=== PATIENT | male | born 1955 | race Caucasian/White ===

== ENCOUNTER 2020-07-31 06:54 | Outpatient (NON) | payer OTHER, SELFPAY ==
[2020-08-01 00:45] LABS: SARS-CoV-2 RNA PCR Negative
== END 2020-07-31 06:55 ==
LOC: ANHCOVIDDT 07:17
PROVIDERS: PCP Emergency Medicine; Visit Provider Emergency Medicine
DX: Z20.828 Contact with and (suspected) exposure to other viral communicable diseases (principal)
CPT/HCPCS: 87635; C9803; U0003

== ENCOUNTER 2021-07-26 20:15 | Observation (INO) | payer OTHER, SELFPAY ==
--- NOTE | ~2021-07-26 | XR_ITS ---
EXAMINATION: XR soft tissue neck EXAM DATE: 07/28/2021 17:33 INDICATION: neck pain, history of prostate CA. TECHNIQUE: Frontal and lateral projections of the neck soft tissue. Comparison is made to prior exam ination from 09/27/2019. FINDINGS: Some prominent opacity overlying the nasopharynx, but prevertebral shadow is identified th rough this and is normal. Could be some kind of technical artifact-I did speak with Summer Ly MD who states patient did not have any sore throat, complaints were more musculoskeletal posteriorly. The odontoid process is intact. The lateral masses of C1 line up with C2. There is mild upper thorac ic levoscoliosis. There is mild to moderate disc disease at C5-6 and 6-7. There is overall mild to mo derate cervical arthropathy. Lung apices are clear. IMPRESSION: 1. Mild to moderate cervical spondylosis. 2. Oropharyngeal soft tissue density which could be something projectional or phasic given absence of symptoms. Consider correlating with direct visualization. Reviewed, dictated and finalized at location A. Y LOOM FIXER IMPRESSION: 1. Mild to moderate cervical spondylosis. 2. Oropharyngeal soft tissue density which could be something projectional or p hasic given absence of symptoms. Consider correlating with direct visualization .
--- NOTE | ~2021-07-26 | MR_ITS ---
EXAMINATION: MR brain/brain stem wo con DATE: 07/28/2021 12:09 INDICATION: Cerebral vascular accident. Left arm numbness. TECHNIQUE: Magnetic resonance imaging (MRI) of the brain and brainstem was performed without intraven ous contrast. Sequences included sagittal and axial T1-weighted FSE, axial diffusion-weighted FS EPI, axial T2*-weighted GRE, axial T2-weighted FLAIR Propeller, and axial T2-weighted Propeller. Apparent diffusion coefficient (ADC) maps were created. COMPARISON: Head CT 07/26/2021 FINDINGS: There is an acute infarct involving the right occipital lobe. There is an acute infarct inv olving the right thalamus. There is no intracranial hemorrhage or abnormal mass lesion. There are sca ttered areas of nonspecific increased T2-weighted signal intensity in the cerebral white matter, whic h is within normal limits for the patient's age. The ventricles are normal in size. The mastoid air c ells are normal. The orbits are normal. There is mucosal thickening in the paranasal sinuses. IMPRESSION: 1. Acute infarcts in the right occipital lobe and right thalamus. Reviewed, dictated and finalized at location A. GHT CLAIM INVESTIGATOR
--- NOTE | ~2021-07-26 | US_ITS ---
EXAMINATION: US carotid duplex BI DATE: 07/28/2021 12:31 INDICATION: Acute infarcts in the right occipital lobe and right thalamus. TECHNIQUE: Grayscale, color Doppler, and pulsed Doppler images of the cervical carotid arteries were obtained. The degree of vessel stenosis is placed in one of the following categories: normal, <50%, 5 0-69%, >=70% but less than near-occlusion, near-occlusion, or total occlusion. Note that percent sten osis relative to normal distal artery lumen diameter is indirectly measured from velocity measurement s as described by John, et al. Radiology 2003; 229:340-346. COMPARISON: None. FINDINGS: RIGHT: The right common carotid artery (CCA) peak systolic velocity (PSV) is 93 cm/s. The right internal car otid artery (ICA) PSV is 110 cm/s. The right ICA end-diastolic velocity (EDV) is 32 cm/s. The right I CA/CCA PSV ratio is 1.2. Grayscale and color Doppler images yield an estimate of <50% diameter reduct ion from plaque in the ICA. There is antegrade flow in the right vertebral artery. LEFT: The left CCA PSV is 128 cm/s. The left ICA PSV is 109 cm/s. The left ICA EDV is 40 cm/s. The left ICA /CCA PSV ratio is 0.9. Grayscale and color Doppler images yield an estimate of <50% diameter reductio n from plaque in the ICA. There is antegrade flow in the left vertebral artery. IMPRESSION: 1. <50% stenosis in the right internal carotid artery. 2. <50% stenosis in the left internal carotid artery. Reviewed, dictated and finalized at location A. HER [employer]
--- NOTE | ~2021-07-26 | CT_ITS ---
EXAMINATION: CT brain wo con DATE: 07/26/2021 21:57 INDICATION: Left arm numbness for 4 days. Unstable gait. TECHNIQUE: Computed tomography (CT) of the head was performed without intravenous contrast. The mA wa s adjusted according to patient size. Iterative reconstruction technique was employed. Exam dose: 60 5.33 mGy-cm total exam DLP. COMPARISON: None FINDINGS: Bilateral carotid siphon internal carotid artery calcifications. There is nonspecific dimin ished attenuation of cerebral white matter, likely due to chronic small vessel ischemic changes. Subacute or old 9.4 x 14.3 mm infarct of the lateral aspect of the right thalamus. No intracranial mass lesion or hemorrhage or cerebrovascular accident is evident otherwise. There is no midline shift or mass effect effect. No subdural or epidural hematoma is detected. There is an old blowout fracture of the medial wall of the left orbit. There is prominent patchy opac ification of ethmoid air cells bilaterally. The mastoid air cells are normally developed and aerated. No fracture or bone destruction of the cranial vault. IMPRESSION: Cerebral atherosclerosis and chronic small vessel ischemic changes of cerebral white mat ter Subacute or old infarct of right thalamus Old blowout fracture of medial wall of left orbit Patchy opacification of bilateral ethmoid air cells Reviewed, dictated and finalized at Location A. Reviewed, dictated and finalized at location A. THETIC LAB TECHNICIAN IMPRESSION: Cerebral atherosclerosis and chronic small vessel ischemic changes of cerebral white matter Subacute or old infarct of right thalamus Old blowout fracture of medial wall of left orbit Patchy opacification of bilateral ethmoid air cells
--- NOTE | ~2021-07-26 | XR_ITS ---
EXAMINATION: XR chest 2V EXAM DATE: 07/28/2021 15:16 INDICATION: Pneumonia, stroke 4 days ago. History COPD. TECHNIQUE: Frontal and lateral projections of the chest obtained and reviewed. Comparison is made to prior examination from 11/21/2014. FINDINGS: Some linear bibasilar scarring or atelectasis. No confluent consolidation, pneumothorax or pleural effusion suspected. Cardiomediastinal silhouette is normal. There are no osseous abnormaliti es identified. IMPRESSION: No acute cardiopulmonary findings. Reviewed, dictated and finalized at location A. E CHANNELER
[2021-07-26 20:20] VITALS: BP 141/91; PULSE 93; RESP 18; TEMP 36.6; O2SAT 97
--- NOTE | 2021-07-26 21:03 | ECG_ITS ---
Measurements Intervals [place] Rate: 81 P: 71 AL: 195 QRS: 70 QRSD: 123 T: 63 QT: 364 QTc: 423 Interpretive Statements SINUS RHYTHM INCOMPLETE RIGHT BUNDLE BRANCH BLOCK BASELINE ARTIFACT- I, II, III, AVR, AVF, V2-V6 BORDERLINE ECG Electronically Signed On 07-27-2021 6:24:42 PATCH PRESS OPERATOR by Delbert Jane D.O.
--- NOTE | 2021-07-26 21:22 | ED.GENADULT ---
HPI - General Adult General Chief complaint: Neuro Symptoms/Deficit Stated complaint: Fall/Weakness Time Seen by Provider: 07/26/21 20:45 Source: patient History of Present Illness HPI narrative: Patient is a 66 y/o male complaining of left arm numbness for last 3 days. He states that he was going to [place] for bow hunting when this started. He was hospitalized there and just discharged yesterday. There is no known alleviating or exacerbating factor. He states that his legs would not work earlier today and he fell, but caught himself. Related Data Allergies Allergy/AdvReac Type Severity Reaction Status Date / Time No Known Allergies Allergy Verified 01/03/18 16:02 Review of Systems Constitutional: Constitutional: Denies chills, Denies fever(s), Denies headache(s) and Denies weakness Eyes: Eyes: Denies blurry vision ENT: Denies headache(s) and Denies neck pain Cardiovascular: Cardiovascular: Denies chest pain and Denies dyspnea Respiratory: Respiratory: Denies cough and Denies dyspnea Gastrointestinal: Gastrointestinal: Denies abdominal pain, Denies diarrhea, Denies nausea and Denies vomiting Genitourinary: Genitourinary: Denies hematuria and Denies dysuria Musculoskeletal: Musculoskeletal: Denies back pain and Denies neck pain Neurologic: Reports abnormal gait, Denies headache(s), Reports numbness, Reports tingling and Denies weakness PMFSH Past Medical History Medical History Hyperlipidemia Social History Social History Smoking status: Current every day smoker Alcohol intake: current Exam Const: General: no acute distress and well developed Orientation/consciousness: oriented to person, oriented to place, oriented to time and patient oriented x3 HENMT: Head: normocephalic Ears: external ears normal General nose exam: Normal external nose present Eyes: General: appearance normal, both eyes and all related structures Conjunctivae: conjunctivae normal Neck: Neck: normal visual inspection and full ROM Chest: Chest palpation & inspection: normal inspection of the chest and no tenderness Resp: Effort & Inspection: normal respiratory effort Auscultation: clear to auscultation bilaterally Cardio: Rate: regular rate Rhythm: regular rhythm GI: GI Palp: No abdominal tenderness and Yes Soft to palpation Skin: General skin exam: normal color and turgor normal Neuro: General: oriented to person, oriented to place, oriented to time and patient oriented x3 Cognition (Neuro): normal cognition Extrem: General: normal to inspection, full ROM and no pedal edema Psych: Appearance: grossly normal Mental Status: mental status grossly normal Affect: normal affect Course Consultations Consultation #1: Discussed with Dr. Olson, who agrees to admit and recommends neurology consult. Date: 07/26/21 Time: 23:40 Vital Signs Vital signs: Vital Signs Temperature 36.6 C 07/26/21 20:20 Pulse Rate 93 07/26/21 20:20 Respiratory Rate 18 07/26/21 20:20 Blood Pressure 141/91 H 07/26/21 20:20 Pulse Oximetry 97 07/26/21 20:20 Temperature 36.6 C 07/26/21 20:20 Pulse Rate 93 07/26/21 20:20 Respiratory Rate 18 07/26/21 20:20 Blood Pressure 141/91 H 07/26/21 20:20 Pulse Oximetry 97 07/26/21 20:20 Medical Decision Making Vital Signs Vital Signs: Vital Signs Temperature 36.6 C 07/26/21 20:20 Pulse Rate 93 07/26/21 20:20 Respiratory Rate 18 07/26/21 20:20 Blood Pressure 141/91 H 07/26/21 20:20 Pulse Oximetry 97 07/26/21 20:20 Temperature 36.6 C 07/26/21 20:20 Pulse Rate 93 07/26/21 20:20 Respiratory Rate 18 07/26/21 20:20 Blood Pressure 141/91 H 07/26/21 20:20 Pulse Oximetry 97 07/26/21 20:20 Lab Data Result diagrams: 07/26/21 21:20 07/26/21 21:20 Labs: Lab Results 07/26/21 07/26/21 07/26/21 Range/Units
[2021-07-26 21:31] LABS: Basophils Absolute Auto 0.1 K/mm3 (0.0-0.1); Basophils Percent Auto 0.8 % (0.2-1.2); Eosinophils Absolute Auto 0.1 K/mm3 (0-0.3); Eosinophils Percent Auto 1.1 % (0-4.4); Hematocrit 44.9 % (42.0-52.0); Hemoglobin 15.1 g/dL (14.0-18.0); Immature Granulocyte Absolute 0.05 K/mm3 (0.00-0.031); Immature Granulocyte Percent A 0.4 % (0-0.5); Lymphocytes Absolute Auto 3.26 K/mm3 (0.9-3.2); Lymphocytes Percent Auto 24.6 % (18.3-44.2); Mean Corpuscular HGB Conc 33.6 g/dl (32-36); Mean Corpuscular Hemoglobin 29.4 pg (26-34); Mean Corpuscular Volume 87.4 fl (80-100); Monocytes Absolute Auto 1.3 K/mm3 (0.1-0.6); Monocytes Percent Auto 9.6 % (2.6-8.5); Neutrophils Absolute Auto 8.4 K/mm3 (1.3-6.7); Neutrophils Percent Auto 63.5 % (45.5-73.1); Platelet Count Result 313 k/mm3 (150-375); Red Blood Count 5.14 M/mm3 (4.6-6.20); Red Cell Distribution Width 12.6 % (11.5-14.5); White Blood Count 13.2 K/mm3 (4.5-10.0)
[2021-07-26 21:34] LABS: Add Urine Microscopic? YES; Appearance Urine Clear (Clear); Bilirubin Urine Negative (Negative); Blood Urine Negative (Negative); Color Urine Yellow (Yellow); Glucose Urine UA Negative (Negative); Ketones Urine Negative (Negative); Leukocyte Esterase Ur Negative LEU/UL (Negative); Nitrate Urine Negative (Negative); Protein Urine 2+ mg/dL (Negative); RBC Urine 0-2 /hpf (0-2); Specific Grav Ur 1.025 (1.001-1.035); Squamous Epithelial Cell Urine Rare /hpf (Few); Urobilinogen Urine Negative mg/dL (<2.0); WBC Urine 0-3 /hpf
[2021-07-26 21:43] LABS: Alanine Aminotransferase 19 U/L (4-50); Albumin Level 4.3 g/dL (3.5-5.1); Alkaline Phosphatase 74 U/L (38-126); Anion Gap 5 mmol/L (8-16); Aspartate Amino Transferase 20 U/L (17-59); Bilirubin,Total 0.2 mg/dL (0.2-1.3); Blood Urea Nitrogen 26 mg/dL (9-20); Calcium 9.2 mg/dL (8.4-10.2); Carbon Dioxide 33 mmol/L (22-30); Chloride 102 mmol/L (98-107); Estimated CRCL calculation 71 ml/min; Estimated Glomerular Filt Rate > 60; Glucose 119 mg/dL (65-110); Potassium 4.3 mmol/L (3.4-5.0); Sodium 140 mmol/L (137-145)
[2021-07-26] MEDS: ASPIRIN 81 MG CHEWABLE TABLET 324 MG PO (23:57)
[2021-07-27] VITALS (12 sets, daily range): BP systolic 118–154; BP diastolic 52–83; PULSE 69–87; RESP 16–18; TEMP 36.3–37.3; O2SAT 95–100; BMI 39.2
--- NOTE | 2021-07-27 01:58 | PC.NURSE ---
This patient, Tc Brown, was admitted to [facility] Surg Room 304-01. Patient/family oriented to hospital policies and general routines including ID bracelet, bed and alarms, visiting hours, pain management, procedures, bathroom and other care routines, personal items, smoking policy, room service/diet, and visiting hours. Information on how to activate the Rapid Response Team has been discussed. Patient/Family are encouraged to report perceived risks to care and to ask questions if they do not understand what they are told or what they should do.
--- NOTE | 2021-07-27 06:59 | PM.IMHP ---
H&P: HPI History of Present Illness Date/Time: 07/27/21 06:59 HPI: Patient is a 66 year-old gentleman with a past medical history including but not limited to HTN, CAD, BPH, COPD, CAD, hepatitis C, pulmonary nodules, currently being evaluated for prostate surgery at [facility]. The patient was in his usual state of health until 3 days prior to presentation. He reports left arm numbness for last 3 days. The numbness if improving, now limited to the hand. He has also experienced numbness of the lips. He states that he was going to [place] for [employer] hunting when this started. He was hospitalized there and just discharged on the day prior to his admission here. There is no known alleviating or exacerbating factor. He states that his legs would not work earlier today and he fell, but caught himself. At the time of my examination, the patient denies any weakness. Chief Complaint: Left arm numbness Review of Systems Review of Systems: All systems reviewed & are unremarkable except as noted in HPI and below Constitutional: Constitutional: Reports as per HPI Eyes: Eyes: Reports as per HPI ENT: Reports as per HPI Cardiovascular: Cardiovascular: Reports as per HPI and Reports no additional cardiovascular complaints Respiratory: Respiratory: Reports as per HPI and Reports no additional respiratory complaints Gastrointestinal: Gastrointestinal: Reports as per HPI and Reports no additional gastrointestinal complaints Genitourinary: Genitourinary: Reports no additional male genitourinary complaints and Reports as per HPI Musculoskeletal: Musculoskeletal: Reports no additional musculoskeletal complaints and Reports as per HPI Integumentary/Breasts: Skin/Breast: Reports system reviewed and no additional complaints, except as docu and Reports as per HPI Neurologic: Reports system reviewed and no additional complaints, except as documented, Reports as per HPI, Denies Abnormal speech present, Denies abnormal gait, Reports confusion, Denies vertigo, Denies headache(s) and Reports numbness Psychiatric: Psychiatric: Reports as per HPI PMFSH Past Medical History Medical History CAD (coronary artery disease) COPD (chronic obstructive pulmonary disease) Hyperlipidemia Obesity Smoker Social History Social History Smoking packs per day: 1.5 Smoking cigarettes per day: 30.0 Years smoked: 30 Smoking pack-years: 45.00 Smoking status: Former smoker Tobacco type: cigarettes Smoking end date: 07/24/21 Alcohol intake: current Substance use: current Substance use type: marijuana Other substance usage details: every day marijuana use Spiritual care concerns: No Meds Home Medications and Allergies Home Medications Medication Instructions Recorded Confirmed Type amlodipine 2.5 mg PO DAILY 07/27/21 07/27/21 History diazepam 5 mg PO HS 07/27/21 07/27/21 History fluoxetine [Prozac] 20 mg PO DAILY 07/27/21 07/27/21 History hydrocodone-acetaminophen 10 - 325 tablet PO Q6-8H PRN 07/27/21 07/27/21 History tamsulosin 0.4 mg PO DAILY 07/27/21 07/27/21 History Allergies Allergy/AdvReac Type Severity Reaction Status Date / Time No Known Allergies Allergy Verified 01/03/18 16:02 Vital Signs Vital Signs - 24 hr 07/26/21 20:20 07/27/21 00:26 07/27/21 01:40 Temperature 97.9 F 97.4 F L Pulse Rate 93 78 75 Respiratory Rate 18 18 18 Blood Pressure 141/91 H 143/83 H 151/78 H Pulse Oximetry 97 100 95 07/27/21 01:41 07/27/21 06:00 Temperature 97.3 F L Pulse Rate 87 80 Respiratory Rate 16 18 Blood Pressure 118/70 Pulse Oximetry 95 Exam Const: General: comfortable and no acute distress HENMT: Mouth: Yes moist mucous membranes Eyes: General: appearance normal, both eyes and all related structures Sclera: sclerae normal Pupils: Equal, round and reactive pupils present Neck: Neck: supple and no JVD Resp: Effort & Inspection: normal respiratory effort Auscu
[2021-07-27 08:10] LABS: Basophils Absolute Auto 0.1 K/mm3 (0.0-0.1); Basophils Percent Auto 0.7 % (0.2-1.2); Eosinophils Absolute Auto 0.2 K/mm3 (0-0.3); Eosinophils Percent Auto 1.5 % (0-4.4); Hematocrit 44.8 % (42.0-52.0); Hemoglobin 15.2 g/dL (14.0-18.0); Immature Granulocyte Absolute 0.04 K/mm3 (0.00-0.031); Immature Granulocyte Percent A 0.3 % (0-0.5); Lymphocytes Absolute Auto 2.93 K/mm3 (0.9-3.2); Lymphocytes Percent Auto 24.3 % (18.3-44.2); Mean Corpuscular HGB Conc 33.9 g/dl (32-36); Mean Corpuscular Volume 85.3 fl (80-100); Mean Platelet Volume 9.4 fl (7.4-10.4); Monocytes Absolute Auto 1.1 K/mm3 (0.1-0.6); Monocytes Percent Auto 9.1 % (2.6-8.5); Neutrophils Absolute Auto 7.7 K/mm3 (1.3-6.7); Neutrophils Percent Auto 64.1 % (45.5-73.1); Platelet Count Result 344 k/mm3 (150-375); Red Blood Count 5.25 M/mm3 (4.6-6.20); Red Cell Distribution Width 12.5 % (11.5-14.5); White Blood Count 12.1 K/mm3 (4.5-10.0)
[2021-07-27 08:30] LABS: Anion Gap 5 mmol/L (8-16); Blood Urea Nitrogen 23 mg/dL (9-20); Calcium 9.2 mg/dL (8.4-10.2); Carbon Dioxide 32 mmol/L (22-30); Chloride 101 mmol/L (98-107); Cholesterol 139 mg/dL (0-200); Estimated CRCL calculation 84 ml/min; Estimated Glomerular Filt Rate > 60; Glucose 107 mg/dL (65-110); HDL Direct 25 mg/dL; Potassium 4.4 mmol/L (3.4-5.0); Sodium 138 mmol/L (137-145); Triglycerides 145 mg/dL (<150)
[2021-07-27 08:41] LABS: LDL Cholesterol Direct 83 mg/dL
[2021-07-27] MEDS: ATORVASTATIN 40 MG TABLET PO (09:10)
[2021-07-27] MEDS: ASPIRIN 81 MG ENTERIC TABLET PO (09:10)
[2021-07-27] MEDS: TAMSULOSIN HCL 0.4 MG CAPSULE PO (09:10)
[2021-07-27] MEDS: FLUoxetine HCL 20 MG CAPSULE PO (09:10)
[2021-07-27] MEDS: HYDROcodone/acetaminophen (*CRX) 10-325 MG TABLET 1 TAB PO (14:33)
--- NOTE | 2021-07-27 16:49 | WPDNEURCNPN ---
Assessment and Plan Additional Plan complaint of left-sided numbness with unstable gait and documented negative CT scan of the head, will need MRI of the brain and Doppler study of the carotid to rule out the possible subcortical stroke and also large vessel disease addition to echocardiogram Consult date: 07/27/21 HPI: Tc Brown is a 66 year old male admitted to the hospital for the complaints of numbness of the left upper extremity of 72 hours duration in addition to the history of hospitalization while he was going to [place] discharged yesterday, patient is currently everyday smoker, initial CT scan documented subacute or old infarct the right thalamus and old blowout fracture of the medial wall of left orbit, x-rays of thoracic lumbar cervical spine are compatible with spondylosis and evaluation up until now revealed him to have leukocytosis and CBC, normal electrolytes normal hepatic enzymes, and 2+ protein urea Review of Systems Review of Systems: All systems reviewed & are unremarkable except as noted in HPI and below PMFSH Past Medical History Medical History Hyperlipidemia Social History Social History Smoking packs per day: 1.5 Smoking cigarettes per day: 30.0 Years smoked: 30 Smoking pack-years: 45.00 Smoking status: Former smoker Tobacco type: cigarettes Smoking end date: 07/24/21 Alcohol intake: current Substance use: current Substance use type: marijuana Other substance usage details: every day marijuana use Spiritual care concerns: No Meds Home Medications and Allergies Home Medications Medication Instructions Recorded Confirmed Type amlodipine 2.5 mg PO DAILY 07/27/21 07/27/21 History diazepam 5 mg PO HS 07/27/21 07/27/21 History fluoxetine [Prozac] 20 mg PO DAILY 07/27/21 07/27/21 History hydrocodone-acetaminophen 10 - 325 tablet PO Q6-8H PRN 07/27/21 07/27/21 History tamsulosin 0.4 mg PO DAILY 07/27/21 07/27/21 History Allergies Allergy/AdvReac Type Severity Reaction Status Date / Time No Known Allergies Allergy Verified 01/03/18 16:02 Vital Signs Vital Signs - 24 hr 07/26/21 20:20 07/27/21 00:26 07/27/21 01:40 Temperature 36.6 C 36.3 C L Pulse Rate 93 78 75 Respiratory Rate 18 18 18 Blood Pressure 141/91 H 143/83 H 151/78 H Pulse Oximetry 97 100 95 07/27/21 01:41 07/27/21 06:00 07/27/21 08:00 Temperature 36.3 C L Pulse Rate 87 80 80 Respiratory Rate 16 18 Blood Pressure 118/70 Pulse Oximetry 95 07/27/21 12:00 07/27/21 14:00 Temperature 36.6 C Pulse Rate 80 85 Respiratory Rate 18 Blood Pressure 154/60 H Pulse Oximetry 97 Exam Narrative: examination revealed him to be awake alert cooperative in no obvious acute distress head normocephalic with no cranial bruit ear nose throat examination normal neck is supple with no cervical bruit no thyromegaly no lymphadenopathy heart regular with no murmur lungs clear to auscultation with no rhonchi or crepitations abdomen is soft with no organomegaly neurological examination revealed him to have normal mental status normal speech pupils round regular feels the vision full extraocular movement full face symmetrical tongue midline motor examination revealed him to have normal strength and tone reflexes symmetrical plantars downgoing no evidence of gross sensory or cerebellar defici Results Labs CBC & Chem 7: 07/27/21 07:17 07/27/21 07:17 Labs: Short CBC 07/26/21 07/27/21 Range/Units 21:20 07:17 WBC 13.2 H 12.1 H (4.5-10.0) K/mm3 Hgb 15.1 15.2 (14.0-18.0) g/dL Hct 44.9 44.8 (42.0-52.0) % Plt Count 313 344 (150-375) k/mm3 [facility] 07/26/21 07/27/21 21:20 07:17 Sodium 140 138 Potassium 4.3 4.4 Chloride 102 101 Carbon Dioxide 33 H 32 H BUN 26 H 23 H Creatinine 1.20 1.00 Glucose 119 H 107 Calcium 9.2 9.2 Liver Fu
[2021-07-27] MEDS: diazePAM (*CRX) 5 MG TABLET PO (20:43)
--- NOTE | 2021-07-27 22:15 | ECG_ITS ---
Measurements Intervals [place] Rate: 72 P: 71 [place]: 188 QRS: 71 QRSD: 122 T: 64 QT: 378 QTc: 416 Interpretive Statements SINUS RHYTHM RIGHT BUNDLE BRANCH BLOCK BASELINE ARTIFACT- I, II, III, AVR ABNORMAL ECG Electronically Signed On 07-28-2021 5:53:18 BUSINESS ETHICS PROFESSOR by Delbert Jane D.O.
[2021-07-27 23:00] LABS: Troponin I < 0.012 ng/mL (0.000-0.034)
[2021-07-28] VITALS (8 sets, daily range): BP systolic 123–153; BP diastolic 62–71; PULSE 70–87; RESP 18; TEMP 36.4–37.8; O2SAT 94–98
--- NOTE | 2021-07-28 01:06 | PC.NURSE ---
at 2205 on 07/27 pt used call light to let nurse he felt funny . pt was diaphoretic at this time. pt c/o chest tightness and numbness in both arms. Nurse obtained vitals and did neuro assessment. vitals and neuro assessment was WNL besides numb feeling on bilat arms. Nurse called Gladys Simon at 2214 to report pt situation. Gladys ordered STAT EKG and a STAT Troponin baseline, then timed 3 hour and 6 hour lab draw. Troponin level and EKG is WNL at this time. Pt is no longer diaphoretic. Will continue to monitor
[2021-07-28 02:39] LABS: Troponin I < 0.012 ng/mL (0.000-0.034)
[2021-07-28 05:43] LABS: Basophils Absolute Auto 0.1 K/mm3 (0.0-0.1); Basophils Percent Auto 0.7 % (0.2-1.2); Eosinophils Absolute Auto 0.2 K/mm3 (0-0.3); Eosinophils Percent Auto 1.6 % (0-4.4); Hematocrit 43.9 % (42.0-52.0); Hemoglobin 14.9 g/dL (14.0-18.0); Immature Granulocyte Absolute 0.04 K/mm3 (0.00-0.031); Immature Granulocyte Percent A 0.3 % (0-0.5); Lymphocytes Absolute Auto 2.81 K/mm3 (0.9-3.2); Lymphocytes Percent Auto 23.7 % (18.3-44.2); Mean Corpuscular HGB Conc 33.9 g/dl (32-36); Mean Corpuscular Hemoglobin 29.4 pg (26-34); Mean Corpuscular Volume 86.8 fl (80-100); Mean Platelet Volume 9.2 fl (7.4-10.4); Monocytes Absolute Auto 1.1 K/mm3 (0.1-0.6); Monocytes Percent Auto 9.1 % (2.6-8.5); Neutrophils Absolute Auto 7.7 K/mm3 (1.3-6.7); Neutrophils Percent Auto 64.6 % (45.5-73.1); Platelet Count Result 306 k/mm3 (150-375); Red Blood Count 5.06 M/mm3 (4.6-6.20); Red Cell Distribution Width 12.4 % (11.5-14.5); White Blood Count 11.9 K/mm3 (4.5-10.0)
[2021-07-28 05:58] LABS: Anion Gap 8 mmol/L (8-16); Blood Urea Nitrogen 18 mg/dL (9-20); Carbon Dioxide 30 mmol/L (22-30); Chloride 100 mmol/L (98-107); Estimated CRCL calculation 93 ml/min; Estimated Glomerular Filt Rate > 60; Glucose 109 mg/dL (65-110); Potassium 4.1 mmol/L (3.4-5.0); Sodium 138 mmol/L (137-145)
[2021-07-28 06:10] LABS: Troponin I < 0.012 ng/mL (0.000-0.034)
[2021-07-28] MEDS: FLUoxetine HCL 20 MG CAPSULE PO (08:20)
[2021-07-28] MEDS: TAMSULOSIN HCL 0.4 MG CAPSULE PO (08:20)
[2021-07-28] MEDS: ASPIRIN 81 MG ENTERIC TABLET PO (08:20)
[2021-07-28] MEDS: ATORVASTATIN 40 MG TABLET PO (08:20)
[2021-07-28] MEDS: DICLOFENAC SODIUM 1% 100 GM GEL (*BKC) 1 APPLIC TOPICAL (08:20)
--- NOTE | 2021-07-28 13:45 | PM.IMPN ---
Progress Note: A&P Assessment and Plan (1) Left sided numbness: Code(s): R20.0 - Anesthesia of skin Status: Acute Assessment and Plan: Patient is a 66 year-old gentleman with risk factors including but not limited to HTN , CAD, obesity, former smoker, prostate cancer(scheduled for radical prostatectomy at [facility], Dr Victorina Flores) who presents with rapid onset of focal neurologic deficit. His deficit is localized to a single territory strongly suggesting an acute ischemic stroke. Head CT suggests a subacute or old right thalamic infarct. BRain MRI confirms initial suspicion after revealing acute infarcts in the right occipital lobe and right thalamus. Continue antiplatelet with ASA 81 mg PO daily. Start plavix 75 mg PO daily. The patient has been appropriately treated with antiplatelet, statin, and permissive hypertension. Continue cardiac monitoring and close neurologic monitoring. Echocardiogram has been ordered and the result is pending at the time of this dictation. (2) Obesity: Code(s): E66.9 - Obesity, unspecified Status: Acute Assessment and Plan: Continue diet and exercise (3) Hypertension: Code(s): I10 - Essential (primary) hypertension Status: Acute Assessment and Plan: Hold amlodipine to preserve the penumbra. (4) BPH (benign prostatic hyperplasia): Code(s): N40.0 - Benign prostatic hyperplasia without lower urinary tract symptoms Status: Acute Assessment and Plan: currently no acute obstructive symptoms. Patient being evaluated for prostate surgery. (5) Smoker: Code(s): F17.200 - Nicotine dependence, unspecified, uncomplicated Status: Acute Assessment and Plan: Patient counselled to quit. Nicotine patch PRN. (6) Prostate cancer: Code(s): C61 - Malignant neoplasm of prostate Status: Acute Assessment and Plan: Currently scheduled for elective prostatectomy at [facility] it was occurring. Full informed surgeon from current diagnosis would just surgical schedule. (7) Fever: Code(s): R50.9 - Fever, unspecified Status: Acute Assessment and Plan: Patient spiked a mild fever. WBC stable. Vital signs are stable. There is no obvious source of infection. Will send a urinalysis and a chest x-ray. Give Tylenol 1 g stat to preserve the penumbra. Encourage incentive spirometry. Subjective Date/time seen: 07/28/21 09:45 S: Patient is examined at the bedside. The numbness of his left hand paresis. He is observed ambulating in the hallways. He denies any active complaint. Patient is scheduled to have radical prostatectomy for prostate cancer at [facility] on [address] Davion Flores. We will attempt about contacting the specialist to inform him about the the patient current diagnosis for scheduling purposes Review of Systems Review of Systems: All systems reviewed & are unremarkable except as noted in HPI and below Constitutional: Constitutional: Reports as per HPI and Reports no additional constitutional complaints Eyes: Eyes: Reports as per HPI and Reports no additional eye complaints ENT: Reports system reviewed and no additional complaints, except as documented and Reports as per HPI Cardiovascular: Cardiovascular: Reports as per HPI and Reports no additional cardiovascular complaints Respiratory: Respiratory: Reports as per HPI and Reports no additional respiratory complaints Gastrointestinal: Gastrointestinal: Reports as per HPI and Reports no additional gastrointestinal complaints Genitourinary: Genitourinary: Reports no additional male genitourinary complaints and Reports as per HPI Musculoskeletal: Musculoskeletal: Reports no additional musculoskeletal complaints and Reports as per HPI Integumentary/Breasts: Skin/Breast: Reports system reviewed and no additional complaints, except as docu Neurologic: Denies Neuro-related abnormal movements, Otilio
[2021-07-28] MEDS: ACETAMINOPHEN 500 MG TABLET 1000 MG PO (14:56)
--- NOTE | 2021-07-28 15:08 | PC.NURSE ---
to xray per wheelchair
[2021-07-28] MEDS: CLOPIDOGREL BISULFATE 75 MG TABLET PO (16:34)
[2021-07-28 17:50] LABS: Prothrombin Time 12.8 Seconds (11.1-14.7)
[2021-07-28] MEDS: diazePAM (*CRX) 5 MG TABLET PO (21:26)
[2021-07-29] VITALS: PULSE 98
[2021-07-29 04:00] VITALS: PULSE 71
[2021-07-29 06:00] VITALS: BP 134/75; PULSE 90; RESP 18; TEMP 36.4; O2SAT 95
[2021-07-29 06:58] LABS: Anion Gap 8 mmol/L (8-16); Blood Urea Nitrogen 22 mg/dL (9-20); Carbon Dioxide 29 mmol/L (22-30); Chloride 101 mmol/L (98-107); Estimated CRCL calculation 93 ml/min; Estimated Glomerular Filt Rate > 60; Glucose 101 mg/dL (65-110); Sodium 138 mmol/L (137-145)
[2021-07-29 08:00] VITALS: PULSE 100
[2021-07-29] MEDS: CLOPIDOGREL BISULFATE 75 MG TABLET PO (09:04)
[2021-07-29] MEDS: TAMSULOSIN HCL 0.4 MG CAPSULE PO (09:04)
[2021-07-29] MEDS: ASPIRIN 81 MG ENTERIC TABLET PO (09:04)
[2021-07-29] MEDS: FLUoxetine HCL 20 MG CAPSULE PO (09:04)
[2021-07-29] MEDS: ATORVASTATIN 40 MG TABLET PO (09:04)
[2021-07-29 09:45] LABS: Add Urine Microscopic? YES; Appearance Urine Clear (Clear); Bilirubin Urine Negative (Negative); Blood Urine Negative (Negative); Color Urine Yellow (Yellow); Glucose Urine UA Negative (Negative); Ketones Urine Negative (Negative); Leukocyte Esterase Ur Negative LEU/UL (NEGATIVE); Mucus Urine Rare /lpf; Nitrate Urine Negative (Negative); Protein Urine 2+ mg/dL (Negative); RBC Urine 0-2 /hpf (0-2); Specific Grav Ur 1.017 (1.001-1.035); Squamous Epithelial Cell Urine Rare /hpf (Few); Urobilinogen Urine Negative mg/dL (<2.0); WBC Urine 0-3 /hpf (0-3)
[2021-07-29 12:00] VITALS: PULSE 100
--- NOTE | 2021-07-29 12:42 | PM.DS ---
DS: Admitting Diagnosis Discharge Date 07/29/2021 Admitting Diagnosis Acute ischemic CVA DS: Discharge Diagnosis Discharge Diagnosis (1) Left sided numbness: Code(s): R20.0 - Anesthesia of skin Status: Acute Assessment and Plan: Patient is a 66 year-old gentleman with risk factors including but not limited to HTN , CAD, obesity, former smoker, prostate cancer(scheduled for radical prostatectomy at [facility], Dr Victorina Flores) who presents with rapid onset of focal neurologic deficit. His deficit is localized to a single territory strongly suggesting an acute ischemic stroke. Head CT suggests a subacute or old right thalamic infarct. [facility] MRI confirms initial suspicion after revealing acute infarcts in the right occipital lobe and right thalamus. Continue antiplatelet with ASA 81 mg PO daily. Start plavix 75 mg PO daily. The patient has been appropriately treated with antiplatelet, statin, and permissive hypertension. Continue cardiac monitoring and close neurologic monitoring. Echocardiogram has been ordered and the result is pending at the time of this dictation. (2) Obesity: Code(s): E66.9 - Obesity, unspecified Status: Acute Assessment and Plan: Continue diet and exercise (3) Hypertension: Code(s): I10 - Essential (primary) hypertension Status: Acute Assessment and Plan: After discussion with the patient, although he carries a diagnosis of chronic hypertension, he has not been on antihypertensive medication over the last 2 months. He has not been on any antihypertensive throughout this admission maintaining blood pressure below 140/90 gold. Patient was instructed to check his blood pressure daily and follow up with his primary provider Dr. Molina. (4) BPH (benign prostatic hyperplasia): Code(s): N40.0 - Benign prostatic hyperplasia without lower urinary tract symptoms Status: Acute Assessment and Plan: currently no acute obstructive symptoms. Patient being evaluated for prostate surgery. (5) Smoker: Code(s): F17.200 - Nicotine dependence, unspecified, uncomplicated Status: Acute Assessment and Plan: Patient counselled to quit. Nicotine patch PRN. (6) Prostate cancer: Code(s): C61 - Malignant neoplasm of prostate Status: Acute Assessment and Plan: Currently scheduled for elective prostatectomy at [facility] it was occurring. Full informed surgeon from current diagnosis would just surgical schedule. (7) Fever: Code(s): R50.9 - Fever, unspecified Status: Acute Assessment and Plan: Patient spiked a mild fever. WBC stable. Vital signs are stable. There is no obvious source of infection. Will send a urinalysis and a chest x-ray. Give Tylenol 1 g stat to preserve the penumbra. Encourage incentive spirometry. Chest x-ray was unrevealing. Blood culture remained negative at the time of discharge. (8) Neck pain: Code(s): M54.2 - Cervicalgia Status: Acute Assessment and Plan: Patient was treated for new onset posterior neck pain. There was no tingling of the fingers. Next x-ray shows arthritic changes. Patient was treated with a combination of oral Tylenol and topical diclofenac. DS: Summary Hospital Course Reason for hospitalization: Left hand numbness, numbness of the lips. Hospital Course: Please refer to admission H& P. Briefly, patient is a 66 year-old gentleman with a past medical history including but not limited to HTN, CAD, BPH, COPD, CAD, hepatitis C, pulmonary nodules, chronic smoker, morbid obesity, currently scheduled for radical prostatectomy for advanced stage IV prostate cancer at [place]. The patient was in his usual state of health until 3 days prior to presentation. He reports left arm numbness for last 3 days. The numbness if improving, now limited to the hand. He has also experienced numbness of the lips. He states that he was going to [place] for joana
== END 2021-07-29 13:49 | disposition home or self-care (01) ==
LOC: ANHED 23:56 → ANH3MEDSUR 07-27 16:24
PROVIDERS: Nurse Practitioner; Admitting Provider Internal Medicine; Emergency Provider Emergency Medicine; PCP Emergency Medicine; Visit Provider Internal Medicine
DX: G81.94 Hemiplegia, unspecified affecting left nondominant side (principal); I63.9 Cerebral infarction, unspecified; C61 Malignant neoplasm of prostate; I10 Essential (primary) hypertension; I25.10 Atherosclerotic heart disease of native coronary artery without angina pectoris; J44.9 Chronic obstructive pulmonary disease, unspecified; B19.20 Unspecified viral hepatitis C without hepatic coma; E66.9 Obesity, unspecified; N40.0 Benign prostatic hyperplasia without lower urinary tract symptoms; R50.9 Fever, unspecified; M54.2 Cervicalgia; Z68.39 Body mass index [BMI] 39.0-39.9, adult; Z87.891 Personal history of nicotine dependence
CPT/HCPCS: 36415; 70360; 70450; 70551; 71046; 80048; 80053; 80061; 81001; 84484; 85025; 85610; 87086; 93005; 93306; 93880; 99285; A9270; G0378; G0379

== ENCOUNTER 2021-10-12 12:47 | Outpatient (CLI) | payer OTHER, SELFPAY | END 2021-10-12 12:48 | disposition home or self-care (01) | LOC: ANHAUDIO 12:48 | PROVIDERS: PCP Emergency Medicine; Visit Provider Otolaryngology | DX: H90.3 Sensorineural hearing loss, bilateral (principal) | CPT/HCPCS: 92557; 92567 ==

== ENCOUNTER 2021-10-29 13:36 | Outpatient (CLI) | payer OTHER, SELFPAY ==
--- NOTE | ~2021-10-29 | US_ITS ---
EXAMINATION: US renal BI EXAM DATE: 10/29/2021 14:13 INDICATION: Acute pyelonephritis. TECHNIQUE: Multiple grayscale and Doppler images of the kidneys were obtained (by a technologist who performed the scan) and subsequently reviewed. Comparison is made to prior examination from 10/03/2015 . FINDINGS: Right kidney: There is normal contour and echogenicity. It measures 10.8 x 5.4 x 5.3 centimeters. T here are no focal renal lesions identified. There is no hydronephrosis. Left kidney: There is normal contour and echogenicity. It measures 13.3 x 4.8 x 6.7 centimeters. The re is a 1.7 cm cyst. There is no hydronephrosis. Bladder unremarkable. IMPRESSION: 1. Sonographically unremarkable kidneys. Reviewed, dictated and finalized at location B. CHANGER
== END 2021-10-29 13:37 | disposition home or self-care (01) ==
PROVIDERS: PCP Emergency Medicine; Visit Provider Emergency Medicine
DX: N10 Acute pyelonephritis (principal)
CPT/HCPCS: 76775

== ENCOUNTER 2021-12-21 09:13 | Outpatient (CLI) | payer OTHER, SELFPAY ==
--- NOTE | ~2021-12-21 | NM_ITS ---
EXAMINATION: NM augusta stress w perfusion DATE: 12/21/2021 12:11 INDICATION: Dyspnea on exertion. TECHNIQUE: Rest images were obtained following intravenous administration of 11.3 mCi Tc99m tetrofosm in (Myoview). The patient was infused intravenously with Lexiscan (regadenoson). Then, 35 mCi Tc99m t etrofosmin (Myoview) was administered intravenously, and supine and prone stress images were obtained . Data was reconstructed into short axis and horizontal and vertical long axis SPECT images. Gated SP ECT images were also obtained. COMPARISON: None. FINDINGS: There is a small, mild, fixed perfusion defect involving mid inferior and mid inferolateral segments of left ventricle, consistent with infarct. No reversible component to suggest ischemia. T here is no segmental wall motion abnormality. Left ventricular ejection fraction measures 68%. IMPRESSION: 1. Small area of mild infarct involving mid inferior and mid inferolateral segments of left ventricle . 2. Normal left ventricular ejection fraction measuring 68%. Reviewed, dictated and finalized at location A. IMPRESSION: 1. Small area of mild infarct involving mid inferior and mid inferolateral segm ents of left ventricle. 2. Normal left ventricular ejection fraction measuring 68%.
--- NOTE | 2021-12-21 09:34 | EST_ITS ---
Patient Info Name: Tc Brown Age: 66 years : 1955 Gender: Male Ht: 69 in Wt: 273 lbs BSA: 2.51 m2 HR: 69 bpm BP: 138 / 71 mmHg Heart Rhythm: Sinus Rhythm Exam Date: 12/21/2021 10:57 AM Exam Location: [facility] Patient Status: Outpatient Admit Date: 12/21/2021 Staff Ordering Physician: Delbert Jane DO Attending Provider: Delbert Jane DO Exercise Technologist: Augustina Mueller CT Exercise Physician: Delbert Jane DO Exam Type: CA stress augusta w NM Study Info Indications R06.02 - Shortness of breath A regadenoson stress test was performed. Summary 1. 1. Negative lexiscan stress test for ischemic ST changes by ECG criteria. 2. 2. Stable hemodynamics throughout the test. 3. 3. Nuclear scan to follow and will be reported separately. Please correlate with it. 4. 4. Patient informed of the above results. Protocol: Lexiscan Stress ECG Details Stage: REST Duration (min): 1 min : 6 sec HR (bpm): 70 SBP (mmHg): 138 DBP (mmHg): 71 Stage: REST Duration (min): 8 min : 27 sec HR (bpm): 71 SBP (mmHg): 138 DBP (mmHg): 71 Stage: STAGE 1 Duration (min): 0 min : 59 sec HR (bpm): 82 SBP (mmHg): 131 DBP (mmHg): 64 Stage: RECOVERY Duration (min): 1 min : 0 sec HR (bpm): 94 SBP (mmHg): 131 DBP (mmHg): 64 Stage: RECOVERY Duration (min): 2 min : 0 sec HR (bpm): 91 SBP (mmHg): 131 DBP (mmHg): 64 Stage: RECOVERY Duration (min): 2 min : 37 sec HR (bpm): 88 SBP (mmHg): 145 DBP (mmHg): 69 Rest HR: 71 bpm Peak HR: 95 bpm Rest Sys BP: 138 mmHg Peak Sys BP: 145 mmHg Max Pred HR: 156 bpm % Max Pred HR: 61 % Target HR: 133 bpm Max RPP: 13,775 bpm*mmHg Termination Reason: Completed protocol Cardiac Symptoms: Shortness of breath Total Time: 1 min : 0 sec Rest Islas BP: 71 mmHg Peak Islas BP: 69 mmHg Total Dose: 0.4 mg Resting ECG Sinus rhythm, IRBBB. Stress ECG No ST changes. Arrhythmias None. Report Signatures
== END 2021-12-21 09:14 | disposition home or self-care (01) ==
PROVIDERS: PCP Emergency Medicine; Visit Provider Internal Medicine Cardiovascular Disease
DX: R06.00 Dyspnea, unspecified (principal)
CPT/HCPCS: 78452; 93017; A9502; J2785

== ENCOUNTER 2022-05-29 15:05 | Emergency (ER) | payer OTHER, SELFPAY ==
--- NOTE | ~2022-05-29 | CT_ITS ---
EXAMINATION: CT brain wo con DATE: 05/29/2022 16:29 INDICATION: Dizziness . TECHNIQUE: Computed tomography (CT) of the head was performed without intravenous contrast. The mA wa s adjusted according to patient size. Iterative reconstruction technique was employed. The dose-lengt h product was 605.33 mGy-cm. COMPARISON: 07/26/2021 FINDINGS: No acute intracranial hemorrhage or extra-axial fluid collection. No hydrocephalus, mass, or herniation. No acute ischemic infarct. Unremarkable dural venous sinus attenuation. No acute osseous abnormality. Old left medial orbital wall fracture. Ethmoid air cell mucosal thickening, otherwise the remaining aerated spaces are clear. Atherosclerotic intracranial calcification. Old right thalamic infarct. IMPRESSION: No acute intracranial process. Reviewed, dictated and finalized at location K.
--- NOTE | ~2022-05-29 | XR_ITS ---
EXAMINATION: XR chest 1V portable Exam Date/Time: 05/29/2022 16:15 CDT HISTORY: dizziness x 1 day hx cad, copd, smoker, pancreatic cancer Comparison: 07/28/2021. RESULT: Lines, tubes, and devices: None. Lungs and pleura: Clear. Cardiomediastinal silhouette: Stable. Other: No acute osseous or upper abdominal finding. IMPRESSION: No acute cardiopulmonary process. Reviewed, dictated and finalized at location K.
[2022-05-29 15:35] VITALS: BP 118/66; PULSE 75
[2022-05-29 15:36] VITALS: BP 106/63; BP 120/98; PULSE 75; PULSE 81; RESP 18; TEMP 37; O2SAT 96
[2022-05-29 15:37] VITALS: BP 120/98; PULSE 90
[2022-05-29 15:43] VITALS: PULSE 78
--- NOTE | 2022-05-29 15:46 | ECG_ITS ---
Measurements Intervals Gunter Rate: 79 P: 62 MD: 201 QRS: 69 QRSD: 114 T: 60 QT: 373 QTc: 429 Interpretive Statements SINUS RHYTHM INCOMPLETE RIGHT BUNDLE BRANCH BLOCK BASELINE ARTIFACT- I, II, III, AVR, AVL, AVF, V1-V6 BORDERLINE ECG COMPARED TO ECG 07/27/2021 22:24:08 NO SIGNIFICANT CHANGES Electronically Signed On 05-29-2022 21:34:57 CDT by Delbert Jane D.O.
[2022-05-29 15:58] LABS: Basophils Percent Auto 0.5 % (0.2-1.2); Eosinophils Absolute Auto 0.3 K/mm3 (0-0.3); Eosinophils Percent Auto 4.4 % (0-4.4); Hematocrit 37.1 % (42.0-52.0); Hemoglobin 12.8 g/dL (14.0-18.0); Immature Granulocyte Absolute 0.02 K/mm3 (0.00-0.031); Immature Granulocyte Percent A 0.4 % (0-0.5); Lymphocytes Absolute Auto 0.68 K/mm3 (0.9-3.2); Mean Corpuscular HGB Conc 34.5 g/dl (32-36); Mean Corpuscular Hemoglobin 29.4 pg (26-34); Mean Corpuscular Volume 85.3 fl (80-100); Mean Platelet Volume 8.6 fl (7.4-10.4); Monocytes Absolute Auto 0.7 K/mm3 (0.1-0.6); Monocytes Percent Auto 11.6 % (2.6-8.5); Neutrophils Absolute Auto 4.1 K/mm3 (1.3-6.7); Neutrophils Percent Auto 71.1 % (45.5-73.1); Platelet Count Result 282 k/mm3 (150-375); Red Blood Count 4.35 M/mm3 (4.6-6.20); Red Cell Distribution Width 13.2 % (11.5-14.5); White Blood Count 5.7 K/mm3 (4.5-10.0)
--- NOTE | 2022-05-29 16:11 | ED.DIZZY ---
HPI - Dizziness General Chief Complaint: Dizziness Stated Complaint: lightheadness Time Seen by Provider: 05/29/22 15:32 Source: patient Mode of arrival: ambulatory Limitations: no limitations History of Present Illness HPI Narrative: Patient is 67 years old white male drove himself to the hospital complaining of intermittent lightheadedness/dizziness since yesterday 11 AM. Patient was bending over to manage his lawn more and then got up suddenly and felt oozing and lightheadedness which lasted for few minutes and then resolved. Patient got up from bed this morning with the same symptoms, resolved sitting still or laying down still. Currently patient have no symptoms, laying down in bed, complaining of left sciatica discomfort which is chronic. He denies any fever, chills, nausea, vomiting, chest pain, shortness of breath, headache, focal neurodeficit. History of CVA July 2021, with some weakness, cold feeling of the left hand and numbness of the whole mouth. Patient is telling me that he is scheduled on June 10 at [facility] to do some imaging of the back of his brain and neck. History of prostatic cancer, last radiation therapy was last month. Related Data Home Medications Medication Instructions Recorded Confirmed diazepam 5 mg tablet 5 mg PO HS 07/27/21 03/18/22 fluoxetine 20 mg capsule (Prozac) 20 mg PO DAILY 07/27/21 03/18/22 hydrocodone 10 mg-acetaminophen 10 - 325 tablet PO Q6-8H PRN Pain 07/27/21 03/18/22 325 mg tablet tamsulosin 0.4 mg capsule 0.4 mg PO DAILY 07/27/21 03/18/22 umeclidinium 62.5 mcg/actuation 1 inh inhalation DIRECTED 07/28/21 03/18/22 blister powder for inhalation (Incruse Ellipta) finasteride 5 mg tablet 5 mg PO DAILY 03/18/22 03/18/22 Allergies Allergy/AdvReac Type Severity Reaction Status Date / Time No Known Allergies Allergy Verified 03/18/22 10:01 Review of Systems Review of Systems: All systems reviewed & are unremarkable except as noted in HPI and below PMFSH Past Medical History Medical History CAD (coronary artery disease) COPD (chronic obstructive pulmonary disease) Hyperlipidemia Obesity Smoker Social History Social History Smoking packs per day: 1.5 Smoking cigarettes per day: 30.0 Years smoked: 30 Smoking pack-years: 45.00 Smoking status: Never smoker Tobacco type: cigarettes Smoking end date: 07/24/21 Alcohol intake: current Substance use: current Substance use type: marijuana Other substance usage details: every day marijuana use Spiritual care concerns: No Exam Narrative: General appearance: Well-developed, well-nourished Skin: Normal color Head: Normocephalic, nontraumatic Eyes: Clear conjunctiva ENT: Oropharynx normal, ears normal, nose normal Neck: Supple, nontender Chest and respiratory: Airway patent, no respiratory distress, no accessory muscle use Heart: Regular rate/rhythm Abdomen: Soft, nontender, no organomegaly, quiet bowel sounds Vascular: Normal peripheral pulses, normal capillary refill. 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 Currently is asymptomatic. Patient is already on aspirin and Plavix. Work-up today showed no significant finding to explain patient condition, he is not orthostatic, CAT scan did not show any significant abnormalities. No s
[2022-05-29 16:13] LABS: Alanine Aminotransferase 22 U/L (6-50); Albumin Level 3.8 g/dL (3.5-5.1); Alkaline Phosphatase 90 U/L (38-126); Anion Gap 8 mmol/L (8-16); Anion Gap 9 mmol/L (8-16); Aspartate Amino Transferase 22 U/L (17-59); Bilirubin,Total 0.3 mg/dL (0.2-1.3); Blood Urea Nitrogen 18 mg/dL (9-20); Blood Urea Nitrogen 19 mg/dL (9-20); Calcium 8.8 mg/dL (8.4-10.2); Calcium 8.9 mg/dL (8.4-10.2); Carbon Dioxide 28 mmol/L (22-30); Chloride 100 mmol/L (98-107); Chloride 101 mmol/L (98-107); Estimated CRCL calculation 77 ml/min; Estimated Glomerular Filt Rate > 60; Glucose 114 mg/dL (65-110); Potassium 4.3 mmol/L (3.4-5.0); Sodium 137 mmol/L (137-145)
[2022-05-29 16:22] LABS: Troponin I < 0.012 ng/mL (0.000-0.034)
[2022-05-29 16:32] LABS: INR 1.1; Prothrombin Time 13.5 Seconds (11.1-14.7)
[2022-05-29 16:33] LABS: Partial Thromboplastin Time 28.9 SECONDS (22.3-36.8)
[2022-05-29 16:50] LABS: Appearance Urine Clear (Clear); Bilirubin Urine Negative (Negative); Blood Urine Negative (Negative); Color Urine Yellow (Yellow); Glucose Urine UA Negative (Negative); Ketones Urine Negative (Negative); Leukocyte Esterase Ur Negative LEU/UL (Negative); Nitrate Urine Negative (Negative); Protein Urine 1+ mg/dL (Negative); Specific Grav Ur 1.025 (1.001-1.035); Urobilinogen Urine 0.2 mg/dL (<2.0); pH Urine 5.5 (5.0-9.0)
[2022-05-29 16:53] LABS: RBC Urine 0-2 /hpf (0-2); WBC Urine 0-3 /hpf
[2022-05-29 16:55] LABS: Add Urine Microscopic? YES
[2022-05-29 17:44] VITALS: BP 120/76; PULSE 75; RESP 20; O2SAT 97
== END 2022-05-29 17:47 | disposition home or self-care (01) ==
PROVIDERS: Emergency Provider Emergency Medicine; PCP Emergency Medicine
DX: R42 Dizziness and giddiness (principal); C61 Malignant neoplasm of prostate; I25.10 Atherosclerotic heart disease of native coronary artery without angina pectoris; J44.9 Chronic obstructive pulmonary disease, unspecified; E78.5 Hyperlipidemia, unspecified; E66.9 Obesity, unspecified; Z68.33 Body mass index [BMI] 33.0-33.9, adult; Z87.891 Personal history of nicotine dependence; F12.90 Cannabis use, unspecified, uncomplicated; Z79.82 Long term (current) use of aspirin; Z79.02 Long term (current) use of antithrombotics/antiplatelets; R29.700 NIHSS score 0; Z86.73 Personal history of transient ischemic attack (TIA), and cerebral infarction without residual deficits; Z79.51 Long term (current) use of inhaled steroids
CPT/HCPCS: 36415; 70450; 71045; 80048; 80053; 81001; 84484; 85025; 85610; 85730; 93005; 99284

== ENCOUNTER 2022-11-15 10:27 | Emergency (ER) | payer OTHER, SELFPAY ==
--- NOTE | ~2022-11-15 | CT_ITS ---
EXAMINATION: CT brain wo con DATE: 11/15/2022 12:27 INDICATION: Vertigo. TECHNIQUE: Computed tomography (CT) of the head was performed without intravenous contrast. The mA wa s adjusted according to patient size. Iterative reconstruction technique was employed. The dose-lengt h product was 529.67 mGy-cm. COMPARISON: Head CT 05/29/2022 FINDINGS: There is an old infarct in the right thalamus. There is no intracranial hemorrhage, acute i nfarction, or abnormal intracranial mass lesion. The ventricles are normal in size. There is an old b lowout fracture medial wall left orbit. There is mucosal thickening in the paranasal sinuses. The mas toid air cells are normal. IMPRESSION: 1. Old infarct in the right thalamus. Reviewed, dictated and finalized at location A. [employer]
[2022-11-15 10:44] VITALS: BP 154/77; PULSE 81; RESP 16; TEMP 36.4; O2SAT 97
--- NOTE | 2022-11-15 12:17 | ECG_ITS ---
Measurements Intervals Gervais Rate: 70 P: 70 MN: 210 QRS: 69 QRSD: 114 T: 59 QT: 377 QTc: 407 Interpretive Statements SINUS RHYTHM WITH FIRST DEGREE AV BLOCK BASELINE ARTIFACT INCOMPLETE RIGHT BUNDLE BRANCH BLOCK BORDERLINE ECG COMPARED TO ECG 05/29/2022 15:31:50 FIRST DEGREE AV BLOCK NOW PRESENT Electronically Signed On 11-15-2022 14:40:41 TOOL ROOM SUPERVISOR by Luke Gottlieb M.D.
--- NOTE | 2022-11-15 12:18 | ED.DIZZY ---
HPI - Dizziness General Chief Complaint: Dizziness Stated Complaint: dizzy Time Seen by Provider: 11/15/22 12:07 History of Present Illness HPI Narrative: Patient is a 67-year-old male with a history of hypertension, hyperlipidemia, prostate cancer, prior stroke presenting with several days of intermittent dizziness. Patient states that he has been experiencing room spinning sensations off and on for the last several days. States it is worsened with changes in position. He denies current vertigo. States that he feels a little bit lightheaded and has a mild headache. States he has chronic numbness on the left side of his mouth and left hand from prior stroke. Denies new numbness or weakness. He denies vision changes, speech changes, chest pain, shortness of breath, abdominal pain, nausea or vomiting, diarrhea, leg swelling. Reports chronic constipation. Related Data Home Medications Medication Instructions Recorded Confirmed diazepam 5 mg tablet 5 mg PO HS 07/27/21 09/08/22 fluoxetine 20 mg capsule (Prozac) 20 mg PO DAILY 07/27/21 09/08/22 hydrocodone 10 mg-acetaminophen 10 - 325 tablet PO Q6-8H PRN Pain 07/27/21 09/08/22 325 mg tablet tamsulosin 0.4 mg capsule 0.4 mg PO DAILY 07/27/21 09/08/22 umeclidinium 62.5 mcg/actuation 1 inh inhalation DIRECTED 07/28/21 09/08/22 blister powder for inhalation (Incruse Ellipta) finasteride 5 mg tablet 5 mg PO DAILY 03/18/22 09/08/22 Allergies Allergy/AdvReac Type Severity Reaction Status Date / Time No Known Allergies Allergy Verified 11/15/22 12:49 Review of Systems Review of Systems: All systems reviewed & are unremarkable except as noted in HPI and below PMFSH Past Medical History Medical History CAD (coronary artery disease) COPD (chronic obstructive pulmonary disease) Hyperlipidemia Obesity Smoker Social History Social History Smoking packs per day: 1.5 Smoking cigarettes per day: 30.0 Years smoked: 30 Smoking pack-years: 45.00 Smoking status: Never smoker Tobacco type: cigarettes Smoking end date: 07/24/21 Alcohol intake: current Substance use: current Substance use type: marijuana Other substance usage details: every day marijuana use Spiritual care concerns: No Exam Narrative: GENERAL: Well-appearing, well-nourished, and in no acute distress. HEAD: Normocephalic, atraumatic. EYES: PERRLA and EOMI. ENT: Nares clear, no rhinorrhea or epistaxis. Mucous membranes moist. NECK: Supple. CHEST: Scattered wheezing, no crackles HEART: Regular rate and rhythm. No murmur heard. Normal peripheral pulses. ABDOMEN: Soft, nontender, nondistended, normal active bowel sounds. EXTREMITIES: Normal range of motion. No edema. SKIN: Warm, dry, no rash. NEURO: No focal deficits. Alert and oriented x3. No pronator drift, coordination intact PSYCH: Normal mood and affect. Course Vital Signs Vital signs: Vital Signs Temperature 97.6 F 11/15/22 10:44 Pulse Rate 81 11/15/22 10:44 Respiratory Rate 16 11/15/22 10:44 Blood Pressure 154/77 H 11/15/22 10:44 Pulse Oximetry 97 11/15/22 10:44 Oxygen Delivery Room Air 11/15/22 10:44 Temperature 98 F 11/15/22 14:30 Pulse Rate 74 11/15/22 14:30 Respiratory Rate 16 11/15/22 14:30 Blood Pressure 150/81 H 11/15/22 14:30 Pulse Oximetry 98 11/15/22 14:30 Oxygen Delivery Room Air 11/15/22 10:44 MDM - Dizziness MDM Narrative Medical decision making narrative: Patient is a 67-year-old male presenting with several days of intermittent vertigo and lightheadedness. Vitals are within normal limits. Patient is well-appearing and in no acute distress. Exam is remarkable for the above. No neurologic deficits. Plan for EKG, labs, CT head. Will give fluids and Tylenol. EKG per my interpretation shows normal sinus rhythm with first-degree AV block, incomplete right bundle, no ST elevations or depression
[2022-11-15 12:46] VITALS: BP 128/76; PULSE 76; PULSE 77; RESP 17; O2SAT 97
[2022-11-15] MEDS: SODIUM CHLORIDE 0.9% IV 1,000 ML 999 ML IV CONT (12:52)
[2022-11-15 12:58] LABS: Basophils Absolute Auto 0.1 K/mm3 (0.0-0.1); Basophils Percent Auto 0.6 % (0.2-1.2); Eosinophils Absolute Auto 0.2 K/mm3 (0-0.3); Eosinophils Percent Auto 1.8 % (0-4.4); Hemoglobin 12.6 g/dL (14.0-18.0); Immature Granulocyte Absolute 0.04 K/mm3 (0.00-0.031); Immature Granulocyte Percent A 0.5 % (0-0.5); Lymphocytes Absolute Auto 0.91 K/mm3 (0.9-3.2); Lymphocytes Percent Auto 10.9 % (18.3-44.2); Mean Corpuscular HGB Conc 33.2 g/dl (32-36); Mean Corpuscular Hemoglobin 28.8 pg (26-34); Mean Corpuscular Volume 86.8 fl (80-100); Mean Platelet Volume 8.9 fl (7.4-10.4); Monocytes Absolute Auto 0.7 K/mm3 (0.1-0.6); Monocytes Percent Auto 8.6 % (2.6-8.5); Neutrophils Absolute Auto 6.5 K/mm3 (1.3-6.7); Neutrophils Percent Auto 77.6 % (45.5-73.1); Platelet Count Result 307 k/mm3 (150-375); Red Blood Count 4.38 M/mm3 (4.6-6.20); Red Cell Distribution Width 12.8 % (11.5-14.5); White Blood Count 8.4 K/mm3 (4.5-10.0)
[2022-11-15 13:11] LABS: Alanine Aminotransferase 20 U/L (6-50); Albumin Level 4.2 g/dL (3.5-5.1); Alkaline Phosphatase 85 U/L (38-126); Anion Gap 4 mmol/L (8-16); Aspartate Amino Transferase 28 U/L (17-59); Bilirubin,Total 0.5 mg/dL (0.2-1.3); Blood Urea Nitrogen 17 mg/dL (9-20); Carbon Dioxide 31 mmol/L (22-30); Chloride 98 mmol/L (98-107); Estimated CRCL calculation 117 ml/min; Estimated Glomerular Filt Rate > 60; Glucose 102 mg/dL (65-110); Potassium 4.4 mmol/L (3.4-5.0); Sodium 133 mmol/L (137-145)
[2022-11-15 13:22] LABS: Troponin I < 0.012 ng/mL (0.000-0.034)
[2022-11-15 14:30] VITALS: BP 150/81; PULSE 74; RESP 16; TEMP 36.6; O2SAT 98
== END 2022-11-15 14:30 | disposition home or self-care (01) ==
PROVIDERS: Emergency Provider Emergency Medicine; PCP Emergency Medicine
DX: R42 Dizziness and giddiness (principal); Z87.891 Personal history of nicotine dependence; I25.10 Atherosclerotic heart disease of native coronary artery without angina pectoris; J44.9 Chronic obstructive pulmonary disease, unspecified; E78.5 Hyperlipidemia, unspecified
CPT/HCPCS: 36415; 70450; 80053; 84484; 85025; 93005; 96361; 96374; 99284; J0131; J7030

== ENCOUNTER 2022-12-20 06:43 | Emergency (ER) | payer OTHER, SELFPAY ==
--- NOTE | ~2022-12-20 | XR_ITS ---
EXAMINATION: XR hip RT 2V w AP pelvis INDICATION: Right hip pain TECHNIQUE: AP view of the pelvis and two views of the right hip are obtained. COMPARISON: None available FINDINGS: Bone alignment is normal. There is no fracture. Phleboliths are noted in the pelvis. IMPRESSION: 1. No acute osseous abnormality. Reviewed, dictated and finalized at location B.
--- NOTE | ~2022-12-20 | XR_ITS ---
EXAMINATION: XR knee RT min 4V DATE: 12/20/2022 08:45 INDICATION: Right knee pain TECHNIQUE: Four views of the right knee were obtained. COMPARISON: None. FINDINGS: Alignment is normal. No fracture or osteochondral lesion. There is mild tricompartmental os teoarthritis characterized by tiny marginal osteophytes. There is a small to medium-sized joint effus ion. A round metallic radiopaque foreign body projects medial to the proximal tibia. IMPRESSION: 1. No acute osseous abnormality. Metallic foreign body. Reviewed, dictated and finalized at location B.
--- NOTE | ~2022-12-20 | XR_ITS ---
EXAMINATION: XR chest 1V INDICATION: Chest pain after fall TECHNIQUE: AP view of the chest is obtained on two radiographs. COMPARISON: 05/29/2022 FINDINGS: There is mild chronic atelectasis at the left costophrenic angle. The lungs are free of acu te opacities. No pleural effusion or pneumothorax. The cardiomediastinal silhouette is normal. IMPRESSION: 1. No acute cardiopulmonary abnormality. Reviewed, dictated and finalized at location B.
--- NOTE | ~2022-12-20 | XR_ITS ---
EXAMINATION: XR knee LT min 4V DATE: 12/20/2022 08:45 INDICATION: Left knee pain TECHNIQUE: Four views of the left knee were obtained. COMPARISON: None. FINDINGS: Alignment is normal. No fracture or osteochondral lesion. There is mild tricompartmental os teoarthritis characterized by tiny marginal osteophytes. No joint effusion/synovitis. Three tiny rou nd metallic foreign bodies are noted projecting near the distal femur, posteriorly in the upper calf and lateral to the proximal tibia. IMPRESSION: 1. No acute osseous abnormality. 2. Metallic foreign bodies. Reviewed, dictated and finalized at location B.
--- NOTE | ~2022-12-20 | XR_ITS ---
EXAMINATION: XR toe 1st LT min 2V DATE: 12/20/2022 08:45 INDICATION: Left great toe pain. TECHNIQUE: 4 views of left great toe were obtained. COMPARISON: None. FINDINGS: Bone alignment is normal. No fracture. There is mild osteoarthritis of first metatarsophala ngeal joint and first interphalangeal joint. There is a 5 mm radiopaque foreign body plantar to the s econd metatarsal. IMPRESSION: 1. Mild polyarticular osteoarthritis. 2. 5 mm radiopaque foreign body plantar to the second metatarsal. Reviewed, dictated and finalized at location D.
[2022-12-20 06:43] VITALS: BP 155/79; PULSE 93; RESP 18; TEMP 37; O2SAT 94
--- NOTE | 2022-12-20 06:57 | PC.NURSE ---
Patient presents with right swollen knee. Patient unable to rotate right leg, bend knee, or bend hip due to pain.
[2022-12-20 07:13] VITALS: BP 154/76; PULSE 87; RESP 18; O2SAT 95
[2022-12-20] MEDS: HYDROmorphone HCL INJ (*CRX) 1 MG/ML SYR IV PUSH (07:32)
[2022-12-20] MEDS: ONDANSETRON INJ 4 MG/2 ML VIAL IV PUSH (07:32)
[2022-12-20 07:45] VITALS: PULSE 78; RESP 18
[2022-12-20] MEDS: ALBUTEROL SULFATE (*SP) AEROSOL 1 PUFF 2 PUFF INHALATION (07:45)
--- NOTE | 2022-12-20 08:43 | ED.FALL ---
HPI - Fall General Chief Complaint: Fall Stated Complaint: fall, hip pain Time Seen by Provider: 12/20/22 06:57 Source: patient, EMS and RN notes reviewed Mode of arrival: EMS Limitations: no limitations History of Present Illness HPI Narrative: This is a 67 year old male who presents for evaluation of bilateral knee pain. he states yesterday he accidentally tripped and fell. He fell onto both knees and hands. He denies hitting his head or LOC. He was able to get himself up and walk around. He states this morning his pain is worse in right knee and he was not able to walk. He takes [place] chronically but he has not taken today. Related Data Home Medications Medication Instructions Recorded Confirmed diazepam 5 mg tablet 5 mg PO HS 07/27/21 09/08/22 fluoxetine 20 mg capsule (Prozac) 20 mg PO DAILY 07/27/21 09/08/22 hydrocodone 10 mg-acetaminophen 10 - 325 tablet PO Q6-8H PRN Pain 07/27/21 09/08/22 325 mg tablet tamsulosin 0.4 mg capsule 0.4 mg PO DAILY 07/27/21 09/08/22 umeclidinium 62.5 mcg/actuation 1 inh inhalation DIRECTED 07/28/21 09/08/22 blister powder for inhalation (Incruse Ellipta) finasteride 5 mg tablet 5 mg PO DAILY 03/18/22 09/08/22 Allergies Allergy/AdvReac Type Severity Reaction Status Date / Time No Known Allergies Allergy Verified 12/20/22 07:13 Review of Systems Review of Systems: All systems reviewed & are unremarkable except as noted in HPI and below PMFSH Past Medical History Medical History CAD (coronary artery disease) COPD (chronic obstructive pulmonary disease) Hyperlipidemia Left sided numbness Obesity Prostate cancer Smoker Social History Social History Smoking packs per day: 1.5 Smoking cigarettes per day: 30.0 Years smoked: 30 Smoking pack-years: 45.00 Smoking status: Never smoker Tobacco type: cigarettes Smoking end date: 07/24/21 Alcohol intake: current Substance use: current Substance use type: marijuana Other substance usage details: every day marijuana use Spiritual care concerns: No Exam Const: General: healthy appearing, no acute distress and alert Nutritional Appearance: well nourished Orientation/consciousness: patient oriented x3 HENMT: Head: normal to inspection, no contusions and no hematomas Face and sinus: normal facial exam Eyes: Pupils: Equal, round and reactive pupils present EOM: EOMs intact bilaterally Neck: Neck: normal visual inspection Chest: Chest palpation & inspection: normal inspection of the chest Resp: Effort & Inspection: normal respiratory effort Cardio: Rate: regular rate Rhythm: regular rhythm Heart sounds: no murmurs GI: GI Palp: Yes Soft to palpation, No Tenderness to palpation present (GI), No Guarding due to palpation present (GI), No Rigid due to palpation and No Hernia present Auscultation: normal bowel sounds Skin: General skin exam: normal color Rashes: no rashes Neuro: General: patient oriented x3, moves all extremities and CN's II-XI intact bilaterally Cranial nerves: Yes Nystagmus not present Speech: normal speech Gait exam (Neuro): Normal gait present Extrem: Other: mild right knee swelling, no bruising, no crepitus; minimal pain at right hip with range, there is small bruise to left knee Psych: Mental Status: mental status grossly normal Affect: normal affect Attitude: cooperative Course Reevaluation(s) Reevaluation #1: Patient was able to walk with walker and knee immobilizer. I discussed no fracture on xray but he does have knee effusion. He has follow up with appointment with PCP tomorrow and pain medication at home. Date: 12/20/22 Time: 10:11 Vital Signs Vital signs: Vital Signs Temperature 98.6 F 12/20/22 06:43 Pulse Rate 93 12/20/22 06:43 Respiratory Rate 18 12/20/22 06:43 Blood Pressure 155/79 H 12/20/22 06:43 Pulse Oximetry 94 12/20/22 06:43 Oxygen Delivery Room Air
[2022-12-20 08:55] VITALS: BP 144/76; PULSE 86; RESP 20; O2SAT 99
[2022-12-20 10:27] VITALS: BP 131/88; PULSE 92; RESP 18; O2SAT 96
== END 2022-12-20 10:29 | disposition home or self-care (01) ==
PROVIDERS: Emergency Provider General Practice; PCP Emergency Medicine
DX: S90.112A Contusion of left great toe without damage to nail, initial encounter (principal); S80.02XA Contusion of left knee, initial encounter; S80.01XA Contusion of right knee, initial encounter; I25.10 Atherosclerotic heart disease of native coronary artery without angina pectoris; J44.9 Chronic obstructive pulmonary disease, unspecified; E78.5 Hyperlipidemia, unspecified; E66.9 Obesity, unspecified; Z68.39 Body mass index [BMI] 39.0-39.9, adult; Z85.46 Personal history of malignant neoplasm of prostate; Z87.891 Personal history of nicotine dependence; M19.072 Primary osteoarthritis, left ankle and foot; Z79.82 Long term (current) use of aspirin; W01.0XXA Fall on same level from slipping, tripping and stumbling without subsequent striking against object, initial encounter
CPT/HCPCS: 71045; 73502; 73564; 73660; 94640; 94664; 96374; 96375; 99284; A9270; J1170; J2405

== ENCOUNTER 2023-07-28 14:16 | Emergency (ER) | payer OTHER, SELFPAY ==
[2023-07-28 14:26] VITALS: BP 122/70; PULSE 89; RESP 16; TEMP 36.8; O2SAT 96
--- NOTE | 2023-07-28 14:27 | ED.URI ---
HPI - URI/Sore Throat General Chief Complaint: Upper Respiratory Infection Stated Complaint: sinus issue Time Seen by Provider: 07/28/23 14:27 Source: patient, RN notes reviewed and old records reviewed Mode of arrival: ambulatory Limitations: no limitations History of Present Illness HPI Narrative: 68-year-old male presents to the [facility] with sinus congestion for 2 days Patient states that he took Mucinex yesterday Called his primary today, was told to come to the urgent care to get tested for flu and COVID. Has been in the [place] Denies any other symptoms other than sinus congestion for 2 days Related Data Home Medications Medication Instructions Recorded Confirmed diazepam 5 mg tablet 5 mg PO HS 07/27/21 07/28/23 fluoxetine 20 mg capsule (Prozac) 20 mg PO DAILY 07/27/21 07/28/23 hydrocodone 10 mg-acetaminophen 10 - 325 tablet PO Q6-8H PRN Pain 07/27/21 07/28/23 325 mg tablet tamsulosin 0.4 mg capsule 0.4 mg PO DAILY 07/27/21 07/28/23 umeclidinium 62.5 mcg/actuation 1 inh inhalation DIRECTED 07/28/21 07/28/23 blister powder for inhalation (Incruse Ellipta) finasteride 5 mg tablet 5 mg PO DAILY 03/18/22 07/28/23 dulaglutide 0.75 mg/0.5 mL 0.75 mg subcut WEEKLY 03/09/23 07/28/23 subcutaneous pen injector (Trulicity) fluticasone 500 mcg-salmeterol 50 1 inh inhalation DIRECTED 07/28/23 07/28/23 mcg/dose blistr powdr for inhalation (Advair Diskus) Allergies Allergy/AdvReac Type Severity Reaction Status Date / Time No Known Allergies Allergy Verified 03/09/23 09:30 Review of Systems Review of Systems: All systems reviewed & are unremarkable except as noted in HPI and below Constitutional: Constitutional: Reports no additional constitutional complaints Eyes: Eyes: Reports no additional eye complaints ENT: Reports as per HPI and Reports nasal congestion Cardiovascular: Cardiovascular: Reports no additional cardiovascular complaints, Denies chest pain and Denies dyspnea Respiratory: Respiratory: Reports no additional respiratory complaints, Denies chest congestion, Denies cough and Denies dyspnea Gastrointestinal: Gastrointestinal: Reports no additional gastrointestinal complaints, Denies abdominal pain, Denies nausea and Denies vomiting Musculoskeletal: Musculoskeletal: Reports no additional musculoskeletal complaints Integumentary/Breasts: Skin/Breast: Reports system reviewed and no additional complaints, except as docu Neurologic: Reports system reviewed and no additional complaints, except as documented Psychiatric: Psychiatric: Reports no additional psychiatric complaints Allergic/Immunologic: Allergic/Immunologic: Reports no additional allergic/immunologic complaints PMFSH Past Medical History Medical History CAD (coronary artery disease) COPD (chronic obstructive pulmonary disease) Hyperlipidemia Left sided numbness Obesity Prostate cancer Smoker Social History Social History Smoking packs per day: 1.5 Smoking cigarettes per day: 30.0 Years smoked: 30 Smoking pack-years: 45.00 Smoking status: Current every day smoker Tobacco type: cigarettes Smoking end date: 07/24/21 Alcohol intake: current Substance use: current Substance use type: marijuana Other substance usage details: every day marijuana use Spiritual care concerns: No Comments At the time of my signature, I reviewed and agree with the nursing past medical, surgical, social, and family history. There is no relevant family history pertinent to the patient complaint. Exam Const: General: cooperative, healthy appearing, comfortable, no acute distress, well developed, alert and well nourished Nutritional Appearance: well nourished and obese Orientation/consciousness: patient oriented x3 Limitations: no limitations HENMT: Head: normal to inspection Ears: hearing grossly normal bilaterally and external ears normal
[2023-07-28 14:29] VITALS: BP 122/70; PULSE 89; RESP 16; TEMP 36.8; O2SAT 96
== END 2023-07-28 14:55 | disposition home or self-care (01) ==
PROVIDERS: Emergency Provider Nurse Practitioner; PCP Emergency Medicine
DX: R09.81 Nasal congestion (principal); I25.10 Atherosclerotic heart disease of native coronary artery without angina pectoris; J44.9 Chronic obstructive pulmonary disease, unspecified; E78.5 Hyperlipidemia, unspecified; F17.210 Nicotine dependence, cigarettes, uncomplicated; Z79.899 Other long term (current) drug therapy; Z79.891 Long term (current) use of opiate analgesic; Z85.46 Personal history of malignant neoplasm of prostate; Z20.822 Contact with and (suspected) exposure to COVID-19
CPT/HCPCS: 87426; 87804; 99213; C9803; G0463

== ENCOUNTER 2024-04-09 10:23 | Emergency (ER) | payer OTHER, SELFPAY ==
--- NOTE | ~2024-04-09 | XR_ITS ---
XR chest 2V Ordering provider: Jennifer Davis MD History: 69 years Male with . weakness, COUGH . Comparison: December 20, 2022 FINDINGS: MEDIASTINUM: The cardiac silhouette is not enlarged. LUNGS: No infiltrates, effusions or pneumothorax. Nodule in the right upper lobe measuring 1.3 cm. Prominent markings in the left lung base. OTHER: No free air under the diaphragm. IMPRESSION: No acute cardiopulmonary pathology. Nodule in the right upper lobe unchanged from previous examination. Reviewed, dictated and finalized at location A.
[2024-04-09 10:47] VITALS: BP 119/74; PULSE 82; RESP 20; TEMP 36.4; O2SAT 97
--- NOTE | 2024-04-09 12:59 | ECG_ITS ---
Test Date: 2024-04-09 13:07:22 Measurements Intervals [place] Rate: 70 P: 95 TX: 222 QRS: 66 QRSD: 167 T: 29 QT: 426 QTc: 462 Interpretive Statements SINUS RHYTHM WITH FIRST DEGREE AV BLOCK RIGHT BUNDLE BRANCH BLOCK BASELINE ARTIFACT- I, II, III, AVR, AVL, AVF, V1-V6 ABNORMAL ECG No previous ECG available for comparison Electronically Signed On 04-09-2024 13:17:01 CDT by Delbert Jane D.O.
[2024-04-09 13:01] VITALS: BP 120/72; PULSE 67; RESP 20; O2SAT 97
[2024-04-09 13:06] LABS: Basophils Absolute Auto 0.1 K/mm3 (0.0-0.1); Basophils Percent Auto 0.9 % (0.2-1.2); Eosinophils Absolute Auto 0.1 K/mm3 (0-0.3); Eosinophils Percent Auto 1.6 % (0-4.4); Hemoglobin 13.3 g/dL (14.0-18.0); Immature Granulocyte Absolute 0.03 K/mm3 (0.00-0.031); Immature Granulocyte Percent A 0.4 % (0-0.5); Lymphocytes Absolute Auto 1.21 K/mm3 (0.9-3.2); Lymphocytes Percent Auto 14.9 % (18.3-44.2); Mean Corpuscular HGB Conc 32.4 g/dl (32-36); Mean Corpuscular Hemoglobin 28.5 pg (26-34); Monocytes Absolute Auto 0.7 K/mm3 (0.1-0.6); Monocytes Percent Auto 8.4 % (2.6-8.5); Neutrophils Percent Auto 73.8 % (45.5-73.1); Platelet Count Result 313 k/mm3 (150-375); Red Blood Count 4.66 M/mm3 (4.6-6.20); Red Cell Distribution Width 12.9 % (11.5-14.5); White Blood Count 8.1 K/mm3 (4.5-10.0)
--- NOTE | 2024-04-09 13:11 | ED.CHESTPAIN ---
HPI - Chest Pain General Chief Complaint: Dizziness Stated Complaint: dizziness, cough Time Seen by Provider: 04/09/24 12:42 History of Present Illness HPI narrative: 69-year-old male with history of COPD, hypertension, hyperlipidemia, CVA presenting with cough and chest pain. Patient states that for the last several days he has had a worsening cough that causes pain from his chest to his abdomen. States he has been coughing up more phlegm and has been feeling more short of breath especially with yd work despite using his inhaler twice a day. Complains of some lightheadedness and generalized weakness. Denies any chest pain outside of coughing. No leg swelling. No palpitations. No nausea or vomiting, diarrhea, fevers. Related Data Home Medications Medication Instructions Recorded Confirmed diazepam 5 mg tablet 5 mg PO HS 07/27/21 03/06/24 fluoxetine 20 mg capsule (Prozac) 20 mg PO DAILY 07/27/21 03/06/24 hydrocodone 10 mg-acetaminophen 10 - 325 tablet PO Q6-8H PRN Pain 07/27/21 03/06/24 325 mg tablet tamsulosin 0.4 mg capsule 0.4 mg PO DAILY 07/27/21 03/06/24 umeclidinium 62.5 mcg/actuation 1 inh inhalation DIRECTED 07/28/21 03/06/24 blister powder for inhalation (Incruse Ellipta) finasteride 5 mg tablet 5 mg PO DAILY 03/18/22 03/06/24 fluticasone 500 mcg-salmeterol 50 1 inh inhalation DIRECTED 07/28/23 03/06/24 mcg/dose blistr powdr for inhalation (Advair Diskus) Allergies Allergy/AdvReac Type Severity Reaction Status Date / Time No Known Allergies Allergy Verified 04/09/24 12:56 Review of Systems Review of Systems: All systems reviewed & are unremarkable except as noted in HPI and below PMFSH Past Medical History Medical History CAD (coronary artery disease) COPD (chronic obstructive pulmonary disease) Hyperlipidemia Left sided numbness Obesity Prostate cancer Smoker Social History Social History Smoking packs per day: 1.5 Smoking cigarettes per day: 30.0 Years smoked: 30 Smoking pack-years: 45.00 Smoking status: Current every day smoker Tobacco type: cigarettes Smoking end date: 07/24/21 Alcohol intake: current Substance use: current Substance use type: marijuana Other substance usage details: every day marijuana use Spiritual care concerns: No Exam Narrative: GENERAL: Nontoxic, in no acute distress, pleasant and cooperative HEAD: Normocephalic, atraumatic. EYES: PERRLA and EOMI. ENT: Mucous membranes moist. NECK: Supple. CHEST: Coarse breath sounds bilaterally with expiratory wheezing. No respiratory distress. HEART: Regular rate and rhythm. ABDOMEN: Soft, nontender, nondistended EXTREMITIES: Normal range of motion SKIN: Warm, dry, no rash. NEURO: No focal deficits. Alert and oriented x3. PSYCH: Normal mood and affect. Course Vital Signs Vital signs: Vital Signs Temperature 97.6 F 04/09/24 10:47 Pulse Rate 82 04/09/24 10:47 Respiratory Rate 20 04/09/24 10:47 Blood Pressure 119/74 04/09/24 10:47 Pulse Oximetry 97 04/09/24 10:47 Oxygen Delivery Room Air 04/09/24 10:47 Temperature 97.6 F 04/09/24 10:47 Pulse Rate 81 04/09/24 15:01 Respiratory Rate 17 04/09/24 15:01 Blood Pressure 133/67 04/09/24 15:01 Pulse Oximetry 97 04/09/24 15:01 Oxygen Delivery Room Air 04/09/24 15:01 MDM - Chest Pain MDM Narrative Medical decision making narrative: 69-year-old male presenting with cough, chest pain, generalized weakness. Vitals are within normal limits. Exam remarkable for the above. Concern for COPD exacerbation. Breathing treatment, fluids, steroids have been ordered. EKG per my interpretation shows normal sinus rhythm with first-degree AV block, no ST elevations or depressions Blood work without acute abnormalities. Negative for COVID and influenza. Chest x-ray without acute abnormalities. Stable pulmonary nodules noted. Hoa
[2024-04-09] MEDS: SODIUM CHLORIDE 0.9% IV 1,000 ML 999 ML IV CONT (13:20)
[2024-04-09 13:22] LABS: Alanine Aminotransferase 14 U/L (6-50); Albumin Level 4.3 g/dL (3.5-5.1); Alkaline Phosphatase 105 U/L (38-126); Anion Gap 7 mmol/L (4-12); Aspartate Amino Transferase 21 U/L (17-59); Bilirubin,Total 0.5 mg/dL (0.2-1.3); Blood Urea Nitrogen 16 mg/dL (9-20); Calcium 8.9 mg/dL (8.4-10.2); Carbon Dioxide 31 mmol/L (22-30); Chloride 99 mmol/L (98-107); Estimated CRCL calculation 81 ml/min; Estimated Glomerular Filt Rate > 60; Glucose 102 mg/dL (65-110); Potassium 4.7 mmol/L (3.4-5.0); Sodium 137 mmol/L (137-145)
[2024-04-09 13:30] LABS: Lipase 51 U/L (23-300)
[2024-04-09] MEDS: ALBUTEROL SULFATE NEB 2.5 MG/3 ML INH 10 MG INHALATION (13:35)
[2024-04-09] MEDS: IPRATROPIUM BR 0.02% INH SOLN 0.5 MG/2.5 ML VIAL INHALATION (13:35)
[2024-04-09 13:37] VITALS: PULSE 65; RESP 16
[2024-04-09 13:38] LABS: INR 1.1
[2024-04-09 13:39] LABS: Partial Thromboplastin Time 28.8 Seconds (22.3-36.8)
[2024-04-09 13:43] LABS: Troponin I < 0.012 ng/mL (0.000-0.034)
[2024-04-09 14:10] LABS: Influenza A QL RT-PCR Negative (Negative); Influenza B QL RT-PCR Negative (Negative); RSV RNA, RT-PCR Negative (Negative); SARS-CoV-2 RNA PCR Negative (Negative)
[2024-04-09 14:15] VITALS: BP 132/65; PULSE 72; RESP 13; O2SAT 100
[2024-04-09 15:01] VITALS: BP 133/67; PULSE 81; RESP 17; O2SAT 97; O2SAT 98
[2024-04-09 15:09] LABS: Appearance Urine Clear (Clear); Bacteria Urine None Seen /hpf; Bilirubin Urine Negative (Negative); Blood Urine Negative (Negative); Color Urine Yellow (Yellow); Glucose Urine UA Negative (Negative); Ketones Urine Negative (Negative); Leukocyte Esterase Ur Negative LEU/UL (Negative); Nitrate Urine Negative (Negative); Non Pathogenic Casts 0-2; Protein Urine Trace mg/dL (Negative); RBC Urine 0-2 /hpf (0-2); Specific Grav Ur 1.015 (1.001-1.035); Squamous Epithelial Cell Urine None Seen /hpf (Few); Urobilinogen Urine 0.2 mg/dL (<2.0); WBC Urine 0-5 /hpf (0-3); pH Urine 5.5 (5.0-9.0)
[2024-04-09 15:10] LABS: Add Urine Microscopic? YES
--- NOTE | 2024-04-09 15:55 | ECG_ITS ---
Test Date: 2024-04-09 16:01:52 Measurements Intervals [place] Rate: 75 P: 71 MT: 220 QRS: 60 QRSD: 172 T: 30 QT: 423 QTc: 473 Interpretive Statements SINUS RHYTHM WITH FIRST DEGREE AV BLOCK RIGHT BUNDLE BRANCH BLOCK BASELINE ARTIFACT- I, II, III, AVR, AVL, AVF, V1-V6 ABNORMAL ECG Compared to ECG 04/09/2024 13:07:22 No significant changes Electronically Signed On 04-10-2024 14:41:41 CDT by Delbert Jane D.O.
[2024-04-09] MEDS: methylPREDNISolone SOD SUCC 125 MG VIAL IV PUSH (16:40)
[2024-04-09 16:42] LABS: Troponin I < 0.012 ng/mL (0.000-0.034)
== END 2024-04-09 17:21 | disposition home or self-care (01) ==
PROVIDERS: Emergency Provider Emergency Medicine; PCP Emergency Medicine
DX: J44.1 Chronic obstructive pulmonary disease with (acute) exacerbation (principal); Z20.822 Contact with and (suspected) exposure to COVID-19; I25.10 Atherosclerotic heart disease of native coronary artery without angina pectoris; E78.5 Hyperlipidemia, unspecified; E66.9 Obesity, unspecified; Z68.39 Body mass index [BMI] 39.0-39.9, adult; Z85.46 Personal history of malignant neoplasm of prostate; Z87.891 Personal history of nicotine dependence; Z79.82 Long term (current) use of aspirin; Z79.899 Other long term (current) drug therapy; I44.0 Atrioventricular block, first degree; I45.10 Unspecified right bundle-branch block
CPT/HCPCS: 36415; 71046; 80053; 81001; 83690; 84484; 85025; 85610; 85730; 87637; 93005; 94640; 96361; 96374; 99284; J2919; J7030

== ENCOUNTER 2025-01-09 08:16 | Emergency (ER) | payer OTHER, SELFPAY ==
[2025-01-09] VITALS (13 sets, daily range): BP systolic 105–142; BP diastolic 67–94; PULSE 75–100; RESP 14–22; TEMP 36.4; O2SAT 95–98
--- NOTE | ~2025-01-09 | CT_ITS ---
EXAMINATION: CT abdomen pelvis w con DATE: 01/09/2025 10:14 INDICATION: Abdominal pain TECHNIQUE: Computed tomography (CT) of the abdomen and pelvis was performed with 100 mL Omnipaque-350 intravenous contrast. Automated exposure control and iterative reconstruction technique were employe d. The dose-length product was 1496.38 mGy-cm. COMPARISON: None FINDINGS: Mild bibasilar atelectasis. Heart size is normal. Atherosclerotic coronary artery calcific lesion. No pericardial or pleural effusion. Cholecystectomy clips at the gallbladder fossa. Liver, spleen, bila teral adrenal glands and right kidney are normal. There are 3 small left renal cysts the largest juanpablo uring 1.5 cm. There is a 4.3 x 2.7 x 2.2 cm cystic lesion with single 2-3 mm internal septation at th e uncinate process of the pancreas. Bowels including the appendix are normal. Mild diffuse wall thick ening of the bladder 2 increase in part due to partially decompressed state. No free intraperitoneal gas or fluid. No pathologically enlarged abdominal or pelvic lymphadenopathy. Severe lumbar spondylos is. IMPRESSION: 1. 4.3 x 2.7 x 2.2 cm complex cystic lesion at the uncinate process of the pancreas. The differential diagnosis includes pseudocyst, side branch intraductal papillary mucinous neoplasm (IPMN) versus les s likely mucinous cystic neoplasm (MCN), serous cystadenoma, both significantly less likely in a male and neuroendocrine tumor. Correlate for history of pancreatitis and would consider further evaluatio n with either pre and postcontrast MRI/MRCP or endoscopic ultrasound which could include biopsy. 2. Diffuse mild bladder wall thickening due to at least in part to incomplete distention although dif ferential would include cystitis either acute or chronic. Reviewed, dictated and finalized at location A. IMPRESSION: 1. 4.3 x 2.7 x 2.2 cm complex cystic lesion at the uncinate process of the panc reas. The differential diagnosis includes pseudocyst, side branch intraductal p apillary mucinous neoplasm (IPMN) versus less likely mucinous cystic neoplasm ( MCN), serous cystadenoma, both significantly less likely in a male and neuroend ocrine tumor. Correlate for history of pancreatitis and would consider further evaluation with either pre and postcontrast MRI/MRCP or endoscopic ultrasound w hich could include biopsy. 2. Diffuse mild bladder wall thickening due to at least in part to incomplete d istention although differential would include cystitis either acute or chronic.
--- OUTSIDE RECORDS SUMMARY | 2025-01-09 08:35 | XMS_ITS | Clinical Summary ---
Author Organization [facility] Address [address] [place] [address] Care Team Providers Care Trim Setter Name Role Phone Addy Molina MD Primary Care Provider [phone] Source Comments [facility],non-owned Affiliates and Associated Physician Practices is amultiple site organization consisting of ambulatory clinics and hospital sitesin [place], [place], [place] and [place]. This disclosure is being madepursuant to the Care Everywhere program and may not contain all information available regarding this patient. Last updated 18.[facility] Allergies Active Allergy Reactions Criticality Noted Date Comments Oxybutynin Dizziness 01/06/2023 Dizzy and dry mouth Medications * Be aware that medications may not be up to date on this document. Alwaysverify current medications with the patient. fluticasone-antonette meterol hfa (ADVAIR HFA) 230-21 MCG/ACT Inhale 2 (two) puffs by mouth 2 times daily Active umeclidinium (INCRUSE ELLIPTA) 62.5 MCG/INH inhaler Inhale 1 (one) puff by mouth once daily Active HYDROcodone-sandy taminophen (NORCO) 10-325 MG tablet Take 1 (one) tablet by mouth every 8 hours as needed Active VENTOLIN HFA 108 (90 Base) MCG/ACT inhaler Inhale 2 (two) puffs by mouth every 4 hours as needed 1 Active EQ ASPIRIN ADULT LOW DOSE 81 MG tablet 1 Active NARCAN 4 MG/0.1ML nasal spray as needed 1 Active FLUoxetine (PROZAC) 20 MG capsule Take 1 (one) capsule by mouth every 24 hours 2 Active irbesartan (AVAPRO) 75 MG tablet Take 4 (four) tablets by mouth once daily Active amLODIPine (Norvasc) 5 MG tablet Take 1 (one) tablet by mouth once daily Active sildenafil (Viagra) 100 MG tablet Take 1 (one) tablet by mouth as needed Active Polyethylene Glycol 3350 MIX AND DRINK ONE CAPFUL (17G) DAILY WITH 8 OZ OF WATER JUICE SODA COFFEE OR TEA NEEDED FOR CONSTIPATION Active fluticasone propionate (Flonase) 50 MCG/ACT nasal spray USE 1 SPRAY(S) IN EACH NOSTRIL ONCE DAILY DIRECTED 3 Active diazePAM (Valium) 10 MG tablet TAKE 1 TABLET BY MOUTH EVERY DAY AT BEDTIME NEEDED FOR INSOMNIA AND ANXIETY AVOID DRIVING OR OPERATING MACHINES 3 Active clopidogrel (plaVIX) 75 MG tablet Take 1 (one) tablet by mouth every morning Active atorvastatin (Lipitor) 40 MG tablet Take 1 (one) tablet by mouth once daily Active polyethylene glycol (Nulytely with Flavor Packs) 420 g solution Take 4,000 mL by mouth as directed 4000 mL 3 Active Additional Information Patient not taking.Reported on 03/09/2024 tamsulosin (Flomax) 0.4 MG capsule Take 1 (one) capsule by mouth once daily At the same time every day after a meal. 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 06/16/2022 Dysphagia 10/09/2021 Pancreatic cyst 11/23/2019 Encounters Date Type Department Care Team Description 10/14/2024 Orders Only [facility] - Urology [address] [place] [address] [address] [place] [id number] Blake Flores MD Prostate cancer 10/12/2024 8:45 AM DRILL FOREMAN Clinical Support [facility] - Urology [address] [place] [address] [address] [place] [id number] Blake Flores MD Prostate cancer 10/12/2024 Travel from Last 3 Months Immunizations Immunization Administration Dates Next Due FLU VACCINE TRI IIV3 SPLIT PF IM (FLUVIRIN) 09/21,07/21/2012,08/02/2011 HEP B VACCINE, ADULT 3 DOSE 09/27/2019, 9,04/10/2019 INFLUENZA VACCINE 08/04/2020 PNEUMOCOCCAL PPSV23 10/18/2013 iNFLUENZA VACCINE, RECOM-HAJI, QUADR. (FLUBLOCK QUADRIVALENT; 18Y+) (RIV4) 05/22/2019 Family History Medical History Relation Name Comments Asthma Father Arthritis - Rheumatoid Mother Relation Name Status Comments Father Mother Social History Tobacco Use Types Packs/Day Years Used Date Smoking Tobacco: Some Days Cigarettes 1.5 20 Smokeless Tobacco: Never Tobacco Cessation:Ready to Q uit: Not Asked; Counseling Given: Not Answered Comments:Have quit mutliple times as long as 2-3 years but start back up; no reason why Alcohol Use Standard Drinks/Week Comments Yes 18 (1 standard drink = 0.6 oz pu re alcohol) PHQ-2 Answer Date Recorded PHQ2 TOTAL SCORE 0 04/26/2022 Sex and Gender Information Value Date Recorded Sex Assigned at Not on file Legal Sex Male 9:07 AM CDT Gender Identity Not on file Sexual Orientation Not on file Last Filed Vital Signs Vital Sign Reading Time Taken Comments Blood Pressure 149/80 10/12/2024 8:52 AM DRILL FOREMAN Pulse 86 10/12/2024 8:52 AM DRILL FOREMAN Temperature 36.6 C (97.8 F) 10/12/2024 8:52 AM DRILL FOREMAN Respiratory Rate 20 10/12/2024 8:52 AM DRILL FOREMAN Oxygen Saturation 98% 10/12/2024 8:52 AM DRILL FOREMAN Inhaled Oxygen Concentration - - Weight 119.5 kg (263 lb 6.4 oz) 10/12/2024 8:52 AM DRILL FOREMAN Height 162.6 cm (5' 4 ) 10/12/2024 8:52 AM DRILL FOREMAN Body Mass Index 45.21 10/12/2024 8:52 AM DRILL FOREMAN Plan of Treatment Upcoming Encounters Date Type Department Care Team (Late st Contact Info) Description 04/11/2025 9:00 AM CDT Appointment [facility] [address] [place] [address] Mercedes Finnegan MD [address] [place] [address] 04/12/2025 8:15 AM CDT Clinical Support [facility] - Urology [address] [place] [address] Blake Flores MD [address] [place] [phone] Health Maintenance Due Date Last Done Comments COLOGUARD (AGES 45-75) - COLON CA SCREENING 1955 CT COLONOGRAPHY - COLON CA SCREENING 1955 FIT - COLON CA SCREENING 1955 FLEX SIG - COLON CA SCREENING 1955 DTAP/TDAP/TD VACCINES (1 - Tdap) 01/28/1976 LUNG CANCER SCREENING 2007 ZOSTER VACCINE (1 of 2) 2007 PNEUMOCOCCAL VACCINE 50+ (2 of 2 - PCV) 10/18/2014 10/18/2013 Respiratory Syncytial Virus (RSV) Vaccine Pt: or over 60 yrs (1 - Risk 60-74 years 1-dose series) 2017 AAA SCREENING 2022 SCREENING FOR DIABETES 09/25/2022 09/25/2019 COVID-19 VACCINE ( - season) 2024 DEPRESSION SCREENING 09/19/2024 04/26/2022 INFLUENZA VACCINE (Season Ended) 2025 08/04/2020, 05/22/2019, 10/18/2013, Additional history exists COLONOSCOPY - COLON CA SCREENING 05/20/2028 05/20/2023, 05/20/2023, 04/28/2020, Additional history exists Colorectal Cancer Screening 05/20/2028 COLON MONITORING 05/20/2033 05/20/2023, 09/2022, 04/28/2020, Additional history exists HEPATITIS C SCREENING Completed 09/25/2019 , 09/20/2019, 06/27/2019, Additional history exists HEPATITIS B VACCINE Completed 09/27/2019, 05/22/2019, 04/10/2019 HIB VACCINE Aged Out No longer eligi ble based on patient's age to complete this topic HPV VACCINE Aged Out No longer eligi ble based on patient's age to complete this topic MENINGOCOCCAL (Group B) VACCINE SHARED DECISION-MAKING Aged Out No longer eligible based on patient's age to complete this topic MENINGOCOCCAL GROUPS A/C/Y/W VACCINE Aged Out No longer eligible based on patient's age to complete this topic Procedures Procedure Name Priority Date/Time Associated Diagnosis Comments ENDOSCOPY, COLON, SCREENING Routine 05/20/2023 9:08 AM CDT Screening for colon cancer COMPREHENSIVE METABOLIC PANEL Routine 09/25/2019 9:43 AM DRILL FOREMAN Chronic hepatitis C without hepatic coma HEPATITIS C RNA QUANTITATIVE Routine 09/25/2019 9:43 AM DRILL FOREMAN Chronic hepatitis C without hepatic coma from Last 3 Months or Most Recently Relevant to Health Maintenance Results * ENDOSCOPY, COLON, SCREENING (05/20/2023 9:08 AM CDT) Report Endoscopy POC _ Patient Name: Tiki Brown Procedure Date: 05/20/2023 9:08 AM Date of : 1955 Admit Type: Outpatient Age: 68 Gender: Male Attending MD: Otto Colon MD, [id number] _ Procedure: Colonoscopy Indications: High risk colon cancer surveillance: Personal history of colonic polyps, Last colonoscopy: 2019 Providers: Otto Colon MD (Doctor) Referring MD: Addy Molina MD (Referring MD) Medicines: Monitored Anesthesia Care Complications: No immediate complications. _ Estimated Blood Loss: Estimated blood loss: none. Procedure: Pre-Anesthesia Assessment: - Prior to the procedure, a History and Physical was performed, and patient medications and allergies were reviewed. The patient is competent. The risks and benefits of the procedure and the sedation options and risks were discussed with the patient. All questions were answered and informed consent was obtained. Patient identification and proposed procedure were verified by the physician, the nurse and the fibre cement moulder in the procedure room. Mental Status Examination: alert and oriented. Airway Examination: normal oropharyngeal airway and neck mobility. Respiratory Examination: clear to auscultation. CV Examination: normal. Prophylactic Antibiotics: The patient does not require prophylactic antibiotics. Prior Anticoagulants: The patient has taken Plavix (clopidogrel), last dose was 5 days prior to procedure. ASA Grade Assessment: III - A patient with severe systemic disease. After reviewing the risks and benefits, the patient was deemed in satisfactory condition to undergo the procedure. The anesthesia plan was to use monitored anesthesia care (MAC). Immediately prior to administration of medications, the patient was re-assessed for adequacy to receive sedatives. The heart rate, respiratory rate, oxygen saturations, blood pressure, adequacy of pulmonary ventilation, and response to care were monitored throughout the procedure. The physical status of the patient was re-assessed after the procedure. After I obtained informed consent, the scope was passed under direct vision. Throughout the procedure, the patient's blood pressure, pulse, and oxygen saturations were monitored continuously. The Colonoscope was introduced through the anus and advanced to the cecum, identified by appendiceal orifice and ileocecal valve. The colonoscopy was performed without difficulty. The patient tolerated the procedure well. The quality of the bowel preparation was good. The ileocecal valve, appendiceal orifice, and rectum were photographed. Findings: The digital rectal exam was normal. Pertinent negatives include no palpable rectal lesions. Three sessile polyps were found in the sigmoid colon and ascending colon. The polyps were 5 to 7 mm in size. These polyps were removed with a hot snare. Resection and retrieval were complete. Two sessile polyps were found in the descending colon and transverse colon. The polyps were 2 to 3 mm in size. These polyps were removed with a cold biopsy forceps. Resection and retrieval were complete. The rectum, transverse colon, cecum, appendiceal orifice and ileocecal valve appeared normal. _ Impression: - Three 5 to 7 mm polyps in the sigmoid colon and in the ascending colon, removed with a hot snare. Resected and retrieved. - Two 2 to 3 mm polyps in the descending colon and in the transverse colon, removed with a cold biopsy forceps. Resected and retrieved. - The rectum, transverse colon, cecum, ileocecal valve and appendiceal orifice are normal. Recommendation: - Await pathology results. - Repeat colonoscopy in 5 years for surveillance. - Return to primary care physician as previously scheduled. - Resume previous diet. - Resume Plavix (clopidogrel) at prior dose in 5 days. - Resume aspirin at prior dose in 5 days. - Patient has a contact number available for emergencies. The signs and symptoms of potential delayed complications were discussed with the patient. Return to normal activities tomorrow. Written discharge instructions were provided to the patient. Procedure Code(s): --- Professional --- 61301, Colonoscopy, flexible; with removal of tumor(s), polyp(s), or other lesion(s) by snare technique 62901, 59, Colonoscopy, flexible; with biopsy, single or multiple --- Technical --- 55931, Colonoscopy, flexible; with removal of tumor(s), polyp(s), or other lesion(s) by snare technique 32484, 59, Colonoscopy, flexible; with biopsy, single or multiple Diagnosis Code(s): --- Professional --- Z86.010, Personal history of colonic polyps D12.5, Benign neoplasm of sigmoid colon D12.2, Benign neoplasm of ascending colon D12.4, Benign neoplasm of descending colon D12.3, Benign neoplasm of transverse colon (hepatic flexure or splenic flexure) --- Technical --- Z86.010, Personal history of colonic polyps D12.5, Benign neoplasm of sigmoid colon D12.2, Benign neoplasm of ascending colon D12.4, Benign neoplasm of descending colon D12.3, Benign neoplasm of transverse colon (hepatic flexure or splenic flexure) CPT copyright 2020 [employer]. All rights reserved. The codes documented in this report are preliminary and upon professional fee coder review may be revised to meet current compliance requirements. Dr. Otto Colon MD Otto Colon MD 05/20/2023 10:22:12 AM This report has been signed electronically. Number of Addenda: 0 Note Initiated On: 05/20/2023 9:08 AM [facility] ENDOSCOPY 05/20/2023 9:08 AM CDT Otto Colon MD GI PROCEDURE ORDERABLES Germán ronald Result - Final [facility] [place] [address] * HEPATITIS C RNA QUANTITATIVE (09/25/2019 9:43 AM DRILL FOREMAN) Hepatitis C Virus Quantitation HCV Not Detected IU/mL [facility] INSURANCE BILL Hepatitis C Virus Log 10 NOT NEEDED [facility] INSURANCE BILL Comment:Ancillary determined the test is not needed. Test Information [facility] INSURANCE BILL Comment:The quantitative ran ge of this assay is 15 IU/mL to 100 million IU/mL. Blood BLOOD SPECIMEN / Unknown 09/25/2019 9:43 AM DRILL FOREMAN 09/25/2019 Narrative Resulting Agency Comment Lab Testing performed at: [address] [id number] Otto Colon MD LAB - CHEMISTRY ORDERABLES Final Result Performing Organization Address City/[facility]/ZIP Co de Phone Number [facility] INSURANCE BILL [address] [place] [address] * (ABNORMAL) COMPREHENSIVE METABOLIC PANEL (09/25/2019 9:43 AM DRILL FOREMAN) Glucose NOT NEEDED mg/dL [facility] INSURANCE BILL Comment: Test not performed. Specimen received uncentrifuged or improperly centrifuged. Ancillary determined the test is not needed. BUN 12 8 - 27 mg/dL [facility] INSURANCE BILL Creatinine 1.03 0.76 - 1.27 mg/dL [facility] INSURANCE BILL eGFR by MDRD 77 >59 mL/min/1. 73 [facility] INSURANCE BILL eGFR by MDRD 90 >59 mL/min/1. 73 [facility] INSURANCE BILL BUN/Creatinine Ratio 12 10 - 24 [facility] INSURANCE BILL Sodium 139 134 - 144 mmol/L [facility] INSURANCE BILL Potassium NOT NEEDED mmol/L [facility] INSURANCE BILL Comment: Test not performed. Specimen received uncentrifuged or improperly centrifuged. Ancillary determined the test is not needed. Chloride 98 96 - 106 mmol/L [facility] INSURANCE BILL CO2 17(L) 20 - 29 mmol/L [facility] INSURANCE BILL Calcium 9.5 8.6 - 10.2 mg/dL [facility] INSURANCE BILL Protein Total 7.6 6.0 - 8.5 g/dL [facility] INSURANCE BILL Albumin 4.5 3.6 - 4.8 g/dL [facility] INSURANCE BILL Comment: Effective October 08, 2019 Albumin reference interval will be changing to: Age Male Female 0 - 7 days 3.6 - 4.9 3.6 - 4.9 8 - 30 days 3.4 - 4.7 3.4 - 4.7 1 - 6 month 3.7 - 4.8 3.7 - 4.8 7 months - 2 years 3.9 - 5.0 3.9 - 5.0 3 - 5 years 4.0 - 5.0 4.0 - 5.0 6 - 12 years 4.1 - 5.0 4.0 - 5.0 13 - 30 years 4.1 - 5.2 3.9 - 5.0 31 - 50 years 4.0 - 5.0 3.8 - 4.8 51 - 60 years 3.8 - 4.9 3.8 - 4.9 61 - 70 years 3.8 - 4.8 3.8 - 4.8 71 - 80 years 3.7 - 4.7 3.7 - 4.7 81 - 89 years 3.6 - 4.6 3.6 - 4.6 >89 years 3.5 - 4.6 3.5 - 4.6 Globulin Total 3.1 1.5 - 4.5 g/dL [facility] INSURANCE BILL Albumin/Globulin Ratio 1.5 1.2 - 2.2 [facility] INSURANCE BILL Bilirubin Total 0.3 0.0 - 1.2 mg/dL [facility] INSURANCE BILL Alkaline Phosphatase 86 39 - 117 IU/L [facility] INSURANCE BILL AST 21 0 - 40 IU/L [facility] INSURANCE BILL ALT 13 0 - 44 IU/L [facility] INSURANCE BILL Blood BLOOD SPECIMEN / Unknown 09/25/2019 9:43 AM DRILL FOREMAN 09/25/2019 Narrative Resulting Agency Comment [facility]: [facility] [address] [facility] [phone] us Otto Colon MD LAB - CHEMISTRY ORDERABLES Final Result [facility] INSURANCE BILL [address] [place] [address] from Last 3 Months or Most Recently Relevant to Health Maintenance Insurance [facility] Advance Directives Documents on File Type Date Recorded Patient Data Communications Engineer Expl anation Adv Directive/Living Will/POA 07/01/2021 3:19 PM Care Teams Trim Setter Relationship Specialty Start Date End Date Addy Molina MD [address] [facility] [address] [facility] [address] [place] [address] PCP - General 01/03/18
--- OUTSIDE RECORDS SUMMARY | 2025-01-09 08:35 | XMS_ITS | Referral Summary ---
Author Organization [facility] Address [address] [place] [phone] Care Team Providers Care Marketing Assistant Name Role Phone Addy Molina MD Primary Care Provider [phone] Encounters Date Type Department Care Team Description 01/07/2025 Telephone [facility] Pulmonary at [address] [place] [phone] Dayan Liang LPN Rf Advair 11/26/2024 Orders Only [facility] Pulmonary at [address] [place] [phone] Vashti Brantley LPN from Last 3 Months Allergies No known active allergies Medications HYDROcodone-ac etaminophen (NORCO) 10-325 mg per tablet take 1 tablet by oral route every 4 - 6 hours as needed for pain 0 0 6 Active ipratropium (ATROVENT HFA) 17 mcg/actuation inhaler inhale 2 puff by inhalation route 4 times every day 0 Inhaler 0 6 Active finasteride (PROSCAR) 5 mg tablet daily. 8 Active FLUoxetine (PROzac) 20 mg capsule daily 8 Active multivitamin tabletIndicati ons:Vitamin Deficiency Prevention Take 1 tablet by mouth daily Active tamsulosin (FLOMAX) 0.4 mg extended release capsule daily. 8 Active dicyclomine (BENTYL) 10 mg capsule Take 1 capsule (10 mg total) by mouth 4 (four) times a day before meals and nightly Active cholecalcifero l (VITAMIN D3) 1,000 unit capsule Take 1 capsule (1,000 Units total) by mouth daily Active albuterol (PROVENTIL,MARIA ELENA TOLIN) 2.5 mg /3 mL (0.083 %) nebulizer solution Take 3 mL (2.5 mg total) by nebulization every 6 (six) hours as needed for wheezing Active naproxen sodium 220 mg capsule Take by mouth daily Active atorvastatin (LIPITOR) 40 mg tablet Take 1 tablet (40 mg total) by mouth daily Active clopidogreL (PLAVIX) 75 mg tablet Take 1 tablet (75 mg total) by mouth daily Active diazePAM (Valium) 5 mg tablet Take 1 tablet (5 mg total) by mouth every 6 (six) hours as needed Active aspirin 81 mg enteric coated tablet 1 tablet (81 mg total) daily Active naloxone (Narcan) 4 mg/actuation spray,non-aero juan jose Administer 1 spray into affected nostril(s) as needed 1 Active irbesartan (AVAPRO) 300 mg tablet Take 1 tablet (300 mg total) by mouth daily 4 Active amLODIPine (NORVASC) 5 mg tablet Take 1 tablet (5 mg total) by mouth daily Active albuterol 2.5 mg /3 mL (0.083 %) nebulizer solution Take 3 mL (2.5 mg total) by nebulization every 6 (six) hours as needed for wheezing or shortness of breath 360 mL 3 4 Active Incruse Ellipta 62.5 mcg/actuation blister with device Inhale 1 puff (62.5 mcg total) daily 30 each 11 4 Active albuterol HFA (Ventolin HFA) 90 mcg/actuation inhaler Inhale 1 puff every 4 (four) hours as needed for wheezing 18 g 11 5 Active fluticasone propion-salmet Nora (ADVAIR DISKUS) 250-50 mcg/dose diskus inhalerIndicat ions:Asthma-[place] PD overlap syndrome (HCC) Inhale 1 puff 2 (two) times a day Rinse mouth with water after use. Do not swallow. 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): - Smoking cessation counseling and techniques reviewed at length - Avoid triggers and use distraction techniques - Participate in support groups - He is aware of the [place] Tobacco Quit line: 6-231-SDXE-YES for free services - 5 minutes spent discussing cessation Assessment & Plan (04/04/2024 2:21 PM CDT): - Smoking cessation counseling and techniques reviewed at length - Avoid triggers and use distraction techniques - Participate in support groups - Information given regarding [place] Tobacco Quit line: 7-302-NWQC-YES for free services - 4 minutes spent discussing cessation 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 Overview (12/23/2016): COPD Assessment & Plan (07/25/2024 1:35 PM AIR EXPORT OPERATIONS AGENT): Continue Advair 250/50 twice daily Continue Spiriva once daily These are affordable through insurance He does not have frequent exacerbations Continue albuterol as needed only, he is aware of indications for use I have ordered a nebulizer for him today to use at home as needed with albuterol We discussed vaccinations We discussed signs and symptoms that would require earlier evaluation or change to his plan of care Assessment & Plan (04/04/2024 2:19 PM CDT): Continue Advair 250/50 twice daily Continue Spiriva once daily These are affordable through insurance and seemed to be working well for him He does not have frequent exacerbations Continue albuterol as needed only, discussed indications for use Chronic hepatitis C virus infection 03/23/2013 Disorder of lung 07/19/2012 Pancreatic neoplasm 02/11/2012 Blood in urine 08/28/2010 Resolved Problems Problem Noted Date Diagnosed Date Resolved Date Current smoker 04/22/2011 04/04/2024 Overview (12/29/2017): Description: 04/22/11 Immunizations Immunization Administration Dates Next Due Influenza, Trivalent, Preser vative Free, Intramuscular 10/18/2013,07/21/2012,08/02/2011 Pneumococcal Polysaccharide PPV23 10/18/2013 Social History Tobacco Use Types Packs/Day Years Used Date Smoking Tobacco: Every Day Cigarettes 0.5 23.3 Started: 2001 Tobacco Cessation:Ready to Q uit: Not Asked; Counseling Given: Not Answered Comments:01/03/24 Smokes 1ppd x 50 years Sex and Gender Information Value Date Recorded Sex Assigned at Not on file Legal Sex Male 8:57 AM AIR EXPORT OPERATIONS AGENT Gender Identity Not on file Sexual Orientation Not on file Last Filed Vital Signs Vital Sign Reading Time Taken Comments Blood Pressure 142/76 07/25/2024 10:55 AM AIR EXPORT OPERATIONS AGENT Pulse 86 07/25/2024 10:55 AM AIR EXPORT OPERATIONS AGENT Temperature 36.5 C (97.7 F) 07/25/2024 10:55 AM AIR EXPORT OPERATIONS AGENT Respiratory Rate 18 01/03/2024 9:40 AM CDT Oxygen Saturation 95% 07/25/2024 10: 55 AM AIR EXPORT OPERATIONS AGENT Inhaled Oxygen Concentration - - Weight 122.6 kg (270 lb 3.2 oz) 024 10:55 AM AIR EXPORT OPERATIONS AGENT Height 175.3 cm (5' 9 ) 07/25/2024 10:5 5 AM AIR EXPORT OPERATIONS AGENT Body Mass Index 39.9 07/25/2024 10:55 AM AIR EXPORT OPERATIONS AGENT Plan of Treatment Not on file Procedures Procedure Name Priority Date/Time Associated Diagnosis Comments CT ABDOMEN PELVIS W CONTRAST Routine 07/23/2016 12:00 AM CDT from Last 3 Months or Most Recently Relevant to Health Maintenance Results * CT Abdomen Pelvis W Contrast (07/23/2016 12:00 AM CDT) Anatomical Region Laterality Modality Body N/A Computed Tomogra phy 07/23/2016 Impressions 07/23/2016 1:[address] PM [address] No CT correlate for the patient's left lower quadrant abdominal pain. 2. Pneumonia in the right middle lobe and right lower lobe as evidenced by focal consolidation with adjacent ground-glass opacity. Recommend follow-up chest CT in 6 - 8 weeks to ensure resolution of this process. 3. 2.6 cm cystic structure just posterior to the head of the pancreas. Given the patient's history of chronic pancreatitis, this may represent a pancreatic pseudocyst. However, recommend pancreatic protocol MRI for further evaluation is a cystic pancreatic lesion could have this appearance. There is no pancreatic ductal dilatation or distal pancreatic atrophy. Above findings discussed with Emily, nurse practitioner for Dr. Pretty, by Dr. Higgins at 1:25 p.m. on 07/23/2016. Automated exposure control was used as a dose optimization technique for this examination. THIS IS AN ELECTRONICALLY VERIFIED REPORT 07/23/2016 1:22 PM: Kin Higgins M.D. Kin Higgins M.D. CN:akua 01:22 PM 01:22 PM [facility] [EOD] Narrative 07/23/2016 1:26 PM CDT EXAMINATION: CT abdomen/pelvis with intravenous contrast HISTORY: Chronic pancreatitis, now presenting with left lower quadrant abdominal pain and diarrhea, onset months ago COMPARISON: None available TECHNIQUE: Computed tomographic images of the abdomen and pelvis were obtained after the administration of 100 mL of Omnipaque 350 intravenous contrast via right antecubital fossa IV. 1200 mL of dilute Gastroview oral contrast was also administered prior to the examination. FINDINGS: Limited images of the lung bases demonstrate pneumonia in the right middle lobe and right lower lobe as evidenced by focal consolidation with adjacent ground-glass opacity. The gallbladder is surgically absent. There is 2.6 cm cystic structure just posterior to the head of the pancreas. There is no pancreatic ductal dilatation or distal pancreatic atrophy. The liver, spleen, kidneys, and adrenal glands are normal. The bladder is normal. The prostate is normal in size. The stomach, small bowel, and large bowel normal in caliber with no evidence of obstruction or inflammation. The appendix is visualized and is normal (axial images 99 through 115). There is no abdominal or pelvic lymphadenopathy or free fluid. There is no free intraperitoneal air. The abdominal aorta is normal in caliber with minimal atherosclerotic calcification Bone windows do not demonstrate any abnormal osseous lytic or blastic lesions. There is mild multilevel degenerative disease from L1-L2 and through L3-L4. Procedure Note Provider, MD Jimena - 02/03/2021 EXAMINATION: CT abdomen/pelvis with intravenous contrast HISTORY: Chronic pancreatitis, now presenting with left lower quadrant abdominal pain and diarrhea, onset months ago COMPARISON: None available TECHNIQUE: Computed tomographic images of the abdomen and pelvis wereobtained after the administration of 100 mL of Omnipaque 350 intravenous contrastvia right antecubital fossa IV. 1200 mL of dilute Gastroview oral contrastwas also administered prior to the examination. FINDINGS: Limited images of the lung bases demonstrate pneumonia in the right middle lobe and right lower lobe as evidenced by focal consolidation withadjacent ground-glass opacity. The gallbladder is surgically absent. There is 2.6 cm cystic structurejust posterior to the head of the pancreas. There is no pancreatic ductal dilatation or distal pancreatic atrophy. The liver, spleen, kidneys, and adrenal glands are normal. The bladder is normal. The prostate is normalin size. The stomach, small bowel, and large bowel normal in caliber with noevidence of obstruction or inflammation. The appendix is visualized and is normal (axial images 99 through 115). There is no abdominal or pelvic lymphadenopathy or free fluid. There is no free intraperitoneal air. The abdominal aorta is normal in caliber with minimal atheroscleroticcalcification Bone windows do not demonstrate any abnormal osseous lytic or blasticlesions. There is mild multilevel degenerative disease from L1-L2 and throughL3-L4. IMPRESSION: 1. No CT correlate for the patient's left lower quadrant abdominalpain. 2. Pneumonia in the right middle lobe and right lower lobe as evidencedby focal consolidation with adjacent ground-glass opacity. Recommendfollow-up chest CT in 6 - 8 weeks to ensure resolution of this process. 3. 2.6 cm cystic structure just posterior to the head of the pancreas.Given the patient's history of chronic pancreatitis, this may represent apancreatic pseudocyst. However, recommend pancreatic protocol MRI for furtherevaluation is a cystic pancreatic lesion could have this appearance. There is no pancreatic ductal dilatation or distal pancreatic atrophy. Above findings discussed with Emily, nurse practitioner for Dr. Pretty,by Dr. Higgins at 1:25 p.m. on 07/23/2016. Automated exposure control was used as a dose optimization technique forthis examination. THIS IS AN ELECTRONICALLY VERIFIED REPORT 07/23/2016 1:22 PM: Kin Higgins M.D. Kin Higgins M.D. CN:akua 01:22 PM 01:22 PM [facility] [EOD] Aquilino Pertty MD IMG CT PROCEDURES Final Result from Last 3 Months or Most Recently Relevant to Health Maintenance Insurance [facility] Care Teams Marketing Assistant Relationship Specialty Start Date End Date Addy Molina MD PCP - General 10/02/15
--- OUTSIDE RECORDS SUMMARY | 2025-01-09 08:35 | XMS_ITS | Clinical Summary ---
Author Organization [facility] Address [address] [place] [phone] Care Team Providers Care Anesthesiology Crna Name Role Phone Addy Molina MD Primary Care Provider [phone] Allergies No known active allergies Medications HYDROcodone-ac [...] puffs by mouth twice daily 12 g 5 025 Discontin ued(Alter kelly therapy) Active Problems [...] 04/04/2024 Assessment & Plan (07/25/2024 1:35 PM MIXER OPERATOR): - Smoking cessation counseling and techniques reviewed at length - Avoid triggers and use distraction techniques - Participate in support groups - He is aware of the [place] Tobacco Quit line: 8-157-HERN-YES for free services - 5 minutes spent discussing cessation Assessment & Plan (04/04/2024 2:21 PM CDT): - Smoking cessation counseling and techniques reviewed at length - Avoid triggers and use distraction techniques - Participate in support groups - Information given regarding [place] Tobacco Quit line: 3-492-YFEP-YES for free services - 4 minutes spent discussing cessation 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 Overview (12/23/2016): COPD Assessment & Plan (07/25/2024 1:35 PM MIXER OPERATOR): Continue Advair 250/50 twice daily Continue Spiriva [...] smoker 04/22/2011 04/04/2024 Overview (12/29/2017): Description: 04/22/11 Encounters Date Type Department Care Team Description 01/07/2025 Telephone [facility] Pulmonary at [address] [place] [address] Dayan Liang LPN Rf Advair 11/26/2024 Orders Only [facility] Pulmonary at [address] [place] [phone] Vashti Brantley LPN from Last 3 Months Immunizations Immunization Administration Dates Next Due Influenza, Trivalent, Preser vative Free, Intramuscular 10/18/2013,07/21/2012,08/02/2011 Pneumococcal Polysaccharide PPV23 10/18/2013 Medical History Medical History Date Comments Hx Other Medical hep C; Comments : MJB 10/02/2015 - Hx Other Medical hemorrhoid surg azra; Comments: B 10/02/2015 - Hypertension Hypertension Asthma Asthma Chronic obstructive pulmonar y disease (HCC) COPD Pulmonary nodule 04/04/2024 Nicotine dependence, cigaret esmer, uncomplicated 04/04/2024 Family History Medical History Relation Name Comments No Known Problems Brother No Known Problems Father No Known Problems Mother No Known Problems Sister Relation Name Status Comments Brother Father Mother Sister Social History Tobacco Use Types Packs/Day Years Used Date Smoking Tobacco: Every Day Cigarettes 0.5 23.3 Started: 2001 Tobacco Cessation:Ready to Q uit: Not Asked; Counseling Given: Not Answered Comments:01/03/24 Smokes 1ppd x 50 years Sex and Gender Information Value Date Recorded Sex Assigned at Not on file Legal Sex Male 8:57 AM MIXER OPERATOR Gender Identity Not on file Sexual Orientation Not on file Obstetrics History Last Filed Vital Signs Vital Sign Reading Time Taken Comments Blood Pressure 142/76 07/25/2024 10:55 AM MIXER OPERATOR Pulse 86 07/25/2024 10:55 AM MIXER OPERATOR Temperature 36.5 C (97.7 F) 07/25/2024 10:55 AM MIXER OPERATOR Respiratory Rate 18 01/03/2024 9:40 AM CDT Oxygen Saturation 95% 07/25/2024 10: 55 AM MIXER OPERATOR Inhaled Oxygen Concentration - - Weight 122.6 kg (270 lb 3.2 oz) 024 10:55 AM MIXER OPERATOR Height 175.3 cm (5' 9 ) 07/25/2024 10:5 5 AM MIXER OPERATOR Body Mass Index 39.9 07/25/2024 10:55 AM MIXER OPERATOR Plan of Treatment Health Maintenance Due Date Last Done Comments Colon Cancer Screening-Colonoscopy 1955 Depression Screening 1957 Fall Risk Assessment 1955 Prostate Cancer Screening-PSA 1955 Abdominal Aortic Aneurysm (A AA) Screen 2022 05/27/2021, 11/30/2019, 07/23/2016, Additional history exists Well Visit 65+ 2022 Zoster Vaccine (2 of 2) 07/20/2022 05/25/2022 Covid-19 Vaccine (3 - 2023-2 5 season) 2024 06/11/2021, 05/14/2021 Influenza Vaccine (Season Ended) 2025 05/21/2023, 05/25/2022, 07/13/2021, Additional history exists DTaP/Tdap/Td Vaccine (2 - Td or Tdap) 05/25/2032 05/25/2022 Hepatitis C Screening Completed 01/13/2017 , 10/07/2016, 07/15/2016, Additional history exists Pneumococcal vaccine 65+ Completed 022, 02/19/2016, 10/18/2013 Procedures Procedure Name Priority Date/Time Associated Diagnosis [...] Higgins M.D. [email or web address] 01:22 PM 01:22 PM [facility] [EOD] Narrative 07/23/2016 1:26 PM CDT EXAMINATION: [...] Higgins M.D. [email or web address] 01:22 PM 01:22 PM [facility] [EOD] Aquilino Pretty MD IMG CT PROCEDURES Final Result from Last 3 Months or Most Recently Relevant to Health Maintenance Insurance [facility] Member Subscriber Plan / Payer ( fective 2018-Present) Name:Tc Brown Relation to Subscriber:Self Name:Tc Brown Payer ID:[id number] (NAIC) Group ID:Not on file Type:MEDICAID RISK OTHER Address: [place] [id number] Care Teams Anesthesiology Crna Relationship Specialty Start Date End Date Addy Molina MD PCP - General 10/02/15
--- OUTSIDE RECORDS SUMMARY | 2025-01-09 08:35 | XMS_ITS | CONTINUITY OF CARE DOCUMENT ---
Author Name ynes quick Address Unknown Organization [facility] Address [address] [place] [address] [address] [place] [address] Phone [phone] Care Team Providers Care Hand Violin Maker Name Role Phone Fritz Mcdonald MD Unavailable [phone]
--- OUTSIDE RECORDS SUMMARY | 2025-01-09 08:35 | XMS_ITS | Continuity of Care Document ---
Author Organization [facility] Address [address] [place] [phone] Phone Care Team Providers Care Brick Layer Name Role Phone Didier Novak MD Unavailable Unavailable Procedures Procedure Date OFFICE/OUTPATIENT VISIT, EST HT MUSCLE IMAGE SPECT MULT Advance Directives Directive Yes / No Effective Date File Name No Information Encounters Encounter Description Practice Location Reason(s) For Visit Diagnoses Date Provider Providers Copied on Encounter [facility], [address] [place] [address], [id number], tel:[phone] [facility] No Information 4 Kishore Velásquez. [address] [place] [address], [id number] , . [phone] OFFICE/OUTPAT IENT VISIT, EST [facility], [address] [place] [address], [id number], tel:[phone] [facility] No Information 2 Kishore Velásquez. [address] [place] [address], [id number] , . tel:[phone] Referring Provider: Didier Novak, [address] [place] [address], [phone] . tel:[phone] Family History Family Member Type Diagnosis Age [...]
--- OUTSIDE RECORDS SUMMARY | 2025-01-09 08:35 | XMS_ITS | Encounter Summary ---
Author Organization [facility] Care Team Providers Care J2Ee Engineer Name Role Phone Addy Molina MD Primary Care Provider [phone] Encounter Details Date Type Department Care Team (Latest Contact Info) Description 03/26/2016 Orders Only [facility]INCON[facility] ProviderJimena MD [address] [place] [phone] Social History Tobacco Use Types Packs/Day Years Used Date Smoking Tobacco: Never Assessed Sex and Gender Information Value Date Recorded Sex Assigned at Not on file Legal Sex Male 8:57 AM BREAD JOCKEY Gender Identity Not on file Sexual Orientation Not on file documented as of this encounter Plan of Treatment Not on file documented as of this encounter Procedures Procedure Name Priority Date/Time Associated Diagnosis Comments SCAN - LABS 07/16/2016 12:00 AM CDT documented in this encounter Results * SCAN - LABS (07/16/2016 12:00 AM CDT) Narrative 07/16/2016 12:00 AM CDT Ordered by an unspecified provider. Historical Provider Final Res ult documented in this encounter Visit Diagnoses Not on filedocumented in this encounter Care Teams J2Ee Engineer Relationship Specialty Start Date End Date Addy Molina MD PCP - General 10/02/15 documented as of this encounter
--- OUTSIDE RECORDS SUMMARY | 2025-01-09 08:35 | XMS_ITS | Continuity of Care Document ---
Author Organization [facility] Address [address] [place] [address] Phone Care Team Providers Care Lining Cutter Name Role Phone Addy Molina MD Unavailable Unavailable Allergies, Adverse Reactions, Alerts Substance Reaction Status Criticality No Known Allergies Active No Inform ation Medications Medication Instructions Dosage Effective Dates (start - stop) Status Comments Adderall 20 mg tablet take 1 tablet by oral route every day before breakfast 20 MG - Active hydrocodone 10 mg-acetaminophen 325 mg tablet take 1 by Oral route 2 times every day as needed 1 - Active PRN for pain, avoid driving or operate machines Valium 10 mg tablet take 1 tablet by oral route every bedtime as needed 10 MG - Active PRN for insomnia, anxiety, avoid driving or operate machine Prozac 20 mg capsule take 1 Capsule by oral route every day in the morning 20 MG - Active Norvasc 5 mg tablet take 1 tablet by oral route every day 5 MG - Active Linzess 145 mcg capsule take 1 capsule by oral route every day on an empty stomach at least 30 minutes before 1st meal of the day 145 MCG - Active sildenafil 50 mg tablet take 1 tablet by oral route every day as directe as needed 50 MG - Active take one orally about one hour before activity, max 1/24 hours Advair Diskus 500 mcg-50 mcg/dose powder for inhalation inhale 1 puff by inhalation route 2 times every day in the morning and evening approximately 12 hours apart 1.00 puff - Active Flomax 0.4 mg capsule take 1 capsule by oral route every day 1/2 hour following the same meal each day 0.4 MG - Active Proscar 5 mg tablet take 1 tablet by oral route every day 5 MG - Active irbesartan 300 mg tablet take 1 tablet by oral route every day 300 MG - Active naloxone 0.4 mg/mL injection syringe inject 1 milliliter by IM route over once, may repeat at 2 to 3 minute intervals as needed - Active PRN for OD Lipitor 40 mg tablet take 1 tablet by oral route every day 40 MG - Active Incruse Ellipta 62.5 mcg/actuation powder for inhalation inhale 1 puff by inhalation route every day at the same time each day 62.5 MCG - Active Ventolin HFA 90 mcg/actuation aerosol inhaler inhale 2 puff by inhalation route every 4 - 6 hours as needed - Active Procedures Procedure Date OFFICE/OUTPATIENT VISIT, EST OFFICE/OUTPATIENT VISIT, EST OFFICE/OUTPATIENT VISIT, EST OFFICE/OUTPATIENT VISIT, EST OFFICE/OUTPATIENT VISIT, EST OFFICE/OUTPATIENT VISIT, EST OFFICE/OUTPATIENT VISIT, EST OFFICE/OUTPATIENT VISIT, EST OFFICE/OUTPATIENT VISIT, EST OFFICE/OUTPATIENT VISIT, EST OFFICE/OUTPATIENT VISIT, EST OFFICE/OUTPATIENT VISIT, EST OFFICE/OUTPATIENT VISIT, EST OFFICE/OUTPATIENT VISIT, EST OFFICE/OUTPATIENT VISIT, EST OFFICE/OUTPATIENT VISIT, EST OFFICE/OUTPATIENT VISIT, EST OFFICE/OUTPATIENT VISIT, EST OFFICE/OUTPATIENT VISIT, EST OFFICE/OUTPATIENT VISIT, EST PREV VISIT, EST, 65 & OVER OFFICE/OUTPATIENT VISIT, EST OFFICE/OUTPATIENT VISIT, EST OFFICE/OUTPATIENT VISIT, EST OFFICE/OUTPATIENT VISIT, EST OFFICE/OUTPATIENT VISIT, EST OFFICE/OUTPATIENT VISIT, EST OFFICE/OUTPATIENT VISIT, EST OFFICE/OUTPATIENT VISIT, EST OFFICE/OUTPATIENT VISIT, EST OFFICE/OUTPATIENT VISIT, EST OFFICE/OUTPATIENT VISIT, EST OFFICE/OUTPATIENT VISIT, EST OFFICE/OUTPATIENT VISIT, EST OFFICE/OUTPATIENT VISIT, EST PREV VISIT, EST, 65 & OVER OFFICE/OUTPATIENT VISIT, EST OFFICE/OUTPATIENT VISIT, EST OFFICE/OUTPATIENT VISIT, EST OFFICE/OUTPATIENT VISIT, EST OFFICE/OUTPATIENT VISIT, EST OFFICE/OUTPATIENT VISIT, EST OFFICE/OUTPATIENT VISIT, EST OFFICE/OUTPATIENT VISIT, EST OFFICE/OUTPATIENT VISIT, EST OFFICE/OUTPATIENT VISIT, EST OFFICE/OUTPATIENT VISIT, EST OFFICE/OUTPATIENT VISIT, EST OFFICE/OUTPATIENT VISIT, EST OFFICE/OUTPATIENT VISIT, EST OFFICE/OUTPATIENT VISIT, EST OFFICE/OUTPATIENT VISIT, EST OFFICE/OUTPATIENT VISIT, EST OFFICE/OUTPATIENT VISIT, EST OFFICE/OUTPATIENT VISIT, EST OFFICE/OUTPATIENT VISIT, EST OFFICE/OUTPATIENT VISIT, EST OFFICE/OUTPATIENT VISIT, EST OFFICE/OUTPATIENT VISIT, EST OFFICE/OUTPATIENT VISIT, EST OFFICE/OUTPATIENT VISIT, EST OFFICE/OUTPATIENT VISIT, EST -2019 OFFICE/OUTPATIENT VISIT, EST OFFICE/OUTPATIENT VISIT, EST OFFICE/OUTPATIENT VISIT, EST OFFICE/OUTPATIENT VISIT, EST OFFICE/OUTPATIENT VISIT, EST OFFICE/OUTPATIENT VISIT, EST OFFICE/OUTPATIENT VISIT, EST OFFICE/OUTPATIENT VISIT, EST PREV VISIT, EST, AGE 40-64 OFFICE/OUTPATIENT VISIT, EST OFFICE/OUTPATIENT VISIT, EST OFFICE/OUTPATIENT VISIT, EST OFFICE/OUTPATIENT VISIT, EST OFFICE/OUTPATIENT VISIT, EST OFFICE/OUTPATIENT VISIT, EST OFFICE/OUTPATIENT VISIT, EST OFFICE/OUTPATIENT VISIT, EST OFFICE/OUTPATIENT VISIT, EST OFFICE/OUTPATIENT VISIT, EST OFFICE/OUTPATIENT VISIT, EST OFFICE/OUTPATIENT VISIT, EST OFFICE/OUTPATIENT VISIT, EST OFFICE/OUTPATIENT VISIT, EST PREV VISIT, EST, AGE 40-64 OFFICE/OUTPATIENT VISIT, EST OFFICE/OUTPATIENT VISIT, EST OFFICE/OUTPATIENT VISIT, EST OFFICE/OUTPATIENT VISIT, EST OFFICE/OUTPATIENT VISIT, EST OFFICE/OUTPATIENT VISIT, EST OFFICE/OUTPATIENT VISIT, EST OFFICE/OUTPATIENT VISIT, EST OFFICE/OUTPATIENT VISIT, EST OFFICE/OUTPATIENT VISIT, EST OFFICE/OUTPATIENT VISIT, EST OFFICE/OUTPATIENT VISIT, EST OFFICE/OUTPATIENT VISIT, EST PREV VISIT, EST, AGE 40-64 OFFICE/OUTPATIENT VISIT, EST OFFICE/OUTPATIENT VISIT, EST OFFICE/OUTPATIENT VISIT, EST OFFICE/OUTPATIENT VISIT, EST OFFICE/OUTPATIENT VISIT, EST OFFICE/OUTPATIENT VISIT, EST OFFICE/OUTPATIENT VISIT, EST OFFICE/OUTPATIENT VISIT, EST OFFICE/OUTPATIENT VISIT, EST OFFICE/OUTPATIENT VISIT, EST OFFICE/OUTPATIENT VISIT, EST OFFICE/OUTPATIENT VISIT, EST OFFICE/OUTPATIENT VISIT, EST PREV VISIT, EST, AGE 40-64 OFFICE/OUTPATIENT VISIT, EST OFFICE/OUTPATIENT VISIT, EST OFFICE/OUTPATIENT VISIT, EST OFFICE/OUTPATIENT VISIT, EST OFFICE/OUTPATIENT VISIT, EST OFFICE/OUTPATIENT VISIT, EST OFFICE/OUTPATIENT VISIT, EST OFFICE/OUTPATIENT VISIT, EST OFFICE/OUTPATIENT VISIT, EST OFFICE/OUTPATIENT VISIT, EST OFFICE/OUTPATIENT VISIT, EST OFFICE/OUTPATIENT VISIT, EST PREV VISIT, EST, AGE 40-64 OFFICE/OUTPATIENT VISIT, EST OFFICE/OUTPATIENT VISIT, EST OFFICE/OUTPATIENT VISIT, EST OFFICE/OUTPATIENT VISIT, EST OFFICE/OUTPATIENT VISIT, EST OFFICE/OUTPATIENT VISIT, EST OFFICE/OUTPATIENT VISIT, EST OFFICE/OUTPATIENT VISIT, EST OFFICE/OUTPATIENT VISIT, EST OFFICE/OUTPATIENT VISIT, EST OFFICE/OUTPATIENT VISIT, EST OFFICE/OUTPATIENT VISIT, EST -2014 PREV VISIT, NEW, AGE 40-64 Advance Directives Directive Yes / No Effective Date File Name No Information Encounters Encounter Description Practice Location Reason(s) For Visit Diagnoses Date Provider Providers Copied on Encounter OFFICE/OUTPA TIENT VISIT, EST [facility], [address], [address], [place] tel:[phone] [facility] anxiety1 (chief complaint)pa in (chief complaint)fa tigue1 (chief complaint)ab d pain1 (chief complaint) Upper abdominal painChronic pain syndromeFatigueGe neralized Anxiety Disorder Dec- 0-202 5 Jesse Daly. [address] [place], [place], [address] , [place]. tel:[phone] [facility], [address] [place], [address], [place] tel:[phone] [facility] No Information Jesse Addy. [address], [place], [place], [address] , [place]. tel:[phone] OFFICE/OUTPA TIENT VISIT, [facility], [address] [place], [address], [place] tel:[phone] [facility] anxiety1 (chief complaint)pa in (chief complaint)AD D (chief complaint)HT N (chief complaint) FatigueChronic pain syndromeGeneraliz ed Anxiety DisorderEssential (primary) hypertension Jesse Daly. [address], [place], [place], [address] , [place]. tel:[phone] OFFICE/OUTPA TIENT VISIT, [facility], [address] [place], [address], [place] tel:[phone] [facility] anxiety1 (chief complaint)pa in (chief complaint)AD D (chief complaint) Chronic pain syndromeFatigueGe neralized Anxiety Disorder Jesse Addy. [address] [address] , [place]. tel:[phone] OFFICE/OUTPA TIENT VISIT, [facility], [address] [place], [address], [place] tel:[phone] [facility] anxiety1 (chief complaint)pa in (chief complaint)fa tigue1 (chief complaint)co ilia polyp1 (chief complaint) Chronic pain syndromeFatigueGe neralized Anxiety DisorderPolyp of colonAbnormal weight loss Jesse Daly. [address], [place], [place], [address] , [place]. tel:[phone] OFFICE/OUTPA TIENT VISIT, [facility], [address], [place], [place], [address], [place] tel:[phone] [facility] anxiety1 (chief complaint)pa in (chief complaint)fa tigue1 (chief complaint)Pr ostate CA1 (chief complaint) Generalized Anxiety DisorderChronic pain syndromeFatigueMa lignant neoplasm of prostate 4 Jesse Daly. [address], [place], [place], [address] , [place]. tel:[phone] OFFICE/OUTPA TIENT VISIT, [facility], [address], [place], [place], [address], [place] tel:[phone] [facility] anxiety1 (chief complaint)pa in (chief complaint)fa tigue1 (chief complaint)no dule1 (chief complaint) Chronic pain syndromeFatigueGe neralized Anxiety DisorderSolitary lung nodule 4 Jesse Daly. [address], [place], [place], [address] , [place]. tel:[phone] OFFICE/OUTPA TIENT VISIT, [facility], [address], [place], [place], [address], [place] tel:[phone] [facility] anxiety1 (chief complaint)pa in (chief complaint)fa tigue1 (chief complaint) Chronic pain syndromeGeneraliz ed Anxiety DisorderFatigue 4 Jesse Daly. [address], [place], [place], [address] , [place]. tel:[phone] OFFICE/OUTPA TIENT VISIT, [facility], [address], [place], [place], [address], [place] tel:[phone] [facility] anxiety1 (chief complaint)pa in (chief complaint)fa tigue1 (chief complaint) FatigueGeneralize d Anxiety DisorderChronic pain syndromeObstructi ve sleep apnea hypopnea 4 Jesse Daly. [address], [place], [place], [address] , [place]. tel:[phone] OFFICE/OUTPA TIENT VISIT, [facility], [address], [place], [place], [address], [place] tel:[phone] [facility] anxiety1 (chief complaint)pa in (chief complaint) Generalized Anxiety DisorderChronic pain syndrome 4 Jesse Daly. [address], [place], [place], [address] , [place]. tel:[phone] OFFICE/OUTPA TIENT VISIT, [facility], [address], [place], [place], [address], [place] tel:[phone] [facility] COPD1 (chief complaint) COPD w/ acute exacerbationSolit elyssa lung nodule 4 Jesse Daly. [address], [place], [place], [address] , [place]. [phone] OFFICE/OUTPA TIENT VISIT, [facility], [address], [place], [place], [address], [place] tel:[phone] [facility] anxiety1 (chief complaint)pa in (chief complaint)co nstipation1 (chief complaint)HT N (chief complaint) Chronic pain syndromeGeneraliz ed Anxiety DisorderEssential (primary) hypertensionIrrit able bowel syndrome with constipationCereb ral infarction 4 Jesse Daly. [address], [place], [place], [address] , [place]. tel:[phone] OFFICE/OUTPA TIENT VISIT, [facility], [address], [place], [place], [address], [place] tel:[phone] [facility] anxiety1 (chief complaint)pa in (chief complaint)CA D (chief complaint) Generalized Anxiety DisorderChronic pain syndromeIrritant contact dermatitis due to plants, except foodCoronary artery disease of pechanga coronary artery without angina pectorisStroke 4 Jesse Daly. [address], [place], [place], [address] , [place]. tel:[phone] OFFICE/OUTPA TIENT VISIT, [facility], [address], [place], [place], [address], [place] tel:[phone] [facility] rash1 (chief complaint)an xiety1 (chief complaint) Generalized Anxiety DisorderIrritant contact dermatitis due to plants, except food Yan- 4 Jesse Daly. [address], [place], [place], [address] , [place]. tel:[phone] OFFICE/OUTPA TIENT VISIT, [facility], [address], [place], [place], [address], [place] tel:[phone] [facility] pain (chief complaint)an xiety1 (chief complaint)pr ostate CA (chief complaint)co nstipation1 (chief complaint)an emia1 (chief complaint)ti ck bite1 (chief complaint) Chronic pain syndromeGeneraliz ed Anxiety DisorderIrritable bowel syndrome with constipationMalig nant neoplasm of prostateAnemiaLym e disease 4 Jesse Daly. [address], [place], [place], [address] , [place]. tel:[phone] OFFICE/OUTPA TIENT VISIT, [facility], [address], [place], [place], [address], [place] tel:[phone] [facility] pain (chief complaint)an xiety1 (chief complaint)co nstipation1 (chief complaint)zainab ng (chief complaint) Chronic pain syndromeGeneraliz ed Anxiety DisorderCentrilob ular emphysemaIrritabl e bowel syndrome with constipation Dec- 4 Jesse Daly. [address], [place], [place], [address] , [place]. tel:[phone] OFFICE/OUTPA TIENT VISIT, EST [facility], [address], [place], [place], [address], [place] tel:[phone] [facility] pain (chief complaint)an xiety1 (chief complaint) Chronic pain syndromeGeneraliz ed Anxiety Disorder Nov- 4 Jesse Daly. [address], [place], [place], [address] , [place]. tel:[phone] OFFICE/OUTPA TIENT VISIT, [facility], [address], [place], [place], [address], [place] tel:[phone] [facility] pain (chief complaint)an xiety1 (chief complaint)ED (chief complaint) Chronic pain syndromeGeneraliz ed Anxiety DisorderMale erectile dysfunction, unspecified 4 Jesse Daly. [address], [place], [place], [address] , [place]. tel:[phone] OFFICE/OUTPA TIENT VISIT, [facility], [address], [place], [place], [address], [place] tel:[phone] [facility] COPD1 (chief complaint) Centrilobular emphysema 4 Jesse Daly. [address], [place], [place], [address] , [place]. tel:[phone] OFFICE/OUTPA TIENT VISIT, [facility], [address], [place], [place], [address], [place] tel:[phone] [facility] pain (chief complaint)an xiety1 (chief complaint)HT N (chief complaint)CO PD1 (chief complaint) Chronic pain syndromeGeneraliz ed Anxiety DisorderEssential (primary) hypertensionCentr ilobular emphysema 4 Jesse Daly. [address], [place], [place], [address] , [place]. tel:[phone] OFFICE/OUTPA TIENT VISIT, [facility], [address], [place], [place], [address], [place] tel:[phone] [facility] pain (chief complaint)an xiety1 (chief complaint)CO PD1 (chief complaint)si ck (chief complaint) Generalized Anxiety DisorderChronic pain syndromeAcute bronchitisCoronar y artery disease of pechanga coronary artery without angina pectorisMalignant neoplasm of prostate 3 Jesse Daly. [address], [place], [place], [address] , [place]. tel:[phone] PREV VISIT, EST, 65 & OVER [facility], [address], [place], [place], [address], [place] tel:[phone] [facility] physical (chief complaint) Encounter for general adult medical examination without abnormal findings 3 Jesse Daly. [address], [place], [place], [address] , [place]. tel:[phone] OFFICE/OUTPA TIENT VISIT, [facility], [address], [place], [place], [address], [place] tel:[phone] [facility] sick (chief complaint) Viral infection 3 Jesse Daly. [address], [place], [place], [address] , [place]. tel:[phone] OFFICE/OUTPA TIENT VISIT, [facility], [address], [place], [place], [address], [place] tel:[phone] [facility] anxiety1 (chief complaint)pa in (chief complaint) Chronic pain syndromeGeneraliz ed Anxiety Disorder 3 Jesse Daly. [address], [place], [place], [address] , [place]. tel:[phone] OFFICE/OUTPA TIENT VISIT, [facility], [address], [place], [place], [address], [place] tel:[phone] [facility] anxiety1 (chief complaint)HT N (chief complaint)pa in (chief complaint)we ight1 (chief complaint) Chronic pain syndromeEssential (primary) hypertensionGener alized Anxiety DisorderPolyp of colonAbnormal weight loss 3 Jesse Hale [address], [place], [place], [address] , [place]. tel:[phone] OFFICE/OUTPA TIENT VISIT, [facility], [address], [place], [place], [address], [place] tel:[phone] [facility] anxiety1 (chief complaint)pa in (chief complaint)HT N (chief complaint)co ilia polylp1 (chief complaint) Chronic pain syndromeGeneraliz ed Anxiety DisorderPolyp of colonEssential (primary) hypertensionTobac co use 3 Jesse Daly. [address], [place], [place], [address] , [place]. tel:[phone] OFFICE/OUTPA TIENT VISIT, [facility], [address], [place], [place], [address], [place] tel:[phone] [facility] anxiety1 (chief complaint)pa in (chief complaint)BP H1 (chief complaint)we ight loss1 (chief complaint) Generalized Anxiety DisorderChronic pain syndromeOveractiv e bladderAbnormal weight loss 3 Jesse Daly. [address], [place], [place], [address] , [place]. tel:[phone] OFFICE/OUTPA TIENT VISIT, [facility], [address], [place], [place], [address], [place] tel:[phone] [facility] anxiety1 (chief complaint)pa in (chief complaint)we ight1 (chief complaint)pr oteinuria1 (chief complaint) Chronic pain syndromeGeneraliz ed Anxiety DisorderProteinur iaAbnormal weight gainHyperglycemia 3 Jesse Daly. [address], [place], [place], [address] , [place]. tel:[phone] OFFICE/OUTPA TIENT VISIT, [facility], [address], [place], [place], [address], [place] tel:[phone] [facility] anxiety1 (chief complaint)pa in (chief complaint)gl ucose1 (chief complaint)we ight1 (chief complaint) Chronic pain syndromeGeneraliz ed Anxiety DisorderHyperglyc emiaAbnormal weight gain 3 Jesse Daly. [address], [place], [place], [address] , [place]. tel:[phone] OFFICE/OUTPA TIENT VISIT, [facility], [address], [place], [place], [address], [place] tel:[phone] [facility] anxiety (chief complaint)pa in (chief complaint)co ilia polyp1 (chief complaint)gl ucose1 (chief complaint) Generalized Anxiety DisorderChronic pain syndromePolyp of colonHyperglycemi a 3 Jesse Daly. [address], [place], [place], [address] , [place]. tel:[phone] OFFICE/OUTPA TIENT VISIT, [facility], [address], [place], [place], [address], [place] tel:[phone] [facility] anxiety1 (chief complaint)pa in (chief complaint)kn ee pain1 (chief complaint)CV A (chief complaint) Chronic pain syndromeGeneraliz ed Anxiety DisorderStrokePai n in left knee 3 Jesse Daly. [address], [place], [place], [address] , [place]. tel:[phone] OFFICE/OUTPA TIENT VISIT, [facility], [address], [place], [place], [address], [place] tel:[phone] [facility] anxiety1 (chief complaint)pa in (chief complaint)ve rtigo1 (chief complaint)co ilia polyp1 (chief complaint)OA B (chief complaint) Chronic pain syndromeGeneraliz ed Anxiety DisorderOveractiv e bladderPolyp of colonBenign paroxysmal vertigo, bilateralAnemia 3 Jesse Daly. [address], [place], [place], [address] , [place]. tel:[phone] OFFICE/OUTPA TIENT VISIT, [facility], [address], [place], [place], [address], [place] tel:[phone] [facility] anxiety1 (chief complaint)pa in (chief complaint) Chronic pain syndromeGeneraliz ed Anxiety Disorder Fe 3 Jesse Daly. [address], [place], [place], [address] , [place]. tel:[phone] OFFICE/OUTPA TIENT VISIT, [facility], [address], [place], [place], [address], [place] tel:[phone] [facility] anxiety1 (chief complaint)pa in (chief complaint)HT N (chief complaint)co nstipation1 (chief complaint) Chronic pain syndromeGeneraliz ed Anxiety DisorderConstipat ionEssential (primary) hypertension 3 Jesse Daly. [address], [place], [place], [address] , [place]. tel:[phone] OFFICE/OUTPA TIENT VISIT, [facility], [address] [place], [address], [place] tel:[phone] [facility] pain (chief complaint) Chronic pain syndrome 2 Jesse Hale [address], [place], [place], [address] , [place]. tel:[phone] OFFICE/OUTPA TIENT VISIT, [facility], [address] [place], [address], [place] tel:[phone] [facility] anxiety1 (chief complaint)pa in (chief complaint)pr oteinuria1 (chief complaint)gl ucose1 (chief complaint)HT N (chief complaint) Chronic pain syndromeEssential (primary) hypertensionHyper glycemiaProteinur iaGeneralized Anxiety DisorderTobacco use 2 Jesse Hale [address], [place], [place], [address] , [place]. tel:[phone] PREV VISIT, EST, 65 & OVER [facility], [address], [place], [place], [address], [place] tel:[phone] [facility] physical (chief complaint) Encounter for general adult medical examination without abnormal findings 2 Jesse Hale [address], [place], [place], [address] , [place]. tel:[phone] OFFICE/OUTPA TIENT VISIT, [facility], [address], [place], [place], [address], tel:[phone] [facility] anxiety1 (chief complaint)pa in (chief complaint)CV A1 (chief complaint)pr ostate CA (chief complaint) Chronic pain syndromeGeneraliz ed Anxiety DisorderMalignant neoplasm of prostateCerebral infarction 2 Jesse Hale [address], [place], [place], [address] , [place]. tel:[phone] OFFICE/OUTPA TIENT VISIT, [facility], [address], [place], [place], [address], [place] tel:[phone] [facility] anxiety1 (chief complaint)pa in (chief complaint)HT N (chief complaint) Chronic pain syndromeGeneraliz ed Anxiety DisorderEssential (primary) hypertension 2 Jesse Hale [address], [place], [place], [address] , [place]. tel:[phone] OFFICE/OUTPA TIENT VISIT, [facility], [address] [place], [address], [place] tel:[phone] [facility] anxiety1 (chief complaint)pa in (chief complaint)HT N (chief complaint)pr ostate (chief complaint) Chronic pain syndromeGeneraliz ed Anxiety DisorderMalignant neoplasm of prostateEssential (primary) hypertensionCereb ral infarction 2 Jesse Hale [address], [place], [place], [address] , [place]. tel:[phone] OFFICE/OUTPA TIENT VISIT, [facility], [address] [place], [address], [place] tel:[phone] [facility] anxiety1 (chief complaint)ba ck pain1 (chief complaint)HT N (chief complaint)pr ostate CA (chief complaint) Generalized Anxiety DisorderMalignant neoplasm of prostateChronic pain syndromeEssential (primary) hypertension 2 Jesse Hale [address], [place], [place], [address] , [place]. tel:[phone] OFFICE/OUTPA TIENT VISIT, [facility], [address], [place], [place], [address], [place] tel:[phone] [facility] anxiety1 (chief complaint)pa in (chief complaint) Chronic pain syndromeGeneraliz ed Anxiety Disorder 2 Jesse Daly. [address], [place], [place], [address] , [place]. tel:[phone] OFFICE/OUTPA TIENT VISIT, [facility], [address], [place], [place], [address], [place] tel:[phone] [facility] emphysema1 (chief complaint)ch ronic pani1 (chief complaint) EmphysemaChronic pain syndrome 2 Jesse Daly. [address], [place], [place], [address] , [place]. tel:[phone] OFFICE/OUTPA TIENT VISIT, [facility], [address], [place], [place], [address], [place] tel:[phone] [facility] anxiety1 (chief complaint)pa in (chief complaint)CV A (chief complaint)CV A1 (chief complaint)pr ostate CA (chief complaint)CA D (chief complaint) Generalized Anxiety DisorderCerebral infarctionMaligna nt neoplasm of prostateCoronary artery disease of pechanga coronary artery without angina pectorisChronic pain syndrome 2 Jesse Daly. [address], [place], [place], [address] , [place]. tel:[phone] OFFICE/OUTPA TIENT VISIT, [facility], [address], [place], [place], [address], [place] tel:[phone] [facility] anxiety1 (chief complaint)pa in (chief complaint)CA D (chief complaint)Pr ostate CA (chief complaint)CV A (chief complaint) Cerebral infarctionChronic pain syndromeGeneraliz ed Anxiety DisorderMalignant neoplasm of prostateCAD of pechanga coronary artery without angina pectoris 2 Molina Addy. [address], [place], [place], [address] , [place]. tel:[phone] OFFICE/OUTPA TIENT VISIT, [facility], [address], [place], [place], [address], [place] tel:[phone] [facility] anxiety1 (chief complaint)pa in (chief complaint)fl ank pain1 (chief complaint)st roke1 (chief complaint) HematuriaChronic pain syndromeCerebral infarctionGeneral ized Anxiety Disorder 2 Molina Addy. [address], [place], [place], [address] , [place]. tel:[phone] OFFICE/OUTPA TIENT VISIT, [facility], [address], [place], [place], [address], [place] tel:[phone] [facility] flank pain1 (chief complaint)fl ank pain1 (chief complaint) HematuriaAcute pyelonephritis 2 Molina Addy. [address], [place], [place], [address] , [place]. tel:[phone] OFFICE/OUTPA TIENT VISIT, [facility], [address], [place], [place], [address], [place] tel:[phone] [facility] HTN1 (chief complaint)an xiety1 (chief complaint)an xiety1 (chief complaint)pr ostate CA1 (chief complaint)pa in (chief complaint) Cerebral infarctionGeneral ized Anxiety DisorderEssential (primary) hypertensionMalig nant neoplasm of prostateChronic pain syndromeDysphagia , oropharyngeal phase 2 Molina Addy. [address], [place], [place], [address] , [place]. tel:[phone] OFFICE/OUTPA TIENT VISIT, [facility], [address], [place], [place], [address], [place] tel:[phone] [facility] pain (chief complaint)an xiety1 (chief complaint)CV A (chief complaint)CV A1 (chief complaint)th roat1 (chief complaint) Essential (primary) hypertensionCereb ral infarctionMaligna nt neoplasm of prostateChronic pain syndromeGeneraliz ed Anxiety Disorder 1 Jesse Hale [address], [place], [place], [address] , [place]. tel:[phone] OFFICE/OUTPA TIENT VISIT, [facility], [address], [place], [place], [address], [place] tel:[phone] [facility] HTN (chief complaint)CV A1 (chief complaint)pa in (chief complaint)an xiety1 (chief complaint) Cerebral infarctionMaligna nt neoplasm of prostateEssential (primary) hypertensionChron ic pain syndromeGeneraliz ed Anxiety Disorder 1 Jesse Hale [address], [place], [place], [address] , [place]. tel:[phone] OFFICE/OUTPA TIENT VISIT, [facility], [address], [place], [place], [address], [place] tel:[phone] [facility] CVA1 (chief complaint)HT N (chief complaint)pr ostate CA (chief complaint)ne ck1 (chief complaint) Cerebral infarctionMaligna nt neoplasm of prostateEssential (primary) hypertensionDysph agia, oropharyngeal phase 1 Jesse Hale [address], [place], [place], [address] , [place]. tel:[phone] OFFICE/OUTPA TIENT VISIT, [facility], [address], [place], [place], [address], [place] tel:[phone] [facility] anxiety1 (chief complaint)pa in (chief complaint)pr ostate CA (chief complaint) Chronic pain syndromeGeneraliz ed Anxiety DisorderMalignant neoplasm of prostate 1 Jesse Daly. [address], [place], [place], [address] , [place]. tel:[phone] OFFICE/OUTPA TIENT VISIT, [facility], [address], [place], [place], [address], [place] tel:[phone] [facility] anxiety1 (chief complaint)pa in (chief complaint)pr ostate [place] (chief complaint)to bacco1 (chief complaint) Chronic pain syndromeGeneraliz ed Anxiety DisorderTobacco useMalignant neoplasm of prostate 1 Jesse Hale [address], [place], [place], [address] , [place]. tel:[phone] OFFICE/OUTPA TIENT VISIT, [facility], [address], [place], [place], [address], [place] tel:[phone] [facility] Medicine anxiety1 (chief complaint)pa in (chief complaint)pr ostate1 (chief complaint)to bacco1 (chief complaint) Chronic pain syndromeGeneraliz ed Anxiety DisorderBPH w/ lower urinary tract symptomTobacco use 1 Jesse Hale [address], [place], [place], [address] , [place]. tel:[phone] OFFICE/OUTPA TIENT VISIT, [facility], [address], [place], [place], [address], [place] tel:[phone] [facility] Medicine anxiety1 (chief complaint)pa in (chief complaint)fa tigue1 (chief complaint)we igh gain1 (chief complaint) Chronic pain syndromeGeneraliz ed Anxiety DisorderAbnormal weight gainEssential (primary) hypertensionFatig ue 1 Jesse Hale [address], [place], [place], [address] , [place]. tel:[phone] OFFICE/OUTPA TIENT VISIT, [facility], [address], [place], [place], [address], [place] tel:[phone] [facility] Medicine anxiety1 (chief complaint)pa in (chief complaint) ConstipationChron ic pain syndromeGeneraliz ed Anxiety Disorder 1 Jesse Hale [address], [place], [place], [address] , [place]. tel:[phone] OFFICE/OUTPA TIENT VISIT, [facility], [address], [place], [place], [address], [place] tel:[phone] [facility] Medicine anxiety1 (chief complaint)pa in (chief complaint) Chronic pain syndromeGeneraliz ed Anxiety Disorder 1 Jesse Hale [address], [place], [place], [address] , [place]. [phone] OFFICE/OUTPA TIENT VISIT, [facility], [address], [place], [place], [address], [place] tel:[phone] [facility] Medicine anxiety1 (chief complaint)pa in (chief complaint)co nstipation1 (chief complaint) Chronic pain syndromeGeneraliz ed Anxiety DisorderAbdominal painConstipation Dec- 1 Jesse Hale [address], [place], [place], [address] , [place]. [phone] OFFICE/OUTPA TIENT VISIT, [facility], [address], [place], [place], [address], [place] tel:[phone] [facility] Medicine anxiety1 (chief complaint)pa in (chief complaint) Chronic pain syndromeGeneraliz ed Anxiety Disorder 1 Jesse Hale [address], [place], [place], [address] , [place]. tel:[phone] OFFICE/OUTPA TIENT VISIT, [facility], [address], [place], [place], [address], [place] tel:[phone] [facility] anxiety1 (chief complaint)pa in (chief complaint)ab d pain1 (chief complaint) Abdominal painProteinuriaGe neralized Anxiety DisorderChronic pain syndrome 1 Jesse Hale [address], [place], [place], [address] , [place]. tel:[phone] OFFICE/OUTPA TIENT VISIT, [facility], [address], [place], [place], [address], [place] tel:[phone] [facility] flank pain1 (chief complaint)ur ine1 (chief complaint)pr oteinuria1 (chief complaint) Overactive bladderConstipati onAbdominal painProteinuria Fe-0 1 Jesse Hale [address], [place], [place], [address] , [place]. [phone] OFFICE/OUTPA TIENT VISIT, [facility], [address], [place], [place], [address], [place] [phone] [facility] anxiety1 (chief complaint)pa in1 (chief complaint)UT I1 (chief complaint) Urinary tract infectionChronic pain syndromeGeneraliz ed Anxiety Disorder 1 Jesse Daly. [address], [place], [place], [address] , [place]. [phone] OFFICE/OUTPA TIENT VISIT, [facility], [address], [place], [place], [address], [place] tel:[phone] [facility] anxiety1 (chief complaint)pa in (chief complaint) Chronic pain syndromeGeneraliz ed Anxiety Disorder 0 Jesse Daly. [address], [place], [place], [address] , [place]. tel: [phone] Referring Provider: Addy Molina [address], [place], [place], [address]. tel:[phone] OFFICE/OUTPA TIENT VISIT, [facility], [address], [place], [place], [address], [place] tel:[phone] [facility] anxiety1 (chief complaint)pa in (chief complaint) Chronic pain syndromeGeneraliz ed Anxiety Disorder 0 Jesse Daly. [address], [place], [place], [address] , [place]. [phone] Referring Provider: Shelton [address], [place], [place], [address]. tel:[phone] OFFICE/OUTPA TIENT VISIT, [facility], [address], [place], [place], [address], [place] tel:[phone] [facility] sick (chief complaint)vi ral infection (chief complaint) Viral infectionEmphysem a 0- 0 Jesse Daly. [address], [place], [place], [address] , [place]. tel:[phone] Referring Provider: Addy Molina, [address], [place], [place], [address]. tel:[phone] OFFICE/OUTPA TIENT VISIT, [facility], [address], [place], [place], [address], [place] tel:[phone] [facility] anxiety1 (chief complaint)pa in (chief complaint) Chronic pain syndromeGeneraliz ed Anxiety Disorder Jun- 0 Jesse Daly. [address], [place], [place], [address] , [place]. tel:[phone] Referring Provider: Shelton [address], [place], [place], [address]. tel:[phone] OFFICE/OUTPA TIENT VISIT, [facility], [address], [place], [place], [address], [place] tel:[phone] [facility] Medicine anxiety1 (chief complaint)pa in (chief complaint) Chronic pain syndromeGeneraliz ed Anxiety Disorder Jun-0 0 Jesse Daly. [address], [place], [place], [address] , [place]. tel:[phone] Referring Provider: Shelton [address], [place], [place], [address]. tel:[phone] OFFICE/OUTPA TIENT VISIT, [facility], [address], [place], [place], [address], [place] tel:[phone] [facility] Medicine anxiety1 (chief complaint)pa in (chief complaint) Chronic pain syndromeGeneraliz ed Anxiety Disorder Sep-0 3-202 0 Jesse Daly. [address], [place], [place], [address] , [place]. tel:[phone] Referring Provider: Shelton [address], [place], [place], [address]. tel:[phone] OFFICE/OUTPA TIENT VISIT, [facility], [address], [place], [place], [address], [place] tel:[phone] [facility] anxiety1 (chief complaint)pa in1 (chief complaint) Generalized Anxiety DisorderChronic pain syndrome Apr-0 0 Jesse Daly. [address], [place], [place], [address] , [place]. tel:[phone] Referring Provider: Shelton [address], [place], [place], [address]. tel:[phone] OFFICE/OUTPA TIENT VISIT, [facility], [address], [place], [place], [address], [place] tel:[phone] [facility] anxiety1 (chief complaint)pa in1 (chief complaint) Chronic pain syndromeGeneraliz ed Anxiety Disorder Mar-0 0 Jesse Hale [address], [place], [place], [address] , [place]. tel:[phone] Referring Provider: Shelton [address], [place], [place], [address]. tel:[phone] OFFICE/OUTPA TIENT VISIT, [facility], [address], [place], [place], [address], [place] tel:[phone] [facility] pain (chief complaint)an xiety1 (chief complaint)CA D (chief complaint)to bacco1 (chief complaint) Chronic pain syndromeGeneraliz ed Anxiety DisorderCoronary artery disease of pechanga coronary artery without angina pectorisEmphysema Yan-0 0 Jesse Hale [address], [place], [place], [address] , [place]. tel:[phone] Referring Provider: Shelton [address], [place], [place], [address]. tel:[phone] PREV VISIT, EST, AGE 40-64 [facility], [address], [place], [place], [address], [place] [phone] [facility] Physical (chief complaint) Encntr for general adult medical exam w/o abnormal findings May-0 0 Jesse Daly. [address], [place], [place], [address] , [place]. tel:[phone] Referring Provider: Shelton [address], [place], [address]. tel:[phone] OFFICE/OUTPA TIENT VISIT, [facility], [address], [place], [place], [address], [place] [phone] [facility] BPH (chief complaint)BP H1 (chief complaint)co nstipation (chief complaint) ConstipationEnlar ged prostate w/ LUTSGeneralized Anxiety DisorderChronic pain syndrome Apr-0 0 Jesse Daly. [address], [place], [place], [address] , [place]. tel:[phone] Referring Provider: Shelton [address], [place], [place], [address]. tel:[phone] OFFICE/OUTPA TIENT VISIT, EST [facility], [address], [place], [place], [address], [place] tel:[phone] [facility] BPH (chief complaint)an xiety1 (chief complaint)pa in (chief complaint)en uresis1 (chief complaint)co nstipation1 (chief complaint) EnuresisEnlarged prostate w/ LUTSConstipationG eneralized Anxiety DisorderChronic pain syndrome Mar-0 0 Jesse Hale [address], [place], [place], [address] , [place]. tel:[phone] Referring Provider: Shelton [address], [place], [place], [address]. tel:[phone] OFFICE/OUTPA TIENT VISIT, [facility], [address], [place], [address], [place] [phone] [facility] pain1 (chief complaint)an xiety1 (chief complaint)co nstipation1 (chief complaint)ur ine (chief complaint) EnuresisChronic pain syndromeGeneraliz ed Anxiety DisorderConstipat ionBPH w/ lower urinary tract symptom 0 Jesse Daly. [address], [place], [place], [address] , [place]. [phone] Referring Provider: Shelton [address], [place], [place], [address]. tel:[phone] OFFICE/OUTPA TIENT VISIT, [facility], [address], [place], [place], [address], [place] [phone] [facility] abd pain1 (chief complaint)ba ck pain1 (chief complaint)an xiety1 (chief complaint)sl eep apnea1 (chief complaint) Chronic pain syndromeGeneraliz ed Anxiety DisorderAbdominal painSleep apnea 0 Jesse Daly. [address], [place], [place], [address] , [place]. tel:[phone] Referring Provider: Shelton [address], [place], [place], [address]. tel:[phone] OFFICE/OUTPA TIENT VISIT, [facility], [address], [place], [place], [address], [place] [phone] [facility] pain (chief complaint)an xiety1 (chief complaint)BP H (chief complaint) Enlarged prostate w/ LUTSChronic pain syndromeGeneraliz ed Anxiety Disorder 201 9 Jesse Hale [address], [place], [place], [address] , [place]. tel:[phone] Referring Provider: Shelton [address], [place], [place], [address]. tel:[phone] OFFICE/OUTPA TIENT VISIT, [facility], [address], [place], [place], [address], [place] tel:[phone] [facility] tinnitus1 (chief complaint)ch ronic pain (chief complaint)an xiety1 (chief complaint)to bacco1 (chief complaint) Tinnitus, right earChronic pain syndromeGeneraliz ed Anxiety DisorderTobacco use 9 Jesse Daly. [address], [place], [place], [address] , [place]. [phone] Referring Provider: Shelton Ja[address], [place], [place], [address]. tel:[phone] OFFICE/OUTPA TIENT VISIT, [facility], [address], [place], [place], [address], [place] tel:[phone] [facility] chronic pain1 (chief complaint)an xiety1 (chief complaint)HT N (chief complaint)sl eep apnea1 (chief complaint) Generalized Anxiety DisorderChronic pain syndromeSleep apneaEssential (primary) hypertensionHepat itis C 9 Jesse Daly. [address], [place], [place], [address] , [place]. tel:[phone] Referring Provider: Shelton Ja[address], [place], [place], [address]. tel:[phone] OFFICE/OUTPA TIENT VISIT, [facility], [address], [place], [place], [address], [place] [phone] [facility] chronic pain (chief complaint)an xiety1 (chief complaint)he p c (chief complaint) Chronic pain syndromeGeneraliz ed Anxiety DisorderHepatitis C 9 Jesse Daly. [address], [place], [place], [address] , [place]. [phone] Referring Provider: Shelton Ja[address], [place], [place], [address]. tel:[phone] OFFICE/OUTPA TIENT VISIT, [facility], [address], [place], [place], [address], tel:[phone] [facility] chronic pain1 (chief complaint)an xiety1 (chief complaint) Generalized Anxiety DisorderChronic pain syndrome 9 Jesse Daly. [address], [place], [place], [address] , [place]. tel:[phone] Referring Provider: Shelton Ja[address], [place], [place], [address]. tel:[phone] OFFICE/OUTPA TIENT VISIT, [facility], [address], [place], [place], [address], [place] tel:[phone] [facility] COPD1 (chief complaint)an xiety1 (chief complaint)ba ck pain1 (chief complaint)he p C (chief complaint) Generalized Anxiety DisorderChronic pain syndromeHepatitis CEmphysema 9 Jesse Daly. [address], [place], [place], [address] , [place]. tel:[phone] Referring Provider: Shelton [address], [place], [place], [address]. tel:[phone] OFFICE/OUTPA TIENT VISIT, [facility], [address], [place], [place], [address], [place] tel:[phone] [facility] glucose1 (chief complaint)he p C (chief complaint)CO PD1 (chief complaint)ch ronic pain (chief complaint)an xity1 (chief complaint)CA D (chief complaint) Hepatitis CEmphysemaHypergl ycemiaChronic pain syndromeGeneraliz ed Anxiety DisorderCoronary artery disease of pechanga coronary artery without angina pectoris 9 Jesse Daly. [address], [place], [address] , [place]. tel:[phone] Referring Provider: Shelton Ja[address], [place], [place], [address]. tel:[phone] OFFICE/OUTPA TIENT VISIT, [facility], [address], [place], [place], [address], [place] tel:[phone] [facility] COPD1 (chief complaint)an xiety1 (chief complaint)ba ck pain1 (chief complaint) EmphysemaChronic pain syndromeGeneraliz ed Anxiety DisorderTobacco useCoronary artery disease of pechanga coronary artery without angina pectoris 9 Jesse Daly. [address], [place], [place], [address] , [place]. tel:[phone] Referring Provider: [address], [place], [place], [address]. tel:[phone] OFFICE/OUTPA TIENT VISIT, [facility], [address], [place], [place], [address], [place] tel:[phone] [facility] COPD1 (chief complaint)an xiety1 (chief complaint)ba ck pain1 (chief complaint) EmphysemaGenerali zed Anxiety DisorderChronic pain syndromeHepatitis C 9 Jesse Daly. [address], [place], [place], [address] , [place]. tel:[phone] Referring Provider: [address], [place], [place], [address]. tel:[phone] OFFICE/OUTPA TIENT VISIT, [facility], [address], [place], [place], [address], [place] tel:[phone] [facility] COPD1 (chief complaint)an xiety1 (chief complaint)ba ck pain1 (chief complaint) EmphysemaGenerali zed Anxiety DisorderChronic pain syndromeTobacco use 9 Jesse Daly. [address], [place], [place], [address] , [place]. tel:[phone] Referring Provider: [address]ton [address], [place], [place], [address]. tel:[phone] PREV VISIT, EST, AGE 40-64 [facility], [address], [place], [place], [address], [place] tel:[phone] [facility] Physical (chief complaint) Encounter for general adult medical exam w abnormal findingsEmphysema Enlarged prostate w/ LUTSGynecomastiaC hronic pain syndromeGeneraliz ed Anxiety DisorderCoronary artery disease of pechanga coronary artery without angina pectorisHepatitis CSleep apneaFatty liverEssential (primary) hypertension 9 Jesse Daly. [address], [place], [place], [address] , [place]. tel:[phone] Referring Provider: [address]ton [address], [place], [place], [address]. tel:[phone] OFFICE/OUTPA TIENT VISIT, [facility], [address], [place], [place], [address], [place] tel:[phone] [facility] COPD1 (chief complaint)pa ncreatic cyst (chief complaint)pa in1 (chief complaint)an xiety1 (chief complaint)si ck1 (chief complaint) EmphysemaGenerali zed Anxiety DisorderChronic pain syndromeDisorder of pancreatic internal secretion, unspecifiedAcute bronchitis 9 Jesse Daly. [address], [place], [place], [address] , [place]. tel:[phone] Referring Provider: Shelton Ja[address], [place], [place], [address]. tel:[phone] OFFICE/OUTPA TIENT VISIT, EST [facility], [address], [place], [place], [address], [place] tel:[phone] [facility] chronic pain1 (chief complaint)an xiety1 (chief complaint)pa ncreatic1 (chief complaint)gy necomastia1 (chief complaint) EmphysemaChronic pain syndromeDisorder of pancreatic internal secretion, unspecifiedGenera lized Anxiety DisorderGynecomas tia 9 Jesse Daly. [address], [place], [place], [address] , [place]. tel:[phone] Referring Provider: Shelton Jaeger [facility] [address], [place], [place], [address]. tel:[phone] OFFICE/OUTPA TIENT VISIT, [facility], [address], [address], [place] tel:[phone] [facility] anxiety1 (chief complaint)ba ck pain1 (chief complaint)pa ncreatic cyst1 (chief complaint) GynecomastiaChron ic pain syndromeGeneraliz ed Anxiety DisorderDisorder of pancreatic internal secretion, unspecified 8 Jesse Daly. [address] [facility] [address], [place], [place], [address] , [place]. tel:[phone] Referring Provider: Shelton Jaeger [facility] [address], [place], [place], [address]. tel:[phone] OFFICE/OUTPA TIENT VISIT, [facility], [address], [place], [address], [place] tel:[phone] [id number] [facility] pancreatic cyst1 (chief complaint)gy necomastia1 (chief complaint)ch ronic pain1 (chief complaint)an xiety1 (chief complaint) Disorder of pancreatic internal secretion, unspecifiedGenera lized Anxiety DisorderChronic pain syndromeGynecomas tia 8 Jesse Daly. [address] [facility] [address], [place], [place], [address] , [place]. tel:[phone] Referring Provider: Shelton Jaeger [facility] A, [place], [place], [address]. tel:[phone] OFFICE/OUTPA TIENT VISIT, [facility], [address] [place], [address], [place] tel:[phone] [facility] pain1 (chief complaint)an xiety1 (chief complaint)pa ncreatic cyst1 (chief complaint)CO PD1 (chief complaint)br east pain1 (chief complaint) Chronic pain syndromeEmphysema Generalized Anxiety DisorderMastodyni aDisorder of pancreatic internal secretion, unspecified 8 Jesse Daly. [address], [place], [place], [address] , [place]. tel:[phone] Referring Provider: Shelton Jaeger [address], [place], [place], [address]. tel:[phone] OFFICE/OUTPA TIENT VISIT, [facility], [address], [place], [place], [address], [place] tel:[phone] [facility] COPD1 (chief complaint)ba ck pain1 (chief complaint)an xeity1 (chief complaint)ab d pain1 (chief complaint) EmphysemaChronic pain syndromeGeneraliz ed Anxiety DisorderAbdominal pain 8 Jesse Daly. [address], [place], [place], [address] , [place]. tel:[phone] Referring Provider: Shelton Jaeger [address], [place], [place], [address]. tel:[phone] OFFICE/OUTPA TIENT VISIT, [facility], [address], [place], [place], [address], [place] tel:[phone] [facility] BPH1 (chief complaint)LB P1 (chief complaint)an xiety1 (chief complaint)sl eep apnea1 (chief complaint) Sleep apneaBPH w/ lower urinary tract symptomCoronary artery disease of pechanga coronary artery without angina pectorisChronic pain syndromeGeneraliz ed Anxiety Disorder 8 Jesse Daly. [address], [place], [place], [address] , [place]. tel:[phone] Referring Provider: Shelton Jaeger [address], [place], [place], [address]. tel:[phone] OFFICE/OUTPA TIENT VISIT, [facility], [address], [place], [place], [address], [place] tel:[phone] [facility] chronic pain1 (chief complaint)an xiety1 (chief complaint) Chronic pain syndromeGeneraliz ed Anxiety Disorder Joey-1 9-201 8 Jesse Daly. [address], [place], [place], [address] , [place]. tel:[phone] Referring Provider: Shelton Jaeger [address], [place], [place], [address]. 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 [address], [place], [place], [address] , [place]. tel:[phone] Referring Provider: Shelton Jaeger [address], [place], [place], [address]. tel:[phone] OFFICE/OUTPA TIENT VISIT, [facility], [address], [place], [place], [address], [place] tel:[phone] [facility] hep c (chief complaint)an xiety1 (chief complaint)ba ck pain1 (chief complaint) Body mass index (BMI) 39.0-39.9, adultHepatitis CAlcohol dependence, uncomplicatedLumb ago with sciatica, left sideGeneralized Anxiety Disorder 8 Jesse Daly. [address], [place], [place], [address] , [place]. tel:[phone] Referring Provider: Shelton Jaeger [address], [place], [place], [address]. tel:[phone] OFFICE/OUTPA TIENT VISIT, [facility], [address], [place], [place], [address], [place] tel:[phone] [facility] hep C (chief complaint)ch ronic pain1 (chief complaint)an xiety1 (chief complaint) Body mass index (BMI) 39.0-39.9, adultGeneralized Anxiety DisorderChronic pain syndromeHepatitis CFatty liver Dec-2 0 8 Jesse Daly. [address], [place], [place], [address] , [place]. tel:[phone] Referring Provider: Addy Molina, [address], [place], [place], [address]. tel:[phone] OFFICE/OUTPA TIENT VISIT, EST [facility], [address], [place], [place], [address], [place] tel:[phone] [facility] back pain1 (chief complaint)an xiety1 (chief complaint)ca rpal tunnel1 (chief complaint)sl eep apnea1 (chief complaint) Sleep apneaChronic pain syndromeGeneraliz ed Anxiety DisorderCarpal tunnel syndrome, bilateral upper limbs Nov- 8 Jesse Hale [address], [place], [place], [address] , [place]. tel:[phone] Referring Provider: Shelton Jaeger [address], [place], [place], [address]. tel:[phone] PREV VISIT, EST, AGE 40-64 [facility], [address], [place], [place], [address], [place] tel:[phone] [facility] Physical (chief complaint) Encounter for general adult medical exam w abnormal findingsEmphysema Sleep apneaEssential (primary) hypertension 8 Jesse Daly. [address], [place], [place], [address] , [place]. tel:[phone] Referring Provider: Shelton Jaeger [address], [place], [place], [address]. tel:[phone] OFFICE/OUTPA TIENT VISIT, EST [facility], [address], [place], [place], [address], [place] tel:[phone] [facility] back pain1 (chief complaint)an xiety1 (chief complaint)CO PD1 (chief complaint) EmphysemaChronic pain syndromeGeneraliz ed Anxiety DisorderTobacco use 8 Jesse Daly. [address], [place], [place], [address] , [place]. tel:[phone] Referring Provider: Shelton Jaeger [address], [place], [place], [address]. tel:[phone] OFFICE/OUTPA TIENT VISIT, [facility], [address] [place], [address], [place] tel:[phone] [facility] anxieyt1 (chief complaint)ba ck pain1 (chief complaint)HT N (chief complaint)he p c (chief complaint)sl eep apnea1 (chief complaint) Sleep apneaEssential (primary) hypertensionChron ic pain syndromeGeneraliz ed Anxiety Disorder Jesse Daly. [address], [place], [place], [address] , [place]. tel:[phone] Referring Provider: Shelton Jaeger [address] [place], [address]. tel:[phone] OFFICE/OUTPA TIENT VISIT, [facility], [address] [place], [address], [place] tel:[phone] [facility] chronic pain1 (chief complaint)an xiety1 (chief complaint) Chronic pain syndromeGeneraliz ed Anxiety Disorder Jesse Daly. [address] [place], [address] , [place]. tel:[phone] Referring Provider: Shelton Jaeger [address] [place], [address]. tel:[phone] OFFICE/OUTPA TIENT VISIT, [facility], [address] [place], [address], [place] tel:[phone] [facility] back pain1 (chief complaint)an xiety1 (chief complaint)sl eep apnea (chief complaint)ob esity1 (chief complaint) Sleep apneaGeneralized Anxiety DisorderChronic pain syndromeBody mass index (BMI) 37.0-37.9, adult Jun- Jesse Daly. [address], [place], [place], [address] , [place]. tel:[phone] Referring Provider: Shelton Jaeger [address], [place], [place], [address]. tel:[phone] OFFICE/OUTPA TIENT VISIT, [facility], [address], [place], [place], [address], [place] tel:[phone] [facility] sleep apnea1 (chief complaint)an xiety1 (chief complaint)ba ck pain1 (chief complaint)HT N (chief complaint) Chronic pain syndromeSleep apneaGeneralized Anxiety DisorderEssential (primary) hypertension Jesse Hale [address], [place], [place], [address] , [place]. tel:[phone] Referring Provider: Shelton Jaeger [address], [place], [place], [address]. tel:[phone] OFFICE/OUTPA TIENT VISIT, [facility], [address], [place], [place], [address], [place] tel:[phone] [facility] LUTS (chief complaint)ch ronic pain1 (chief complaint)an xiety1 (chief complaint)sl eep apnea1 (chief complaint) Sleep apneaChronic pain syndromeGeneraliz ed Anxiety DisorderEnlarged prostate w/ LUTS Jesse Hale [address], [place], [place], [address] , [place]. tel:[phone] Referring Provider: Shelton Jaeger [address], [place], [place], [address]. tel:[phone] OFFICE/OUTPA TIENT VISIT, [facility], [address], [place], [place], [address], [place] tel:[phone] [facility] back apin1 (chief complaint)an xiety1 (chief complaint)sl eep apnea (chief complaint)ob eisty1 (chief complaint) Chronic pain syndromeGeneraliz ed Anxiety DisorderSleep apneaBody mass index (BMI) 40.0-44.9, adult 3 7 Jesse Daly. [address], [place], [place], [address] , [place]. tel:[phone] Referring Provider: Shelton Jaeger [address], [place], [place], [address]. tel:[phone] OFFICE/OUTPA TIENT VISIT, [facility], [address], [place], [place], [address], [place] tel:[phone] [facility] anxiety1 (chief complaint)ba ck pain1 (chief complaint)sl eep apnea1 (chief complaint)HT N (chief complaint) Sleep apneaChronic pain syndromeGeneraliz ed Anxiety DisorderEssential (primary) hypertension 7 Jesse Hale [address], [place], [place], [address] , [place]. tel:[phone] Referring Provider: Shelton Jaeger [address], [place], [place], [address]. tel:[phone] OFFICE/OUTPA TIENT VISIT, [facility], [address], [place], [place], [address], [place] tel:[phone] [facility] back pain1 (chief complaint)an xiety1 (chief complaint)sl eep apnea1 (chief complaint) Sleep apneaChronic pain syndromeGeneraliz ed Anxiety Disorder 7 Jesse Hale [address], [place], [place], [address] , [place]. tel:[phone] Referring Provider: Shelton Jaeger [address], [place], [place], [address]. tel:[phone] OFFICE/OUTPA TIENT VISIT, [facility], [address], [place], [place], [address], [place] tel:[phone] [facility] back pain (chief complaint)an xiety1 (chief complaint)sl eep apnea1 (chief complaint)ED 1 (chief complaint) Chronic pain syndromeSleep apneaGeneralized Anxiety DisorderMale erectile dysfunction, unspecified 7 Jesse Daly. [address], [place], [place], [address] , [place]. [phone] Referring Provider: Shelton Jaeger [facility] A, [place], [place], [address]. tel:[phone] OFFICE/OUTPA TIENT VISIT, [facility], [address], [place], [place], [address], [place] [phone] [facility] back pain1 (chief complaint)an xiety1 (chief complaint)BP H1 (chief complaint)sl eep apnea1 (chief complaint) Chronic pain syndromeGeneraliz ed Anxiety DisorderProteinur iaEnlarged prostate 7 Jesse Hale [address], [place], [place], [address] , [place]. [phone] Referring Provider: Shelton Jaeger [address], [place], [place], [address]. tel:[phone] OFFICE/OUTPA TIENT VISIT, [facility], [address] [place], [address], [place] tel:[phone] [facility] HTN (chief complaint)BP H (chief complaint)BP H1 (chief complaint)ba ck pain1 (chief complaint)pr oteinuria1 (chief complaint) ProteinuriaGenera lized Anxiety DisorderChronic pain syndromeEssential (primary) hypertension 7 Jesse Peoples [address], [place], [place], [address] , [place]. [phone] Referring Provider: Shelton Jaeger [facility] [address], [place], [place], [address]. tel:[phone] PREV VISIT, EST, AGE 40-64 [facility], [address], [place], [place], [address], [place] tel:[phone] [facility] Medicine PHysical (chief complaint) Encounter for general adult medical exam w abnormal findingsPulmonary infiltrateChronic pain syndromeGeneraliz ed Anxiety Disorder 0 7 Jesse Daly. [address], [place], [place], [address] , [place]. tel:[phone] Referring Provider: Shelton Jaeger [address], [place], [place], [address]. tel:[phone] OFFICE/OUTPA TIENT VISIT, [facility], [address], [place], [place], [address], [place] tel:[phone] [facility] anxiety1 (chief complaint)ba ck pain1 (chief complaint) Chronic pain syndromeGeneraliz ed Anxiety Disorder 7 Jesse Daly. [address], [place], [place], [address] , [place]. [phone] Referring Provider: Shelton Jaeger [facility] [address], [place], [place], [address]. tel:[phone] OFFICE/OUTPA TIENT VISIT, [facility], [address], [place], [place], [address], [place] tel:[phone] [facility] back pain1 (chief complaint)an xiety1 (chief complaint)HT N (chief complaint)pn eumonia1 (chief complaint) PneumoniaChronic pain syndromeGeneraliz ed Anxiety DisorderEssential (primary) hypertension 6 Jesse Hale [address] [place], [address] , [place]. [phone] Referring Provider: Shelton Jaeger [address], [place], [place], [address]. tel:[phone] OFFICE/OUTPA TIENT VISIT, [facility], [address] [place], [address], [place] tel:[phone] [facility] BACK PAIN (chief complaint)an xiety1 (chief complaint)pn eumonia1 (chief complaint)Pa ncreatic cyst (chief complaint) PneumoniaCongenit al pancreatic cystGeneralized Anxiety DisorderChronic pain syndrome 6 Jesse Hale [address], [place], [place], [address] , [place]. tel:[phone] Referring Provider: Shelton Jaeger [address], [place], [place], [address]. tel:[phone] OFFICE/OUTPA TIENT VISIT, [facility], [address], [place], [place], [address], [place] tel:[phone] [facility] back pain1 (chief complaint)an xiety1 (chief complaint)ED (chief complaint) Chronic pain syndromeGeneraliz ed Anxiety DisorderOther male erectile dysfunction 6 Jesse Hale [address], [place], [place], [address] , [place]. [phone] Referring Provider: Shelton Jaeger [facility] [address], [place], [place], [address]. tel:[phone] OFFICE/OUTPA TIENT VISIT, [facility], [address], [place], [place], [address], [place] tel:[phone] [facility] BACK PAIN (chief complaint)an xiety1 (chief complaint)ED 1 (chief complaint)he p C (chief complaint) Chronic pain syndromeGeneraliz ed Anxiety DisorderMale erectile dysfunction, unspecifiedChroni c viral hepatitis C 6 Jesse Hale [address], [place], [place], [address] , [place]. tel:[phone] Referring Provider: Shelton Jaeger [address], [place], [place], [address]. tel:[phone] OFFICE/OUTPA TIENT VISIT, [facility], [address] [place], [address], [place] tel:[phone] [facility] back apin (chief complaint)an xiety1 (chief complaint)HT N (chief complaint)re nal cyst1 (chief complaint) Essential (primary) hypertensionChron ic pain syndromeGeneraliz ed Anxiety DisorderCongenita l renal cyst 6 Molina Addy. [address], [place], [place], [address] , [place]. tel:[phone] Referring Provider: Shelton Jaeger [address], [place], [place], [address]. tel:[phone] OFFICE/OUTPA TIENT VISIT, [facility], [address], [place], [place], [address], [place] tel:[phone] [facility] COPD1 (chief complaint)an xiety1 (chief complaint)ba ck pain1 (chief complaint)GE RD1 (chief complaint) COPDHelicobacter pylori [H. pylori] as the cause of diseases classified elsewhereChronic pain syndromeGeneraliz ed Anxiety Disorder 6 Jesse Daly. [address], [place], [place], [address] , [place]. [phone] Referring Provider: Shelton Jaeger [facility] [address], [place], [place], [address]. tel:[phone] OFFICE/OUTPA TIENT VISIT, [facility], [address], [place], [place], [address], [place] tel:[phone] [facility] COPD (chief complaint)HT N (chief complaint)ba ck pain1 (chief complaint)an xiety1 (chief complaint)ED (chief complaint) Chronic obstructive pulmonary disease, unspecifiedEssent ial (primary) hypertensionChron ic pain syndromeGeneraliz ed Anxiety Disorder 6 Jesse Daly. [address], [place], [place], [address] , [place]. [phone] Referring Provider: Shelton Jaeger [address], [place], [place], [address]. tel:[phone] OFFICE/OUTPA TIENT VISIT, [facility], [address], [place], [place], [address], [place] tel:[phone] [facility] COPD (chief complaint)HT N (chief complaint)An xiety1 (chief complaint)he p C (chief complaint) Chronic obstructive pulmonary disease, unspecifiedChroni c pain syndromeGeneraliz ed Anxiety DisorderChronic viral hepatitis C 6 Jesse Daly. [address], [place], [place], [address] , [place]. [phone] Referring Provider: Shelton Jaeger [address], [place], [place], [address]. tel:[phone] OFFICE/OUTPA TIENT VISIT, EST [facility], [address], [place], [place], [address], [place] [phone] [facility] COPD1 (chief complaint)An xiety1 (chief complaint)ba ck pain1 (chief complaint) COPDGeneralized Anxiety DisorderChronic pain syndrome 6 Jesse Daly. [address], [place], [place], [address] , [place]. [phone] Referring Provider: Shelton Jaeger [address], [place], [place], [address]. tel:[phone] OFFICE/OUTPA TIENT VISIT, EST [facility], [address], [place], [place], [address], [place] tel:[phone] [facility] back pain1 (chief complaint)an xiety1 (chief complaint)HT N (chief complaint)lo w D (chief complaint) Chronic pain syndromeGeneraliz ed Anxiety DisorderVitamin D deficiency, unspecifiedEssent ial (primary) hypertension 6 Jesse Daly. [address], [place], [place], [address] , [place]. [phone] Referring Provider: Shelton Jaeger [address], [place], [place], [address]. tel:[phone] PREV VISIT, EST, AGE 40-64 [facility], [address], [place], [place], [address], [place] tel:[phone] [facility] PHysical (chief complaint) Encntr for general adult medical exam w/o abnormal findings 6 Jesse Daly. [address], [place], [place], [address] , . tel:[phone] Referring Provider: Shelton Jaeger [place], [address]. tel:[phone] OFFICE/OUTPA TIENT VISIT, [facility], [address] [place], [address], tel:[phone] [facility] chronic pain1 (chief complaint)an nxiety1 (chief complaint)He p C1 (chief complaint)CO PD1 (chief complaint) Chronic pain syndromeGeneraliz ed Anxiety DisorderOther emphysema 6 Jesse Hale [address] [facility] [place], [address] , [place]. tel:[phone] Referring Provider: Shelton Jaeger [place], [address]. tel:[phone] OFFICE/OUTPA TIENT VISIT, [facility], [address] [place], [address], [place] tel:[phone] [facility] HTN1 (chief complaint)ba ck pain1 (chief complaint)an xity1 (chief complaint)he p C1 (chief complaint) Chronic pain syndromeGeneraliz ed Anxiety DisorderEssential (primary) hypertensionChron ic viral hepatitis C 5 Jesse Hale [address] [facility] [place], [address] , [place]. tel:[phone] Referring Provider: Shelton Jaeger [facility] [address], [place], [place], [address]. tel:[phone] OFFICE/OUTPA TIENT VISIT, [facility], [address] [place], [address], [place] tel:[phone] [facility] COPD1 (chief complaint)An xiety1 (chief complaint)ba ck pain1 (chief complaint)he p C (chief complaint) Other emphysemaGenerali zed anxiety disorderOther spondylosis, lumbar regionChronic viral hepatitis C 5 Molina Addy. [address], [place], [place], [address] , [place]. tel:[phone] Referring Provider: Shelton Jaeger [address], [place], [place], [address]. tel:[phone] OFFICE/OUTPA TIENT VISIT, [facility], [address], [place], [place], [address], [place] tel:[phone] [facility] lumbago1 (chief complaint)An xiety1 (chief complaint) Dietary surveillance and counselingOther spondylosis, lumbar regionGeneralized Anxiety Disorder 5 Jesse Daly. [address], [place], [place], [address] , [place]. tel:[phone] Referring Provider: Shelton Jaeger [address], [place], [place], [address]. tel:[phone] OFFICE/OUTPA TIENT VISIT, [facility], [address], [place], [place], [address], [place] tel:[phone] [facility] back pain (chief complaint)an xiety (chief complaint)CO PD (chief complaint)HT N (chief complaint) LumbagoInsomnia, unspecifiedUnspec ified essential hypertensionCOPDD ietary surveillance and counseling 5 Jesse Daly. [address], [place], [place], [address] , [place]. [phone] Referring Provider: Shelton Jaeger [address], [place], [place], [address]. tel:[phone] OFFICE/OUTPA TIENT VISIT, [facility], [address], [place], [place], [address], [place] tel:[phone] [facility] back pain (chief complaint)an xiety (chief complaint)CO PD (chief complaint) COPDLumbagoUnspec ified viral hepatitis without mention of hepatic comaInsomnia, unspecifiedDietar y surveillance and counseling 5 Jesse Daly. [address], [place], [place], [address] , [place]. tel:[phone] Referring Provider: Addy Molina, [address], [place], [place], [address]. tel:[phone] OFFICE/OUTPA TIENT VISIT, [facility], [address], [place], [place], [address], [place] tel:[phone] [facility] back pain (chief complaint)an xiety (chief complaint)CO PD (chief complaint) LumbagoInsomniaCO PDDietary surveillance and counselingBlood pressure elevated 5 Jesse Daly. [address], [place], [place], [address] , [place]. tel:[phone] Referring Provider: Shelton Jaeger [address], [place], [place], [address]. tel:[phone] OFFICE/OUTPA TIENT VISIT, [facility], [address], [place], [place], [address], [place] tel:[phone] [facility] back pain (chief complaint)an xiety (chief complaint)butt nd pain (chief complaint) Insomnia, unspecifiedLumbag oUnspecified viral hepatitis without mention of hepatic comaCarpal tunnel 5 Jesse Daly. [address], [place], [place], [address] , [place]. tel:[phone] Referring Provider: Shelton Jaeger [address], [place], [place], [address]. tel:[phone] OFFICE/OUTPA TIENT VISIT, [facility], [address], [place], [place], [address], [place] tel:[phone] [facility] COPD (chief complaint)ba ck pain (chief complaint)in somnia (chief complaint) Dietary surveillance and counselingCOPDIns omnia, unspecifiedLumbag o 5 Jesse Daly. [address], [place], [place], [address] , [place]. tel:[phone] Referring Provider: Addy Molina [address], [place], [place], [address]. tel:[phone] OFFICE/OUTPA TIENT VISIT, [facility] [facility], [address], [place], [place], [id number], [place] tel:[phone] [facility] back pain (chief complaint)He p C (chief complaint)in somnia (chief complaint) Dietary surveillance and counselingLumbago Other specified viral hepatitis without mention of hepatic comaInsomnia, OtherOpioid type dependence, unspecified use Dec- 5 Jesse Daly. [address], [place], [place], [address] , [place]. tel:[phone] Referring Provider: Shelton Jaeger [address], [place], [place], [address]. tel:[phone] OFFICE/OUTPA TIENT VISIT, [facility], [address], [place], [place], [address], [place] tel:[phone] [facility] back pain (chief complaint)ab dominal pain (chief complaint)[place] (chief complaint)Pr ostate enlargement (chief complaint) Dietary surveillance and counselingLumbago Other specified viral hepatitis without mention of hepatic comaCOPDCyst and pseudocyst of pancreas 5 Jesse Daly. [address], [place], [place], [address] , [place]. tel:[phone] Referring Provider: Shelton Jaeger [address], [place], [place], [id number]. tel:[phone] OFFICE/OUTPA TIENT VISIT, [facility], [address], [place], [place], [address], [place] tel:[phone] [facility] back pain (chief complaint)He p C (chief complaint)ga llstone (chief complaint)[place] (chief complaint) Dietary surveillance and counselingOther specified viral hepatitis without mention of hepatic comaLumbagoCOPDBP H Fe 5 Jesse Daly. [address], [place], [place], [address] , [place]. tel:[phone] Referring Provider: Addy Molina [address], [place], [place], [address]. tel:[phone] PREV VISIT, NEW, AGE 40-64 [facility], [address], [place], [place], [address], tel:[phone] [facility] Medicine Physicaxl (chief complaint) Routine Medical ExamDietary surveillance and counselingRoutine Medical Exam 5 Jesse Daly. [address], [place], [place], [address] , [place]. tel:[phone] Family History Family Member Type Diagnosis Age At Onset Mother Problem (finding) of old age Father Problem (finding) of accident Sister Problem (finding) Alive and well Payers Payer name Insurance type Covered libertarian ID Abimbola edouard(s) [facility] [id number] Social History Type Description Quantity Date Captured Comments Alcohol Use Details Caffeine Use Details Unknown Tobacco Use Status Ex-cigarette smoker 025 Smoking Status Former smoker Sex Male Vital Signs Date / Time: Height Weight BMI Pulse Rate Blood Pressure Temperature Respiratory Rate Body Surface Area Head Circumference BMI percentile Pulse Ox Inhaled Ox 10:05 AM 69.00 in 266.00 lbs 39.2 8 kg/m eter (2) 89 /min 110/60 mm[Hg] 98.1 F 16 /min Chief Complaint And Reason For Visit From encounter dated 12/27/2024 09:31'. anxiety1 (chief complaint). Description: Pt has chronic anxiety and depression Pt takes prozac and valium and doing ok pt denies any suicidal or homicidal thought. Pt denies any crying spells pain (chief complaint). Description: Pt has chronic low back pain. Pt has mild sciatica Pt denies any loss of bladder control. Pt failed NSAD and ultram. Pt takes norco PRn for pain and doing ok. Pt has mild numbness but not bad. Pt denies any saddle area paresthesia fatigue1 (chief complaint). Description: Pt has chronic hypersomnia and fatigue Pt doing ok with adderall. abd pain1 (chief complaint). Description: Pt c/o intermittent left upper quadrant pain for several years pt has chronic pancreatic cyst. Pt was seeing GI but he has not seen GI for a while Pt noticesslightly worsening pain lately Plan Of Treatment Date Type Action Status Goal Tobacco cessation counseling completed Goal Tobacco cessation counseling completed Goal Tobacco cessation counseling completed Goal Tobacco cessation counseling completed Goal Tobacco cessation counseling completed Goal Special diet education compl eted Goal Tobacco cessation counseling completed Goal Special diet education compl eted Goal Tobacco cessation counseling completed Goal Tobacco cessation counseling completed Goal Special diet education compl eted Goal Special diet education compl eted Goal Special diet education compl eted Goal Tobacco cessation counseling completed Goal Tobacco cessation counseling completed Goal Special diet education compl eted Goal Special diet education compl eted Goal Tobacco cessation counseling completed Goal Special diet education compl eted Goal Tobacco cessation counseling completed Goal Special diet education compl eted Goal Tobacco cessation counseling completed Goal Tobacco cessation counseling completed Goal Special diet education compl eted Goal Special diet education compl eted Goal Tobacco cessation counseling completed Goal Tobacco cessation counseling completed Goal Special diet education compl eted Goal Special diet education compl eted Goal Special diet education compl eted Goal Special diet education compl eted Goal Special diet education compl eted Goal Prescribed dietary intake co mpleted Goal Special diet education compl eted Goal Special diet education compl eted Goal Prescribed diet education co mpleted Goal Special diet education compl eted Goal Special diet education compl eted Referral Ordered: CT ABDOMEN&PELVIS W/CONTRAST ordered Referral Ordered: Pulmonology (related to Centrilobular emphysema) ordered Referral Ordered: [place] KIDNEY ordered Referral Referred To: Delbert Renee [address] [place], [id number] Ordered: Referrals: Delbert Renee. Evaluate and treat ordered Referral Ordered: Neurology (related to Cerebral infarction) ordered Referral Ordered: Otolaryngology (related to Dysphagia, oropharyngeal phase) ordered Referral Ordered: Referrals: Neurology. Evaluate and treat ordered Referral Ordered: Referrals: Otolaryngology. Evaluate and treat ordered Referral Ordered: LUMBAR XRAY AP AND LAT ONLY ordered Referral Ordered: HEARING TEST, PURE TONE, AIR ordered Referral Ordered: Pulmonology (related to Emphysema) ordered Referral Referred To: Nicole Perez DO [address] [facility]
[address] [place], [place], [address] Ordered: Referrals: Nicole Perez DO. 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 [place], [place] [id number] Ordered: Referrals: Allopathic & Osteopathic Physicians : Internal Medicine : Cardiovascular Disease. Rafe. Buck Evaluate and treat ordered Referral Ordered: SLEEP STUDY, ATTENDED ordered Referral Ordered: ERIN QUEZADA (related to Proteinuria) ordered Referral Referred To: ERIN QUEZADA [id number] [facility]
[address], [id number] Ordered: Referrals: ERIN QUEZADA. Evaluate and treat ordered Referral Ordered: Urology (related to Encounter for general adult medical exam w abnormal findings) ordered Referral Ordered: Referrals: Urology. Evaluate and treat ordered Referral Ordered: CT THORAX W/O DYE ordered Referral Ordered: Pulmonology (related to COPD) ordered Referral Ordered: Pulmonology (related to COPD) ordered Referral Ordered: Referrals: Pulmonology. Evaluate and treat ordered Referral Ordered: Plastic Surgery (related to Carpal tunnel) ordered Referral Ordered: Referrals: Plastic Surgery. Evaluate and treat ordered Referral Referred To: Physical Therapy Ordered: Referral: Physical Therapy. ordered Referral Ordered: Referral: Neurosurgery. ordered Referral Ordered: Urology (related to BPH) ordered Referral Ordered: MRI LUMBAR SPINE W/O DYE ordered Referral Ordered: Referral: Urology. Evaluate and treat. ordered Referral Ordered: [facility]astroentergy ordered Referral Ordered: CHEST X-RAY PA/LAT TWO-VIEWS ordered Referral Ordered: Referral: [facility]astro[facility]. ordered Appointment [facility] BOOKED History Of Present Illness Encounter Date Complaint History Of Prese nt Illness abd pain1 Pt c/o intermitt ent left upper quadrant pain for several years pt has chronic pancreatic cyst. Pt was seeing GI but he has not seen GI for a while Pt notices slightly worsening pain lately fatigue1 Pt has chronic h ypersomnia and fatigue Pt doing ok with adderall. pain Pt has chronic l ow back pain. Pt has mild sciatica Pt denies any loss of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 has COPD Pt s ees pulmonary Pt uses incruse and airduo and albuterol PRN Pt feels sob frequently chronic pani1 Pt has chronic b ack pain. Pt takes norco PRN for pain. Pt need disability paper completed pain Pt has chronic l ow back pain. Pt has mild sciatica Pt denies any loss of bladder control. Pt failed NSAD and ultram. Pt takes norco PRn for pain and doing ok. Pt has mild numbness but not bad. Pt denies any saddle area paresthesia anxiety1 Pt has chronic a nxiety and depression Pt takes prozac and valium and doing ok Pt denies any suicidal or homicidal thought. Pt denies any crying spells CVA CVA1 Pt has right CVA and he saw neurology recently and he will do cTA of head and neck but insurance denied it. He also is seeing cardiology he had holter monitor done and was told ok. Pt is on plavix and ASA. He has facial numbness prostate CA Pt has prostate CA Pt denies any urinary symptoms Pt saw urologist and will start radiation soon CAD Pt called his ca rdiologist back regarding the infarct and was told it is an old infarct. Pt wilian any chest pain anxiety1 Pt has chronic a nxiety and depression Pt takes prozac and valium and doing ok Pt denies any suicidal or homicidal thought. Pt denies any crying spells pain Pt has chronic l ow back pain. Pt has mild sciatica Pt denies any loss of bladder control. Pt failed NSAD and ultram. Pt takes norco PRn for pain and doing ok. Pt has mild numbness but not bad. Pt denies any saddle area paresthesia CAD Pt had cardiac s tress done by cardiology which showed small infarct. Pt is not aware of it. Pt told me cardiology told him stress test ok? He denies any chest pain Prostate CA Pt sees urology and radiation oncology and he will start radiation therapy soon CVA The risk factors include age > 50. Additional information: Pt is s/p right thalamic infarct Pt is seeing neurology and he supposes to CTA of head and neck soon, He is on asa and plavix, Pt has mild left arm numbness but stable, Pt denies any speech issue or headache. anxiety1 Pt has chronic a nxiety and depression Pt takes prozac and valium and doing ok Pt denies any suicidal or homicidal thought. Pt denies any crying spells pain Pt has chronic l ow back pain. Pt has mild sciatica Pt denies any loss of bladder control. Pt failed NSAD and ultram. Pt takes norco PRn for pain and doing ok. Pt has mild numbness but not bad. Pt denies any saddle area paresthesia flank pain1 Pt states that f lank pain and blood in urine resolved .UA ok. Pt did not do ultrasound stroke1 Pt has right CVA and he saw neurology two weeks ago and he will do cTA of head and neck today but insurance denied it. He also is seeing cardiology he had holter monitor done and was told ok. Pt is on plavix and ASA flank pain1 Pt c/o bilateral flank pain and some blood in urine for 4-5 days Pt denies any fever, chill, nausea, vomiting, Pt denies any blood in stool. Pt does have prostate CA and he is waiting for prostate radiation therapy Pt denies any urinary frequency, urgency, etc Pt denies any dysuria. Pt denies any paolo hematuria .pt notices some bright red blood on his underwear in the morning flank pain1 anxiety1 Pt has riya with neurology next week. Pt states that his left side paresthesia is improving Pt denies any motor weakness Pt denies any speech issue or mental status change prostate CA1 Pt will under pr ostate radiation instead of proctectomy HTN1 Pt has HTN Pt ta kes irbesartan and norvasc and his bp is around 140/80. Pt denies any chest pain or headache or sob or edema anxiety1 Pt has chronic a nxiety and depression Pt takes prozac and valium and doing ok Pt denies any suicidal or homicidal thought. Pt denies any crying spells pain Pt has chronic l ow back pain. Pt has mild sciatica Pt denies any loss of bladder control. Pt failed NSAD and ultram. Pt takes norco PRn for pain and doing ok. Pt has mild numbness but not bad. Pt denies any saddle area paresthesia CVA1 Pt had acute isc hemic CVA 6 weeks ago. Pt denies any weakness Pt denies any speech problem or any vision issue or headache Pt went to Er and was found to have acute right thalamic infarct. he is on ASA, plavix daily now. He was started on lipitor. Pt supposes to take pravastatin by cardiology but he for some reason, has not been on it for a while. He c/o mild but improving left arm and leg numbness and tingling without weakness, mild lip tingling. He denies any headache, motor weakness, vision change, headache or speech difficulty or gait abnormality. He denies any headache. He has riya with [facility] in two weeks. Pt saw Dr. renee and he is wearing event monitor now. pain Pt has chronic l ow back pain. Pt has mild sciatica Pt denies any loss of bladder control. Pt failed NSAD and ultram. Pt takes norco PRn for pain and doing ok. Pt has mild numbness but not bad. Pt denies any saddle area paresthesia anxiety1 Pt has chronic a nxiety and depression Pt takes prozac and valium and doing ok Pt denies any suicidal or homicidal thought. Pt denies any crying spells CVA The risk factors include age > 50. Additional information: Pt has HTN Pt takes irbesartan 150 mg and his bp is still borderline high P denies any chest pain or headache or sob or edema. throat1 pt had laryngeal scope done by ENT and was cleared Pt denies any dysphagia anxiety1 Pt has chronic a nxiety and depression Pt takes prozac and valium and doing ok Pt denies any suicidal or homicidal thought. Pt denies any crying spells pain Pt has chronic l ow back pain. Pt has mild sciatica Pt denies any loss of bladder control. Pt failed NSAD and ultram. Pt takes norco PRn for pain and doing ok. Pt has mild numbness but not bad. Pt denies any saddle area paresthesia HTN Pt has HTN. Pt t akes irbesartan 75 mg but bp still high Pt denies any chest pain or headache CVA1 Pt c/o acute ons et of lip and tongue tingling and left arm and leg numbness since one week ago. Pt denies any weakness Pt denies any speech problem or any vision issue or headache Pt went to Er and was found to have acute right thalamic infarct. he is on ASA, plavix daily now. He was started on lipitor. Pt supposes to take pravastatin by cardiology but he for some reason, has not been on it for a while. He c/o mild but improving left arm and leg numbness and tingling without weakness, mild lip tingling. He denies any headache, motor weakness, vision change, headache or speech difficulty or gait abnormality. He denies any headache. HTN His bp has been elevated since recent event. Pt denies any chest pain or headache prostate CA Pt has prostate CA He denies any urinary symptoms. His radical prostatectomy is on hold due to above event neck1 Pt had abnormal soft tissue of neck x ray which showed tissue density around oropharyngeal soft tissue Pt denies any sore throat, drooling,, dysphagia, etc CVA1 Pt c/o acute ons et of lip and tongue tingling and left arm and leg numbness since one week ago. Pt denies any weakness Pt denies any speech problem or any vision issue or headache Pt went to Er and was found to have acute right thalamic infarct. he is on ASA, plavix daily now. He was started on lipitor. Pt supposes to take pravastatin by cardiology but he for some reason, has not been on it for a while. He c/o mild but improving left arm and leg numbness and tingling without weakness, mild lip tingling. He denies any headache, motor weakness, vision change, headache or speech difficulty or gait abnormality anxiety1 Pt has chronic a nxiety and depression Pt takes prozac and valium and doing ok Pt denies any suicidal or homicidal thought. Pt denies any crying spells pain Pt has chronic l ow back pain. Pt has mild sciatica Pt denies any loss of bladder control. Pt failed NSAD and ultram. Pt takes norco PRn for pain and doing ok. Pt has mild numbness but not worse. pt failed neurontin prostate CA Pt will undergo radial proctectomy soon pain Pt has chronic l ow back pain. Pt has mild sciatica Pt denies any loss of bladder control. Pt failed NSAD and ultram. Pt takes norco PRn for pain and doing ok. Pt has mild numbness but not worse. pt failed neurontin prostate CA Pt was recently diagnosed with prostate cancer. Pt is seeing urology at [facility]. Pt denies any urinary symptoms. Pt is contemplating radioactive seeds vs prostatectomy anxiety Pt has chronic a nxiety and depression Pt takes prozac and valium and doing ok Pt denies any suicidal or homicidal thought. Pt denies any crying spells tobacco pt saw pulmonary and he will do chest CT soon. Pt denies any hemoptysis, worsening sob or cough anxiety1 Pt has anxiety a nd depression Pt takes prozac and valium and doing ok Pt denies any suicidal or homicidal thought. Pt denies any crying spells pain Pt has chronic l ow back pain. Pt has mild sciatica Pt denies any loss of bladder control. Pt failed NSAD and ultram. Pt takes norco PRn for pain and doing ok. Pt has mild numbness but not bad tobacco1 Pt needs LDCT Pt had normal study last year .Pt no longer smoking Pt denies any hemoptysis, sob or cough. pt is on inhalers for COPD prostate1 Pt told me he butt d some kind of scope from rear end last month and he is not sure what he had it done except that they took bunch of biopsy possible prostate .he has mild difficulty with urination recently .He is otherwise very confused and does not know too much what is going on. fatigue1 Pt c/o fatigue r ecently .Pt has been using cpap nightly. pt still feels tired in the morning and rest of the day. Pt states that his cpap is being recalled and he will go to pulmonary today. he states that his cpap setting is ok per pulmonary weigh gain1 Pt has been gain ing weight. Pt is sedentary. Pt also has mild HTn today Pt denies any chest pain or headache anxiety1 Pt has anxiety a nd depression Pt takes prozac and valium and doing ok Pt denies any suicidal or homicidal thought. Pt denies any crying spells pain Pt has chronic l ow back pain. Pt has mild sciatica Pt denies any loss of bladder control. Pt failed NSAD and ultram. Pt takes norco PRn for pain and doing ok. Pt has mild numbness but not bad anxiety1 Pt has anxiety a nd depression Pt takes prozac and valium and doing ok Pt denies any suicidal or homicidal thought. Pt denies any crying spells pain Pt has chronic l ow back pain. Pt has mild sciatica Pt denies any loss of bladder control. Pt failed NSAD and ultram. Pt takes norco PRn for pain and doing ok. Pt has mild numbness but not bad pain Pt has chronic l ow back pain. Pt has mild sciatica Pt denies any loss of bladder control. Pt failed NSAD and ultram. Pt takes norco PRn for pain and doing ok. Pt has mild numbness but not bad anxiety1 Pt has anxiety a nd depression Pt takes prozac and valium and doing ok Pt denies any suicidal or homicidal thought. Pt denies any crying spells pain Pt has chronic l ow back pain. Pt has mild sciatica Pt denies any loss of bladder control. Pt failed NSAD and ultram. Pt takes norco PRn for pain. Pt also c/o left flank pain for two weeks. Pt saw his G doctor who ordered an MRI of abdomen and pelvis. Pt also had ? bladder ultrasound done. He is very poor historian and he can not even spell the name of the doctor and he is not sure what kind of specialist he saw recently. He c/o sciatica down to both legs Pt has some chronic neuropathy both legs but not worse Pt denies any cold extremity or toe discoloration. he is not sure if he has low back or kidney or what type of pain. Pt states that MRI is not approved and he is working with the doctor to get it approved.. Pt denies any urinary symptoms constipation Pt has chronic c onstipation Pt states that he can not have BM without miralax. Pt has colonoscopy done last year which showed some polyps but he is not sure what type of polyps. He was told to repeat colonoscopy in 3 years from last colonoscopy anxiety1 Pt has anxiety a nd depression Pt takes prozac and valium and doing ok Pt denies any suicidal or homicidal thought. Pt denies any crying spells pain Pt has chronic l ow back pain. Pt has mild sciatica Pt denies any loss of bladder control. Pt failed NSAD and ultram. Pt takes norco PRn for pain and doing ok. Pt has mild numbness but not bad anxiety1 Pt has anxiety a nd depression Pt takes prozac and valium and doing ok Pt denies any suicidal or homicidal thought. Pt denies any crying spells anxiety1 Pt has anxiety a nd depression Pt takes prozac and valium and doing ok Pt denies any suicidal or homicidal thought. Pt denies any crying spells pain Pt has chronic l ow back pain. Pt has mild sciatica Pt denies any loss of bladder control. Pt failed NSAD and ultram. Pt takes norco PRn for pain and doing ok abd pain1 Pt states that a bdominal pain completely resoled with miralax pt has been having daily regular BM and he feels great .Pt just finished miralax. Pt wants to get refill. proteinuria1 Pt has mild prot einuria . urine1 Pt states that lalit [place] feels like urinating when he hears water running and he can not wait to get to the bathroom before leaking out for several weeks also. he denies any dysuria. Pt finished abx but did not help much Pt denies any hesitancy or dribbling flank pain1 Pt c/o bilateral flank pain for one month, worse on left side Pt denies any fever, chill. Pt denies any nausea, vomiting. Pt states that he has been constipated for 2-3 weeks. Pt had BM last Tuesday but small amount of stool. Pt denies any abdominal pain. anxiety1 Pt has anxiety a nd depression Pt takes prozac and valium and doing ok Pt denies any suicidal or homicidal thought. Pt denies any crying spells pain1 Pt has chronic l ow back pain. Pt has mild sciatica Pt denies any loss of bladder control. Pt failed NSAD and ultram. Pt takes norco PRn for pain and doing ok UTI1 Pt c/o dysuria, urgency and frequency for two weeks and some flank pain Pt denies any penile discharge Pt denies any fever or chill. anxiety1 Pt has anxiety a nd depression Pt takes prozac and valium and doing ok Pt denies any suicidal or homicidal thought. Pt denies any crying spells pain Pt has chronic l ow back pain. Pt has mild sciatica Pt denies any loss of bladder control. Pt failed NSAD and ultram. Pt takes norco PRn for pain and doing ok anxiety1 Pt has anxiety a nd depression Pt takes prozac and valium and doing ok Pt denies any suicidal or homicidal thought. Pt denies any crying spells pain Pt has chronic l ow back pain. Pt has mild sciatica Pt denies any loss of bladder control. Pt failed NSAD and ultram. Pt takes norco PRn for pain and doing ok viral infection sick Pt states that h is neighbor's has positive COVID-19 and he has been hanging out closely with his neighbor recently. Pt denies any fever, chill, sore throat, sinus congestion, coughing, sob or any positive symptoms. Pt denies any loss of taste and smell. Pt does have COPD. Pt wants to be tested. anxiety1 Pt has anxiety a nd depression Pt takes prozac and valium and doing ok Pt denies any suicidal or homicidal thought. Pt denies any crying spells pain Pt has chronic l ow back pain. Pt has mild sciatica Pt denies any loss of bladder control. Pt failed NSAD and ultram. Pt takes norco PRn for pain and doing ok anxiety1 Pt has anxiety a nd depression Pt takes prozac and valium and doing ok Pt denies any suicidal or homicidal thought. Pt denies any crying spells pain Pt has chronic l ow back pain. Pt has mild sciatica Pt denies any loss of bladder control. Pt failed NSAD and ultram. Pt takes norco PRn for pain and doing ok anxiety1 Pt has anxiety a nd depression Pt takes prozac and valium and doing ok Pt denies any suicidal or homicidal thought. Pt denies any crying spells pain Pt has chronic l ow back pain. Pt has mild sciatica Pt denies any loss of bladder control. Pt failed NSAD and ultram. Pt takes norco PRn for pain and doing ok anxiety1 Pt has anxiety a nd depression Pt takes prozac and valium and doing ok Pt denies any suicidal or homicidal thought. Pt denies any crying spells pain1 Pt has chronic l ow back pain. Pt has mild sciatica Pt denies any loss of bladder control. Pt failed NSAD and ultram. Pt takes norco PRn for pain and doing ok anxiety1 Pt has anxiety a nd depression Pt takes prozac and valium and doing ok Pt denies any suicidal or homicidal thought. Pt denies any crying spells pain1 Pt has chronic l ow back pain ,pt has mild sciatica Pt denies any loss of bladder control. pt failed NSAD and ultram ,Pt takes norco PRn for pain and doing ok anxiety1 Pt has anxiety a nd depression Pt takes prozac and valium and doing ok Pt denies any suicidal or homicidal thought. Pt denies any crying spells pain Pt has chronic l ow back pain ,pt has mild sciatica Pt denies any loss of bladder control. pt failed NSAD and ultram ,Pt takes norco PRn for pain and doing ok CAD Pt has mild CAD pt denies any chest pain Pt is on ASA and pravastatin pt denies any myalgia pt sees cardiology tobacco1 Pt has COPD Pt t akes incruse and airduo ,Pt uses ventolin 1-2 per week pt denies any hemoptysis, worsening sob or cough pt see pulmonary Physical Pt needs annual physical Pt has chronic anxiety and depression Pt takes prozac and valium and doing ok Pt denies any suicidal or homicidal thought. Pt has chronic low back pain. Pt denies any worsening pain Pt denies any loss of bladder control. Pt takes. Pt has COPD ,Pt uses incruse, airduo and ventolin PRN Pt uses on average 2-3 ventolin puff per week Pt sees pulmonary. Pt denies any acute sob. Pt just saw urologist at [facility] and he does not have prostate CA He is off proscar now. he denies any urinary symptoms. Pt also was evaluated by GI at [facility] and he does not have pancreatitic CA. He denies any other complaints BPH Additional infor mation: Pt has chronic back pain and he has chronic anxiety and depression Pt denies any suicidal or homicidal thought Pt denies any crying spells Pt needs refills. BPH1 Pt recently saw urology (unknown name} at [facility] and he had benign prostate exam and he was told that his prostate is ok, he was told to continue proscar Pt was told that he does not have BPH. Pt is very confused . constipation Additional infor mation: Pt no loner has constipation Pt saw GI at [facility](unknown name) and he had some scans and he supposes to get EGD and colonoscopy done next month and he was told pancreas cyst ok. BPH Additional infor mation: Pt has BPH. Pt feels urgency but he has slow stream and dribbling Pt is on flomax and proscar Pt told me he had PSA and free PSA done and he was referred to Dr. Flores for ? prostate CA.. anxiety1 Pt has anxiety a nd depression Pt takes prozac and valium and doing ok Pt denies any suicidal or homicidal thought. pain Pt has chronic b ack and neck and mid back pain ,pt has mild sciatica Pt denies any loss of bladder control. pt failed NSAD and ultram ,Pt takes norco PRn for pain and doing ok enuresis1 Pt has enuresis. UA ok. Pt is seeing urology but he was referred to different urologist constipation1 Pt feels constip ated Pt states that he has been dirking metamucil but is not helping so much He has chronic pancreatic cyst and he has riya with GI tomorrow at [facility] constipation1 Pt has intermitt ent constipation Pt denies any blood in stool Pt denies any abd pain urine Additional infor mation: Pt notices that he has enuresis for several weeks. Pt denies any burning, frequency or urgency Pt denies any flank pain. pt has BPH and Pt is on ? flomax and also proscar Pt is not sure. Pt denies any. anxiety1 Pt has anxiety a nd depression Pt takes prozac and valium and doing ok Pt denies any suicidal or homicidal thought. pain1 Pt has chronic b ack and neck and mid back pain ,pt has mild sciatica Pt denies any loss of bladder control abd pain1 Pt has chronic l eft upper abd pain Pt has chronic pancreatic mass. Pt is seeing dr harley. Pt wants to see his new GI at [facility] who just treated for his hep C recently. Pt ws told that he has benign pancreatic cyst. 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 anxiety1 Pt has anxiety a nd depression. Pt takes prozac and valium and doing ok Pt denies any suicidal or homicidal thought, Pt denies any crying spells back pain1 Pt has chronic l ow back pain. Pt denies any sciatica pt has some neck and also T spine pain Pt denies any radiculopathy or any injury ,Pt failed NSAID and ultram. pt takes norco PRN for pain an doing ok. 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 Patient complained of mild sciatica and leg numbness and tingling. Patient denies any loss of bowel bladder control. Patient failed NSAID and tramadol. Patient has 6 out of 10 pain daily. Patient complained of sharp pain. Patient denies any worsening pain. anxiety1 Pt has anxiety a nd depression pt takes prozac and valium and doing ok, pt denies any suicidal or homicidal thought, Pt denies any crying spells. BPH Additional infor avni: Pt has BPH. Pt takes proscar?? Pt not sure Pt thinks that he is on proscar Pt denies any urinary symptoms Pt has no idea when his last urology riya. tinnitus1 Pt has right tin nitus for several months Pt denies any pain Pt had many years of noise exposure. 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 Patient complained of mild sciatica right leg numbness and tingling. Patient denies any loss of bowel bladder control. Patient failed NSAID and tramadol. Patient has 6 out of 10 pain daily. Patient complained of sharp pain. Patient denies any worsening pain. tobacco1 Pt smokes about 1 PPD Pt denies any hemoptysis, cough Pt has chronic sob but not worse anxiety1 Pt has anxiety a nd depression pt takes prozac and valium and doing ok, pt denies any suicidal or homicidal thought, Pt denies any crying spells. 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 Patient complained of mild sciatica right leg numbness and tingling. Patient denies any loss of bowel bladder control. Patient failed NSAID and tramadol. Patient has 6 out of 10 pain daily. Patient complained of sharp pain. Patient denies any worsening pain. anxiety1 Pt has anxiety a nd depression pt takes prozac and valium and doing ok, pt denies any suicidal or homicidal thought, Pt denies any crying spells. 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 Patient complained of mild sciatica right leg numbness and tingling. Patient denies any loss of bowel bladder control. Patient failed NSAID and tramadol. Patient has 6 out of 10 pain daily. Patient complained of sharp pain. Patient denies any worsening pain. anxiety1 Pt has chronic a nxiety and depression, pt takes prozac and valium and doing ok Pt denies any suicidal or homicidal thought hep c Pt has hep C pt is currently being treated at [facility]. Pt is taking oral pills but he does not know the name of it. 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 Patient complained of mild sciatica right leg numbness and tingling. Patient denies any loss of bowel bladder control. Patient failed NSAID and tramadol. Patient has 6 out of 10 pain daily. Patient complained of sharp pain. Patient denies any worsening pain. 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 Patient denies any suicidal homicidal thoughts. Patient denies any crying spells. Patient takes prozac and valium and doing okay. Patient noticed more motivation. Patient denies any hopelessness. hep C Pt just seen GI doctor at [facility] and he is waiting for hep C meds. back pain1 Pt has chronic l ow back pain pt denies any worsening pain Pt denies any loss of bladder control. Pt has mild sciatica and leg numbness. anxiety1 Pt has chronic a nxiety and depression. Pt takes prozac and valium. Pt denies any suicidal or homicidal thought, Pt denies any crying spells. COPD1 Pt is on airduo and also incruse and he feels that his breathing is improving Pt has not needed to use albuterol since last month Pt did 6 mins walking test and he does not need oxygen Pt also had the chest CT done. Pt denies any hemoptysis, worsening sob or cough hep C Pt will go see [facility] liver specialist for hep C treatment. He has been seeing Dr. Rendon but he was told that his hepatitis C is not bad enough for treatment yet. . He denies any abd pain or jaundice. chronic pain Pt has chronic l ow back pain ,Pt denies any worsening pain ,Pt denies any loss of bladder control. Pt has DDD Pt failed NSAID and ultram. anxity1 Pt has chronic a nxiety and depression. Pt takes prozac and valium and doing ok. Pt denies any suicidal or homicidal thought. Pt denies any crying spells. CAD Pt has signs of CAD on chest CT. Pt denies any chest pain. Pt is seeing cardiology. He is on pravastatin. Pt denies any myalgia. glucose1 Pt has mild high glucose Pt denies any polyuria, polydipsia. Rest of lab is ok COPD1 Pt just seen brandee zarco and he will have PFt and 6 mins walking test and he is started on airduo in addition to incruse. He has noticed much improvement of his breathing yet. Pt on average uses ventolin about once per day. He just had LDCT done. He denies any hemoptysis, worsening sob or cough. COPD1 pt has COPD. Pt takes incruse. Pt is very noncompliant. he told me pulmonary never called him. He also states that he went to do the CT scan but [facility] told him insurance denied the CT scan. Pt denies any hemoptysis sob or cough anxiety1 Pt has chronic a nxiety and depression pt takes prozac and valium and doing ok pt denies any suicidal or homicidal thought back pain1 Pt has chronic l ow back pain Pt denies any worsening pain ,pt denies any loss of bladder control COPD1 Pt has COPD Pt i s taking incruse and he uses albuterol PRN. Pt uses albuterol 1-2 per week. pt just got his LDCT approved. Pt has not heard from [facility] Pt denies any acute sob pt denies any hemoptysis, coughing or acute sob anxiety1 Pt has chronic a nxiety and depression Pt takes prozac and valium. Pt denies any suicidal or homicidal thought. Pt denies any crying spells back pain1 Pt has chronic l ow back pain. Pt denies any suicidal or homicidal thought. Pt denies any crying spells. COPD1 Pt has COPD Pt i s seeing pulmonary but he states that pulmonary still working on lung Ct and inhalers? pt has COPD Pt uses albuterol only now. Pt states that his pulmonary is not doing anything. Pt only using albuterol inhaler now anxiety1 Pt has chronic a nxiety and depression Pt takes prozac and valium and doing ok, Pt denies any suicidal or homicidal thought back pain1 Pt has chronic l ow back pain pt denies any worsening pain Pt denies any loss of bladder control. Pt takes norco PRN for pain Physical Pt has chronic a nxiety and depression. Pt takes prozac and valium and doing ok Pt has chronic low back pain Pt failed NSAID. Pt takes norco PRN and doing ok Pt denies any loss of bladder control. Pt has COPD Pt sees pulmonary .Pt is on Airduo now and he uses ventolin 1-2 per week Pt denies any acute sob, hemoptysis or any cough. Pt has not done LDCT yet. Pt is off norvasc and his BP is stable now. Pt denies any other complaints COPD1 Pt has COPD. Pt uses ventolin 1-2 per day now. Pt supposes to do chest CT but he is very confused. he keeps calling his pulmonary MD office to try to schedule and he was told somebody will call him back but nobody ever does. anxiety1 pt has anxiety a nd depression. Patient takes Prozac and Valium and doing okay. Patient denies any suicidal homicidal thoughts. Patient denies any crying spells. sick1 Patient complain t of productive coughing with green phlegm no shortness of breath, sore throat, sinus problem with purulent drainage for one week. Pt denies any fever or sick contact. 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 Patient complained of mild sciatica with leg numbness and tingling. Patient denies any loss of bowel bladder control. Patient failed NSAID and tramadol. Patient has 6 out of 10 pain daily. Patient complained of sharp pain. Patient denies any worsening pain. pancreatic cyst he seen Dr irish damon and was told nothing to do for now since his pancreatic cyst is the same size without any growth. pancreatic1 Pt has chronic l eft upper quadrant abdominal pain. Pt had abdominal CT which showed pancreatic cystic lesion. GI sent him to radiation oncology Monica Mack who told him to see Dr. Shelton. Pt has been trying to call him without any success. Pt is concerned . chronic pain1 Pt has chronic l ow back pain Pt denies any worsening pain. Pt denies any loss of bladder control. Pt has 6/10 pain. Patient failed tramadol and NSAID gynecomastia1 Patient has left gynecomastia with breast pain. Patient just seen breast specialist. Patient was told to follow-up in 6 months. Patient was recommended to stop Valium and amlodipine due to possibility of causing gynecomastia. anxiety1 Pt has chronic a nxiety and depression pt takes prozac and valium and doing ok. Pt denies any suicidal or homicidal thought anxiety1 Pt has chronic a nxiety and depression. Pt takes prozac and valium and doing ok. Pt denies any suicidal or homicidal thought. Pt denies any crying spells back pain1 Pt has chronic l ow back pain. pt denies any worsening pain. pt denies any loss of bladder control. 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 Pt recently had another abdominal Ct by GI and was told that he has a new pancreatic lesion and he went to see oncology and then referred him to Dr Anderson. Pt told me [facility] told him that he does not have any record and told him to return to see Dr. harley. pt is very frustrated. he has chronic left upper quadrant pain. pt denies any worsening pain pancreatic cyst1 Pt has painful pancreatic head cyst. Pt is seeing Dr. Brown (radiation oncology) and he will see Dr. Anderson soon. Pt was supposes to do radiation therapy to remove it gynecomastia1 pt has bilateral gynecomastia, left greater than right with left breast pain. Pt denies any nipple discharge. chronic pain1 Pt has chronic l ow back pain. Pt denies any worsening pain Pt denies any loss of bladder control anxiety1 pt has chronic a nxiety and depression Pt takes prozac and valium and doing ok Pt denies any suicidal or homicidal thought Pt denies any crying spells pain1 Pt has chronic l ow back pain Pt denies any worsening pain or any loss of bladder control. Pt failed NSAID and ultram anxiety1 Pt has chronic a nxiety and depression Pt takes prozac and valium and doing ok. Pt denies any crying spells COPD1 Pt has COPD Pt i s on breo pt has appointment with pulmonary soon Pt denies any acute sob breast pain1 Pt c/o left barber st pain for 2 months Pt denies any nipple discharge. Pt denies any nodule. pt denies any breast discoloration pancreatic cyst1 Pt has pancreat ic cyst and he had ct done at Dr Rendon office and he was told that he has something else growing in addition to cyst and he was told to do another imaging study at [facility]. Pt was told to call [facility] to schedule but pt has been calling but [facility] has not be able to schedule for unknown reason. Pt denies left upper quadrant pain back pain1 Pt has chronic l ow back pain pt denies any worsening pain Pt denies any loss of bladder control pt failed NSAID and ultram anxeity1 Pt has anxiety a nd depression Pt takes prozac and valium. pt denies any suicidal or homicidal thought abd pain1 Pt c/o left uppe r quadrant pain for several weeks. Pt has history of pancreatic cyst pt just seen GI and he supposes to do Ct scan in one week. Pt states that the pain is dull and is present for several weeks. Pt denies any nausea, vomiting. Pt has normal BM. Pt states that his pain is not well controlled. Pt states that the pain is worse at night COPD1 Pt is out of shane o and ventolin. pt just seen pulmonary and he will do 6 mins walking test Pt denies any acute sob BPH1 Pt has BPH with LUTS. pt has urinary frequency and urgency Pt denies any difficulty with urination. Pt just seen urology and he is on flomax and proscar and his PSA is ok recently Pt states that his urinary symptoms are better with meds LBP1 Pt has chronic l ow back pain Pt denies any worsening pain Pt denies any loss of bladder control. 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 Pt does NOT use CPAP machine He is very noncompliant. Pt states that he is uncomfortable with CPAP He also has signs of CAD on chest ct Pt denies any chest pain chronic pain1 Pt has chronic l ow back pain. Pt denies any worsening pain pt denies any loss of bladder control anxiety1 pt has chronic a nxiety and depression Pt takes prozac and valium and doing ok. Pt denies any suicidal or homicidal thought. Pt denies any crying spells CAD Pt has mild asmita nary calcification. pt denies any chest pain Pt does not have any family history of heart disease emphysema1 Pt has mild copd . Pt no longer smoking. Pt could not see pulmonary until april Pt needs breo and ventolin refilled. pt does not use oxygen anxiety1 Pt has chronic a nxiety and depression pt takes prozac and valium and doing ok. pt denies any suicidal or homicidal thought back pain1 Pt has chronic l ow back pain .pt denies any worsening pain. Pt denies any loss of bladder control. Pt failed ultram and NSAID hep c Pt has hep C. Pt drinks alcohol about once per week. Pt states that she drinks 18 beers at one time and he only drinks one time per week. Pt denies abdominal pain. anxiety1 Pt has chronic a nxiety and depression Pt takes prozac anc valium and doing ok. pt denies any suicidal or homicidal thought. Pt denies any crying spells back pain1 Pt has chronic l ow back pain. Pt notices left sciatica and left upper leg numbness recently. Pt denies any injury. Pt states that he started to have above problem for several months. Pt denies any loss of bladder control. Pt denies any recent travel or bedrest. chronic pain1 Pt has chronic l ow back pain. Pt denies any worsening pain. Pt denies any loss of bladder control. Pt takes norco PRN for pain. anxiety1 Pt has chronic a nxiety and depression. Pt takes prozac and valium and doing ok. Pt denies any suicidal or homicidal thought. Pt denies any crying spells hep C Pt has hep C. Pt just had liver biopsy. Pt is seeing GI for hep C treatment. Pt has not heard from GI yet. Pt does have fatty liver back pain1 Pt has chronic l ow back pain. Pt denies any worsening pain. pt denies any loss of bladder control. Pt takes norco PRN for pain anxiety1 Pt has chronic a nxiety and depression. Pt denies any suicidal thought. Pt denies any crying sells. Pt takes prozac and valium and doing ok carpal tunnel1 Pt has bilateral carpal tunnel and also left ulnar neuropathy. Pt is seeing pablo Mack now. Pt has bilateral hand numbness and tingling, worse on left side. 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 Pt states that he does not feels comfortable with the mask. Pt als does not notice any difference with the CPAP Physical Pt needs annual physical. Pt has chronic low back pain due to DDD. Pt has chornic anxeity and depression ,Pit takes prozac and valium Pt denies any suicidal, or homicijdal thought. Pt has HTN. .Pt takes norvsc and his BP is stable. Pt also has sleep apnea. Pt is noncompliant with CPAP. Pt states that he continues to have issue with the mask. Pt also feels that he does not feel any difference in terms of energy level with the CPAP. Pt has COPD Pt takes breo now and he is doing ok. Pt uses venotlin 1-2 per week. Pt sees pulmonary. Pt also is seeing GI for hep C treatment soon. Pt has BPH. Pt denies any urinary symptoms. back pain1 Pt has chronic b ack pain. Pt denies any worsening pian Pt denies any loss of lbadder control. Pt has 7/10 pain anxiety1 Pt has chronic a nxiety and depression. Pt takes prozac and valium and doing ok. Pt denies any suicidal or homicidal thought. Pt denies any cyring spells COPD1 Pt has COPD. Pt quit smoking 5 years ago. Pt had 35 pack year tobacco. Pt states that symbicort is not covered. Pt denies any acute sob anxieyt1 Pt has chronic a nxiety and depression Pt takes prozac and valium and doing ok. pt denie any suicidal or homicdial thought back pain1 Pt has chronic l ow back pain pt deneis any worsening pain Pt denies any loss of bladder control HTN Pt has HTn. Pt t clark rebollarvasgarcia and his BP is stable hep c Pt has hep C. Pt still not getting treated Pt was told his hep C is not at the stage to be treated yet. 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 Pt uses cpap nightly and toleratng it ok. Pt no longer has facial rash. pt feels more energy chronic pain1 Pt has chronic b ack pain Pt denie any worsening pain Pt denies any loss of bladder control. Pt has mild sciatica and leg numbness. anxiety1 Pt has chronic a nxiety and depression. Pt takes prozac and valium and doing ok,. Pt denies any suicidal or homicidal thought back pain1 Pt has chronic l ow back pain pt deneis any loss of bladder control. Pt denie sany wrosening pain. anxiety1 Pt has chronic a nxiety and depression. Pt takes prozac and valium and doing ok. Pt denies any suicidal or homicidal thought Pt denies any cyring spells sleep apnea Relevant history : a BMI of 37.57. Additional information: Pt has sleep apnea Pt is only using CPAP 4-5 hours per night due to facial irrtitation Pt has been using vasaline and his skin is doing better Pt has not notices much improvement in energy level with cpap. obesity1 Pt is obese Pt h as been diet and exericing and trying to lose weight. 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 Pt has been using CPAP face mask but it leaks and causes rash around the facial area. Pt is working with CPAP company to resolve the issue anxiety1 Pt has chronic a nxiety and depression. Pt takes prozac and valium . Pt deneis any suicidal or homicidal thought. Pt denies any cyring spells back pain1 Pt has chronic l ow back pain. Pt denies any loss of bowel or bladder control. Pt denies any worsening pain. HTN Pt has HTn. Pt d enies any chest pain or headache His BP is stable LUTS Pt has LUTS with BPH. Pt is seeing urology Pt has difficulty initiating urine with dribbling. Pt is on proscar and also flomax. Pt states that he still has diffiicutly with urination. Pt wilian any dysuria chronic pain1 Pt has chronic l ow back pain. Pt deneis any worsening pain. PT denies any loss of bladder control. anxiety1 Pt has chronic a nxiety and depression. Pt takes prozac and valium and doing ok. Pt denies any suicidal or homicidal thought. 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 Pt just started CPAP last week. Pt notices a irritating facial rash around the facial mask Pt denies any burning or bleeding. Pt has been using the CPAP nightly for at least 4 hours since last tuesday Pt feels more energy and less snoring at night back apin1 Pt has chronic l ow back pain. Pt denies any loss or bowel or bladder control. Pt has 7/10 pain anxiety1 Pt has chronic a nxiety and depression. Pt takes prozac and valuim and doing ok Pt denies any suicidal or homicidal thought sleep apnea Relevant history : a BMI of 39.07. Additional information: Pt still hsa not heard from CPAP. Pt also is not very eager to make it happen. Pt did not call regarding the cpap. obeisty1 His BMI is almos t 40. Pt does not exercise or diet Pt is rather passive about his own health sleep apnea1 Pt has sleep pick pulling machine tender ea. Pt needs CPAP. Pt snores and he feels fatigue all the time HTN Pt has HTN. Pt t afrzad zhou and his BP is ok today. PT denies any chest pain or headache anxiety1 Pt has chronic a nxiety and depression. Pt takes prozac and valium and doing ok Pt denies any suicidal or homicdial thought. Pt denies any crying spells back pain1 Pt has chronic l ow back pain. Pt denies any worsenign pain. Pt denies any loss of bladder control back pain1 Pt has chronic l ow back pain. pt denies any worsening pain. Pt denies any loss of bladder control. Pt has 7/10 pain. Pt is not surgical candidate anxiety1 Pt has chronic a nxiety and depression. Pt takes prozac and valium and doing ok. Pt denies any suicidal or homicdial thought. Pt denies any crying spells sleep apnea1 Pt does have sle ep apnea on recent CPAP. Pt has heavy snoring and morning fatigue back pain Additional infor mation: Pt has chronic low back pain. pt denies any worsening pain Pt has 7/10 pain. Pt is not surgical candidate. Pt denies any loss of bladder control. anxiety1 Pt has chronic a nxiety and depression. Pt takes prozac and valium. Pt denies any suicidal or homicidal thought. Pt denies any crying spells sleep apnea1 Pt does snore an d he feels fatigue in AM Pt told me he has not heard from [facility] about the sleep study. ED1 Pt has ED Pt is seeing urology for BPH. Pt denies any testicular pain or noudle back pain1 Pt has chronic l ow bcak pain. Pt deneisany loss of bowel or bladder control. Pt deneis any worsening pain. PT has mild sciatica anxiety1 Pt has chronic a nxiety and depression. Pt takes prozac and valium and doing ok Pt denies any suicidal or homicidal thought BPH1 Pt has BPH. Pt h as some difficulty with urination. Pt seen urology and he was started on flomax and also finasteride. Pt states that he is urinating ok now. sleep apnea1 Pt states that h e snores and he feels tired in the morning and the next day. Pt is overweight HTN Pt has HTN. Pt t [employer] norvasc and his BP is stable. Pt does not have any water retention BPH BPH1 Pt may have BPH. Pt has difficulty with urination and some slow stream and he has frequency and some dribbling. Pt just seen urology. He had a prostate exam and was given medication but he does not know the name of med. He told me it does not work back pain1 Pt has chronic l ow back pain and anxiety and depression Pt takes prozac, valium and norco PRN for pain. Pt denies any worsening symptoms proteinuria1 Pt has mild prot einuria. Pt denies any UTI symptoms PHysical Pt needs annual physical. Pt has chronic low back pain due to DDD. Pt denies any worsening pain Pt denies any loss of bladder control. Pt has HTN and he takes norvasc. Pt also has anxiety and depression. Pt takes prozac and valium and doing ok. Pt has COPD. Pt sees lung physician. Pt takes symbicort and albuterol machine PRN. Pt states that venotlin around twice per day. Pt denies any coughing. SOB, chest pain. Pt denies any urinary symptmos anxiety1 Pt has chronic a nxiety and depression. Pt takes prozac and valium and doing ok. pt denies any suicidal or homicdial thought. Pt denies ay crying spells. back pain1 Pt has chornic L BP. Pt denies any loss of bowel or bladder control. Pt denies any worsening pain back pain1 Pt has chronic l ow back pain. Pt denies any worsening pain. Pt denies any loss of bowel or bladder control. Pt takes norco PRN and doing ok. Pt denies any worsening pain anxiety1 Pt has chronic a nxiety and depression. PIt takes prozac and valium and doing ok. Pt idenies any suicidal or homicidal thought. Pt denies any cyring spells HTN Pt takes norvasc and his BP is borderline high today. Pt denies any chest pain or headacche pneumonia1 Pt was treated w ith pneumonia and symptmos resolved. Pt denies any chest pain or acute SOB BACK PAIN Additional infor mation: Pt has chronic low back pain. Pt denies any loss of bowel or bladder control. Pt denies any worsening pain. Pt denies any sciatica. Pancreatic cyst Pt has a pancrea tic cyst recently while at ER Pt is seeing Dr. Rendon and he has a chronic cyst around pancreatic head and is being monitored by dr. rendon anxiety1 Pt has chronic a nxiety and depression Pttakes prozac and valium. Pt doing ok Pt denies any sucidal or homicidal thought pneumonia1 Pt recently was treated for pneumonia with aumgentin. Pt states taht he feels better. Pt denies any coughing, SOB or fever back pain1 Pt has chronic l ow back pain. Pt denies any worsening pain. Pt is not surgical candidate. Pt denies any loss of bowel or bladder control.Pt has 6/10 pain anxiety1 Pt has chronic a nxiety and depression. Pt takes prozac and valium and doing ok. Pt denies any suicidal or homicdial thought ED Pt has ED. Pt st aets that cialis 5 mg daily worked great. Pt denies any chest pain or erection lasting more than 4 hours. Pt has good libido and performance. BACK PAIN Additional infor mation: Pt has chronic low back pain Pt denies any loss of bowel or bladder control. Pt denies any worsenign pain. anxiety1 Pt has chronic p rozac and valium. Pt denies any depression or any suicidasl thought. Pt denies any cyring spells ED1 Pt has ED. Pt de nies any testicular pain or nodule. Pt took viagra in the past which helped. Pt denies any chest pain with sex. hep C Pt has active he p c. Pt is being followed by GI. Pt unable to get med approved due to lack of cirrhosis Pt no longer use marijauna HTN Pt has HTn. Pt t farzad zhou and his BP is sstable renal cyst1 Pt has left karlie l cyst. Pt wants it removed. back apin Pt has chronic l wo back pain with left sciatica Pt denies any worsening pain Pt had back injection and nerve ablation by pain management recently Pt still has baseline pain anxiety1 Pt has chornic a nxiety and depression Pt takes prozac and valium and doing ok Pt denies any suicidal or homcidiatl hoguht COPD1 Pt has COPD. Pt is on advaiar now and atrovent and albuterol. Pt will have sleep study soon. PT doing ok. Pt denies any acute SOB anxiety1 Pt has chronic a nxiety and depression. Pt denies any sucidal or homicidal thought. Pt denies any crying spells. back pain1 Pt has chronic l ow back pain Pt denies nay loss of ginyn or bladder control. Pt denies any worsenign pain GERD1 Pt had MRCP done and also EGD but he has no idea about results. Pt told me he was given acid pills. Pt also had MRCP done due to abd pain. Pt denies any acute abd pain COPD P thas COPD. Pt takes qvar and atrovent and albuterol. Pt is seeing pulmonary. pt was told to stop qvar and continue atrovent and albuterol?? Pt is not sure. Pt denies any SOB. Pt also started symbicort again per pulmonary. HTN Pt takes norvasc 10 mg and his BP is better today. Pt denies any chest pain or headache back pain1 Pt has chornic l ow back apin. Pt denies any loss of bowel or bladder control. Pt denies any worsening pain anxiety1 Pt has chronic a nxiety and depression. Pt takes prozac adn valium and doing ok. Pt denies any suicidal or homicdialt hought. Pt denies any crying spells ED Pt has ED. Pt de nies any testicular pain or nodule. Pt has good libido. Pt has been using OTC supplement but has not worked yet HTN Pt takes norvasc 5 mg daily. His BP is slightly high. Pt denies any chest pain or headache. Anxiety1 Pt has chronic a nxiety and depression. Pt tkaes prozac and valium. Pt denies any suicidal or homicidal thought. Pt denies any cyring spells hep C Pt has hep C. Pt was told by GI that they will not treat him until he has liver cirrhosis??? COPD Pt has COPD. Pt takes atrovent, albuterol and symbicort but he has not noticed any difference with symbicort. Pt uses albuterol 2-3 per day still. Pt has appointment with pulmonary in 4 weeks. Pt denies any acute SOB. Pt no longer smokes COPD1 Pt has stage 3 C OPD. Pt uses qvar and atrovent and albuterol. Pt uses albuterol mulitple puff daily. Pt does not smoke anymore. His pulmonary retired NO acute SOB Anxiety1 Pt has chronic a nxiety and dperession. pt takes prozac and valium and doing ok. Pt denies any suicidal or homicidal thought. Pt denies any crying spells back pain1 Pt has chronic l ow back pain. pt deneis any loss of bowel or bladder control. Pt denies any wrosening pain Pt is not surigical candidate. . Pt underwent lumbar nerve ablation and shot recently and helped slightly HTN Pt has HTN. Pt t akes norvasc. Pt denies any chest pain or headache. his BP is stable low D Pt has low vitam i nD on lab. Pt denies any history of fx back pain1 PT has chronic l ow back pain. pt just had some back nerve burned by pain managment. pt denies any wrosening pain. Pt denies any loss of bowel or bladder control anxiety1 Pt has chornic a nxiety and depression Pt takes prozac and valium. Pt denies any suicidal or homicidal thought. Pt doing ok PHysical Pt needs annual physical. Pt has chronic low back pain. Pt is getting back injection now and is helping per patient. pt has COPD and he is seeing pulmonary. Pt taeks ventolin, qvar and atrovent Pt does not smoke anymore. Pt also has HTn and he taks norvasc. Pt denies any other complaints COPD1 Pt has COPD. Pt just seen pulmoanry and had some xrays. Pt takes atrovent, qar andd albuterol. Pt uses albutero twice per day.; No change in medicine per patient and he was told to get some xrays and follow up in 3 months chronic pain1 Pt has chronic l ow back pain. Pt denies any loss of bowel or bladder control. Pt c/o sciatica and leg numnbess. Pt seen neurosrugery and was told to do PT and TENS unit Pt is not surgical candidate annxiety1 Pt has chronic a nxiety and depression. Pt denies any suicidal or homicidal thought. Pt takes prozac and valium. Pt doing ok. Pt denies any crying spells Hep C1 Pt has hep C. Pt is being seen by GI. Pt is getting medication approved by GI physician HTN1 Pt has HTN. Pt t farzad norvasc for the past 30 days. Pt denies any leg swelling or any water retention. His BP is better today. Pt denies any chest bethea or headache back pain1 Pt has chornic l ow back pain with sciatica. Pt failed NSAID. Pt denies any loss of bowel or bladder control. Pt denies any numnbess ,Pt has appointment with neurosurosurgery soon anxity1 Pt has chronic a nxiety and depression. Pt denies any suicidal or homicdal thought. Pt denies any feeling of hopelessness Pt denies any crying spells. Pt has been tking prozac and valium which working ok. hep C1 Pt has chronic h ep C and ? pancreatic cystic lesion. Pt denies any abd pain. Pt has appointment with GI soon to discuss treatment. Pt denies any jaundice hep C Pt has hep C. Pt is very confused. Pt supposes to get a letter from GI but he never did and he did not call to make follow up appointment back pain1 Pt has chronic l ow back pain. Pt denies any loss o bowel ro bladder control Pt denies any worsening pain. Pt c/o bilateral sciatica. Pt denies any numnbess Anxiety1 Pt has chronic a nxiety and depression. Pt takes valium and prozac Pt doing ok. Pt denies any suicidal or homcidial thought. Pt denies any cryingspells COPD1 Pt has COPD Pt t farzad atrovent, qvar and albuterol. Pt uses albuterol daily. Pt today has no idea he has appointmetn with pulmonary? Pt denies any acute SOB lumbago1 Pt has chronic L BP Pt denies any loss of bowel or bladder control. Pt has appointment with neurosrugery soon. Pt denies any wrosenign pain Anxiety1 P thas chronci a nxiety and depression. P tatkes prozac and valium and doing ok. Pt denies any suicidal thought. Pt denies any crying spells or feeling of hopelessness back pain Additional infor mation: Pt has chornic LBP. Pt denies any loss of bowerl or bladder control. Pt has 6/10 pain daily. Pt has some sciatica and leg numbness. Pt denies any worsening pain. anxiety Additional infor mation: Pt has chronic anxiety and depression and insomnia. Pt takes prozac and valium. Pt denies any suicidal thought Pt states that his mood is stable. Pt denies any crying spells. COPD Pt has COPD. Pt is back on qvar atrovent and ventolin PRN now. Pt uses albuteorl 2-3 per day. Pt denies any wrosening SOB HTN BP slightly high today. Pt denies any chest pain or headache back pain Additional infor mation: Pt has chrnic LBP. pt denies any loss of bowel or bladder control. Pt has appointment with neurosurgery soon. Pt denies any worsening pain. anxiety The patient pres ents with anxious/fearful thoughts but denies fatigue. The patient denies any urinary frequency, vomiting and weight gain. Additional information: Pt has anxiety and insomnia. Pt takes valium at night. Pt feels depressed sometimes. Pt denies any suicidal or homicdial thought. Pt is only on valium. COPD Pt still use alb uterol daily. Pt not notice any improvement with symbicort. Pt uses albuterol and atrovent. Pt denies any acute SOB back pain Additional infor mation: Pt has chronic LBP pt takes pain meds. Pt denie any wrosening pain. anxiety The patient pres ents with anxious/fearful thoughts but denies fatigue. The patient denies any vomiting. Additional information: Pt has insomnia and anxiety. Pt takes valium and doing ok. COPD Pt has COPD> Pt had a bedside spirometry testing recently. Pt takes qvar, atrovent and venotlin. Pt still feels SOB and uses ventolin every 4 hours. No acute SOB anxiety Additional infor mation: Pt has anxiety and insomnia. Pt takes valium,. pt denies any depression or any suicdialt hought. hand pain Location: hand. Additional information: Pt c/o bilateral hand and finger numbness and pain and sometimes locks up. Pt notices hand weakness and shooting pain from both elbow. No injury. back pain Additional infor mation: Pt has chronic LBP. Pt denies any loss of bowel or bladder control. back pain Additional infor mation: Pt has chronic LBP. Pt has appointment with neurosurgey in Sep 02. Pt denies any loss of bowel or bladder cotnrol. Pt is doing PT now. insomnia The patient pres ents for insomnia. Relevant history: a BMI of 35.15. The patient has the following risk factors for insomnia: use of alcohol. Additional information: Doing ok with valium. COPD Pt has COPD. Pt not smoking. Pt only uses qvar. Pt is noncompliant. Pt feels SOB frequently. Pt is not using atrovent and ventilin. Pt denies any acute SOB Instructions Date Instruction Additional Infor mation Special diet education Related t o Body mass index (BMI) 37.0-37.9, adult Increase physical activity Relat ed to Generalized Anxiety Disorder Weight management Related to Gen eralized Anxiety Disorder Special diet education Related t o Body mass index (BMI) 37.0-37.9, adult Increase physical activity Relat ed to Chronic pain syndrome Weight management Related to Chr onic pain syndrome Special diet education Related t o Body mass index (BMI) 37.0-37.9, adult Increase physical activity Relat ed to Generalized Anxiety Disorder Weight management Related to Gen eralized Anxiety Disorder Special diet education Related t o Body mass index (BMI) 37.0-37.9, adult Special diet education Related t o Body mass index (BMI) 37.0-37.9, adult Increase physical activity Relat ed to Hepatitis C Weight management Related to Hep atitis C Special diet education Related t o Body mass index (BMI) 37.0-37.9, adult Increase physical activity Relat ed to Emphysema Weight management Related to Emp hysema Special diet education Related t o Body mass index (BMI) 38.0-38.9, adult Increase physical activity Relat ed to Emphysema Quit smoking Related to Emphy sema Weight management Related to Emp hysema Special diet education Related t o Body mass index (BMI) 37.0-37.9, adult Increase physical activity Relat ed to Emphysema Weight management Related to Emp hysema Special diet education Related t o Body mass index (BMI) 37.0-37.9, adult Increase physical activity Relat ed to Encounter for general adult medical exam w abnormal findings Weight management Related to Enc ounter for general adult medical exam w abnormal findings Weight management Related to Emp hysema Special diet education Related t o Body mass index (BMI) 37.0-37.9, adult Increase physical activity Relat ed to Emphysema Increase physical activity Relat ed to Emphysema Weight management Related to Emp hysema Special diet education Related t o Body mass index (BMI) 37.0-37.9, adult Special diet education Related t o Body mass index (BMI) 37.0-37.9, adult Special diet education Related t o Body mass index (BMI) 38.0-38.9, adult Increase physical activity 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, unspecified Weight management Related to Dis order of pancreatic internal secretion, unspecified Special diet education Related t o Body mass index (BMI) 38.0-38.9, adult Increase physical activity Relat ed to Chronic pain syndrome Weight management Related to Chr onic pain syndrome Special diet education Related t o Body mass index (BMI) 38.0-38.9, adult Increase physical activity Relat ed to Emphysema Weight management Related to Emp hysema Special diet education Related t o Body mass index (BMI) 39.0-39.9, adult Weight management Related to Sle ep apnea Prescribed dietary intake Relate d to Body mass index (BMI) 38.0-38.9, adult Increase physical activity Relat ed to Chronic pain syndrome Weight management Related to Chr onic pain syndrome Weight management Related to Hep atitis C Special diet education Related t o Body mass index (BMI) 38.0-38.9, adult Increase physical activity Relat ed to Hepatitis C Increase physical activity Relat ed to Hepatitis C Weight management Related to Hep atitis C Special diet education Related t o Body mass index (BMI) 39.0-39.9, adult Prescribed diet education Relate d to Body mass index (BMI) 39.0-39.9, adult Weight management Related to Gen eralized Anxiety Disorder Special diet education Related t o Body mass index (BMI) 38.0-38.9, adult Increase physical activity Relat ed to Sleep apnea Weight management Related to Sle ep apnea Prescribed Activity and Exercise Education Related to Dietary Surveillance and Counseling Prescribed Diet Educ ation/Lifestyle Education Regarding Diet Related to Dietary Surveillance and Counseling Increase physical activity Relat ed to Encounter for general adult medical exam w abnormal findings Weight management Related to Enc ounter for general adult medical exam w abnormal findings Prescribed Activity and Exercise Education Related to Dietary Surveillance and Counseling Prescribed Diet Educ ation/Lifestyle Education Regarding Diet Related to Dietary Surveillance and Counseling Increase physical activity Relat ed to Emphysema Weight management Related to Emp hysema Prescribed Activity and Exercise Education Related to Dietary Surveillance and Counseling Prescribed Diet Educ ation/Lifestyle Education Regarding Diet Related to Dietary Surveillance and Counseling Increase physical activity Relat ed to Sleep apnea Weight management Related to Sle ep apnea Increase physical activity Relat ed to Chronic pain syndrome Weight management Related to Chr onic pain syndrome Prescribed Activity and Exercise Education Related to Dietary Surveillance and Counseling Prescribed Diet Educ ation/Lifestyle Education Regarding Diet Related to Dietary Surveillance and Counseling Prescribed Activity and Exercise Education Related to Dietary Surveillance and Counseling Prescribed Diet Educ ation/Lifestyle Education Regarding Diet Related to Dietary Surveillance and Counseling Increase physical activity Relat ed to Sleep apnea Weight management Related to Sle ep apnea Prescribed Activity and Exercise Education Related to Dietary Surveillance and Counseling Prescribed Diet Educ ation/Lifestyle Education Regarding Diet Related to Dietary Surveillance and Counseling Increase physical activity Relat ed to Chronic pain syndrome Quit smoking Related to Chron ic pain syndrome Weight management Related to Chr onic pain syndrome Increase physical activity Relat ed to Sleep apnea Weight management Related to Sle ep apnea Prescribed Diet Educ ation/Lifestyle Education Regarding Diet Related to Dietary Surveillance and Counseling Prescribed Activity and Exercise Education Related to Dietary Surveillance and Counseling Weight management Related to Chr onic pain syndrome Increase physical activity Relat ed to Chronic pain syndrome Prescribed Diet Educ ation/Lifestyle Education Regarding Diet Related to Dietary Surveillance and Counseling Prescribed Activity and Exercise Education Related to Dietary Surveillance and Counseling Prescribed Diet Educ ation/Lifestyle Education Regarding Diet Related to Dietary Surveillance and Counseling Prescribed Activity and Exercise Education Related to Dietary Surveillance and Counseling Prescribed Diet Educ ation/Lifestyle Education Regarding Diet Related to Dietary Surveillance and Counseling Prescribed Activity and Exercise Education Related to Dietary Surveillance and Counseling Prescribed Activity and Exercise Education Related to Dietary Surveillance and Counseling Prescribed Diet Educ ation/Lifestyle Education Regarding Diet Related to Dietary Surveillance and Counseling Prescribed Diet Educ ation/Lifestyle Education Regarding Diet Related to Dietary Surveillance and Counseling Prescribed Activity and Exercise Education Related to Dietary Surveillance and Counseling Prescribed Activity and Exercise Education Related to Dietary Surveillance and Counseling Prescribed Diet Educ ation/Lifestyle Education Regarding Diet Related to Dietary Surveillance and Counseling Prescribed Activity and Exercise Education Related to Dietary Surveillance and Counseling Prescribed Diet Educ ation/Lifestyle Education Regarding Diet Related to Dietary Surveillance and Counseling Prescribed Activity and Exercise Education Related to Dietary Surveillance and Counseling Prescribed Diet Educ ation/Lifestyle Education Regarding Diet Related to Dietary Surveillance and Counseling Prescribed Activity and Exercise Education Related to Dietary Surveillance and Counseling Prescribed Diet Educ ation/Lifestyle Education Regarding Diet Related to Dietary Surveillance and Counseling Prescribed Activity and Exercise Education Related to Dietary Surveillance and Counseling Prescribed Diet Educ ation/Lifestyle Education Regarding Diet Related to Dietary Surveillance and Counseling Prescribed Activity and Exercise Education Related to Dietary Surveillance and Counseling Prescribed Diet Educ ation/Lifestyle Education Regarding Diet Related to Dietary Surveillance and Counseling Prescribed Activity and Exercise Education Related to Dietary Surveillance and Counseling Prescribed Diet Educ ation/Lifestyle Education Regarding Diet Related to Dietary Surveillance and Counseling Prescribed Activity and Exercise Education Related to Dietary Surveillance and Counseling Prescribed Diet Educ ation/Lifestyle Education Regarding Diet Related to Dietary Surveillance and Counseling Prescribed Activity and Exercise Education Related to Dietary Surveillance and Counseling Prescribed Diet Educ ation/Lifestyle Education Regarding Diet Related to Dietary Surveillance and Counseling Prescribed Activity and Exercise Education Related to Dietary Surveillance and Counseling Prescribed Diet Educ ation/Lifestyle Education Regarding Diet Related to Dietary Surveillance and Counseling Prescribed Activity and Exercise Education Related to Dietary Surveillance and Counseling Prescribed Diet Educ ation/Lifestyle Education Regarding Diet Related to Dietary Surveillance and Counseling Prescribed Diet Educ ation/Lifestyle Education Regarding Diet Related to Dietary Surveillance and Counseling Prescribed Activity and Exercise Education Related to Dietary Surveillance and Counseling Prescribed Activity and Exercise Education Related to Dietary Surveillance and Counseling Prescribed Diet Educ ation/Lifestyle Education Regarding Diet Related to Dietary Surveillance and Counseling Prescribed Activity and Exercise Education Related to Dietary Surveillance and Counseling Prescribed Diet Educ ation/Lifestyle Education Regarding Diet Related to Dietary Surveillance and Counseling Prescribed Activity and Exercise Education Related to Dietary Surveillance and Counseling Prescribed Diet Educ ation/Lifestyle Education Regarding Diet Related to Dietary Surveillance and Counseling Prescribed Activity and Exercise Education Related to Dietary Surveillance and Counseling Prescribed Diet Educ ation/Lifestyle Education Regarding Diet Related to Dietary Surveillance and Counseling Prescribed Diet Educ ation/Lifestyle Education Regarding Diet Related to Dietary Surveillance and Counseling Prescribed Activity and Exercise Education Related to Dietary Surveillance and Counseling Special diet education Related t o Dietary surveillance and counseling Prescribed activity/ exercise education Related to Dietary surveillance and counseling Physical activity counseling Rel ated to Dietary surveillance counseling Decrease caloric intake Related to Dietary surveillance counseling Physical activity counseling Rel ated to Dietary surveillance counseling Decrease caloric intake Related to Dietary surveillance counseling Physical activity counseling Rel ated to Dietary surveillance counseling Decrease caloric intake Related to Dietary surveillance counseling Physical activity counseling Rel ated to Dietary surveillance counseling Decrease caloric intake Related to Dietary surveillance counseling Assessments Type Assessment Date assessment Upper abdominal pain assessment Chronic pain syndrome assessment Fatigue assessment Generalized Anxiety Disorder Dec Mental Status Date Cognitive Assessment Orientation - Hamilton ed to time, place, person, situation.
--- OUTSIDE RECORDS SUMMARY | 2025-01-09 08:35 | XMS_ITS | Data Portability ---
Author Organization [place] [facility], Main Office Address [address] [place] [address] Assessment No assessment recorded. Plan of Treatment Reminders Order Date Submit Date Provider Last Modified By Organization Details Last Modified Time Details Appointments None recorded. Lab ige, total, serum 2022 023 [email or web address] Not available 3 09:50:14 alpha-1-ant itrypsin (aat) phenotype, serum 2022 023 [email or web address] Not available 3 09:50:14 igg subclasses 1+2+3+4, serum 2022 023 [email or web address] 25 Not available 3 09:50:14 tb (M tuberculosi s), ifn-gamma meagan, blood 2022 023 [email or web address] 25 Not available 3 09:50:15 alpha-1-ant itrypsin (aat), QN, serum 2022 023 [email or web address] 25 Not available 3 09:50:15 rast class, qualitative , serum 2022 023 [email or web address] 25 Not available 3 09:50:15 eosinophils , auto, blood (OBS) 2022 023 [email or web address] 25 Not available 3 09:50:15 BNP (B-type natriuretic peptide), serum or plasma 2022 023 [email or web address] 25 Not available 09:50:15 Referral None recorded. Procedures None recorded. Surgeries None recorded. Imaging LDCT, chest, for lung cancer screening - DUE 08/20/232022 023 [email or web address] [facility] (Radiology), [address] [place], [address], 3 09:50:07 Medication Orders Ventolin HFA 90 mcg/actuati on aerosol inhaler 2022 023 [facility] [facility], [place], [address], 3 10:42:27 Patient TargetsNo targets recorded. Patient InstructionsNo instructions recorded. Reason for Referral None Reported. Results Created Date Observation Date Name Description Value Unit Range Abnormal Flag Note LastModifiedBy Organization Detail LastModifiedTime 08/04/20 21 08/04/2021 LDCT, chest , for lung cance r scree antonio No observ ation record ed. [id number] [facility] [address] [place], [address], 11/17/2022 02:46:58 08/21/20 22 08/20/2022 LDCT, chest , for lung cance r scree antonio No observ ation record ed. [id number] [facility] On [facility] Orders [address] [place], [address], 11/17/2022 02:46:58 Result Notes None recorded. Problems Name Problem SNOMED Code Status Onset Date Resolution Date Notes Provider Name and Address Organization Details Recorded Time Chronic obstructiv e pulmonary disease 71010391 Active 2018 Not Available [facility] 3 02:39:25 Acute sinusitis 62196067 Active 2021 Not Available [facility] 3 02:39:25 Asthma 092142910 Active 2018 Not Available [facility] 3 02:39:25 Cerebrovas cular accident 434809390 Active 2021 Not Available [facility] 3 02:39:25 Benign prostatic hyperplasi a without outflow obstructio n 712897779 Active Not Available [facility] 3 02:39:25 Viral hepatitis 0362817 Active Not Available [facility] 3 02:39:25 Malignant tumor of prostate 521182854 Active 2021 Not Available [facility] 3 02:39:25 Nicotine dependence 81266514 Active 2021 Not Available [facility] 3 02:39:25 Nasal congestion 11115687 Active 2021 Not Available [facility] 3 02:39:25 Obstructiv e sleep apnea syndrome 97302799 Active 2021 Not Available [facility] 3 02:39:25 Asthma-chr onic obstructiv e pulmonary disease overlap syndrome 6602222470093 9107 Active 2022 [facility] [address], [address] , [employer] [facility] [employer] [facility] 3 10:39:11 Dyspnea on exertion 74858131 Active 2022 CARYN [facility] [address] [facility], [address], [address] , [employer] [facility] 3 10:40:10 Problem Notes None recorded. Procedures Surgical History None recorded. Imaging Results Imaging Date Name Status LastModified by Organiz ation Details LastModified Time 08/04/2021 LDCT, chest, for lung cancer screening completed [id number] [facility] [address] [place], [address], 11/17/2022 02:46:58 08/20/2022 LDCT, chest, for lung cancer screening completed [id number] [facility] Add On Lab Orders [address] [place], [address], 11/17/2022 02:46:58 Procedure Notes None recorded. Medical Equipment None Reported. Allergies No known drug allergies Medications Name Sig Start Date Stop Date Status Note LastModified by Organization Details LastModified Time Prescript ion - Renewal active Provider no longer with this practice Not Available Not Available Not Available amoxicill in 500 mg capsule 11/02 completed Not Available Not Available Not Available atorvasta tin 40 mg tablet TAKE 1 TABLET BY MOUTH ONCE DAILY active Not Available Not Available No t Available Qvar 80 mcg/actua tion Metered Aerosol oral inhaler 08/10 completed Not Available Not Available Not Available prednison e 10 mg tablet active Not Available Not Available Not Available oxybutyni n chloride ER 15 mg tablet,ex tended release 24 hr TAKE 1 TABLET BY MOUTH ONCE DAILY 02/25 completed Not Available Not Available Not Available nicotine 14 mg/24 hr daily transderm al patch Apply 1 patch every day by transder mal route as directed for 30 days. 04/02 completed Not Available Not Available Not Available albuterol sulfate 2.5 mg/3 mL (0.083 %) solution for nebulizat ion USE 1 VIAL IN NEBULIZE R THREE TIMES DAILY active Not Available Not Available No t Available oxybutyni n chloride ER 10 mg tablet,ex tended release 24 hr TAKE 1 TABLET BY MOUTH ONCE DAILY 02/25 completed Not Available Not Available Not Available azithromy mariah 250 mg tablet 02/23 completed Not Available Not Available Not Available hydrocodo ne 5 mg-acetam inophen 325 mg tablet TAKE 1 TABLET BY MOUTH EVERY 6 HOURS NEEDED FOR PAIN 10/17 completed Not Available Not Available Not Available sucralfat e 1 gram tablet 02/23 completed Not Available Not Available Not Available promethaz ine 12.5 mg tablet 08/10 completed Not Available Not Available Not Available prednison e 20 mg tablet 02/23 completed Not Available Not Available Not Available metronida zole 500 mg tablet 02/17 completed Not Available Not Available Not Available clopidogr el 75 mg tablet TAKE 1 TABLET BY MOUTH ONCE DAILY IN THE MORNING active Not Available Not Available No t Available amlodipin e 5 mg tablet TAKE 1 TABLET BY MOUTH ONCE DAILY active Not Available Not Available No t Available ciproflox acin 500 mg tablet TAKE 1 TABLET BY MOUTH TWICE DAILY FOR 14 DAYS 12/19 completed Not Available Not Available Not Available hydrocodo ne 10 mg-acetam inophen 325 mg tablet TAKE 1 TABLET BY MOUTH TWICE A DAY NEEDED active Not Available Not Available No t Available peg-elect rolyte solution 420 gram oral solution TAKE 4,000 ML BY MOUTH DIRECTED active Not Available Not Available No t Available aspirin 81 mg tablet,de layed release active Not Available Not Available Not Available sildenafi l 100 mg tablet TAKE 1 TABLET BY MOUTH NEEDED active Not Available Not Available No t Available alprazola m 0.5 mg tablet active Not Available Not Available Not Available pravastat in 10 mg tablet 02/17 completed Not Available Not Available Not Available tamsulosi n 0.4 mg capsule TAKE 2 CAPSULES BY MOUTH ONCE DAILY AT THE SAME TIME EACH DAY AFTER A MEAL active Not Available Not Available No t Available amlodipin e 10 mg tablet 08/31 completed Not Available Not Available Not Available Qvar 40 mcg/actua tion Metered Aerosol oral inhaler 02/17 completed Not Available Not Available Not Available nicotine 21 mg/24 hr daily transderm al patch APPLY 1 PATCH TOPICALL Y ONCE DAILY DIRECTED 04/02 completed Not Available Not Available Not Available Advair Diskus 500 mcg-50 mcg/dose powder for inhalatio n active Not Available Not Available Not Available omeprazol e 20 mg capsule,d elayed release 02/17 completed Not Available Not Available Not Available irbesarta n 75 mg tablet active Not Available Not Available Not Available monteluka st 10 mg tablet TAKE 1 TABLET BY MOUTH ONCE DAILY DIRECTED FOR 30 DAYS active Not Available Not Available No t Available irbesarta n 150 mg tablet TAKE 1 TABLET BY MOUTH ONCE DAILY 02/25 completed Not Available Not Available Not Available diazepam 10 mg tablet TAKE 1 TABLET BY MOUTH EVERY DAY AT BEDTIME NEEDED FOR INSOMNIA AND ANXIETY AVOID DRIVING OR OPERATIN G MACHINES active Not Available Not Available No t Available polyethyl rosa glycol 3350 17 gram/dose oral powder MIX AND DRINK ONE CAPFUL (17G) DAILY WITH 8 OZ OF WATER JUICE SODA COFFEE OR TEA NEEDED FOR CONSTIPA TION active Not Available Not Available No t Available levofloxa mariah 500 mg tablet TAKE 1 TABLET BY MOUTH EVERY 24 HOURS 02/25 completed Not Available Not Available Not Available albuterol sulfate HFA 90 mcg/actua tion aerosol inhaler INHALE 2 PUFFS BY MOUTH EVERY 4 HOURS active Not Available Not Available No t Available fluoxetin e 20 mg capsule TAKE 1 CAPSULE BY MOUTH ONCE DAILY IN THE MORNING active Not Available Not Available No t Available fluticaso ne propionat e 50 mcg/actua tion nasal spray,alexandra pension USE 1 SPRAY(S) IN EACH NOSTRIL ONCE DAILY DIRECTED active Not Available Not Available No t Available dicyclomi ne 10 mg capsule 02/17 completed Not Available Not Available Not Available finasteri de 5 mg tablet TAKE 1 TABLET BY MOUTH ONCE DAILY active Not Available Not Available No t Available irbesarta n 300 mg tablet TAKE 1 TABLET BY MOUTH ONCE DAILY active Not Available Not Available No t Available ipratropi um bromide 0.02 % solution for inhalatio n 04/02 completed Not Available Not Available Not Available diazepam 5 mg tablet TAKE 1 TABLET BY MOUTH ONCE DAILY AT BEDTIME NEEDED FOR INSOMNIA AVOID DRIVING OR Wheely MACHINES active Not Available Not Available No t Available amoxicill in 875 mg-potass ium clavulana te 125 mg tablet Take 1 tablet twice a day by oral route as directed for 7 days. 02/25 completed Not Available Not Available Not Available nitrofura ntoin monohydra te/macroc rystals 100 mg capsule active Not Available Not Available Not Available Atrovent HFA 17 mcg/actua tion aerosol inhaler 02/17 completed Not Available Not Available Not Available Engerix-B (PF) 20 mcg/mL intramusc ular syringe 02/17 completed Not Available Not Available Not Available Symbicort 160 mcg-4.5 mcg/actua tion HFA aerosol inhaler Inhale 2 puffs twice a day by inhalati on route. 02/23 completed Not Available Not Available Not Available Dulera 200 mcg-5 mcg/actua tion HFA aerosol inhaler Inhale 2 puffs twice a day by inhalati on route as directed for 30 days. 08/31 completed Not Available Not Available Not Available Breo Ellipta 100 mcg-25 mcg/dose powder for inhalatio n 02/26 completed Not Available Not Available Not Available Trulicity 0.75 mg/0.5 mL subcutane ous pen injector active Not Available Not Available Not Available Incruse Ellipta 62.5 mcg/actua tion powder for inhalatio n INHALE 1 PUFF BY MOUTH ONCE DAILY 2022 active Not Available Not Available Not Avai lable Narcan 4 mg/actuat ion nasal spray CALL 911. ADMINIST ER A SINGLE SPRAY INTRANAS ALLY INTO ONE NOSTRIL UPON SIGNS OF OPIOID OVERDOSE . MAY REPEAT AFTER 3 MINUTES IF NO RESPONSE . active Not Available Not Available No t Available fluticaso ne 232 mcg-salme terol 14 mcg/actua tion breath activated powdr INHALE 1 PUFF TWICE DAILY DIRECTED active Not Available Not Available No t Available Mavyret 100 mg-40 mg tablet 08/31 completed Not Available Not Available Not Available Fluzone Quad (P F) 60 mcg(15 mcgx4)/0. 5 mL intramusc ular syringe 08/31 completed Not Available Not Available Not Available Flublok Quad (PF) 180 mcg (45 mcg x 4)/0.5 mL IM syringe PHARMACI ST ADMINIST ERED IMMUNIZA TION ADMINIST ERED AT TIME OF DISPENSI NG active Not Available Not Available No t Available Fluzone Quad (PF) 60 mcg (15 mcg x 4)/0.5 mL IM syringe active Not Available Not Available Not Available Vitals Date Recorded Body mass index (BMI) Body height Oxygen saturation Oxygen saturation in Arterial blood by Pulse oximetry Heart rate Body temperature Body weight Systolic blood pressure Diastolic blood pressure Provider Name and Address Organization Details Last Updated DateTime 1 39.3 kg/m2 175.26 cm 94 % 94 % 85 /min 97.7 [degF] 001880. 57 g 142 mm[Hg] 86 mm[Hg] Not Available [facility] 3 02:36:12 Date Recorded Body mass index (BMI) Body height Oxygen saturation Oxygen saturation in Arterial blood by Pulse oximetry Heart rate Body temperature Body weight Systolic blood pressure Diastolic blood pressure Provider Name and Address Organization Details Last Updated DateTime 2 40.8 kg/m2 175.26 cm 95 % 95 % 90 /min 98.2 [degF] 427562. 49 g 138 mm[Hg] 68 mm[Hg] Not Available [facility] 3 02:36:12 Date Recorded Body mass index (BMI) Body height Oxygen saturation Oxygen saturation in Arterial blood by Pulse oximetry Heart rate Body temperature Body weight Systolic blood pressure Diastolic blood pressure Provider Name and Address Organization Details Last Updated DateTime 2 40.8 kg/m2 175.26 cm 96 % 96 % 81 /min 97.9 [degF] 071841. 49 g 128 mm[Hg] 58 mm[Hg] Not Available [facility] 3 02:36:12 Date Recorded Body mass index (BMI) Body height Oxygen saturation Oxygen saturation in Arterial blood by Pulse oximetry Heart rate Body temperature Body weight Systolic blood pressure Diastolic blood pressure Provider Name and Address Organization Details Last Updated DateTime 2 39 kg/m2 175.26 cm 97 % 97 % 84 /min 96.6 [degF] 067146. 39 g 136 mm[Hg] 74 mm[Hg] Not Available [facility] 3 02:36:12 Date Recorded Body height Body mass index (BMI) Body weight Body temperature Heart rate Oxygen saturation Oxygen saturation in Arterial blood by Pulse oximetry Systolic blood pressure Diastolic blood pressure Provider Name and Address Organization Details Last Updated DateTime 3 175.26 cm 38.4 kg/m2 221684. 02 g 97.2 [degF] 85 /min 95 % 95 % 108 mm[Hg] 62 mm[Hg] Elizabeth Gross MA [place] [facility] 3 10:16:16 Social History Question Answer Notes LastModified by Organizat ion Details LastModified Time Tobacco Smoking Status Current Every Day Smoker Not Available [facility] 11/17/2022 02:28:05 What Is Your Level Of Alcohol Consumption? Occasional [id number] Information not available 11/17/2022 How Much Tobacco Do You Chew? None [id number] Information not available 11/17/2022 In The 14 Days Before Symptom Onset, Have You Had Close Contact With A Laboratory-confir med COVID-19 While That Case Was Ill? No [id number] Information not available 11/17/2022 In The 14 Days Before Symptom Onset, Have You Had Close Contact With A Person Who Is Under Investigation For COVID-19 While That Person Was Ill? No [id number] Information not available 11/17/2022 Which Illicit Or Recreational Drugs Have You Used? Marijuana [id number] Information not available 11/17/2022 Do You Or Have You Ever Used E-cigarettes Or Vape? Never Used Electronic Cigarettes [id number] Information not available 11/17/2022 What Was The Date Of Your Most Recent Tobacco Screening? 02/25/2023 [email or web address] Information not available 02/25/2023 At What Age Did You Start Smoking Tobacco? 18 [id number] Information not available 11/17/2022 Are You Passively Exposed To Smoke? Yes [id number] Information not available 11/17/2022 Do You Or Have You Ever Used Smokeless Tobacco? Never Used Smokeless Tobacco [id number] Information not available 11/17/2022 How Many Years Have You Smoked Tobacco? 40 [id number] Information not available 11/17/2022 Have You Recently Traveled Abroad? No [id number] Information not available 11/17/2022 Sex: Unknown Functional Status Question Answer Note LastModified by Organizat ion Details LastModified Time What is your exercise level? Moderate [id number] Information not available 11/17/2022 Mental Status None recorded. Family History Nothing Reported Notes:mother and father dece ased Medical History Condition Response STROKE/TIA Y Immunizations Vaccine Type Date Status Note Provider Nam e and Address Organization Details Recorded Time Influenza, split virus, quadrivalent, preservative 9 completed Not Available [facility] 11/17/2022 02:46:17 Past Encounters Encounter ID Performer Location Encounter Start Date Encounter Closed Date Diagnosis/Indication Diagnosis SNOMED-CT Code Diagnosis ICD10 Code Diagnosis Note [id number] [facility] [address] [address] 12/19/2020 00:00:00 12/19/2020 17:01:30 [id number] [facility] [place] [address] [place] [address] 02/17/2021 00:00:00 02/17/2021 16:35:22 [id number] [facility] [place] [address] [place] [address] 04/02/2021 00:00:00 04/02/2021 23:12:34 [id number] [facility] [place] [address] [place] [address] 07/21/2021 00:00:00 07/22/2021 09:27:32 [id number] [facility] [place] [address] [place] [address] 11/17/2021 00:00:00 11/17/2021 16:17:07 [id number] [facility] [place] [address] [place] [address] 02/17/2022 00:00:00 02/17/2022 15:11:08 [id number] [facility] [place] [address] [place] [address] 08/27/2022 00:00:00 08/27/2022 12:21:49 [id number] Rita Sanchez, FINANCIAL SYSTEMS MANAGER- [facility] [place] [address] [place] [address] 02/25/2023 09:59:52 02/25/2023 10:48:55 Nicotine dependence 28405143 Z87.891 Smoking cessation counseling and techniques reviewed at length. Literature reviewed.A void triggers, support groups.Dis traction techniques Greater than 3 but less than 10 minutes spent discussing cessation. Declines NRT.Discus sed Rx options if needed in the future.LDC T 08/2022 with no nodule or massRepeat due 08/2023, ordered today Asthma-chr onic obstructive pulmonary disease overlap syndrome 5576041980 9860615 J44.9 CAT 22ACT 22Continue Advair Diskus and Incruse Ellipta per insurance coverageTh pablo are affordable and provide good clinical benefitAlb uterol PRN - discussed indication s for useInstruc ronald on technique for all todayRX for albuterolP FT completed 04/03/21 with moderate obstructio n, hyperinfla tion and air trappingSi x minute walk completed, WNLPlan to repeat every 2 years and with changes in condition, due this fallDiscus sed reportable signs and symptomsRT C in 6 months, PRN for concerns. Obstructiv e sleep apnea syndrome 49208810 G47.33 In lab study 10/2020 with AHI 5.3PLMs 0 per hourHe is not using his machine, discussed the risks of uncorrecte d LINDA including CVA, [place], Nasal congestion 8405640 0 R09.81 Saline nasal rinsesCont inue FLonase Malignant tumor of prostate 258267664 C61 Continue to follow with oncologyCo ntributor to nocturia Dyspnea on exertion 6084 5006 R06.09 Multifacto ralCheck labsSmokin g cessation Health Concerns Section Related Observation LastModified by Organization Detai ls LastModified Time None Recorded Concern Status LastModified by Organization Details LastModified Time None Recorded Advance Directives Directive None Recorded Payers Encounter Date Sequence Insurance Name Policy Number Policy Herrera Covered Member ID Herrera Member ID Guarantor Name 02/25/2023 1 [facility] (MEDICAID HMO) [id number] Tc Brown [id number] Tc Brown Notes Date Note Type Note Provider Name and Address Organization Details Recorded Time 02/25/2023 text/html Addy presents tod ay to follow up on LINDA, dyspnea, cough, COPD.Reports that he has not had an exacerbation since last OVHas not had any more difficulty with the change in weatherFatigue is not significantly increased from baselineDenies hemoptysis.Continues compliance with Advair and Incruse dailyRescue MDI use is rare, intermittentHis activity tolerance is fair, he does have to stop at times when he is working outsideCough is intermittent, not limiting.He is not wearing his CPAP and does not want to.Sleep is restless now R/T nocturia - has been on medication but does not have significant clinical benefitHe has completed treatments for prostate cancer and tells me he is in remission - next follow up in August.He is smoking about one pack every 2-3 days.Denies enlarged lymph nodes, chest pain, wheezing.He can dress and bathe without shortness of breath Rita Sanchez, FINANCIAL SYSTEMS MANAGER-BC [address] [facility], [facility] [address], [place], [address], [place] [facility] 02/25/2023 12:33:41
--- OUTSIDE RECORDS SUMMARY | 2025-01-09 08:35 | XMS_ITS | Clinical Summary ---
Author Organization [facility] Address [address] [place] [address] Phone Care Team Providers Care Sprayer Machine Name Role Phone Addy Molina MD Primary Care Provider [phone] Allergies No known active allergies Medications amLODIPine (NORVASC) 10 mg tablet 08/03/2018 Active finasteride (PROSCAR) 5 mg tablet 08/11/2018 Active FLUoxetine (PROzac) 20 mg capsule 07/10/2018 Active BREO ELLIPTA 100-25 mcg/dose Disk with Device 07/27/2018 Ac tive diazePAM (VALIUM) 5 mg tablet 07/28/2018 Active tamsulosin (FLOMAX) 0.4 mg capsule 08/11/2018 Active VENTOLIN HFA 90 mcg/actuation inhaler 08/03/2018 Active FLUZONE QUAD [id number], PF, 60 mcg (15 mcg x 4)/0.5 mL Syringe syringe 07/14/2018 Act diandra HYDROcodone-acet aminophen (NORCO) 5-325 mg tablet 08/25/2018 Active aspirin (ECOTRIN EC) 81 mg Tablet, Delayed Release (E.C.) Take 81 mg by mouth daily. Active multivitamin (DAILY-CELIO) tablet Take 1 Tablet by mouth daily. 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 Gender Identity Not on file Sexual Orientation Not on file Last Filed Vital Signs Vital Sign Reading Time Taken Comments Blood Pressure 108/67 08/31/2018 11:09 AM 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 INSTRUCTOR Pulse 78 08/31/2018 11:09 AM VOCATIONAL 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 INSTRUCTOR Temperature 36.7 C (98 F) 08/31/2018 11:09 AM VOCATIONAL 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 INSTRUCTOR Respiratory Rate - - Oxygen Saturation 94% 08/31/2018 11: 09 AM VOCATIONAL 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 INSTRUCTOR Inhaled Oxygen Concentration - - Weight 115.5 kg (254 lb 9.6 oz) 018 11:09 AM VOCATIONAL 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 INSTRUCTOR Height 175.3 cm (5' 9 ) 08/31/2018 11:0 9 AM VOCATIONAL 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 INSTRUCTOR Body Mass Index 37.6 08/31/2018 11:09 AM VOCATIONAL 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 INSTRUCTOR Plan of Treatment Health Maintenance Due Date Last Done Comments DTAP/TDAP/TD VACCINES (1 - Tdap) 01/28/1976 COLORECTAL SCREENING 2002 Colorectal Cancer Screening 2002 FIT-DNA Q 3 years 2002 FIT/FOBT Q 1 year 2002 Flex Sig/CT Colonography Q 5 years 2002 ZOSTER VACCINE (1 of 2) 2007 PNEUMOCOCCAL VACCINE 50+ YEA RS (2 of 2 - PCV) 10/18/2014 10/18/2013 RSV VACCINE (60+ or ) (1 - Risk 60-74 years 1-dose series) 2017 INFLUENZA VACCINE (#1) 2024 4, 07/21/2012, 08/02/2011 Insurance [employer] [place] Care Teams Sprayer Machine Relationship Specialty Start Date End Date Addy Molina MD [address] [place] [phone] PCP - General Family Practice 08/31/18
[2025-01-09 09:30] LABS: Add Urine Microscopic? YES; Appearance Urine Clear (Clear); Bacteria Urine None Seen /hpf; Bilirubin Urine Negative (Negative); Blood Urine Negative (Negative); Color Urine Yellow (Yellow); Glucose Urine UA Negative (Negative); Ketones Urine Trace mg/dL (Negative); Leukocyte Esterase Ur Negative LEU/UL (Negative); Nitrate Urine Negative (Negative); Protein Urine 2+ mg/dL (Negative); RBC Urine 0-2 /hpf (0-2); Specific Grav Ur 1.022 (1.001-1.035); Squamous Epithelial Cell Urine None Seen /hpf (Few); WBC Urine 0-5 /hpf (0-3); pH Urine 5.5 (5.0-9.0)
[2025-01-09 09:31] LABS: Basophils Absolute Auto 0.1 K/mm3 (0.0-0.1); Basophils Percent Auto 0.6 % (0.2-1.2); Eosinophils Absolute Auto 0.2 K/mm3 (0-0.3); Eosinophils Percent Auto 2.1 % (0-4.4); Hematocrit 40.1 % (42.0-52.0); Hemoglobin 13.5 g/dL (14.0-18.0); Immature Granulocyte Absolute 0.03 K/mm3 (0.00-0.031); Immature Granulocyte Percent A 0.3 % (0-0.5); Lymphocytes Absolute Auto 1.13 K/mm3 (0.9-3.2); Lymphocytes Percent Auto 12.1 % (18.3-44.2); Mean Corpuscular HGB Conc 33.7 g/dl (32-36); Mean Corpuscular Hemoglobin 28.5 pg (26-34); Mean Corpuscular Volume 84.8 fl (80-100); Mean Platelet Volume 8.6 fl (7.4-10.4); Monocytes Absolute Auto 0.7 K/mm3 (0.1-0.6); Monocytes Percent Auto 7.1 % (2.6-8.5); Neutrophils Absolute Auto 7.3 K/mm3 (1.3-6.7); Neutrophils Percent Auto 77.8 % (45.5-73.1); Platelet Count Result 355 k/mm3 (150-375); Red Blood Count 4.73 M/mm3 (4.6-6.20); Red Cell Distribution Width 12.9 % (11.5-14.5); White Blood Count 9.4 K/mm3 (4.5-10.0)
[2025-01-09 09:42] LABS: Alanine Aminotransferase 25 U/L (6-50); Albumin Level 4.3 g/dL (3.5-5.1); Alkaline Phosphatase 120 U/L (38-126); Anion Gap 8 mmol/L (4-12); Aspartate Amino Transferase 21 U/L (17-59); Bilirubin,Total 0.5 mg/dL (0.2-1.3); Blood Urea Nitrogen 19 mg/dL (9-20); Calcium 9.1 mg/dL (8.4-10.2); Carbon Dioxide 28 mmol/L (22-30); Chloride 100 mmol/L (98-107); Estimated CRCL calculation 86 ml/min; Estimated Glomerular Filt Rate > 60; Glucose 117 mg/dL (65-110); Lipase 42 U/L (23-300); Potassium 4.7 mmol/L (3.4-5.0); Sodium 136 mmol/L (137-145)
--- NOTE | 2025-01-09 09:59 | ED.ABDPAIN ---
HPI - Abdominal Pain General Chief Complaint: Abdominal Pain Stated Complaint: left flank pain, N/V, groin pain Time Seen by Provider: 01/09/25 09:17 Source: patient Mode of arrival: ambulatory Limitations: no limitations History of Present Illness HPI narrative: This is a 69-year-old male that presents to the emergency department for abdominal pain. Ongoing over the last week. Reports bilateral flank pain radiating to the lower abdomen. Reports associated nausea. Denies fevers, vomiting, diarrhea. Related Data Home Medications ?Medication ?Instructions ?Recorded ?Confirmed ?Last Taken ?Type diazepam 5 mg tablet 5 mg PO HS 07/27/21 09/04/24 07/22/21 History fluoxetine 20 mg capsule (Prozac) 20 mg PO DAILY 07/27/21 09/04/24 07/26/21 History hydrocodone 10 mg-acetaminophen 10 - 325 tablet PO Q6-8H PRN Pain 07/27/21 09/04/24 07/26/21 History 325 mg tablet tamsulosin 0.4 mg capsule 0.4 mg PO DAILY 07/27/21 09/04/24 07/26/21 History umeclidinium 62.5 mcg/actuation 1 inh inhalation DIRECTED 07/28/21 09/04/24 Unknown History blister powder for inhalation (Incruse Ellipta) finasteride 5 mg tablet 5 mg PO DAILY 03/18/22 09/04/24 Unknown History fluticasone 500 mcg-salmeterol 50 1 inh inhalation DIRECTED 07/28/23 09/04/24 Unknown History mcg/dose blistr powdr for inhalation (Advair Diskus) Allergies Allergy/AdvReac Type Severity Reaction Status Date / Time No Known Allergies Allergy Verified 01/09/25 08:30 Review of Systems Review of Systems: CONSTITUTIONAL: Denies fever GASTROINTESTINAL: Reports abdominal pain, nausea. Denies vomiting, or diarrhea. GENITOURINARY: Denies dysuria All systems reviewed & are unremarkable except as noted in HPI and below PMFSH Past Medical History Medical History Prostate cancer Smoker Obesity CAD (coronary artery disease) COPD (chronic obstructive pulmonary disease) Hyperlipidemia Left sided numbness Social History Social History Smoking packs per day: 1.5 Smoking cigarettes per day: 30.0 Years smoked: 30 Smoking pack-years: 45.00 Smoking status: Former smoker Tobacco type: cigarettes Smoking end date: 07/24/21 Alcohol intake: current Substance use: current Substance use type: marijuana Other substance usage details: every day marijuana use Spiritual care concerns: No Exam Narrative: GENERAL: Well-appearing, well-nourished, and in no acute distress. HEAD: Normocephalic, atraumatic. EYES: EOMI. CHEST: Clear to auscultation. No respiratory distress. No wheezes rales or rhonchi HEART: Regular rate and rhythm. No murmur heard. Normal peripheral pulses. ABDOMEN: Soft, nondistended, normal active bowel sounds. Tender to palpation throughout the lower abdomen, without guarding EXTREMITIES: Normal range of motion. No edema. SKIN: Warm, dry, no rash. NEURO: No focal deficits. Alert and oriented x3. PSYCH: Normal mood and affect Course Course Emergency Course: Patient updated on his workup and agrees with plan of care Vital Signs Vital signs: Vital Signs Temperature 97.6 F 01/09/25 08:28 Pulse Rate 100 01/09/25 08:28 Respiratory Rate 16 01/09/25 08:28 Blood Pressure 124/67 01/09/25 08:28 Pulse Oximetry 97 01/09/25 08:28 Temperature 97.6 F 01/09/25 08:28 Pulse Rate 85 01/09/25 11:00 Respiratory Rate 18 01/09/25 11:00 Blood Pressure 129/71 01/09/25 11:00 Pulse Oximetry 98 01/09/25 11:00 MDM - Abdominal Pain MDM Narrative Medical decision making narrative: Patient presents to the emergency department for flank pain, lower abdominal pain. Ongoing over the last week. He is afebrile and nontoxic appearing. His vitals are stable. Cbc without leukocytosis. Metabolic panel and lipase without concerning findings. Urine without evidence of infection. CT abdomen pelvis shows a pancreatic cyst which patient is aware of. Also shows bladder wall thickening. Once again patient's urine is not concerning for infection. Patient was updated on his workup and agrees with plan of care. Instructed to follow up with primary provider. He was given warnings to return to the ER Differential Diagnosis Differential diagnosis: Likely calculus of kidney, constipation, diverticulitis, pancreatitis and other (Biliary colic, GERD) Lab Data Attestation: I reviewed the patient's lab results. 01/09/25 09:23 01/09/25 09:23 Labs: Lab Results 01/09/25 01/09/25 Range/Units 09:17 09:23 WBC 9.4 (4.5-10.0) K/mm3 RBC 4.73 (4.6-6.20) M/mm3 Hgb 13.5 L (14.0-18.0) g/dL Hct 40.1 L (42.0-52.0) % MCV 84.8 (80-100) fl MCH 28.5 (26-34) pg MCHC 33.7 (32-36) g/dl RDW 12.9 (11.5-14.5) % Plt Count 355 (150-375) k/mm3 MPV 8.6 (7.4-10.4) fl Immature Gran % (Auto) 0.3 (0-0.5) % Neut % (Auto) 77.8 H (45.5-73.1) % Lymph % (Auto) 12.1 L (18.3-44.2) % [place] % (Auto) 7.1 (2.6-8.5) % Eos % (Auto) 2.1 (0-4.4) % Baso % (Auto) 0.6 (0.2-1.2) % Lymph # (Auto) 1.13 (0.9-3.2) K/mm3 [place] # (Auto) 0.7 H (0.1-0.6) K/mm3 Eos # (Auto) 0.2 (0-0.3) K/mm3 Baso # (Auto) 0.1 (0.0-0.1) K/mm3 Abs Immat Gran (auto) 0.03 (0.00-0.031) K/mm3 Absolute Neuts (auto) 7.3 H (1.3-6.7) K/mm3 Absolute Nucleated RBC 0.000 (0.0-0.012) K/mm3 Nucleated RBC % 0.0 (0.0-0.2) % Sodium 136 L (137-145) mmol/L Potassium 4.7 (3.4-5.0) mmol/L Chloride 100 (98-107) mmol/L Carbon Dioxide 28 (22-30) mmol/L Anion Gap 8 (4-12) mmol/L BUN 19 (9-20) mg/dL Creatinine 0.94 (0.7-1.3) mg/dL Estim Creat Clear Calc 86 ml/min Estimated GFR > 60 (59 - ) Glucose 117 H (65-110) mg/dL Calcium 9.1 (8.4-10.2) mg/dL Total Bilirubin 0.5 (0.2-1.3) mg/dL AST 21 (17-59) U/L ALT 25 (6-50) U/L Alkaline Phosphatase 120 (38-126) U/L Total Protein 8.0 (6.3-8.2) g/dL Albumin 4.3 (3.5-5.1) g/dL Lipase 42 (23-300) U/L Urine Color Yellow (Yellow) Urine Appearance Clear (Clear) Urine pH 5.5 (5.0-9.0) Ur Specific Foster 1.022 (1.001-1.035) Urine Protein 2+ H (Negative) mg/dL Urine Glucose (UA) Negative (Negative) mg/dL Urine Ketones Trace H (Negative) mg/dL Ur Blood (Man) Negative (Negative) Urine Nitrate Negative (Negative) Urine Bilirubin Negative (Negative) Urine Urobilinogen 1.0 (<2.0) mg/dL Leukocyte Esterase Rfl Negative (Negative) VANESSA/UL Urine RBC 0-2 (0-2) /hpf Urine WBC 0-5 (0-3) /hpf Ur Squamous Epith Cells None seen (Few) /hpf Urine Bacteria None seen /hpf Urine Casts 3-5 Imaging Data Radiologist's impression: ITS Impressions Abdomen/Pelvis CT 01/09/25 10:17 IMPRESSION: 1. 4.3 x 2.7 x 2.2 cm complex cystic lesion at the uncinate process of the pancreas. The differential diagnosis includes pseudocyst, side branch intraductal papillary mucinous neoplasm (IPMN) versus less likely mucinous cystic neoplasm (MCN), serous cystadenoma, both significantly less likely in a male and neuroendocrine tumor. Correlate for history of pancreatitis and would consider further evaluation with either pre and postcontrast MRI/MRCP or endoscopic ultrasound which could include biopsy. 2. Diffuse mild bladder wall thickening due to at least in part to incomplete distention although differential would include cystitis either acute or chronic. Critical Care Time Critical Care Time Critical Care Time: No Discharge Plan Discharge Clinical Impression: Acute flank pain, Abdominal pain, lower Patient Disposition: Home Condition: Stable Instructions: Abdominal Pain (ED), Back Pain (ED) Additional Instructions: Return to the emergency department if you experience fever, chest pain, shortness of breath, abdominal pain with nausea and vomiting, weakness, numbness, or any other symptoms that are concerning to you. Your blood work and imaging here are largely reassuring. Imaging did show your known pancreatic cyst Rest. Remain well hydrated. [id number] pain medication as needed. Prescribed pain medication as needed Follow up with your primary care doctor Patient Language: Tristanian Prescriptions: No Action fluticasone propion-salmeterol [Advair Diskus] 500-50 mcg/dose blister with device 1 inh INHALATION DIRECTED finasteride 5 mg tablet 5 mg PO DAILY prednisone 20 mg tablet 40 mg PO DAILY 5 Days Qty: 10 0RF hydrocodone-acetaminophen 10-325 mg tablet 10 - 325 tablet PO Q6-8H PRN (Reason: Pain) tamsulosin 0.4 mg capsule 0.4 mg PO DAILY fluoxetine [Prozac] 20 mg capsule 20 mg PO DAILY diazepam 5 mg tablet 5 mg PO HS Incruse Ellipta 62.5 mcg/actuation blister with device 1 inh INHALATION DIRECTED Rx Instructions: takes at noon aspirin 81 mg Tablet,Delayed Release (Dr/Ec) 81 mg PO QAM Qty: 30 0RF amlodipine 5 mg tablet See Rx Instructions .ROUTE .COMPLEX Qty: 90 2RF Dose Instruction: Take 1 tablet by mouth once daily Rx Instructions: Take 1 tablet by mouth once daily atorvastatin 40 mg tablet See Rx Instructions .ROUTE .COMPLEX Qty: 30 5RF Dose Instruction: Take 1 tablet by mouth once daily Rx Instructions: Take 1 tablet by mouth once daily irbesartan 300 mg tablet See Rx Instructions .ROUTE .COMPLEX Qty: 30 5RF Dose Instruction: Take 1 tablet by mouth once daily Rx Instructions: Take 1 tablet by mouth once daily Follow-up/Referrals: Addy Molina MD [Primary Care Provider] -
--- OUTSIDE RECORDS SUMMARY | 2025-01-09 10:10 | XMS_ITS | Encounter Summary ---
Author Organization 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
--- OUTSIDE RECORDS SUMMARY | 2025-01-09 10:10 | XMS_ITS | Clinical Summary ---
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): - Smoking cessation counseling and techniques reviewed at length - Avoid triggers and use distraction techniques - Participate in support groups - He is aware of the [place] Tobacco Quit line: 9-874-DIZK-YES for free services - 5 minutes spent discussing cessation Assessment & Plan (04/04/2024 2:21 PM CDT): - Smoking cessation counseling and techniques reviewed at length - Avoid triggers and use distraction techniques - Participate in support groups - Information given regarding [place] Tobacco Quit line: 5-964-MREX-YES for free services - 4 minutes spent discussing cessation 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 Overview (12/23/2016): COPD Assessment & Plan (07/25/2024 1:35 PM TITLE CAMERA OPERATOR): Continue Advair 250/50 twice daily Continue [...] Type Department Care Team Description 01/07/2025 Telephone [facility] Pulmonary at [address] [place] [address] Dayan Liang LPN Rf Advair 11/26/2024 Orders Only [facility] Pul[facility] at [address] [place] [id number] Vashti Brantley LPN from Last 3 Months [...] on file 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 Gender Identity Not on file Sexual Orientation Not on file Obstetrics History Last Filed Vital Signs Vital Sign Reading Time Taken Comments Blood Pressure 142/76 07/25/2024 10:55 AM TITLE CAMERA OPERATOR Pulse 86 07/25/2024 10:55 AM TITLE CAMERA OPERATOR Temperature 36.5 C (97.7 F) 07/25/2024 10:55 AM TITLE CAMERA OPERATOR Respiratory Rate 18 01/03/2024 9:40 AM CDT Oxygen Saturation 95% 07/25/2024 10: 55 AM TITLE CAMERA OPERATOR Inhaled Oxygen Concentration - - Weight 122.6 kg (270 lb 3.2 oz) 024 10:55 AM TITLE CAMERA OPERATOR Height 175.3 cm (5' 9 ) 07/25/2024 10:5 5 AM TITLE CAMERA OPERATOR Body Mass Index 39.9 07/25/2024 10:55 AM TITLE CAMERA OPERATOR Plan of Treatment Health Maintenance Due [...] Most Recently Relevant to Health Maintenance Insurance [facility] Member Subscriber Plan / Payer ( fective 2018-Present) Name:Tc Brown Relation to Subscriber:Self Name:Tc Brown Payer ID:[id number] (NAIC) Group ID:Not on file Type:MEDICAID RISK OTHER Address: [place] [id number] Care Teams Malariologist Relationship Specialty Start Date End Date Addy Molina MD PCP - General 10/02/15
--- OUTSIDE RECORDS SUMMARY | 2025-01-09 10:10 | XMS_ITS | Continuity of Care Document ---
Author Organization [facility] Address [address] [facility] [place] [address] [place] [address] Phone Care Team Providers Care Parking Lot Supervisor Name Role Phone Addy Molina MD Unavailable Unavailable Allergies, Adverse Reactions, Alerts Substance Reaction Status Criticality No Known Allergies Active No Inform ation Medications Medication Instructions Dosage Effective Dates (start - stop) Status Comments Valium 10 mg tablet take 1 tablet by oral route every bedtime as needed 10 MG - Active PRN for insomnia, anxiety, avoid driving or operate machine hydrocodone 10 mg-acetaminophen 325 mg tablet take 1 by Oral route 2 times every day as needed 1 - Active PRN for pain, avoid driving or operate machines Adderall 20 mg tablet take 1 tablet by oral route every day before breakfast 20 MG - Active Prozac 20 mg capsule take 1 Capsule [...] 12 hours apart 1.00 puff - Active Proscar 5 mg tablet take 1 tablet by oral route every day 5 MG - Active Flomax 0.4 mg capsule take 1 capsule by oral route every day 1/2 hour following the same meal each day 0.4 MG - Active irbesartan 300 mg tablet [...] Copied on Encounter OFFICE/OUTPA TIENT VISIT, EST [facility], [address] [place], [address], [place] tel:[phone] [facility] anxiety1 (chief complaint)pa in (chief complaint)fa tigue1 (chief complaint)ab d pain1 (chief complaint) Upper abdominal painChronic pain syndromeFatigueGe neralized Anxiety Disorder Dec- 0-202 5 Jesse Daly. [address] [place], [place], [address] , [place]. tel:[phone] [facility], [address] [place], [address], [place] tel:[phone] [facility] No Information Jesse Addy. [address], [place], [place], [address] , [place]. tel:[phone] OFFICE/OUTPA TIENT VISIT, [facility], [address] [place], [address], [place] tel:[phone] [facility] anxiety1 (chief complaint)pa in (chief complaint)AD D (chief complaint)HT N (chief complaint) FatigueChronic pain syndromeGeneraliz ed Anxiety DisorderEssential (primary) hypertension Jesse Daly. [address], [place], [place], [address] , [place]. tel:[phone] OFFICE/OUTPA TIENT VISIT, [facility], [address] [place], [address], [place] tel:[phone] [facility] anxiety1 (chief complaint)pa in (chief complaint)AD D (chief complaint) Chronic pain syndromeFatigueGe neralized Anxiety Disorder Jesse Addy. [address], [address] , [place]. tel:[phone] OFFICE/OUTPA TIENT VISIT, [facility], [address] [place], [address], [place] tel:[phone] [facility] anxiety1 (chief complaint)pa in (chief complaint)fa tigue1 (chief complaint)co ilia polyp1 (chief complaint) Chronic pain syndromeFatigueGe neralized Anxiety DisorderPolyp of colonAbnormal weight loss Jesse Daly. [address], [address], [place], [place], [address] , [place]. tel:[phone] OFFICE/OUTPA TIENT VISIT, [facility], [address], [place], [place], [address], [place] tel:[phone] [facility] anxiety1 (chief complaint)pa in (chief complaint)fa tigue1 (chief complaint)Pr ostate CA1 (chief complaint) Generalized Anxiety DisorderChronic pain syndromeFatigueMa lignant neoplasm of prostate 4 Jesse Daly. [address], [address], [place], [place], [address] , [place]. tel:[phone] OFFICE/OUTPA TIENT VISIT, [facility], [address], [place], [place], [address], [place] tel:[phone] [facility] anxiety1 (chief complaint)pa in (chief complaint)fa tigue1 (chief complaint)no dule1 (chief complaint) Chronic pain syndromeFatigueGe neralized Anxiety DisorderSolitary lung nodule 4 Jesse Daly. [address], [address], [place], [place], [address] , [place]. tel:[phone] OFFICE/OUTPA TIENT VISIT, [facility], [address], [place], [place], [address], [place] tel:[phone] [facility] anxiety1 (chief complaint)pa in (chief complaint)fa tigue1 (chief complaint) Chronic pain syndromeGeneraliz ed Anxiety DisorderFatigue 4 Jesse Daly. [address], [address], [place], [place], [address] , [place]. tel:[phone] OFFICE/OUTPA TIENT VISIT, [facility], [address], [place], [place], [address], [place] tel:[phone] [facility] anxiety1 (chief complaint)pa in (chief complaint)fa tigue1 (chief complaint) FatigueGeneralize d Anxiety DisorderChronic pain syndromeObstructi ve sleep apnea hypopnea 4 Jesse Daly. [address], [address], [place], [place], [address] , [place]. tel:[phone] OFFICE/OUTPA TIENT VISIT, [facility], [address], [place], [place], [address], [place] tel:[phone] [facility] anxiety1 (chief complaint)pa in (chief complaint) Generalized Anxiety DisorderChronic pain syndrome 4 Jesse Daly. [address], [address], [place], [place], [address] , [place]. tel:[phone] OFFICE/OUTPA TIENT VISIT, [facility], [address], [place], [place], [address], [place] tel:[phone] [facility] COPD1 (chief complaint) COPD w/ acute exacerbationSolit elyssa lung nodule 4 Jesse Daly. [address], [address], [place], [place], [address] , [place]. [phone] OFFICE/OUTPA TIENT VISIT, [facility], [address], [place], [place], [address], [place] tel:[phone] [facility] anxiety1 (chief complaint)pa in (chief complaint)co nstipation1 (chief complaint)HT N (chief complaint) Chronic pain syndromeGeneraliz ed Anxiety DisorderEssential (primary) hypertensionIrrit able bowel syndrome with constipationCereb ral infarction 4 Jesse Daly. [address], [address], [place], [place], [address] , [place]. tel:[phone] OFFICE/OUTPA TIENT VISIT, [facility], [address], [place], [place], [address], [place] tel:[phone] [facility] anxiety1 (chief complaint)pa in (chief complaint)CA D (chief complaint) Generalized Anxiety DisorderChronic pain syndromeIrritant contact dermatitis due to plants, except foodCoronary artery disease of qawalangin coronary artery without angina pectorisStroke 4 Jesse Daly. [address], [address], [place], [place], [address] , [place]. tel:[phone] OFFICE/OUTPA TIENT VISIT, [facility], [address], [place], [place], [address], [place] tel:[phone] [facility] rash1 (chief complaint)an xiety1 (chief complaint) Generalized Anxiety DisorderIrritant contact dermatitis due to plants, except food Yan- 4 Jesse Daly. [address], [place], [place], [address] , [place]. tel:[phone] OFFICE/OUTPA TIENT VISIT, [facility], [address], [place], [place], [address], [place] tel:[phone] [facility] pain (chief complaint)an xiety1 (chief complaint)pr ostate CA (chief complaint)co nstipation1 (chief complaint)an emia1 (chief complaint)ti ck bite1 (chief complaint) Chronic pain syndromeGeneraliz ed Anxiety DisorderIrritable bowel syndrome with constipationMalig nant neoplasm of prostateAnemiaLym e disease 4 Jesse Daly. [address], [address], [place], [place], [address] , [place]. tel:[phone] OFFICE/OUTPA TIENT VISIT, [facility], [address], [place], [place], [address], [place] tel:[phone] [facility] pain (chief complaint)an xiety1 (chief complaint)co nstipation1 (chief complaint)zainab ng (chief complaint) Chronic pain syndromeGeneraliz ed Anxiety DisorderCentrilob ular emphysemaIrritabl e bowel syndrome with constipation Dec- 4 Jesse Daly. [address], [address], [place], [place], [address] , [place]. tel:[phone] OFFICE/OUTPA TIENT VISIT, EST [facility], [address], [place], [place], [address], [place] tel:[phone] [facility] pain (chief complaint)an xiety1 (chief complaint) Chronic pain syndromeGeneraliz ed Anxiety Disorder Nov- 4 Jesse Daly. [address], [address], [place], [place], [address] , [place]. tel:[phone] OFFICE/OUTPA TIENT VISIT, [facility], [address], [place], [place], [address], [place] tel:[phone] [facility] pain (chief complaint)an xiety1 (chief complaint)ED (chief complaint) Chronic pain syndromeGeneraliz ed Anxiety DisorderMale erectile dysfunction, unspecified 4 Jesse Daly. [address], [address], [place], [place], [address] , [place]. tel:[phone] OFFICE/OUTPA TIENT VISIT, [facility], [address], [place], [place], [address], [place] tel:[phone] [facility] COPD1 (chief complaint) Centrilobular emphysema 4 Jesse Daly. [address], [address], [place], [place], [address] , [place]. tel:[phone] OFFICE/OUTPA TIENT VISIT, [facility], [address], [place], [place], [address], [place] tel:[phone] [facility] pain (chief complaint)an xiety1 (chief complaint)HT N (chief complaint)CO PD1 (chief complaint) Chronic pain syndromeGeneraliz ed Anxiety DisorderEssential (primary) hypertensionCentr ilobular emphysema 4 Jesse Daly. [address], [address], [place], [place], [address] , [place]. tel:[phone] OFFICE/OUTPA TIENT VISIT, [facility], [address], [place], [place], [address], [place] tel:[phone] [facility] pain (chief complaint)an xiety1 (chief complaint)CO PD1 (chief complaint)si ck (chief complaint) Generalized Anxiety DisorderChronic pain syndromeAcute bronchitisCoronar y artery disease of qawalangin coronary artery without angina pectorisMalignant neoplasm of prostate 3 Jesse Daly. [address], [address], [place], [place], [address] , [place]. tel:[phone] PREV VISIT, EST, 65 & OVER [facility], [address], [place], [place], [address], [place] tel:[phone] [facility] physical (chief complaint) Encounter for general adult medical examination without abnormal findings 3 Jesse Daly. [address], [address], [place], [place], [address] , [place]. tel:[phone] OFFICE/OUTPA TIENT VISIT, [facility], [address], [place], [place], [address], [place] tel:[phone] [facility] sick (chief complaint) Viral infection 3 Jesse Daly. [address], [address], [place], [place], [address] , [place]. tel:[phone] OFFICE/OUTPA TIENT VISIT, [facility], [address], [place], [place], [address], [place] tel:[phone] [facility] anxiety1 (chief complaint)pa in (chief complaint) Chronic pain syndromeGeneraliz ed Anxiety Disorder 3 Jesse Daly. [address], [place], [place], [address] , [place]. tel:[phone] OFFICE/OUTPA TIENT VISIT, [facility], [address], [place], [place], [address], [place] tel:[phone] [facility] anxiety1 (chief complaint)HT N (chief complaint)pa in (chief complaint)we ight1 (chief complaint) Chronic pain syndromeEssential (primary) hypertensionGener alized Anxiety DisorderPolyp of colonAbnormal weight loss 3 Jesse Hale [address], [address], [place], [place], [address] , [place]. tel:[phone] OFFICE/OUTPA TIENT VISIT, [facility], [address], [place], [place], [address], [place] tel:[phone] [facility] anxiety1 (chief complaint)pa in (chief complaint)HT N (chief complaint)co ilia polylp1 (chief complaint) Chronic pain syndromeGeneraliz ed Anxiety DisorderPolyp of colonEssential (primary) hypertensionTobac co use 3 Jesse Daly. [address], [place], [place], [address] , [place]. tel:[phone] OFFICE/OUTPA TIENT VISIT, [facility], [address], [place], [place], [address], [place] tel:[phone] [facility] anxiety1 (chief complaint)pa in (chief complaint)BP H1 (chief complaint)we ight loss1 (chief complaint) Generalized Anxiety DisorderChronic pain syndromeOveractiv e bladderAbnormal weight loss 3 Jesse Daly. [address], [place], [place], [address] , [place]. tel:[phone] OFFICE/OUTPA TIENT VISIT, [facility], [address], [place], [place], [address], [place] tel:[phone] [facility] anxiety1 (chief complaint)pa in (chief complaint)we ight1 (chief complaint)pr oteinuria1 (chief complaint) Chronic pain syndromeGeneraliz ed Anxiety DisorderProteinur iaAbnormal weight gainHyperglycemia 3 Jesse Daly. [address], [place], [place], [address] , [place]. tel:[phone] OFFICE/OUTPA TIENT VISIT, [facility], [address], [place], [place], [address], [place] tel:[phone] [facility] anxiety1 (chief complaint)pa in (chief complaint)gl ucose1 (chief complaint)we ight1 (chief complaint) Chronic pain syndromeGeneraliz ed Anxiety DisorderHyperglyc emiaAbnormal weight gain 3 Jesse Daly. [address], [place], [place], [address] , [place]. tel:[phone] OFFICE/OUTPA TIENT VISIT, [facility], [address], [place], [place], [address], [place] tel:[phone] [facility] anxiety (chief complaint)pa in (chief complaint)co ilia polyp1 (chief complaint)gl ucose1 (chief complaint) Generalized Anxiety DisorderChronic pain syndromePolyp of colonHyperglycemi a 3 Jesse Daly. [address], [address], [place], [place], [address] , [place]. tel:[phone] OFFICE/OUTPA TIENT VISIT, [facility], [address], [place], [place], [address], [place] tel:[phone] [facility] anxiety1 (chief complaint)pa in (chief complaint)kn ee pain1 (chief complaint)CV A (chief complaint) Chronic pain syndromeGeneraliz ed Anxiety DisorderStrokePai n in left knee 3 Jesse Daly. [address], [address], [place], [place], [address] , [place]. tel:[phone] OFFICE/OUTPA TIENT VISIT, [facility], [address], [place], [place], [address], [place] tel:[phone] [facility] anxiety1 (chief complaint)pa in (chief complaint)ve rtigo1 (chief complaint)co ilia polyp1 (chief complaint)OA B (chief complaint) Chronic pain syndromeGeneraliz ed Anxiety DisorderOveractiv e bladderPolyp of colonBenign paroxysmal vertigo, bilateralAnemia 3 Jesse Daly. [address], [address], [place], [place], [address] , [place]. tel:[phone] OFFICE/OUTPA TIENT VISIT, [facility], [address], [place], [place], [address], [place] tel:[phone] [facility] anxiety1 (chief complaint)pa in (chief complaint) Chronic pain syndromeGeneraliz ed Anxiety Disorder Fe 3 Jesse Daly. [address], [place], [place], [address] , [place]. tel:[phone] OFFICE/OUTPA TIENT VISIT, [facility], [address], [place], [place], [address], [place] tel:[phone] [facility] anxiety1 (chief complaint)pa in (chief complaint)HT N (chief complaint)co nstipation1 (chief complaint) Chronic pain syndromeGeneraliz ed Anxiety DisorderConstipat ionEssential (primary) hypertension 3 Jesse Daly. [address], [address], [place], [place], [address] , [place]. tel:[phone] OFFICE/OUTPA TIENT VISIT, [facility], [address] [place], [address], [place] tel:[phone] [facility] pain (chief complaint) Chronic pain syndrome 2 Jesse Hale [address], [address], [place], [place], [address] , [place]. tel:[phone] OFFICE/OUTPA TIENT VISIT, [facility], [address] [place], [address], [place] tel:[phone] [facility] anxiety1 (chief complaint)pa in (chief complaint)pr oteinuria1 (chief complaint)gl ucose1 (chief complaint)HT N (chief complaint) Chronic pain syndromeEssential (primary) hypertensionHyper glycemiaProteinur iaGeneralized Anxiety DisorderTobacco use 2 Jesse Hale [address], [address], [place], [place], [address] , [place]. tel:[phone] PREV VISIT, EST, 65 & OVER [facility], [address], [place], [place], [address], [place] tel:[phone] [facility] physical (chief complaint) Encounter for general adult medical examination without abnormal findings 2 Jesse Hale [address], [place], [place], [address] , [place]. tel:[phone] OFFICE/OUTPA TIENT VISIT, [facility], [address], [place], [place], [address], tel:[phone] [facility] anxiety1 (chief complaint)pa in (chief complaint)CV A1 (chief complaint)pr ostate CA (chief complaint) Chronic pain syndromeGeneraliz ed Anxiety DisorderMalignant neoplasm of prostateCerebral infarction 2 Jesse Hale [address], [address], [place], [place], [address] , [place]. tel:[phone] OFFICE/OUTPA TIENT VISIT, [facility], [address], [place], [place], [address], [place] tel:[phone] [facility] anxiety1 (chief complaint)pa in (chief complaint)HT N (chief complaint) Chronic pain syndromeGeneraliz ed Anxiety DisorderEssential (primary) hypertension 2 Jesse Hale [address], [place], [place], [address] , [place]. tel:[phone] OFFICE/OUTPA TIENT VISIT, [facility], [address] [place], [address], [place] tel:[phone] [facility] anxiety1 (chief complaint)pa in (chief complaint)HT N (chief complaint)pr ostate (chief complaint) Chronic pain syndromeGeneraliz ed Anxiety DisorderMalignant neoplasm of prostateEssential (primary) hypertensionCereb ral infarction 2 Jesse Hale [address], [place], [place], [address] , [place]. tel:[phone] OFFICE/OUTPA TIENT VISIT, [facility], [address] [place], [address], [place] tel:[phone] [facility] anxiety1 (chief complaint)ba ck pain1 (chief complaint)HT N (chief complaint)pr ostate CA (chief complaint) Generalized Anxiety DisorderMalignant neoplasm of prostateChronic pain syndromeEssential (primary) hypertension 2 Jesse Hale [address], [place], [place], [address] , [place]. tel:[phone] OFFICE/OUTPA TIENT VISIT, [facility], [address], [place], [place], [address], [place] tel:[phone] [facility] anxiety1 (chief complaint)pa in (chief complaint) Chronic pain syndromeGeneraliz ed Anxiety Disorder 2 Jesse Daly. [address], [place], [place], [address] , [place]. tel:[phone] OFFICE/OUTPA TIENT VISIT, [facility], [address], [place], [place], [address], [place] tel:[phone] [facility] emphysema1 (chief complaint)ch ronic pani1 (chief complaint) EmphysemaChronic pain syndrome 2 Jesse Daly. [address], [place], [place], [address] , [place]. tel:[phone] OFFICE/OUTPA TIENT VISIT, [facility], [address], [place], [place], [address], [place] tel:[phone] [facility] anxiety1 (chief complaint)pa in (chief complaint)CV A (chief complaint)CV A1 (chief complaint)pr ostate CA (chief complaint)CA D (chief complaint) Generalized Anxiety DisorderCerebral infarctionMaligna nt neoplasm of prostateCoronary artery disease of qawalangin coronary artery without angina pectorisChronic pain syndrome 2 Jesse Daly. [address], [address], [place], [place], [address] , [place]. tel:[phone] OFFICE/OUTPA TIENT VISIT, [facility], [address], [place], [place], [address], [place] tel:[phone] [facility] anxiety1 (chief complaint)pa in (chief complaint)CA D (chief complaint)Pr ostate CA (chief complaint)CV A (chief complaint) Cerebral infarctionChronic pain syndromeGeneraliz ed Anxiety DisorderMalignant neoplasm of prostateCAD of qawalangin coronary artery without angina pectoris 2 Molina Addy. [address], [address], [place], [place], [address] , [place]. tel:[phone] OFFICE/OUTPA TIENT VISIT, [facility], [address], [place], [place], [address], [place] tel:[phone] [facility] anxiety1 (chief complaint)pa in (chief complaint)fl ank pain1 (chief complaint)st roke1 (chief complaint) HematuriaChronic pain syndromeCerebral infarctionGeneral ized Anxiety Disorder 2 Molina Addy. [address], [address], [place], [place], [address] , [place]. tel:[phone] OFFICE/OUTPA TIENT VISIT, [facility], [address], [place], [place], [address], [place] tel:[phone] [facility] flank pain1 (chief complaint)fl ank pain1 (chief complaint) HematuriaAcute pyelonephritis 2 Molina Addy. [address], [address], [place], [place], [address] , [place]. tel:[phone] OFFICE/OUTPA TIENT VISIT, [facility], [address], [place], [place], [address], [place] tel:[phone] [facility] HTN1 (chief complaint)an xiety1 (chief complaint)an xiety1 (chief complaint)pr ostate CA1 (chief complaint)pa in (chief complaint) Cerebral infarctionGeneral ized Anxiety DisorderEssential (primary) hypertensionMalig nant neoplasm of prostateChronic pain syndromeDysphagia , oropharyngeal phase 2 Molina Addy. [address], [address], [place], [place], [address] , [place]. tel:[phone] OFFICE/OUTPA TIENT VISIT, [facility], [address], [place], [place], [address], [place] tel:[phone] [facility] pain (chief complaint)an xiety1 (chief complaint)CV A (chief complaint)CV A1 (chief complaint)th roat1 (chief complaint) Essential (primary) hypertensionCereb ral infarctionMaligna nt neoplasm of prostateChronic pain syndromeGeneraliz ed Anxiety Disorder 1 Jesse Hale [address], [address], [place], [place], [address] , [place]. tel:[phone] OFFICE/OUTPA TIENT VISIT, [facility], [address], [place], [place], [address], [place] tel:[phone] [facility] HTN (chief complaint)CV A1 (chief complaint)pa in (chief complaint)an xiety1 (chief complaint) Cerebral infarctionMaligna nt neoplasm of prostateEssential (primary) hypertensionChron ic pain syndromeGeneraliz ed Anxiety Disorder 1 Jesse Hale [address], [address], [place], [place], [address] , [place]. tel:[phone] OFFICE/OUTPA TIENT VISIT, [facility], [address], [place], [place], [address], [place] tel:[phone] [facility] CVA1 (chief complaint)HT N (chief complaint)pr ostate CA (chief complaint)ne ck1 (chief complaint) Cerebral infarctionMaligna nt neoplasm of prostateEssential (primary) hypertensionDysph agia, oropharyngeal phase 1 Jesse Hale [address], [address], [place], [place], [address] , [place]. tel:[phone] OFFICE/OUTPA TIENT VISIT, [facility], [address], [place], [place], [address], [place] tel:[phone] [facility] anxiety1 (chief complaint)pa in (chief complaint)pr ostate CA (chief complaint) Chronic pain syndromeGeneraliz ed Anxiety DisorderMalignant neoplasm of prostate 1 Jesse Daly. [address], [address], [place], [place], [address] , [place]. tel:[phone] OFFICE/OUTPA TIENT VISIT, [facility], [address], [place], [place], [address], [place] tel:[phone] [facility] anxiety1 (chief complaint)pa in (chief complaint)pr ostate CA (chief complaint)to bacco1 (chief complaint) Chronic pain syndromeGeneraliz ed Anxiety DisorderTobacco useMalignant neoplasm of prostate 1 Jesse Hale [address], [address], [place], [place], [address] , [place]. tel:[phone] OFFICE/OUTPA TIENT VISIT, [facility], [address], [place], [place], [address], [place] tel:[phone] [facility] anxiety1 (chief complaint)pa in (chief complaint)pr ostate1 (chief complaint)to bacco1 (chief complaint) Chronic pain syndromeGeneraliz ed Anxiety DisorderBPH w/ lower urinary tract symptomTobacco use 1 Jesse Hale [address], [address], [place], [place], [address] , [place]. tel:[phone] OFFICE/OUTPA TIENT VISIT, [facility], [address], [place], [place], [address], [place] tel:[phone] [facility] Medicine anxiety1 (chief complaint)pa in (chief complaint)fa tigue1 (chief complaint)we igh gain1 (chief complaint) Chronic pain syndromeGeneraliz ed Anxiety DisorderAbnormal weight gainEssential (primary) hypertensionFatig ue 1 Jesse Hale [address], [place], [place], [address] , [place]. tel:[phone] OFFICE/OUTPA TIENT VISIT, [facility], [address], [place], [place], [address], [place] tel:[phone] [facility] Medicine anxiety1 (chief complaint)pa in (chief complaint) ConstipationChron ic pain syndromeGeneraliz ed Anxiety Disorder 1 Jesse Hale [address], [address], [place], [place], [address] , [place]. tel:[phone] OFFICE/OUTPA TIENT VISIT, [facility], [address], [place], [place], [address], [place] tel:[phone] [facility] Medicine anxiety1 (chief complaint)pa in (chief complaint) Chronic pain syndromeGeneraliz ed Anxiety Disorder 1 Jesse Hale [address], [address], [place], [place], [address] , [place]. [phone] OFFICE/OUTPA TIENT VISIT, [facility], [address], [place], [place], [address], [place] tel:[phone] [facility] Medicine anxiety1 (chief complaint)pa in (chief complaint)co nstipation1 (chief complaint) Chronic pain syndromeGeneraliz ed Anxiety DisorderAbdominal painConstipation Dec- 1 Jesse Hale [address], [address], [place], [place], [address] , [place]. [phone] OFFICE/OUTPA TIENT VISIT, [facility], [address], [place], [place], [address], [place] tel:[phone] [facility] Medicine anxiety1 (chief complaint)pa in (chief complaint) Chronic pain syndromeGeneraliz ed Anxiety Disorder 1 Jesse Hale [address], [address], [place], [place], [address] , [place]. tel:[phone] OFFICE/OUTPA TIENT VISIT, [facility], [address], [place], [place], [address], [place] tel:[phone] [facility] anxiety1 (chief complaint)pa in (chief complaint)ab d pain1 (chief complaint) Abdominal painProteinuriaGe neralized Anxiety DisorderChronic pain syndrome 1 Jesse Hale [address], [address], [place], [place], [address] , [place]. tel:[phone] OFFICE/OUTPA TIENT VISIT, [facility], [address], [place], [place], [address], [place] tel:[phone] [facility] flank pain1 (chief complaint)ur ine1 (chief complaint)pr oteinuria1 (chief complaint) Overactive bladderConstipati onAbdominal painProteinuria Fe-0 1 Jesse Hale [address], [address], [place], [place], [address] , [place]. [phone] OFFICE/OUTPA TIENT VISIT, [facility], [address], [place], [place], [address], [place] [phone] [facility] anxiety1 (chief complaint)pa in1 (chief complaint)UT I1 (chief complaint) Urinary tract infectionChronic pain syndromeGeneraliz ed Anxiety Disorder 1 Jesse Daly. [address], [address], [place], [place], [address] , [place]. [phone] OFFICE/OUTPA TIENT VISIT, [facility], [address], [place], [place], [address], [place] tel:[phone] [facility] anxiety1 (chief complaint)pa in (chief complaint) Chronic pain syndromeGeneraliz ed Anxiety Disorder 0 Jesse Daly. [address], [address], [place], [place], [address] , [place]. [phone] Referring Provider: Addy Molina [address], [place], [place], [address]. tel:[phone] OFFICE/OUTPA TIENT VISIT, [facility], [address], [place], [place], [address], [place] tel:[phone] [facility] anxiety1 (chief complaint)pa in (chief complaint) Chronic pain syndromeGeneraliz ed Anxiety Disorder 0 Jesse Daly. [address], [address], [place], [place], [address] , [place]. [phone] Referring Provider: Shelton Jaeger [address], [place], [place], [address]. tel:[phone] OFFICE/OUTPA TIENT VISIT, [facility], [address], [place], [place], [address], [place] tel:[phone] [facility] sick (chief complaint)vi ral infection (chief complaint) Viral infectionEmphysem a 0- 0 Jesse Daly. [address], [address], [place], [place], [address] , [place]. tel:[phone] Referring Provider: Addy Molina, [address], [place], [place], [address]. tel:[phone] OFFICE/OUTPA TIENT VISIT, [facility], [address], [place], [place], [address], [place] tel:[phone] [facility] anxiety1 (chief complaint)pa in (chief complaint) Chronic pain syndromeGeneraliz ed Anxiety Disorder Jun- 0 Jesse Daly. [address], [address], [place], [place], [address] , [place]. tel:[phone] Referring Provider: Shelton Jaeger [address], [place], [place], [address]. tel:[phone] OFFICE/OUTPA TIENT VISIT, [facility], [address], [place], [place], [address], [place] tel:[phone] [facility] Medicine anxiety1 (chief complaint)pa in (chief complaint) Chronic pain syndromeGeneraliz ed Anxiety Disorder Jun-0 0 Jesse Daly. [address], [address], [place], [place], [address] , [place]. tel:[phone] Referring Provider: Shelton Jaeger [address], [place], [place], [address]. tel:[phone] OFFICE/OUTPA TIENT VISIT, [facility], [address], [place], [place], [address], [place] tel:[phone] [facility] Medicine anxiety1 (chief complaint)pa in (chief complaint) Chronic pain syndromeGeneraliz ed Anxiety Disorder Sep-0 3-202 0 Jesse Daly. [address], [address], [place], [place], [address] , [place]. tel:[phone] Referring Provider: Shelton Jaeger [address], [place], [place], [address]. tel:[phone] OFFICE/OUTPA TIENT VISIT, [facility], [address], [place], [place], [address], [place] tel:[phone] [facility] anxiety1 (chief complaint)pa in1 (chief complaint) Generalized Anxiety DisorderChronic pain syndrome Apr-0 0 Jesse Daly. [address], [address], [place], [place], [address] , [place]. tel:[phone] Referring Provider: Shelton Jaeger [address], [place], [place], [address]. tel:[phone] OFFICE/OUTPA TIENT VISIT, [facility], [address], [place], [place], [address], [place] tel:[phone] [facility] anxiety1 (chief complaint)pa in1 (chief complaint) Chronic pain syndromeGeneraliz ed Anxiety Disorder Mar-0 0 Jesse Hale [address], [address], [place], [place], [address] , [place]. tel:[phone] Referring Provider: Shelton Jaeger [address], [place], [place], [address]. tel:[phone] OFFICE/OUTPA TIENT VISIT, [facility], [address], [place], [place], [address], [place] tel:[phone] [facility] pain (chief complaint)an xiety1 (chief complaint)CA D (chief complaint)to bacco1 (chief complaint) Chronic pain syndromeGeneraliz ed Anxiety DisorderCoronary artery disease of q[place]angin coronary artery without angina pectorisEmphysema Yan-0 0 Jesse Hale [address], [address], [place], [place], [address] , [place]. tel:[phone] Referring Provider: Shelton Jaeger [address], [place], [place], [address]. tel:[phone] PREV VISIT, EST, AGE 40-64 [facility], [address], [place], [place], [address], [place] [phone] [facility] Physical (chief complaint) Encntr for general adult medical exam w/o abnormal findings May-0 0 Jesse Daly. [address], [place], [place], [address] , [place]. tel:[phone] Referring Provider: Shelton Jaeger [address], [place], [place], [address]. tel:[phone] OFFICE/OUTPA TIENT VISIT, [facility], [address], [place], [place], [address], [place] [phone] [facility] BPH (chief complaint)BP H1 (chief complaint)co nstipation (chief complaint) ConstipationEnlar ged prostate w/ LUTSGeneralized Anxiety DisorderChronic pain syndrome Apr-0 0 Jesse Daly. [address], [place], [place], [address] , [place]. tel:[phone] Referring Provider: Shelton Jaeger [address], [place], [place], [address]. tel:[phone] OFFICE/OUTPA TIENT VISIT, EST [facility], [address], [place], [place], [address], [place] tel:[phone] [facility] BPH (chief complaint)an xiety1 (chief complaint)pa in (chief complaint)en uresis1 (chief complaint)co nstipation1 (chief complaint) EnuresisEnlarged prostate w/ LUTSConstipationG eneralized Anxiety DisorderChronic pain syndrome Mar-0 0 Jesse Hale [address], [address], [place], [place], [address] , [place]. tel:[phone] Referring Provider: Shelton Jaeger [address], [place], [place], [address]. tel:[phone] OFFICE/OUTPA TIENT VISIT, [facility], [address], [place], [place], [address], [place] [phone] [facility] pain1 (chief complaint)an xiety1 (chief complaint)co nstipation1 (chief complaint)ur ine (chief complaint) EnuresisChronic pain syndromeGeneraliz ed Anxiety DisorderConstipat ionBPH w/ lower urinary tract symptom 0 Jesse Daly. [address], [address], [place], [place], [address] , [place]. tel:[phone] Referring Provider: Shelton Jaeger [address], [place], [place], [address]. tel:[phone] OFFICE/OUTPA TIENT VISIT, [facility], [address], [place], [place], [address], [place] [phone] [facility] abd pain1 (chief complaint)ba ck pain1 (chief complaint)an xiety1 (chief complaint)sl eep apnea1 (chief complaint) Chronic pain syndromeGeneraliz ed Anxiety DisorderAbdominal painSleep apnea 0 Jesse Daly. [address], [place], [place], [address] , [place]. tel:[phone] Referring Provider: Shelton Jaeger [address], [place], [place], [address]. tel:[phone] OFFICE/OUTPA TIENT VISIT, [facility], [address], [place], [place], [address], [place] [phone] [facility] pain (chief complaint)an xiety1 (chief complaint)BP H (chief complaint) Enlarged prostate w/ LUTSChronic pain syndromeGeneraliz ed Anxiety Disorder 201 9 Jesse Hale [address], [address], [place], [place], [address] , [place]. tel:[phone] Referring Provider: Shelton Jaeger [address], [place], [place], [address]. tel:[phone] OFFICE/OUTPA TIENT VISIT, [facility], [address], [place], [place], [address], [place] tel:[phone] [facility] tinnitus1 (chief complaint)ch ronic pain (chief complaint)an xiety1 (chief complaint)to bacco1 (chief complaint) Tinnitus, right earChronic pain syndromeGeneraliz ed Anxiety DisorderTobacco use 9 Jesse Daly. [address], [address], [place], [place], [address] , [place]. [phone] Referring Provider: Shelton Jaeger [address], [place], [place], [address]. tel:[phone] OFFICE/OUTPA TIENT VISIT, [facility], [address], [place], [place], [address], [place] tel:[phone] [facility] chronic pain1 (chief complaint)an xiety1 (chief complaint)HT N (chief complaint)sl eep apnea1 (chief complaint) Generalized Anxiety DisorderChronic pain syndromeSleep apneaEssential (primary) hypertensionHepat itis C 9 Jesse Daly. [address], [address], [place], [place], [address] , [place]. tel:[phone] Referring Provider: Shelton Jaeger [address], [place], [place], [address]. tel:[phone] OFFICE/OUTPA TIENT VISIT, [facility], [address], [place], [place], [address], [place] [phone] [facility] chronic pain (chief complaint)an xiety1 (chief complaint)he p c (chief complaint) Chronic pain syndromeGeneraliz ed Anxiety DisorderHepatitis C 9 Jesse Daly. [address], [place], [place], [address] , [place]. [phone] Referring Provider: Shelton Jaeger [address], [place], [place], [address]. tel:[phone] OFFICE/OUTPA TIENT VISIT, [facility], [address], [place], [place], [address], tel:[phone] [facility] chronic pain1 (chief complaint)an xiety1 (chief complaint) Generalized Anxiety DisorderChronic pain syndrome 9 Jesse Daly. [address], [place], [place], [address] , [place]. tel:[phone] Referring Provider: Shelton Jaeger [address], [place], [place], [address]. tel:[phone] OFFICE/OUTPA TIENT VISIT, [facility], [address], [place], [place], [address], [place] tel:[phone] [facility] COPD1 (chief complaint)an xiety1 (chief complaint)ba ck pain1 (chief complaint)he p C (chief complaint) Generalized Anxiety DisorderChronic pain syndromeHepatitis CEmphysema 9 Jesse Daly. [address], [address], [place], [place], [address] , [place]. tel:[phone] Referring Provider: Shelton Jaeger [address], [place], [place], [address]. tel:[phone] OFFICE/OUTPA TIENT VISIT, [facility], [address], [place], [place], [address], [place] tel:[phone] [facility] glucose1 (chief complaint)he p C (chief complaint)CO PD1 (chief complaint)ch ronic pain (chief complaint)an xity1 (chief complaint)CA D (chief complaint) Hepatitis CEmphysemaHypergl ycemiaChronic pain syndromeGeneraliz ed Anxiety DisorderCoronary artery disease of [place] coronary artery without angina pectoris 9 Jesse Daly. [address], [address], [place], [place], [address] , [place]. tel:[phone] Referring Provider: Sheltno Jaeger [address], [place], [place], [address]. tel:[phone] OFFICE/OUTPA TIENT VISIT, [facility], [address], [place], [place], [address], [place] tel:[phone] [facility] COPD1 (chief complaint)an xiety1 (chief complaint)ba ck pain1 (chief complaint) EmphysemaChronic pain syndromeGeneraliz ed Anxiety DisorderTobacco useCoronary artery disease of q[place] coronary artery without angina pectoris 9 Jesse Daly. [address], [place], [place], [address] , [place]. tel:[phone] Referring Provider: [address]ton [address], [place], [place], [address]. tel:[phone] OFFICE/OUTPA TIENT VISIT, [facility], [address], [place], [place], [address], [place] tel:[phone] [facility] COPD1 (chief complaint)an xiety1 (chief complaint)ba ck pain1 (chief complaint) EmphysemaGenerali zed Anxiety DisorderChronic pain syndromeHepatitis C 9 Jesse Daly. [address], [place], [place], [address] , [place]. tel:[phone] Referring Provider: [address], [place], [place], [address]. tel:[phone] OFFICE/OUTPA TIENT VISIT, [facility], [address], [place], [place], [address], [place] tel:[phone] [facility] COPD1 (chief complaint)an xiety1 (chief complaint)ba ck pain1 (chief complaint) EmphysemaGenerali zed Anxiety DisorderChronic pain syndromeTobacco use 9 Jesse Daly. [address], [place], [place], [address] , [place]. tel:[phone] Referring Provider: [address], [place], [place], [address]. tel:[phone] PREV VISIT, EST, AGE 40-64 [facility], [address], [place], [place], [address], [place] tel:[phone] [facility] Physical (chief complaint) Encounter for general adult medical exam w abnormal findingsEmphysema Enlarged prostate w/ LUTSGynecomastiaC hronic pain syndromeGeneraliz ed Anxiety DisorderCoronary artery disease of q[place] coronary artery without angina pectorisHepatitis CSleep apneaFatty liverEssential (primary) hypertension 9 Jesse Daly. [address], [place], [place], [address] , [place]. tel:[phone] Referring Provider: [address]ton [address], [place], [place], [address]. tel:[phone] OFFICE/OUTPA TIENT VISIT, [facility], [address], [place], [place], [address], [place] tel:[phone] [facility] COPD1 (chief complaint)pa ncreatic cyst (chief complaint)pa in1 (chief complaint)an xiety1 (chief complaint)si ck1 (chief complaint) EmphysemaGenerali zed Anxiety DisorderChronic pain syndromeDisorder of pancreatic internal secretion, unspecifiedAcute bronchitis 9 Jesse Daly. [address], [place], [place], [address] , [place]. tel:[phone] Referring Provider: Shelton Jaeger [address], [place], [place], [address]. tel:[phone] OFFICE/OUTPA TIENT VISIT, EST [facility], [address], [place], [place], [address], [place] tel:[phone] [facility] chronic pain1 (chief complaint)an xiety1 (chief complaint)pa ncreatic1 (chief complaint)gy necomastia1 (chief complaint) EmphysemaChronic pain syndromeDisorder of pancreatic internal secretion, unspecifiedGenera lized Anxiety DisorderGynecomas tia 9 Jesse Daly. [address], [place], [place], [address] , [place]. tel:[phone] Referring Provider: Shelton Jaeger [facility], [place], [place], [address]. tel:[phone] OFFICE/OUTPA TIENT VISIT, [facility], [address] [place], [place], [address], [place] tel:[phone] [facility] anxiety1 (chief complaint)ba ck pain1 (chief complaint)pa ncreatic cyst1 (chief complaint) GynecomastiaChron ic pain syndromeGeneraliz ed Anxiety DisorderDisorder of pancreatic internal secretion, unspecified 8 Jesse Daly. [address] [facility] [address], [place], [place], [address] , [place]. tel:[phone] Referring Provider: Shelton Jaeger [facility] [address], [place], [place], [address]. tel:[phone] OFFICE/OUTPA TIENT VISIT, [facility], [address] [place], [place], [address], [place] tel:[phone] [facility] pancreatic cyst1 (chief complaint)gy necomastia1 (chief complaint)ch ronic pain1 (chief complaint)an xiety1 (chief complaint) Disorder of pancreatic internal secretion, unspecifiedGenera lized Anxiety DisorderChronic pain syndromeGynecomas tia 8 Jesse Daly. [address] [facility] [address], [place], [place], [address] , [place]. tel:[phone] Referring Provider: Shelton Jaeger [facility] [address], [place], [place], [address]. tel:[phone] OFFICE/OUTPA TIENT VISIT, [facility], [address] [place], [place], [address], [place] tel:[phone] [facility] pain1 (chief complaint)an xiety1 (chief complaint)pa ncreatic cyst1 (chief complaint)CO PD1 (chief complaint)br east pain1 (chief complaint) Chronic pain syndromeEmphysema Generalized Anxiety DisorderMastodyni aDisorder of pancreatic internal secretion, unspecified 8 Jesse Daly. [address], [place], [place], [address] , [place]. tel:[phone] Referring Provider: Shelton Jaeger [address], [place], [place], [address]. tel:[phone] OFFICE/OUTPA TIENT VISIT, [facility], [address], [place], [place], [address], [place] tel:[phone] [facility] COPD1 (chief complaint)ba ck pain1 (chief complaint)an xeity1 (chief complaint)ab d pain1 (chief complaint) EmphysemaChronic pain syndromeGeneraliz ed Anxiety DisorderAbdominal pain 8 Jesse Daly. [address], [place], [place], [address] , [place]. tel:[phone] Referring Provider: Shelton Jaeger [address], [place], [place], [address]. tel:[phone] OFFICE/OUTPA TIENT VISIT, [facility], [address], [place], [place], [address], [place] tel:[phone] [facility] BPH1 (chief complaint)LB P1 (chief complaint)an xiety1 (chief complaint)sl eep apnea1 (chief complaint) Sleep apneaBPH w/ lower urinary tract symptomCoronary artery disease of q[place] coronary artery without angina pectorisChronic pain syndromeGeneraliz ed Anxiety Disorder 8 Jesse Daly. [address], [place], [place], [address] , [place]. tel:[phone] Referring Provider: Shelton Jaeger [address], [place], [place], [address]. tel:[phone] OFFICE/OUTPA TIENT VISIT, [facility], [address], [place], [place], [address], [place] tel:[phone] [facility] chronic pain1 (chief complaint)an xiety1 (chief complaint) Chronic pain syndromeGeneraliz ed Anxiety Disorder Joey-1 9-201 8 Jesse Daly. [address], [place], [place], [address] , [place]. tel:[phone] Referring Provider: Shelton Jaeger [address], [place], [place], [address]. tel:[phone] OFFICE/OUTPA TIENT VISIT, [facility], [address], [place], [place], [address], [place] tel:[phone] [facility] emphysema1 (chief complaint)an xiety1 (chief complaint)ba ck pain1 (chief complaint)CA D (chief complaint) Hepatitis CChronic pain syndromeGeneraliz ed Anxiety DisorderEmphysema Coronary artery disease of [place] coronary artery without angina pectoris 8 Jesse Daly. [address], [place], [place], [address] , [place]. tel:[phone] Referring Provider: Shelton Jaeger [address], [place], [place], [address]. tel:[phone] OFFICE/OUTPA TIENT VISIT, [facility], [address], [place], [place], [address], [place] tel:[phone] [facility] hep c (chief complaint)an xiety1 (chief complaint)ba ck pain1 (chief complaint) Body mass index (BMI) 39.0-39.9, adultHepatitis CAlcohol dependence, uncomplicatedLumb ago with sciatica, left sideGeneralized Anxiety Disorder 8 Jesse Daly. [address], [place], [place], [address] , [place]. tel:[phone] Referring Provider: Shelton Jaeger [address], [place], [place], [address]. tel:[phone] OFFICE/OUTPA TIENT VISIT, [facility], [address], [place], [place], [address], [place] tel:[phone] [facility] hep C (chief complaint)ch ronic pain1 (chief complaint)an xiety1 (chief complaint) Body mass index (BMI) 39.0-39.9, adultGeneralized Anxiety DisorderChronic pain syndromeHepatitis CFatty liver Dec-2 0 8 Jesse Daly. [address], [place], [place], [address] , [place]. tel:[phone] Referring Provider: Addy Molina, [address], [place], [place], [address]. tel:[phone] OFFICE/OUTPA TIENT VISIT, EST [facility], [address], [place], [place], [address], [place] tel:[phone] [facility] back pain1 (chief complaint)an xiety1 (chief complaint)ca rpal tunnel1 (chief complaint)sl eep apnea1 (chief complaint) Sleep apneaChronic pain syndromeGeneraliz ed Anxiety DisorderCarpal tunnel syndrome, bilateral upper limbs Nov- 8 Jesse Hale [address], [address], [place], [place], [address] , [place]. tel:[phone] Referring Provider: Shelton Jaeger [address], [place], [place], [address]. tel:[phone] PREV VISIT, EST, AGE 40-64 [facility], [address], [place], [place], [address], [place] tel:[phone] [facility] Physical (chief complaint) Encounter for general adult medical exam w abnormal findingsEmphysema Sleep apneaEssential (primary) hypertension 8 Jesse Daly. [address], [place], [place], [address] , [place]. tel:[phone] Referring Provider: Shelton Jaeger [address], [place], [place], [address]. tel:[phone] OFFICE/OUTPA TIENT VISIT, EST [facility], [address], [place], [place], [address], [place] tel:[phone] [facility] back pain1 (chief complaint)an xiety1 (chief complaint)CO PD1 (chief complaint) EmphysemaChronic pain syndromeGeneraliz ed Anxiety DisorderTobacco use 8 Jesse Daly. [address], [place], [place], [address] , [place]. tel:[phone] Referring Provider: Shelton Jaeger [address], [place], [place], [address]. tel:[phone] OFFICE/OUTPA TIENT VISIT, [facility], [address] [address] [place], [address], [place] tel:[phone] [facility] anxieyt1 (chief complaint)ba ck pain1 (chief complaint)HT N (chief complaint)he p c (chief complaint)sl eep apnea1 (chief complaint) Sleep apneaEssential (primary) hypertensionChron ic pain syndromeGeneraliz ed Anxiety Disorder Jesse Daly. [address], [place], [place], [address] , [place]. tel:[phone] Referring Provider: Shelton Jaeger [address], [address]. tel:[phone] OFFICE/OUTPA TIENT VISIT, [facility], [address] [place], [address], [place] tel:[phone] [facility] chronic pain1 (chief complaint)an xiety1 (chief complaint) Chronic pain syndromeGeneraliz ed Anxiety Disorder Jesse Daly. [address], [address], [address] , [place]. tel:[phone] Referring Provider: Shelton Jaeger [address], [address]. tel:[phone] OFFICE/OUTPA TIENT VISIT, [facility], [address], [address], [place] tel:[phone] [facility] back pain1 (chief complaint)an xiety1 (chief complaint)sl eep apnea (chief complaint)ob esity1 (chief complaint) Sleep apneaGeneralized Anxiety DisorderChronic pain syndromeBody mass index (BMI) 37.0-37.9, adult Jun- Jesse Daly. [address], [address], [place], [place], [address] , [place]. tel:[phone] Referring Provider: Shelton Jaeger [address], [place], [place], [address]. tel:[phone] OFFICE/OUTPA TIENT VISIT, [facility], [address], [place], [place], [address], [place] tel:[phone] [facility] sleep apnea1 (chief complaint)an xiety1 (chief complaint)ba ck pain1 (chief complaint)HT N (chief complaint) Chronic pain syndromeSleep apneaGeneralized Anxiety DisorderEssential (primary) hypertension Jesse Hale [address], [address], [place], [place], [address] , [place]. tel:[phone] Referring Provider: Shelton Jaeger [address], [place], [place], [address]. tel:[phone] OFFICE/OUTPA TIENT VISIT, [facility], [address], [place], [place], [address], [place] tel:[phone] [facility] LUTS (chief complaint)ch ronic pain1 (chief complaint)an xiety1 (chief complaint)sl eep apnea1 (chief complaint) Sleep apneaChronic pain syndromeGeneraliz ed Anxiety DisorderEnlarged prostate w/ LUTS Jesse Hale [address], [address], [place], [place], [address] , [place]. tel:[phone] Referring Provider: Shelton Jaeger [address], [place], [place], [address]. tel:[phone] OFFICE/OUTPA TIENT VISIT, [facility], [address], [place], [place], [address], [place] tel:[phone] [facility] back apin1 (chief complaint)an xiety1 (chief complaint)sl eep apnea (chief complaint)ob eisty1 (chief complaint) Chronic pain syndromeGeneraliz ed Anxiety DisorderSleep apneaBody mass index (BMI) 40.0-44.9, adult 3 7 Jesse Daly. [address], [address], [place], [place], [address] , [place]. tel:[phone] Referring Provider: Shelton Jaeger [address], [place], [place], [address]. tel:[phone] OFFICE/OUTPA TIENT VISIT, [facility], [address], [place], [place], [address], [place] tel:[phone] [facility] anxiety1 (chief complaint)ba ck pain1 (chief complaint)sl eep apnea1 (chief complaint)HT N (chief complaint) Sleep apneaChronic pain syndromeGeneraliz ed Anxiety DisorderEssential (primary) hypertension 7 Jesse Hale [address], [place], [place], [address] , [place]. tel:[phone] Referring Provider: Shelton Jaeger [address], [place], [place], [address]. tel:[phone] OFFICE/OUTPA TIENT VISIT, [facility], [address], [place], [place], [address], [place] tel:[phone] [facility] back pain1 (chief complaint)an xiety1 (chief complaint)sl eep apnea1 (chief complaint) Sleep apneaChronic pain syndromeGeneraliz ed Anxiety Disorder 7 Jesse Hale [address], [place], [place], [address] , [place]. tel:[phone] Referring Provider: Shelton Jaeger [address], [place], [place], [address]. tel:[phone] OFFICE/OUTPA TIENT VISIT, [facility], [address], [place], [place], [address], [place] tel:[phone] [facility] back pain (chief complaint)an xiety1 (chief complaint)sl eep apnea1 (chief complaint)ED 1 (chief complaint) Chronic pain syndromeSleep apneaGeneralized Anxiety DisorderMale erectile dysfunction, unspecified 7 Jesse Daly. [address], [address], [place], [place], [address] , [place]. [phone] Referring Provider: [facility]eger [facility], [place], [place], [address]. tel:[phone] OFFICE/OUTPA TIENT VISIT, [facility], [address], [place], [place], [address], [place] [phone] [facility] back pain1 (chief complaint)an xiety1 (chief complaint)BP H1 (chief complaint)sl eep apnea1 (chief complaint) Chronic pain syndromeGeneraliz ed Anxiety DisorderProteinur iaEnlarged prostate 7 Jesse Hale [address], [place], [place], [address] , [place]. [phone] Referring Provider: Shelton Jaeger [address], [place], [place], [address]. tel:[phone] OFFICE/OUTPA TIENT VISIT, [facility], [address] [place], [address], [place] tel:[phone] [facility] HTN (chief complaint)BP H (chief complaint)BP H1 (chief complaint)ba ck pain1 (chief complaint)pr oteinuria1 (chief complaint) ProteinuriaGenera lized Anxiety DisorderChronic pain syndromeEssential (primary) hypertension 7 Jesse Peoples [address], [place], [place], [address] , [place]. [phone] Referring Provider: Shelton Jaeger [facility], [place], [place], [address]. tel:[phone] PREV VISIT, EST, AGE 40-64 [facility], [address], [place], [place], [address], [place] tel:[phone] [facility] Medicine PHysical (chief complaint) Encounter for general adult medical exam w abnormal findingsPulmonary infiltrateChronic pain syndromeGeneraliz ed Anxiety Disorder 0 7 Jesse Daly. [address], [address], [place], [place], [address] , [place]. tel:[phone] Referring Provider: Shelton Jaeger [address], [place], [place], [address]. tel:[phone] OFFICE/OUTPA TIENT VISIT, [facility], [address], [place], [place], [address], [place] tel:[phone] [facility] anxiety1 (chief complaint)ba ck pain1 (chief complaint) Chronic pain syndromeGeneraliz ed Anxiety Disorder 7 Jesse Daly. [address], [address], [place], [place], [address] , [place]. [phone] Referring Provider: Shelton Jaeger [facility], [place], [place], [address]. tel:[phone] OFFICE/OUTPA TIENT VISIT, [facility], [address], [place], [place], [address], [place] tel:[phone] [facility] back pain1 (chief complaint)an xiety1 (chief complaint)HT N (chief complaint)pn eumonia1 (chief complaint) PneumoniaChronic pain syndromeGeneraliz ed Anxiety DisorderEssential (primary) hypertension 6 Jesse Hael [address], [address], [address] , [place]. [phone] Referring Provider: Shelton Jaeger [address], [place], [place], [address]. tel:[phone] OFFICE/OUTPA TIENT VISIT, [facility], [address], [address], [place] tel:[phone] [facility] BACK PAIN (chief complaint)an xiety1 (chief complaint)pn eumonia1 (chief complaint)Pa ncreatic cyst (chief complaint) PneumoniaCongenit al pancreatic cystGeneralized Anxiety DisorderChronic pain syndrome 6 Jesse Hale [address], [address], [place], [place], [address] , [place]. tel:[phone] Referring Provider: Shelton Jaeger [address], [place], [place], [address]. tel:[phone] OFFICE/OUTPA TIENT VISIT, [facility], [address], [place], [place], [address], [place] tel:[phone] [facility] back pain1 (chief complaint)an xiety1 (chief complaint)ED (chief complaint) Chronic pain syndromeGeneraliz ed Anxiety DisorderOther male erectile dysfunction 6 Jesse Hale [address], [place], [place], [address] , [place]. [phone] Referring Provider: Shelton Jaeger [facility], [place], [place], [address]. tel:[phone] OFFICE/OUTPA TIENT VISIT, [facility], [address], [place], [place], [address], [place] tel:[phone] [facility] BACK PAIN (chief complaint)an xiety1 (chief complaint)ED 1 (chief complaint)he p C (chief complaint) Chronic pain syndromeGeneraliz ed Anxiety DisorderMale erectile dysfunction, unspecifiedChroni c viral hepatitis C 6 Jesse Hale [address], [place], [place], [address] , [place]. tel:[phone] Referring Provider: Shelton Jaeger [address], [place], [place], [address]. tel:[phone] OFFICE/OUTPA TIENT VISIT, [facility], [address], [address], [place] tel:[phone] [facility] back apin (chief complaint)an xiety1 (chief complaint)HT N (chief complaint)re nal cyst1 (chief complaint) Essential (primary) hypertensionChron ic pain syndromeGeneraliz ed Anxiety DisorderCongenita l renal cyst 6 Molina Addy. [address], [address], [place], [place], [address] , [place]. tel:[phone] Referring Provider: Shelton Jaeger [address], [place], [place], [address]. tel:[phone] OFFICE/OUTPA TIENT VISIT, [facility], [address], [place], [place], [address], [place] tel:[phone] [facility] COPD1 (chief complaint)an xiety1 (chief complaint)ba ck pain1 (chief complaint)GE RD1 (chief complaint) COPDHelicobacter pylori [H. pylori] as the cause of diseases classified elsewhereChronic pain syndromeGeneraliz ed Anxiety Disorder 6 Jesse Daly. [address], [address], [place], [place], [address] , [place]. [phone] Referring Provider: Shelton Jaeger [facility], [place], [place], [address]. tel:[phone] OFFICE/OUTPA TIENT VISIT, [facility], [address], [place], [place], [address], [place] tel:[phone] [facility] COPD (chief complaint)HT N (chief complaint)ba ck pain1 (chief complaint)an xiety1 (chief complaint)ED (chief complaint) Chronic obstructive pulmonary disease, unspecifiedEssent ial (primary) hypertensionChron ic pain syndromeGeneraliz ed Anxiety Disorder 6 Jesse Daly. [address], [address], [place], [place], [address] , [place]. [phone] Referring Provider: Shelton Jaeger [address], [place], [place], [address]. tel:[phone] OFFICE/OUTPA TIENT VISIT, [facility], [address], [place], [place], [address], [place] tel:[phone] [facility] COPD (chief complaint)HT N (chief complaint)An xiety1 (chief complaint)he p C (chief complaint) Chronic obstructive pulmonary disease, unspecifiedChroni c pain syndromeGeneraliz ed Anxiety DisorderChronic viral hepatitis C 6 Jesse Daly. [address], [address], [place], [place], [address] , [place]. [phone] Referring Provider: Shelton Jaeger [address], [place], [place], [address]. tel:[phone] OFFICE/OUTPA TIENT VISIT, EST [facility], [address], [place], [place], [address], [place] [phone] [facility] COPD1 (chief complaint)An xiety1 (chief complaint)ba ck pain1 (chief complaint) COPDGeneralized Anxiety DisorderChronic pain syndrome 6 Jesse Daly. [address], [place], [place], [address] , [place]. tel:[phone] Referring Provider: Shelton Jaeger [address], [place], [place], [address]. tel:[phone] OFFICE/OUTPA TIENT VISIT, EST [facility], [address], [place], [place], [address], [place] tel:[phone] [facility] back pain1 (chief complaint)an xiety1 (chief complaint)HT N (chief complaint)lo w D (chief complaint) Chronic pain syndromeGeneraliz ed Anxiety DisorderVitamin D deficiency, unspecifiedEssent ial (primary) hypertension 6 Jesse Daly. [address], [place], [place], [address] , [place]. [phone] Referring Provider: Shelton Jaeger [address], [place], [place], [address]. tel:[phone] PREV VISIT, EST, AGE 40-64 [facility], [address], [place], [place], [address], [place] tel:[phone] [facility] PHysical (chief complaint) Encntr for general adult medical exam w/o abnormal findings 6 Jesse Daly. [address], [address], [place], [place], [address] , . tel:[phone] Referring Provider: Shelton Jaeger [place], [place], [address]. tel:[phone] OFFICE/OUTPA TIENT VISIT, [facility], [address] [place], [address], tel:[phone] [facility] chronic pain1 (chief complaint)an nxiety1 (chief complaint)He p C1 (chief complaint)CO PD1 (chief complaint) Chronic pain syndromeGeneraliz ed Anxiety DisorderOther emphysema 6 Jesse Hale [address] [facility] [place], [address] , [place]. tel:[phone] Referring Provider: Shelton Jaeger [place], [address]. tel:[phone] OFFICE/OUTPA TIENT VISIT, [facility], [address] [place], [address], [place] tel:[phone] [facility] HTN1 (chief complaint)ba ck pain1 (chief complaint)an xity1 (chief complaint)he p C1 (chief complaint) Chronic pain syndromeGeneraliz ed Anxiety DisorderEssential (primary) hypertensionChron ic viral hepatitis C 5 Jesse Hale [address] [facility] [place], [address] , [place]. tel:[phone] Referring Provider: Shelton Jaeger [facility] [address], [place], [place], [address]. tel:[phone] OFFICE/OUTPA TIENT VISIT, [facility], [address], [place], [address], [place] tel:[phone] [facility] COPD1 (chief complaint)An xiety1 (chief complaint)ba ck pain1 (chief complaint)he p C (chief complaint) Other emphysemaGenerali zed anxiety disorderOther spondylosis, lumbar regionChronic viral hepatitis C 5 Molina Addy. [address], [address], [place], [place], [address] , [place]. tel:[phone] Referring Provider: Shelton Jaeger [address], [place], [place], [address]. tel:[phone] OFFICE/OUTPA TIENT VISIT, [facility], [address], [place], [place], [address], [place] tel:[phone] [facility] lumbago1 (chief complaint)An xiety1 (chief complaint) Dietary surveillance and counselingOther spondylosis, lumbar regionGeneralized Anxiety Disorder 5 Jesse Daly. [address], [address], [place], [place], [address] , [place]. tel:[phone] Referring Provider: Shelton Jaeger [address], [place], [place], [address]. tel:[phone] OFFICE/OUTPA TIENT VISIT, [facility], [address], [place], [place], [address], [place] tel:[phone] [facility] back pain (chief complaint)an xiety (chief complaint)CO PD (chief complaint)HT N (chief complaint) LumbagoInsomnia, unspecifiedUnspec ified essential hypertensionCOPDD ietary surveillance and counseling 5 Jesse Daly. [address], [place], [place], [address] , [place]. [phone] Referring Provider: Shelton Jaeger [address], [place], [place], [address]. tel:[phone] OFFICE/OUTPA TIENT VISIT, [facility], [address], [place], [place], [address], [place] tel:[phone] [facility] back pain (chief complaint)an xiety (chief complaint)CO PD (chief complaint) COPDLumbagoUnspec ified viral hepatitis without mention of hepatic comaInsomnia, unspecifiedDietar y surveillance and counseling 5 Jesse Daly. [address], [place], [place], [address] , [place]. tel:[phone] Referring Provider: Addy Molina, [address], [place], [place], [address]. tel:[phone] OFFICE/OUTPA TIENT VISIT, [facility], [address], [place], [place], [address], [place] tel:[phone] [facility] back pain (chief complaint)an xiety (chief complaint)CO PD (chief complaint) LumbagoInsomniaCO PDDietary surveillance and counselingBlood pressure elevated 5 Jesse Daly. [address], [place], [place], [address] , [place]. tel:[phone] Referring Provider: Shelton Jaeger [address], [place], [place], [address]. tel:[phone] OFFICE/OUTPA TIENT VISIT, [facility], [address], [place], [place], [address], [place] tel:[phone] [facility] back pain (chief complaint)an xiety (chief complaint)butt nd pain (chief complaint) Insomnia, unspecifiedLumbag oUnspecified viral hepatitis without mention of hepatic comaCarpal tunnel 5 Jesse Daly. [address], [place], [place], [address] , [place]. tel:[phone] Referring Provider: Shelton Jaeger [address], [place], [place], [address]. tel:[phone] OFFICE/OUTPA TIENT VISIT, [facility], [address], [place], [place], [address], [place] tel:[phone] [facility] COPD (chief complaint)ba ck pain (chief complaint)in somnia (chief complaint) Dietary surveillance and counselingCOPDIns omnia, unspecifiedLumbag o 5 Jesse Daly. [address], [place], [place], [address] , [place]. tel:[phone] Referring Provider: Addy Molina [address], [place], [place], [address]. tel:[phone] OFFICE/OUTPA TIENT VISIT, [facility], [address], [place], [place], [address], [place] tel:[phone] [facility] back pain (chief complaint)He p C (chief complaint)in somnia (chief complaint) Dietary surveillance and counselingLumbago Other specified viral hepatitis without mention of hepatic comaInsomnia, OtherOpioid type dependence, unspecified use Dec- 5 Jesse Daly. [address], [place], [place], [address] , [place]. tel:[phone] Referring Provider: Shelton aJeger [address], [place], [place], [address]. tel:[phone] OFFICE/OUTPA TIENT VISIT, [facility], [address], [place], [place], [address], [place] tel:[phone] [facility] back pain (chief complaint)ab dominal pain (chief complaint)[place] PD (chief complaint)Pr ostate enlargement (chief complaint) Dietary surveillance and counselingLumbago Other specified viral hepatitis without mention of hepatic comaCOPDCyst and pseudocyst of pancreas 5 Jesse Daly. [address], [place], [place], [address] , [place]. tel:[phone] Referring Provider: Shelton Jaeger [address], [place], [place], [address]. tel:[phone] OFFICE/OUTPA TIENT VISIT, [facility], [address], [place], [place], [address], [place] tel:[phone] [facility] back pain (chief complaint)He p C (chief complaint)ga llstone (chief complaint)[place] PD (chief complaint) Dietary surveillance and counselingOther specified viral hepatitis without mention of hepatic comaLumbagoCOPDBP H Fe 5 Jesse Daly. [address], [place], [place], [address] , [place]. tel:[phone] Referring Provider: Addy Molina [address], [place], [place], [address]. tel:[phone] PREV VISIT, NEW, AGE 40-64 [facility], [address], [place], [place], [address], tel:[phone] [facility] Medicine Physicaxl (chief complaint) Routine Medical ExamDietary surveillance and counselingRoutine Medical Exam 5 Jesse Daly. [address], [place], [place], [address] , [place]. [phone] Family History Family Member Type Diagnosis Age At Onset Mother Problem (finding) of old age Father Problem (finding) of accident Sister Problem (finding) Alive and well Payers Payer name Insurance type Covered democrat ID Abimbola edouard(s) [facility] [id number] Social History Type Description Quantity Date Captured [...] To: Delbert Renee [address] [place], [id number] Ordered: Referrals: Delbert Renee. Evaluate and treat [...] Referral Referred To: Nicole Perez DO [address] [place], [place], [address] Ordered: Referrals: Nicole Perez DO. Evaluate and treat ordered Referral Ordered: MAMMOGRAM, ONE BREAST ordered Referral Ordered: Delbert Renee -Allopathic & Osteopathic Physicians : Internal Medicine : Cardiovascular Disease (related to Coronary artery disease of qawalangin coronary artery without angina pectoris) ordered Referral Referred To: Delbert Renee [address] [place], [place] [id number] Ordered: Referrals: Allopathic & Osteopathic Physicians : Internal Medicine : Cardiovascular Disease. Rafe. Buck Evaluate and treat ordered Referral Ordered: SLEEP STUDY, ATTENDED ordered Referral Ordered: ERIN QUEZADA (related to Proteinuria) ordered Referral Referred To: ERIN QUEZADA [id number] [facility]
[address], [id number] Ordered: Referrals: ERIN QUEZADA. Evaluate and treat [...] Date Complaint History Of Prese nt Illness anxiety1 Pt has chronic a nxiety and [...] saddle area paresthesia fatigue1 Pt has chronic h ypersomnia and fatigue Pt doing ok with adderall. abd pain1 Pt c/o intermitt ent left upper quadrant pain for several years pt has chronic pancreatic cyst. Pt was seeing GI but he has not seen GI for a while Pt notices slightly worsening pain lately anxiety1 Pt has chronic a nxiety and [...] chronic hypersomnia Pt doing ok with adderall colon polyp1 Pt has colon zoe yp [...] homicidal thought. Pt denies any crying spells fatigue1 Pt has ADD with chronic fatigue Pt states that adderall is helping his fatigue and suppressed his appetite and he lost some weight .Pt is happy with adderall Prostate CA1 Pt has history o f prostate CA s/p radiation therapy. Pt has riya with urology next week. He denies any urinary symptoms anxiety1 Pt has chronic a nxiety and [...] tick bite1 Pt recently went to the [facility] and he was bitten multiple times by [...] homicidal thought Pt denies any crying spells constipation1 Pt has chronic c onstipation Pt [...] and irbesartan and his bp is stable. colon polylp1 Pt has tubular a denoma on colonoscopy from 2019. Pt needs colonoscopy soon Pt denies any lower GI issue anxiety1 Pt has chronic a nxiety [...] swelling Pt is able to ambulate ok anxiety1 Pt has chronic a nxiety [...] bad. Pt denies any saddle area paresthesia CVA The risk factors include age > 50. Additional information: Pt has history of CVA. Pt denies any neurological deficit .Pt saw neurology recently and was cleared for any further work up. anxiety1 Pt has chronic a nxiety and [...] paresthesia vertigo1 Pt went to ER la st week due to acute onset of dizziness and vertigo. pt denies any ear pain or tinnitus. Pt denies any headache Pt had benign head CT. and lab work in ER. Pt denies any chest pain or palpitation colon polyp1 Pt has tubular a denoma. [...] very hard and he feels incomplete emptying. anxiety Pt has chronic a nxiety and [...] HTN Pt ta kes irbesartan and his spa manager restarted him on Norvasc again. His bp is borderline Pt denies any chest pain or headache pain Pt has chronic l ow back pain due to DDD .Pt denies any worsening pain Pt denies any loss of bowel or bladder control .Pt only picked up 14 norco recently due to pharmacy issue. Pt needs rest of norco refilled. anxiety1 Pt has chronic a nxiety and [...] bad. Pt denies any saddle area paresthesia proteinuria1 Pt has proteinur ia, Pt denies any urinary symptoms. glucose1 Pt has high gluc ose. ,Pt denies any polyuria, polydipsia HTN Pt has HTN ,Pt t akes irbesartan and his bp is borderline high ,Pt denies any chest pain or headache physical Pt needs annual physical Pt has [...] saddle area paresthesia HTN Pt has HTN and h istory of CAD. Pt is seeing cardiology and is being medically manged. He was told to increase irbesartan to 300 mg and wean off norvasc recently by cardiology. Pt states that it kind made him dizzy so he prefers to continue irbesartan 150 and norvasc. his bp is ok today. He denies any chest pain prostate CA Pt has prostate CA Pt will start radiation therapy soon. anxiety1 Pt has chronic a nxiety and [...] bad. Pt denies any saddle area paresthesia emphysema1 pt has COPD Pt s ees pulmonary Pt uses incruse and airduo and albuterol PRN Pt feels sob frequently chronic pani1 Pt has chronic b ack pain. Pt takes norco PRN for pain. Pt need disability paper completed anxiety1 Pt has chronic a nxiety and [...] bad. Pt denies any saddle area paresthesia CVA CVA1 Pt has right CVA and [...] his underwear in the morning flank pain1 HTN1 Pt has HTN Pt ta kes irbesartan and norvasc and his bp is around 140/80. Pt denies any chest pain or headache or sob or edema anxiety1 Pt has chronic a nxiety and depression Pt takes prozac and valium and doing ok Pt denies any suicidal or homicidal thought. Pt denies any crying spells anxiety1 Pt has riya with neurology next week. Pt states that his left side paresthesia is improving Pt denies any motor weakness Pt denies any speech issue or mental status change prostate CA1 Pt will under pr ostate radiation instead of proctectomy pain Pt has chronic l ow back [...] and was cleared Pt denies any dysphagia pain Pt has chronic l ow back [...] homicidal thought. Pt denies any crying spells HTN Pt [...] CA Pt will undergo radial proctectomy soon anxiety1 Pt has chronic a nxiety and [...] prostate cancer. Pt is seeing urology at [facility]. Pt denies any urinary symptoms. Pt is contemplating radioactive seeds vs prostatectomy tobacco pt saw pulmonary and he will [...] proteinuria1 Pt has mild prot einuria . flank pain1 Pt c/o bilateral flank pain for one month, worse on left side Pt denies any fever, chill. Pt denies any nausea, vomiting. Pt states that he has been constipated for 2-3 weeks. Pt had BM last Tuesday but small amount of stool. Pt denies any abdominal pain. urine1 Pt states that lalit de la cruz feels like urinating when he hears water running and he can not wait to get to the bathroom before leaking out for several weeks also. he denies any dysuria. Pt finished abx but did not help much Pt denies any hesitancy or dribbling anxiety1 Pt has anxiety a nd depression [...] norco PRn for pain and doing ok sick Pt states that h is neighbor's has positive COVID-19 and he has been hanging out closely with his neighbor recently. Pt denies any fever, chill, sore throat, sinus congestion, coughing, sob or any positive symptoms. Pt denies any loss of taste and smell. Pt does have COPD. Pt wants to be tested. viral infection anxiety1 Pt has anxiety a nd depression [...] acute sob. Pt just saw urologist at [facility] and he does not have prostate CA He is off proscar now. he denies any urinary symptoms. Pt also was evaluated by GI at [facility] and he does not have pancreatitic CA. He denies any other complaints BPH Additional infor mation: Pt has chronic back pain and he has chronic anxiety and depression Pt denies any suicidal or homicidal thought Pt denies any crying spells Pt needs refills. BPH1 Pt recently saw urology (unknown name} at [facility] and he had benign prostate exam and he was told that his prostate is ok, he was told to continue proscar Pt was told that he does not have BPH. Pt is very confused . constipation Additional infor mation: Pt no loner has constipation Pt saw GI at [facility](unknown name) and he had some scans and [...] he has riya with GI tomorrow at [facility] constipation1 Pt has intermitt ent constipation Pt [...] wants to see his new GI at [facility] who just treated for his hep C recently. Pt ws told that he has benign pancreatic cyst. 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 Patient complained of [...] any crying spells. 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 Patient complained of [...] C pt is currently being treated at [facility]. Pt is taking oral pills but he does not know the name of it. 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 Patient complained of mild sciatica right leg numbness and tingling. Patient denies any loss of bowel bladder control. Patient failed NSAID and tramadol. Patient has 6 out of 10 pain daily. Patient complained of sharp pain. Patient denies any worsening pain. anxiety1 Patient has embedded software programmer leland anxiety and depression. Patient denies any suicidal homicidal thoughts. Patient denies any crying spells. Patient takes prozac and valium and doing okay. Patient noticed more motivation. Patient denies any hopelessness. COPD1 Pt is on airduo and also incruse and he feels that his breathing is improving Pt has not needed to use albuterol since last month Pt did 6 mins walking test and he does not need oxygen Pt also had the chest CT done. Pt denies any hemoptysis, worsening sob or cough anxiety1 Pt has chronic a nxiety and depression. Pt takes prozac and valium. Pt denies any suicidal or homicidal thought, Pt denies any crying spells. back pain1 Pt has chronic l ow back pain pt denies any worsening pain Pt denies any loss of bladder control. Pt has mild sciatica and leg numbness. hep C Pt just seen GI doctor at [facility] and he is waiting for hep C meds. hep C Pt will go see [facility] liver specialist for hep C treatment. He [...] or sick contact. Pt failed OTC meds pancreatic cyst he seen Dr irish damon and was told nothing to do for now since his pancreatic cyst is the same size without any growth. 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 Patient complained of mild sciatica with leg numbness and tingling. Patient denies any loss of bowel bladder control. Patient failed NSAID and tramadol. Patient has 6 out of 10 pain daily. Patient complained of sharp pain. Patient denies any worsening pain. pancreatic1 Pt has chronic l eft upper [...] told to do another imaging study at [facility]. Pt was told to call [facility] to schedule but pt has been calling but [facility] has not be able to schedule for [...] homicidal thought sleep apnea1 Pt has sleep schedule manager ea. Pt does NOT use CPAP machine [...] thought. Pt denies any crying spells emphysema1 Pt has mild copd . Pt [...] bladder control. Pt failed ultram and NSAID CAD Pt has mild asmita nary calcification. pt denies any chest pain Pt does not have any family history of heart disease hep c Pt has hep C. Pt [...] left side. sleep apnea1 Pt has sleep schedule manager ea but he only uses CPAP 1-2 [...] to [place] sleep apnea1 Pt has sleep schedule manager ea. Pt uses cpap nightly and toleratng [...] bariatric surgery sleep apnea1 Pt has sleep schedule manager ea. Pt has been using CPAP face [...] cyring spells sleep apnea1 Pt has sleep schedule manager ea. Pt just started CPAP last week. [...] is rather passive about his own health anxiety1 Pt has chronic a nxiety and depression. Pt takes prozac and valium and doing ok Pt denies any suicidal or homicdial thought. Pt denies any crying spells back pain1 Pt has chronic l ow back pain. Pt denies any worsenign pain. Pt denies any loss of bladder control sleep apnea1 Pt has sleep schedule manager ea. Pt needs CPAP. Pt snores and he feels fatigue all the time HTN Pt has HTN. Pt t farzad zhou and his BP is ok today. PT denies any chest pain or headache back pain1 Pt has chronic l ow [...] told me he has not heard from [facility] about the sleep study. ED1 Pt has [...] any worsening pain. Pt denies any sciatica. anxiety1 Pt has chronic a nxiety and depression Pttakes prozac and valium. Pt doing ok Pt denies any sucidal or homicidal thought pneumonia1 Pt recently was treated for pneumonia with aumgentin. Pt states taht he feels better. Pt denies any coughing, SOB or fever Pancreatic cyst Pt has a pancrea tic cyst recently while at ER Pt is seeing Dr. Rendon and he has a chronic cyst around pancreatic head and is being monitored by dr. rendon back pain1 Pt has chronic l ow [...] of cirrhosis Pt no longer use marijauna back apin Pt has chronic l wo back pain with left sciatica Pt denies any worsening pain Pt had back injection and nerve ablation by pain management recently Pt still has baseline pain anxiety1 Pt has chornic a nxiety and depression Pt takes prozac and valium and doing ok Pt denies any suicidal or [facility]iatl [facility] HTN Pt has HTn. Pt t farzad zhou and his BP is sstable renal cyst1 Pt has left karlie l cyst. Pt wants it removed. COPD1 Pt has COPD. Pt is on advaiar now and atrovent and albuterol. Pt will have sleep study soon. PT doing ok. Pt denies any acute SOB anxiety1 Pt has chronic a nxiety and depression. Pt denies any sucidal or homicidal thought. Pt denies any crying spells. back pain1 Pt has chronic l ow back pain Pt denies nay loss of ginny or bladder control. Pt denies any worsenign [...] OTC supplement but has not worked yet COPD Pt has COPD. Pt takes atrovent, albuterol and symbicort but he has not noticed any difference with symbicort. Pt uses albuterol 2-3 per day still. Pt has appointment with pulmonary in 4 weeks. Pt denies any acute SOB. Pt no longer smokes HTN Pt takes norvasc 5 mg daily. [...] treat him until he has liver cirrhosis??? COPD1 Pt has stage 3 C OPD. [...] ablation and shot recently and helped slightly back pain1 PT has chronic l ow back pain. pt just had some back nerve burned by pain managment. pt denies any wrosening pain. Pt denies any loss of bowel or bladder control anxiety1 Pt has chornic a nxiety and depression Pt takes prozac and valium. Pt denies any suicidal or homicidal thought. Pt doing ok HTN Pt has HTN. Pt t akes norvasc. Pt denies any chest pain or headache. his BP is stable low D Pt has low vitam i nD on lab. Pt denies any history of fx PHysical Pt needs annual physical. Pt has [...] to discuss treatment. Pt denies any jaundice COPD1 Pt has COPD Pt t farzad atrovent, qvar and albuterol. Pt uses albuterol daily. Pt today has no idea he has appointmetn with pulmonary? Pt denies any acute SOB Anxiety1 Pt has chronic a nxiety and depression. Pt takes valium and prozac Pt doing ok. Pt denies any suicidal or homcidial thought. Pt denies any cryingspells back pain1 Pt has chronic l ow back pain. Pt denies any loss o bowel ro bladder control Pt denies any worsening pain. Pt c/o bilateral sciatica. Pt denies any numnbess hep C Pt has hep C. Pt is very confused. Pt supposes to get a letter from GI but he never did and he did not call to make follow up appointment lumbago1 Pt has chronic L BP Pt [...] ventolin every 4 hours. No acute SOB back pain Additional infor mation: Pt has chronic LBP. Pt denies any loss of bowel or bladder control. anxiety Additional infor mation: Pt has anxiety and insomnia. Pt takes valium,. pt denies any depression or any suicdialt hought. hand pain Location: hand. Additional information: Pt c/o bilateral hand and finger numbness and pain and sometimes locks up. Pt notices hand weakness and shooting pain from both elbow. No injury. COPD Pt has COPD. Pt not smoking. Pt only uses qvar. Pt is noncompliant. Pt feels SOB frequently. Pt is not using atrovent and ventilin. Pt denies any acute SOB back pain [...] alcohol. Additional information: Doing ok with valium. Instructions Date Instruction Additional Infor mation Special [...] general adult medical exam w abnormal findings Special diet education Related t o Body [...] Weight management Related to Hep atitis C Increase physical activity Relat ed to [...] Related to Dietary Surveillance and Counseling Prescribed activity/ exercise education Related to Dietary surveillance and counseling Special diet education Related t o Dietary surveillance and counseling Physical activity counseling [...] Mental Status Date Cognitive Assessment Orientation - [place] ed to time, place, person, situation.
--- OUTSIDE RECORDS SUMMARY | 2025-01-09 10:10 | XMS_ITS | Clinical Summary ---
Author Organization [facility] Address [address] [place] [address] Care Team Providers Care Scientific Associate Name Role Phone Addy Molina MD Primary Care Provider [phone] Source Comments [facility],non-owned Affiliates and Associated Physician Practices is amultiple site organization consisting of ambulatory clinics and hospital sitesin [place], [place], [place] and [place]. This disclosure is being madepursuant to the Care Everywhere program and may not contain all information available regarding this patient. Last updated 18.[facility] Allergies Active Allergy Reactions Criticality Noted Date [...] Orders Only [facility] - Urology [address] [place] [address] [address] [place] [phone] Blake Flores MD Prostate cancer 10/12/2024 8:45 AM HARNESS INSPECTOR Clinical Support [facility] - Urology [address] [place] [address] [address] [place] [id number] Blake Flores MD Prostate cancer 10/12/2024 Travel [...] Comments Blood Pressure 149/80 10/12/2024 8:52 AM HARNESS INSPECTOR Pulse 86 10/12/2024 8:52 AM HARNESS INSPECTOR Temperature 36.6 C (97.8 F) 10/12/2024 8:52 AM HARNESS INSPECTOR Respiratory Rate 20 10/12/2024 8:52 AM HARNESS INSPECTOR Oxygen Saturation 98% 10/12/2024 8:52 AM HARNESS INSPECTOR Inhaled Oxygen Concentration - - Weight 119.5 kg (263 lb 6.4 oz) 10/12/2024 8:52 AM HARNESS INSPECTOR Height 162.6 cm (5' 4 ) 10/12/2024 8:52 AM HARNESS INSPECTOR Body Mass Index 45.21 10/12/2024 8:52 AM HARNESS INSPECTOR Plan of Treatment Upcoming Encounters Date Type Department Care Team (Late st Contact Info) Description 04/11/2025 9:00 AM CDT Appointment [facility] RAD ONC [address] [place] [phone] Mercedes Finnegan MD [address] [place] [phone] 04/12/2025 8:15 AM CDT Clinical Support [facility] - Urology [address] [place] [address] Blake Flores MD [address] [place] [id number] Health Maintenance Due Date Last Done Comments [...] COMPREHENSIVE METABOLIC PANEL Routine 09/25/2019 9:43 AM HARNESS INSPECTOR Chronic hepatitis C without hepatic coma HEPATITIS C RNA QUANTITATIVE Routine 09/25/2019 9:43 AM HARNESS INSPECTOR Chronic hepatitis C without hepatic coma from Last 3 Months or Most Recently Relevant to Health Maintenance Results * ENDOSCOPY, COLON, SCREENING (05/20/2023 9:08 AM CDT) Report Endoscopy POC _ Patient Name: Tiki Brown Procedure Date: 05/20/2023 9:08 AM Date of : 1955 Admit Type: Outpatient Age: 68 Gender: Male Attending MD: Otto Colon MD, [id number] _ Procedure: Colonoscopy Indications: High risk colon [...] by the physician, the nurse and the commercial lending relationship manager in the procedure room. Mental Status Examination: [...] the patient. Procedure Code(s): --- Professional --- 70605, Colonoscopy, flexible; with removal of tumor(s), polyp(s), or other lesion(s) by snare technique 63206, 59, Colonoscopy, flexible; with biopsy, single or multiple --- Technical --- 25359, Colonoscopy, flexible; with removal of tumor(s), polyp(s), or other lesion(s) by snare technique 65299, 59, Colonoscopy, flexible; with biopsy, single or [...] flexure or splenic flexure) CPT copyright 2020 [employer]. All rights reserved. The codes documented in this report are preliminary and upon data coder operator review may be revised to meet current compliance requirements. Dr. Otto Colon MD Otto Colon MD 05/20/2023 10:22:12 AM This report has been signed electronically. Number of Addenda: 0 Note Initiated On: 05/20/2023 9:08 AM [facility] 05/20/2023 9:08 AM CDT Otto Colon MD GI PROCEDURE ORDERABLES Germán ronald Result - Final [facility] [place] [address] * HEPATITIS C RNA QUANTITATIVE (09/25/2019 9:43 AM HARNESS INSPECTOR) Hepatitis C Virus Quantitation HCV Not Detected IU/mL [facility] INSURANCE BILL Hepatitis C Virus Log 10 NOT NEEDED [facility] INSURANCE BILL Comment:Ancillary determined the test is not needed. Test Information [facility] INSURANCE BILL Comment:The quantitative ran ge of this assay is 15 IU/mL to 100 million IU/mL. Blood BLOOD SPECIMEN / Unknown 09/25/2019 9:43 AM HARNESS INSPECTOR 09/25/2019 Narrative Resulting Agency Comment Lab Testing performed at: [address] [id number] Otto Colon MD LAB - CHEMISTRY ORDERABLES Final Result Performing Organization Address City/[facility]/ZIP Co de Phone Number [facility] INSURANCE BILL [address] [place] [address] * (ABNORMAL) COMPREHENSIVE METABOLIC PANEL (09/25/2019 9:43 AM HARNESS INSPECTOR) Glucose NOT NEEDED mg/dL [facility] INSURANCE BILL [...] BLOOD SPECIMEN / Unknown 09/25/2019 9:43 AM HARNESS INSPECTOR 09/25/2019 Narrative Resulting Agency Comment Lab Testing performed at: [facility] [address] [facility] [id number] [place] Otto Colon MD LAB - CHEMISTRY ORDERABLES Final Result [facility] INSURANCE BILL [address] [place] [address] from Last 3 Months or Most Recently Relevant to Health Maintenance Insurance [facility] Advance Directives Documents on File Type Date Recorded Patient Weed Sprayer Expl anation Adv Directive/Living Will/POA 07/01/2021 3:19 PM Care Teams Scientific Associate Relationship Specialty Start Date End Date Addy Molina MD [address] [facility] [address] [facility] [address] [place] [address] PCP - General 01/03/18
--- OUTSIDE RECORDS SUMMARY | 2025-01-09 10:10 | XMS_ITS | Referral Summary ---
Author Organization [facility] Address [address] [place] [phone] Care Team Providers Care Bioinformatics Analyst Name Role Phone Addy Molina MD Primary Care Provider [phone] Encounters Date Type Department Care Team Description 01/07/2025 Telephone [facility] Pulmonary at [address] [place] [phone] Dayan Liang LPN Rf Advair 11/26/2024 Orders Only [facility] Pulmonary at [address] [place] [phone] Vashti Brantley LPN from Last 3 [...] 04/04/2024 Assessment & Plan (07/25/2024 1:35 PM IRONING PLEATER): - Smoking cessation counseling and techniques reviewed at length - Avoid triggers and use distraction techniques - Participate in support groups - He is aware of the [place] Tobacco Quit line: 4-676-PLKS-YES for free services - 5 minutes spent discussing cessation Assessment & Plan (04/04/2024 2:21 PM CDT): - Smoking cessation counseling and techniques reviewed at length - Avoid triggers and use distraction techniques - Participate in support groups - Information given regarding [place] Tobacco Quit line: 5-877-GFLW-YES for free services - 4 minutes spent discussing cessation 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 Overview (12/23/2016): COPD Assessment & Plan (07/25/2024 1:35 PM IRONING PLEATER): Continue Advair 250/50 twice daily Continue Spiriva [...] on file Legal Sex Male 8:57 AM IRONING PLEATER Gender Identity Not on file Sexual Orientation Not on file Last Filed Vital Signs Vital Sign Reading Time Taken Comments Blood Pressure 142/76 07/25/2024 10:55 AM IRONING PLEATER Pulse 86 07/25/2024 10:55 AM IRONING PLEATER Temperature 36.5 C (97.7 F) 07/25/2024 10:55 AM IRONING PLEATER Respiratory Rate 18 01/03/2024 9:40 AM CDT Oxygen Saturation 95% 07/25/2024 10: 55 AM IRONING PLEATER Inhaled Oxygen Concentration - - Weight 122.6 kg (270 lb 3.2 oz) 024 10:55 AM IRONING PLEATER Height 175.3 cm (5' 9 ) 07/25/2024 10:5 5 AM IRONING PLEATER Body Mass Index 39.9 07/25/2024 10:55 AM IRONING PLEATER Plan of Treatment Not on file Procedures [...] Higgins M.D. [email or web address] 01:22 PM 01:22 PM [facility] [EOD] Narrative 07/23/2016 1:26 PM CDT EXAMINATION: [...] Higgins M.D. [email or web address] 01:22 PM 01:22 PM [facility] [EOD] Aquilino Pretty MD IMG CT PROCEDURES Final Result from Last 3 Months or Most Recently Relevant to Health Maintenance Insurance [facility] Care Teams Bioinformatics Analyst Relationship Specialty Start Date End Date Addy Molina MD PCP - General 10/02/15
--- OUTSIDE RECORDS SUMMARY | 2025-01-09 10:10 | XMS_ITS | Clinical Summary ---
Author Organization [facility] Address [address] [place] [address] Phone Care Team Providers Care Labor Economics Professor Name Role Phone Addy Molina MD Primary Care Provider [phone] Allergies No known active allergies Medications amLODIPine (NORVASC) 10 mg tablet 08/03/2018 Active finasteride (PROSCAR) 5 mg tablet 08/11/2018 Active FLUoxetine (PROzac) 20 mg capsule 07/10/2018 Active BREO ELLIPTA 100-25 mcg/dose Disk with Device 07/27/2018 Ac tive diazePAM (VALIUM) 5 mg tablet 07/28/2018 Active tamsulosin (FLOMAX) 0.4 mg capsule 08/11/2018 Active VENTOLIN HFA 90 mcg/actuation inhaler 08/03/2018 Active FLUZONE QUAD 6905-0065, PF, 60 mcg (15 mcg x 4)/0.5 [...] on file Legal Sex Male 12:57 PM DUMPING MACHINE OPERATOR Gender Identity Not on file Sexual Orientation Not on file Last Filed Vital Signs Vital Sign Reading Time Taken Comments Blood Pressure 108/67 08/31/2018 11:09 AM DUMPING MACHINE OPERATOR Pulse 78 08/31/2018 11:09 AM DUMPING MACHINE OPERATOR Temperature 36.7 C (98 F) 08/31/2018 11:09 AM DUMPING MACHINE OPERATOR Respiratory Rate - - Oxygen Saturation 94% 08/31/2018 11: 09 AM DUMPING MACHINE OPERATOR Inhaled Oxygen Concentration - - Weight 115.5 kg (254 lb 9.6 oz) 018 11:09 AM DUMPING MACHINE OPERATOR Height 175.3 cm (5' 9 ) 08/31/2018 11:0 9 AM DUMPING MACHINE OPERATOR Body Mass Index 37.6 08/31/2018 11:09 AM DUMPING MACHINE OPERATOR Plan of Treatment Health Maintenance Due [...] 08/02/2011 Insurance [employer] [place] Care Teams Labor Economics Professor Relationship Specialty Start Date End Date Addy Molina MD [address] [place] [phone] PCP - General Family Practice 08/31/18
--- OUTSIDE RECORDS SUMMARY | 2025-01-09 10:10 | XMS_ITS | CONTINUITY OF CARE DOCUMENT ---
Author Name ynes quick Address Unknown Organization [facility] Address [address] [place] [address] [address] [place] [address] Phone [phone] Care Team Providers Care Domestic Technician Name Role Phone Fritz Mcdonald MD Unavailable [phone]
--- OUTSIDE RECORDS SUMMARY | 2025-01-09 10:10 | XMS_ITS | Clinical Summary ---
Author Organization [facility] Address [address] [place] [address] Care Team Providers Care Livestock Counter Name Role Phone Unavailable Primary Care Provider Unavailabl e Social History Tobacco Use Types Packs/Day Years Used Date Smoking Tobacco: Never Assessed Sex and Gender Information Value Date Recorded Sex Assigned at Not on file Legal Sex Male 4:20 PM CDT Gender Identity Not on file Sexual Orientation Not on file Last Filed Vital Signs Vital Sign Reading Time Taken Comments Blood Pressure 122/60 03/13/2015 2:14 PM CDT Pulse 80 03/13/2015 2:14 PM CDT Temperature - - Respiratory Rate - - Oxygen Saturation - - Inhaled Oxygen Concentration - - Weight 115.7 kg (255 lb) 03/13/2015 2:14 PM CDT Height 175.3 cm (5' 9 ) 03/13/2015 2:14 PM CDT Body Mass Index 37.66 03/13/2015 2:14 PM CDT Plan of Treatment Health Maintenance Due Date Last Done Comments Colorectal Cancer Screening Colonoscopy (10 Years) 1955 Hepatitis C 1975 DTaP, Tdap and Td Vaccines ( 1 - Tdap) 01/28/1976 Zoster Vaccines (1 of 2) 2007 Pneumococcal Vaccine: 50+ Ye ars (2 of 2 - PCV) 10/18/2014 10/18/2013 COVID-19 Vaccine ( - 2023-2 5 season) 2024 RSV Immunization or 60+ Years (1 - 1-dose 75+ series) 01/28/2032 Meningococcal B Vaccine Aged Out No l onger eligible based on patient's age to complete this topic Meningococcal Vaccine Aged Out No ilia fabien eligible based on patient's age to complete this topic RSV Immunizations Under 20 Months Aged Out No longer eligible based on patient's age to complete this topic
--- OUTSIDE RECORDS SUMMARY | 2025-01-09 10:10 | XMS_ITS | Continuity of Care Document ---
Author Organization [facility] Address [address] [place] [phone] Phone Care Team Providers Care Discharge Specialist Name Role Phone Didier Novak MD Unavailable Unavailable Procedures Procedure Date OFFICE/OUTPATIENT VISIT, EST HT MUSCLE IMAGE SPECT MULT Advance Directives Directive Yes / No Effective Date File Name No Information Encounters Encounter Description Practice Location Reason(s) For Visit Diagnoses Date Provider Providers Copied on Encounter [facility], [address] [place] [address], [id number], tel:[phone] 29 [facility] No Information 4 Kishore Velásquez. [address] [place] [address], [id number] , . [phone] OFFICE/OUTPAT IENT VISIT, EST [facility], [address] [place] [address], [id number], tel:[phone] 29 [facility] No Information 2 Kishore Velásquez. [address] [place] [address], [id number] , . tel:[phone] Referring Provider: Didier Novak, [address] [place] [address], [id number] . tel:[phone] Family History Family Member Type Diagnosis Age [...]
== END 2025-01-09 12:26 | disposition home or self-care (01) ==
PROVIDERS: Emergency Provider Physician Assistant; PCP Emergency Medicine
DX: R10.30 Lower abdominal pain, unspecified (principal); M54.50 Low back pain, unspecified; K86.2 Cyst of pancreas; I25.10 Atherosclerotic heart disease of native coronary artery without angina pectoris; Z87.891 Personal history of nicotine dependence; J44.9 Chronic obstructive pulmonary disease, unspecified; E78.5 Hyperlipidemia, unspecified
CPT/HCPCS: 36415; 74177; 80053; 81001; 83690; 85025; 99284; Q9967

== ENCOUNTER 2025-06-14 12:55 | Emergency (ER) | payer OTHER, SELFPAY ==
--- OUTSIDE RECORDS SUMMARY | 2024-04-03 09:19 | XMS_ITS | Continuity of Care Document ---
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 [place] [address], [id number] , . tel:[phone] OFFICE/OUTPAT IENT VISIT, EST [facility], [address] [place] [address], [id number], tel:[phone] [facility] No Information [address]ás[address] [place] [address], [id number] , . tel:[phone] Referring Provider: Didier Novak, [address] [place] [address], [id number] . tel:[phone] Family History Family Member Type Diagnosis Age At Onset No Information Payers Payer name Insurance type Covered alliance party ID Authoriza tion(s) No Information Social History Type Description Quantity Date Captured Comments Sex Male Smoking Status No Information Chief Complaint And Reason For Visit No Information Reason For Referral Reason For Referral No Information History Of Present Illness Encounter Date Complaint History Of Prese nt Illness No Information Functional Status Date Functional Assessmen t No Information Instructions Date Instruction Additional Infor mation No Information Assessments Type Assessment Date No Information Patient Care Teams Name Effective Dates (start - stop) Status Members No Information
--- OUTSIDE RECORDS SUMMARY | 2024-04-03 09:19 | XMS_ITS | Continuity of Care Document ---
Author Organization [facility] Address [address] [place] [phone] Phone Care Team Providers Care Truck Spotter Name Role Phone Didier Novak MD Unavailable Unavailable Procedures Procedure Date OFFICE/OUTPATIENT VISIT, EST HT MUSCLE IMAGE SPECT MULT Advance Directives Directive Yes / No Effective Date File Name No Information Encounters Encounter Description Practice Location Reason(s) For Visit Diagnoses Date Provider Providers Copied on Encounter [facility], [address] [place] [address], [id number], tel:[phone] [facility] No Information 4 Kishore Velásquez. [address] [place] [address], [id number] , . tel:[phone] OFFICE/OUTPAT IENT VISIT, EST [facility], [address] [place] [address], [id number], tel:[phone] [facility] No Information 2 Kishore Velásquez. [address] [place] [address], [id number] , . tel:[phone] Referring Provider: Didier Novak, [address] [place] [address], [id number] . tel:[phone] Family History Family Member Type Diagnosis Age At Onset No Information Payers Payer name Insurance type Covered democrat ID Authoriza tion(s) No Information Social History [...]
--- NOTE | ~2025-06-14 | CT_ITS ---
EXAMINATION: CT BRAIN W/O DATE: 06/14/2025 15:05 INDICATION: Headache. TECHNIQUE: Computed tomography (CT) of the head was performed without intravenous contrast. The dose-length product was 605.33 mGy-cm. COMPARISON: No prior studies for comparison. FINDINGS: Normal brain parenchymal volume for age. Normal castle-white differentiation. No acute intracranial hemorrhage, infarction, mass or mass effect. There is a chronic right thalamic infarction. No ventriculomegaly or midline shift. Midline sagittal images demonstrate a normal corpus callosum, craniovertebral junction and sella turcica. Basilar cisterns are patent. There is mucosal thickening of the right maxillary, frontal and ethmoid sinuses. Mastoids are pneumatized. No depressed skull fractures. IMPRESSION: 1. No acute intracranial abnormality. 2: Chronic right thalamic infarct. Reviewed, dictated and finalized at location O.
--- NOTE | ~2025-06-14 | CT_ITS ---
Exam: CT abdomen and pelvis with contrast Clinical History: [Flank pain ] Comparison: [ 01/09/2025] Technique: Multiple axial CT images of the abdomen and pelvis were obtained with IV contrast. Sagittal and coronal reformatted images were obtained. FINDINGS: Lung bases: [Small opacities in the lower lungs. ] Liver: [ No mass.] [ No intrahepatic biliary duct dilatation.] Gallbladder: Surgically absent. Common bile duct: [ Normal caliber.] [ No stones.] Spleen: [ Within normal limits.] Pancreas: Grossly stable 4.3 cm complex cystic lesion in the uncinate process of the pancreas. Adrenals: [ No masses.] Kidneys: [ No masses. No hydronephrosis.][ ] Left renal cysts, unchanged. No renal calculi. Lymph nodes: [ No adenopathy in the abdomen or pelvis.] Stomach, small bowel and colon: [ No bowel wall thickening or obstruction.] Moderate amount of stool Peritoneum cavity: [ No mesenteric fat stranding or fluid.] Bladder: Moderate thickening of the santos of the bladder. Differential includes incomplete bladder wall distention versus cystitis. No bladder calculi identified. Osseous structures: [ Multilevel degenerative change in the visualized spine.] Osseous structures are grossly unchanged. Abdominal aorta: [ No aneurysm.] Additional findings: [ None of significance.] IMPRESSION: 1. Grossly stable 4.3 cm complex cystic lesion in the uncinate process of the pancreas. Correlate clinically. 2. Differential includes incomplete bladder wall distention versus cystitis. Reviewed, dictated and finalized at location Q. IMPRESSION: 1. Grossly stable 4.3 cm complex cystic lesion in the uncinate process of the p ancreas. Correlate clinically. 2. Differential includes incomplete bladder wall distention versus cystitis.
--- OUTSIDE RECORDS SUMMARY | 2025-06-14 12:57 | XMS_ITS | Encounter Summary ---
Author Organization [facility] Care Team Providers Care Cabinetmaker Apprentice Name Role Phone Addy Molina MD Primary Care Provider [phone] Encounter Details Date Type Department Care Team (Latest Contact Info) Description 03/26/2016 Orders Only [facility] CLINCON[facility] ProviderJimena MD [address] [place] [id number] Social History Tobacco Use Types Packs/Day Years Used Date Smoking Tobacco: Never Assessed Sex and Gender Information Value Date Recorded Sex Assigned at Not on file Legal Sex Male 8:57 AM CABLE WIRER Gender Identity Not on file Sexual Orientation [...] on filedocumented in this encounter Care Teams Cabinetmaker Apprentice Relationship Specialty Start Date End Date Addy Molina MD PCP - General 10/02/15 documented as of this encounter
--- OUTSIDE RECORDS SUMMARY | 2025-06-14 12:57 | XMS_ITS | Clinical Summary ---
Author Organization [facility] Address [address] [place] [id number] Care Team Providers Care Cuprous Chloride Helper Name Role Phone Addy Molina MD Primary Care Provider [phone] Allergies No known active allergies Medications HYDROcodone-ac etaminophen (NORCO) 10-325 mg per tablet take 1 tablet by oral route every 4 - 6 hours as needed for pain 0 0 10/02/19 16 Active ipratropium (ATROVENT HFA) 17 mcg/actuation inhaler inhale 2 puff by inhalation route 4 times every day 0 Inhaler 0 10/02/19 16 Active finasteride (PROSCAR) 5 mg tablet daily. 09/09/20 18 Active FLUoxetine (PROzac) 20 mg capsule daily 09/11/20 18 Active multivitamin tabletIndicati ons:Vitamin Deficiency Prevention Take 1 tablet by mouth daily Active tamsulosin (FLOMAX) 0.4 mg extended release capsule daily. 08/11/20 18 Active dicyclomine (BENTYL) 10 mg capsule Take [...] 1 spray into affected nostril(s) as needed 07/18/20 21 Active irbesartan (AVAPRO) 300 mg tablet Take 1 tablet (300 mg total) by mouth daily 01/02/20 24 Active amLODIPine (NORVASC) 5 mg tablet Take 1 tablet (5 mg total) by mouth daily Active Incruse Ellipta 62.5 mcg/actuation blister with device Inhale 1 puff (62.5 mcg total) daily 30 each 08/20/20 24 Active albuterol HFA (Ventolin HFA) 90 mcg/actuation inhaler Inhale 1 puff every 4 (four) hours as needed for wheezing 18 g 11 11/27/19 25 Active dextroamphetam ine-amphetamin e (ADDERALL) 20 mg tablet 12/28/19 25 Active Advair Diskus 250-50 mcg/dose diskus inhalerIndicat ions:Asthma-CO PD overlap syndrome (HCC) INHALE 1 PUFF BY MOUTH TWICE DAILY RINSE MOUTH AFTER USE DO NOT SWALLOW 60 each 6 05/21/20 25 Active albuterol 2.5 mg /3 mL (0.083 %) nebulizer solutionIndica tions:Asthma-C OPD overlap syndrome (HCC) Take 3 mL (2.5 mg total) by nebulization every 4 (four) hours as needed for wheezing 360 mL 6 06/03/20 25 Active albuterol 2.5 mg /3 mL (0.083 %) nebulizer solution Take 3 mL (2.5 mg total) by nebulization every 6 (six) hours as needed for wheezing or shortness of breath 360 mL 3 07/25/20 24 025 Discontinued fluticasone propion-salmet Nora (ADVAIR DISKUS) 250-50 mcg/dose diskus inhalerIndicat ions:Asthma-CO PD overlap syndrome (HCC) Inhale 1 puff 2 (two) times a day Rinse mouth with water after use. Do not swallow. 50 each 3 01/08/20 25 025 Discontinued Active Problems Problem Noted Date Diagnosed Date COPD exacerbation 01/23/2025 Assessment & Plan (01/23/2025 1:04 PM CDT): Start antibiotics and prednisone He has not had fever chills in his vital signs are stable today He will call with updates on Tuesday and I will adjust his plan of care if needed at that time Pulmonary nodule 04/04/2024 Assessment & Plan (01/23/2025 1:05 PM CDT): No demonstrable increase in size on PET-CT 01/18/2024 There has been no change in the right upper lobe pulmonary nodule over several scans. We will continue to follow this closely he is a current smoker and has a history of recent cancer Assessment & Plan (04/04/2024 2:20 PM CDT): No demonstrable increase in size on PET-CT 01/18/2024 He is scheduled for repeat CT in 2 weeks, we will continue to follow closely as he has a recent history of cancer and he is a current smoker Nicotine dependence, cigarettes, uncomplicated 0 04/04/2024 Assessment & Plan (01/23/2025 1:05 PM CDT): - Smoking cessation counseling and techniques reviewed at length - Avoid triggers and use distraction techniques - Participate in support groups - He is aware of the [place] Tobacco Quit line: 1-773-XMAU-YES for free services - 4 minutes spent discussing cessation He has tried many methods of NRT in the past He is uninterested today He is due for annual lung cancer screening in June of 2025. Assessment & Plan (07/25/2024 1:35 PM FURNACE OPERATOR): - Smoking cessation counseling and techniques reviewed at length - Avoid triggers and use distraction techniques - Participate in support groups - He is aware of the [place] Tobacco Quit line: 5-835-QBJM-YES for free services - 5 minutes spent discussing cessation Assessment & Plan (04/04/2024 2:21 PM CDT): - Smoking cessation counseling and techniques reviewed at length - Avoid triggers and use distraction techniques - Participate in support groups - Information given regarding [place] Tobacco Quit line: 3-841-SKRV-YES for free services - 4 minutes spent discussing cessation 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 Overview (12/23/2016): COPD Assessment & Plan (01/23/2025 1:03 PM CDT): Continue Advair 250/50 twice daily Continue Incruse Ellipta once daily at the same time He does not have frequent exacerbations Continue albuterol 2 puffs every 4-6 hours as needed only, he is aware of indications for use Continue nebulizer - use at home as needed with albuterol We discussed vaccinations He does not have significant peripheral eosinophilia We discussed signs and symptoms that would require earlier evaluation or change to his plan of care Assessment & Plan (07/25/2024 1:35 PM FURNACE OPERATOR): Continue Advair 250/50 twice daily Continue [...] Hx Other Medical hemorrhoid surg azra; Comments: MJB 10/02/2015 - Hypertension Hypertension Asthma Asthma Chronic obstructive pulmonary disease COPD Pulmonary nodule 04/04/2024 Nicotine dependence, cigaret esmer, uncomplicated 04/04/2024 COPD exacerbation (HCC) 01/23/2025 Family History Medical History Relation Name Comments No Known Problems Brother No Known Problems Father No Known Problems Mother No Known Problems Sister Relation Name Status Comments Brother Father Mother Sister Social History Tobacco Use Types Packs/Day Years Used Date Smoking Tobacco: Every Day Cigarettes 0.5 23.7 Started: 2001 Tobacco Cessation:Ready to Q uit: Not Asked; Counseling Given: Not Answered Comments:01/03/24 Smokes 1ppd x 50 years Sex and Gender Information Value Date Recorded Sex Assigned at Not on file Legal Sex Male 8:57 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 Gender Identity Not on file Sexual Orientation Not on file Obstetrics History Last Filed Vital Signs Vital Sign Reading Time Taken Comments Blood Pressure 132/60 01/22/2025 11:17 AM CDT Pulse 96 01/22/2025 11:17 AM CDT Temperature 36.6 C (97.9 F) 01/22/2025 11:17 AM CDT Respiratory Rate 18 01/03/2024 9:40 AM CDT Oxygen Saturation 99% 01/22/2025 11: 17 AM CDT Inhaled Oxygen Concentration - - Weight 117.5 kg (259 lb 1.6 oz) 025 11:17 AM CDT Height 175.3 cm (5' 9) 01/22/2025 11:1 7 AM CDT Body Mass Index 38.26 01/22/2025 11:17 AM CDT Plan of Treatment Health Maintenance Due Date Last Done Comments Colon Cancer Screening-Colonoscopy 1955 Depression Screening 1955 Fall Risk Assessment 1955 Prostate Cancer Screening-PSA 1955 Abdominal Aortic Aneurysm (A AA) Screen 2022 05/27/2021, 11/30/2019, 07/23/2016, Additional history exists Well Visit 65+ 2022 Zoster Vaccine (2 of 2) 07/20/2022 05/25/2022 Covid-19 Vaccine (3 - 2024-2 6 season) 2025 06/11/2021, 05/14/2021 Influenza Vaccine (#1) 2025 3, 05/25/2022, 07/13/2021, Additional history exists DTaP/Tdap/Td Vaccine [...] Higgins M.D. CN:akua 01:22 PM 01:22 PM [facility] [EOD] Narrative 07/23/2016 1:26 PM CDT [...] Higgins M.D. CN:akua 01:22 PM 01:22 PM [facility] [EOD] Aquilino Pretty MD IMG CT PROCEDURES Final Result from Last 3 Months or Most Recently Relevant to Health Maintenance Insurance [facility] Care Teams Cuprous Chloride Helper Relationship Specialty Start Date End Date Addy Molina MD PCP - General 10/02/15
--- OUTSIDE RECORDS SUMMARY | 2025-06-14 12:57 | XMS_ITS | Clinical Summary ---
Author Organization [facility] Address [address] [place] [address] Care Team Providers Care Produce Buyer Name Role Phone Addy Molina MD Primary Care Provider [phone] Source Comments [facility],non-owned Affiliates and Associated Physician Practices is amultiple site organization consisting of ambulatory clinics and hospital sitesin [place], [place], [place] and [place]. This disclosure is being madepursuant to the Care Everywhere program and may not contain all information available regarding this patient. Last updated 18.[facility] Allergies Active Allergy Reactions Criticality Noted Date [...] (one) tablet by mouth as needed Active fluticasone propionate (Flonase) 50 MCG/ACT nasal [...] Active Additional Information Patient not taking.Reported on 04/12/2025 tamsulosin (Flomax) 0.4 MG capsule Take 1 (one) capsule by mouth once daily At the same time every day after a meal. 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 [place] [address] Blake Flores MD Prostate cancer (HCC) (Primary Dx); Lower urinary tract symptoms (LUTS) 04/12/2025 Travel 04/11/2025 9:00 AM CDT - 04/11/2025 11:59 PM CDT Hospital Encounter [facility] [address] [place] [address] Mercedes Finnegan MD Discharge Disposition: Home or Self Care 04/08/2025 Orders Only [facility] [address] [place] [address] Mercedes Finnegan MD 03/19/2025 Orders Only [facility] [address] [place] [address] Nancy Stanley RN Prostate cancer (HCC) from Last 3 Months Immunizations Immunization Administration [...] pu re alcohol) PHQ-2 Answer Date Recorded Patient Health Questionnaire-2 Score 2 04/12/2025 Sex and Gender Information Value Date Recorded Sex Assigned at Not on file Legal Sex Male 9:07 AM CDT Gender Identity Not on file Sexual Orientation Not on file Last Filed Vital Signs Vital Sign Reading Time Taken Comments Blood Pressure 93/60 04/12/2025 8:00 AM CDT Pulse 96 04/12/2025 8:00 AM CDT Temperature 36.5 C (97.7 F) 04/12/2025 8:00 AM CDT Respiratory Rate 18 04/12/2025 8:00 AM CDT Oxygen Saturation 93% 04/12/2025 8:00 AM CDT Inhaled Oxygen Concentration - - Weight 112.3 kg (247 lb 9.6 oz) 04/12/2025 8:00 AM CDT Height 175.3 cm (5' 9) 04/12/2025 8:00 AM CDT Body Mass Index 36.56 04/12/2025 8:00 AM CDT Plan of Treatment Upcoming Encounters Date Type Department Care Team (Late st Contact Info) Description 07/11/2025 11:40 AM CDT Office Visit [facility] [place] [address] [address] [place] [address] [place] [address] [place] [address] 07/12/2025 9:00 AM CDT Office Visit [facility] - Urology [address] [place] [address] Blake Flores MD [address] OF [place] [place] [phone] 10/15/2025 9:00 AM QUOTATION CHECKER Appointment [facility] [address] [place] [address] Mercedes Finnegan MD [address] [place], [place] [phone] Health Maintenance Due Date Last Done Comments COLOGUARD (AGES 45-75) - COLON CA SCREENING 1955 CT COLONOGRAPHY - COLON CA SCREENING 1955 FIT - COLON CA SCREENING 1955 FLEX SIG - COLON CA SCREENING 1955 DTAP/TDAP/TD VACCINES (1 - Tdap) 01/28/1976 LUNG CANCER SCREENING 2007 ZOSTER VACCINE (1 of 2) 2007 PNEUMOCOCCAL VACCINE 50+ (2 of 2 - PCV) 10/18/2014 10/18/2013 AAA SCREENING 2022 COVID-19 VACCINE (1 - season) 2025 INFLUENZA VACCINE (#1) 2025 , 05/22/2019, 10/18/2013, Additional history exists SCREENING FOR DIABETES 02/08/2028 02/07/2025, 2019 COLONOSCOPY - COLON CA SCREENING 05/20/2028 05/20/2023, 05/20/2023, 04/28/2020, Additional history exists Colorectal Cancer Screening 05/20/2028 Respiratory Syncytial Virus (RSV) Vaccine Pt: or over 60 yrs (1 - 1-dose 75+ series) 01/28/2032 COLON MONITORING 05/20/2033 05/20/2023, 09/2022, 04/28/2020, Additional history exists HEPATITIS C SCREENING Completed 09/25/2019 , 09/20/2019, 06/27/2019, Additional history exists HEPATITIS B VACCINE Completed 09/27/2019, 05/22/2019, 04/10/2019 DEPRESSION SCREENING Completed 04/12/2025, 04/26/20 HIB VACCINE Aged Out No longer eligi [...] Procedure Name Priority Date/Time Associated Diagnosis Comments PROSTATE SPECIFIC ANTIGEN SCREEN 04/08/2025 9:34 AM CDT COMPREHENSIVE METABOLIC PANEL Routine 02/07/2025 12:01 PM CDT ENDOSCOPY, COLON, SCREENING Routine 05/20/2023 9:08 AM CDT Screening for colon cancer HEPATITIS C RNA QUANTITATIVE Routine 09/25/2019 9:43 AM QUOTATION CHECKER Chronic hepatitis C without hepatic coma from Last 3 Months or Most Recently Relevant to Health Maintenance Results * PROSTATE SPECIFIC ANTIGEN SCREEN (04/08/2025 9:34 AM CDT) PSA 0.07 < OR = 4.00 ng/mL [facility] Comment: The total PSA value from this assay system is standardized against the WHO standard. The test result will be approximately 20% lower when compared to the equimolar-standardized total PSA ([place]). Comparison of serial PSA results should be interpreted with this fact in mind. This test was performed using the Siemens chemiluminescent method. Values obtained from different assay methods cannot be used interchangeably. PSA levels, regardless of value, should not be interpreted as absolute evidence of the presence or absence of disease. Test Performed at: [facility] [address] [facility] [place] [address] KALINA ROSSI MD 04/08/2025 9:34 AM CDT 04/08/2025 9:35 AM CDT us Mercedes Finnegan MD LAB - CHEMISTRY ORDERABLES Final Result [facility] [address] [place] [address] * (ABNORMAL) COMPREHENSIVE METABOLIC PANEL (02/07/2025 12:01 PM CDT) Glucose 110(H) 70 - 99 mg/dL [facility] ACCOUNT BILL BUN 13 8 - 27 mg/dL [facility] ACCOUNT BILL Creatinine 1.10 0.76 - 1.27 mg/dL [facility] ACCOUNT BILL eGFR by CKD-EPI 73 >59 mL/min/1.7 3 [facility] ACCOUNT BILL BUN/Creatinine Ratio 12 10 - 24 [facility] ACCOUNT BILL Sodium 138 134 - 144 mmol/L [facility] ACCOUNT BILL Potassium 4.9 3.5 - 5.2 mmol/L [facility] ACCOUNT BILL Chloride 99 96 - 106 mmol/L [facility] ACCOUNT BILL CO2 26 20 - 29 mmol/L [facility] ACCOUNT BILL Calcium 9.2 8.6 - 10.2 mg/dL [facility] ACCOUNT BILL Protein Total 6.8 6.0 - 8.5 g/dL [facility] ACCOUNT BILL Albumin 4.2 3.9 - 4.9 g/dL [facility] ACCOUNT BILL Globulin Total 2.6 1.5 - 4.5 g/dL [facility] ACCOUNT BILL Bilirubin Total 0.3 0.0 - 1.2 mg/dL [facility] ACCOUNT BILL Alkaline Phosphatase 123(H) 44 - 121 IU/L [facility] ACCOUNT BILL AST 14 0 - 40 IU/L [facility] ACCOUNT BILL ALT 15 0 - 44 IU/L [facility] ACCOUNT BILL 02/07/2025 12:0 1 PM CDT 02/07/2025 Narrative [facility] ACCOUNT BILL - 02/08/2025 6:09 AM CDT Performed at: - [facility] [id number] Child Welfare Social Worker: Shayne Mendez PhD, Phone: [phone] us Mary Alejandro MD LAB - CHEMISTRY ORDERABLES Fin al Result [facility] ACCOUNT BILL [address] [place] [address] * ENDOSCOPY, COLON, SCREENING (05/20/2023 9:08 AM CDT) Report Endoscopy POC _ Patient Name: Tiki Luzucom Procedure Date: 05/20/2023 9:08 AM Date of : 1955 Admit Type: Outpatient Age: 68 Gender: Male Attending MD: Otto Colon MD, [id number] _ Procedure: Colonoscopy Indications: High risk colon [...] by the physician, the nurse and the electrical calibrator in the procedure room. Mental Status Examination: [...] the patient. Procedure Code(s): --- Professional --- 08622, Colonoscopy, flexible; with removal of tumor(s), polyp(s), or other lesion(s) by snare technique 93861, 59, Colonoscopy, flexible; with biopsy, single or multiple --- Technical --- 15299, Colonoscopy, flexible; with removal of tumor(s), polyp(s), or other lesion(s) by snare technique 41215, 59, Colonoscopy, flexible; with biopsy, single or [...] flexure or splenic flexure) CPT copyright 2020 [employer]. All rights reserved. The codes documented in this report are preliminary and upon conduit worker review may be revised to meet current compliance requirements. Dr. Otto Colon MD Otto Colon MD 05/20/2023 10:22:12 AM This report has been signed electronically. Number of Addenda: 0 Note Initiated On: 05/20/2023 9:08 AM [facility] 05/20/2023 9:08 AM CDT Otto Colon MD GI PROCEDURE ORDERABLES Germán ronald Result - Final Performing Organization Address City/[facility]/ZIP Co de Phone Number [facility] [place] [place] [address] * HEPATITIS C RNA QUANTITATIVE (09/25/2019 9:43 AM QUOTATION CHECKER) Hepatitis C Virus Quantitation HCV Not Detected IU/mL [facility] INSURANCE BILL Hepatitis C Virus Log 10 NOT NEEDED [facility] INSURANCE BILL Comment:Ancillary determined the test is not needed. Test Information [facility] INSURANCE BILL Comment:The quantitative ran ge of this assay is 15 IU/mL to 100 million IU/mL. Blood BLOOD SPECIMEN / Unknown 09/25/2019 9:43 AM QUOTATION CHECKER 09/25/2019 Narrative Resulting Agency Comment Lab Testing performed at: [email or web address] [id number] Otto Colon MD LAB - CHEMISTRY ORDERABLES Final Result [facility] [address] [place] [address] from Last 3 Months or Most Recently Relevant to Health Maintenance [facility] Advance Directives Documents on File Type Date Recorded Patient Equipment Service Lead Expl anation Adv Directive/Living Will/POA 07/01/2021 3:19 PM Care Teams Produce Buyer Relationship Specialty Start Date End Date Addy Molina MD [address] [facility] [address] [place] [address] PCP - General 01/03/18
--- OUTSIDE RECORDS SUMMARY | 2025-06-14 12:57 | XMS_ITS | Clinical Summary ---
Author Organization [facility] Address [address] [place] [id number] Care Team Providers Care Customer Sales Representative Name Role Phone Unavailable Primary Care Provider [...] 2:14 PM CDT Height 175.3 cm (5' 9) 03/13/2015 2:14 PM CDT Body Mass Index [...] COVID-19 Vaccine ( - 2023-2 5 season) 2025 RSV Immunization or 60+ Years (1 - [...]
--- OUTSIDE RECORDS SUMMARY | 2025-06-14 12:57 | XMS_ITS | Clinical Summary ---
Author Organization [facility] Address [address] [place] [address] Phone Care Team Providers Care Business Consultant Name Role Phone Addy Molina MD Primary Care Provider [phone] Allergies No known active allergies Medications amLODIPine (NORVASC) 10 mg tablet 08/03/2018 Active finasteride (PROSCAR) 5 mg tablet 08/11/2018 Active FLUoxetine (PROzac) 20 mg capsule 07/10/2018 Active BREO ELLIPTA 100-25 mcg/dose Disk with Device 07/27/2018 Ac tive diazePAM (VALIUM) 5 mg tablet 07/28/2018 Active tamsulosin (FLOMAX) 0.4 mg capsule 08/11/2018 Active VENTOLIN HFA 90 mcg/actuation inhaler 08/03/2018 Active FLUZONE QUAD [id number], PF, 60 mcg (15 mcg x 4)/0.5 [...] on file Legal Sex Male 12:57 PM SALES CONSULTANT RESIDENTIAL MANAGER Gender Identity Not on file Sexual Orientation Not on file Last Filed Vital Signs Vital Sign Reading Time Taken Comments Blood Pressure 108/67 08/31/2018 11:09 AM SALES CONSULTANT RESIDENTIAL MANAGER Pulse 78 08/31/2018 11:09 AM SALES CONSULTANT RESIDENTIAL MANAGER Temperature 36.7 C (98 F) 08/31/2018 11:09 AM SALES CONSULTANT RESIDENTIAL MANAGER Respiratory Rate - - Oxygen Saturation 94% 08/31/2018 11: 09 AM SALES CONSULTANT RESIDENTIAL MANAGER Inhaled Oxygen Concentration - - Weight 115.5 kg (254 lb 9.6 oz) 018 11:09 AM SALES CONSULTANT RESIDENTIAL MANAGER Height 175.3 cm (5' 9) 08/31/2018 11:0 9 AM SALES CONSULTANT RESIDENTIAL MANAGER Body Mass Index 37.6 08/31/2018 11:09 AM SALES CONSULTANT RESIDENTIAL MANAGER Plan of Treatment Health Maintenance Due Date [...] years 1-dose series) 2017 INFLUENZA VACCINE (#1) 2025 4, 07/21/2012, 08/02/2011 Insurance [employer] Care Teams Business Consultant Relationship Specialty Start Date End Date Addy Molina MD [address] [place] [phone] PCP - General Family Practice 08/31/18
[2025-06-14 13:01] VITALS: BP 138/77; PULSE 94; RESP 16; TEMP 36.8; O2SAT 99
--- NOTE | 2025-06-14 14:54 | ED.HA ---
HPI - Headache General Chief Complaint: Headache Stated Complaint: headache, left arm numbness x couple days, dizzy Time Seen by Provider: 06/14/25 14:56 Focused HPI: This is a 70-year-old male that presents to the emergency department for a headache. Ongoing over the last couple of days. Reports associated tingling in the bilateral hands. Additionally endorses abdominal pain, flank pain, dysuria. Denies fevers. GENERAL: Well-appearing, well-nourished, and in no acute distress. HEAD: Normocephalic, atraumatic. CHEST: Clear to auscultation. ?No respiratory distress. HEART: Regular rate and rhythm.? NEURO: ?Alert and oriented x3. Normal gait EXTREMITIES: Strength equal in bilateral upper and lower extremities. Patient screened in triage and initial orders placed.? ?Additional care and disposition to be based upon?diagnostic testing and treatment. Source: patient Mode of arrival: ambulatory Limitations: no limitations Related Data Home Medications ?Medication ?Instructions ?Recorded ?Confirmed ?Last Taken ?Type fluoxetine 20 mg capsule (Prozac) 20 mg PO DAILY 07/27/21 03/08/25 07/26/21 History hydrocodone 10 mg-acetaminophen 10 - 325 tablet PO Q6-8H PRN Pain 07/27/21 03/08/25 07/26/21 History 325 mg tablet tamsulosin 0.4 mg capsule 0.4 mg PO DAILY 07/27/21 03/08/25 07/26/21 History umeclidinium 62.5 mcg/actuation 1 inh inhalation DIRECTED 07/28/21 03/08/25 Unknown History blister powder for inhalation (Incruse Ellipta) finasteride 5 mg tablet 5 mg PO DAILY 03/18/22 03/08/25 Unknown History fluticasone 500 mcg-salmeterol 50 1 inh inhalation DIRECTED 07/28/23 03/08/25 Unknown History mcg/dose blistr powdr for inhalation (Advair Diskus) diazepam 10 mg tablet 10 mg PO DAILY 03/08/25 03/08/25 Unknown History Allergies Allergy/AdvReac Type Severity Reaction Status Date / Time No Known Allergies Allergy Verified 01/09/25 08:30 Review of Systems Review of Systems: All systems reviewed & are unremarkable except as noted in HPI and below PMFSH Past Medical History Medical History Prostate cancer Smoker Obesity CAD (coronary artery disease) COPD (chronic obstructive pulmonary disease) Hyperlipidemia Left sided numbness Social History Social History Smoking packs per day: 1.5 Smoking cigarettes per day: 30.0 Years smoked: 30 Smoking pack-years: 45.00 Smoking status: Former smoker Tobacco type: cigarettes Smoking end date: 07/24/21 Alcohol intake: current Substance use: current Substance use type: marijuana Other substance usage details: every day marijuana use Spiritual care concerns: No Exam Narrative: GENERAL: Well-appearing, well-nourished, and in no acute distress. HEAD: Normocephalic, atraumatic. EYES: PERRLA and EOMI. ENT: Nares clear, no rhinorrhea or epistaxis. Mucous membranes moist. Oropharynx without tonsillar hypertrophy exudate or other lesions. Bilateral TMs [place] non-bulging NECK: Supple. No adenopathy or masses CHEST: Clear to auscultation. No respiratory distress. No wheezes rales or rhonchi HEART: Regular rate and rhythm. No murmur heard. Normal peripheral pulses. ABDOMEN: Soft, nontender, nondistended, normal active bowel sounds. EXTREMITIES: Normal range of motion. No edema. Strength equal in bilateral upper and lower extremities (5/5) SKIN: Warm, dry, no rash. NEURO: No focal deficits. Alert and oriented x3. CN II-XII grossly intact. Normal gait PSYCH: Normal mood and affect Course Course Emergency Course: Patient was recommended for admission for further evaluation. He declines to be admitted at this time, reports he will have close follow-up with his PCP Vital Signs Vital signs: Vital Signs Temperature 98.2 F 06/14/25 13:01 Pulse Rate 94 06/14/25 13:01 Respiratory Rate 16 06/14/25 13:01 Blood Pressure 138/77 06/14/25 13:01 Pulse Oximetry 99 06/14/25 13:01 Temperature 98.2 F 06/14/25 13:01 Pulse Rate 71 06/14/25 17:56 Respiratory Rate 19 06/14/25 17:56 Blood Pressure 141/71 H 06/14/25 17:56 Pulse Oximetry 97 06/14/25 17:56 MDM - Headache MDM Narrative Medical decision making narrative: Patient presents to the emergency department for a headache ongoing over the last couple of days. Also reporting paresthesias of the extremities. Additionally reporting abdominal pain, flank pain. He is afebrile and nontoxic appearing. His vitals are stable. Cbc without leukocytosis. Metabolic panel without concerning findings. Urine without evidence of infection. CT brain without acute findings. CT abdomen pelvis showing a stable cystic lesion in the pancreas. Likely incomplete bladder wall distension as his urine does not appear infected. Patient was updated on his workup and recommendation for admission for further evaluation with MRI of the brain. He does not want to be admitted at this time. Reports he will have close follow-up with his PCP. He was instructed to return any time for further evaluation and management Differential Diagnosis Differential diagnosis: Likely migraine, tension headache, subarachnoid hemorrhage, headache, meningitis and other (CVA, UTI, kidney stone, diverticulitis) Lab Data Attestation: I reviewed the patient's lab results. 06/14/25 15:33 06/14/25 15:33 Labs: Lab Results 06/14/25 06/14/25 Range/Units 15:33 15:50 WBC 9.6 (4.5-10.0) K/mm3 RBC 4.41 L (4.6-6.20) M/mm3 Hgb 12.6 L (14.0-18.0) g/dL Hct 37.8 L (42.0-52.0) % MCV 85.7 (80-100) fl MCH 28.6 (26-34) pg MCHC 33.3 (32-36) g/dl RDW 12.6 (11.5-14.5) % Plt Count 334 (150-375) k/mm3 MPV 8.5 (7.4-10.4) fl Immature Gran % (Auto) 0.4 (0-0.5) % Neut % (Auto) 75.0 H (45.5-73.1) % Lymph % (Auto) 14.2 L (18.3-44.2) % [place] % (Auto) 8.2 (2.6-8.5) % Eos % (Auto) 1.6 (0-4.4) % Baso % (Auto) 0.6 (0.2-1.2) % Lymph # (Auto) 1.36 (0.9-3.2) K/mm3 [place] # (Auto) 0.8 H (0.1-0.6) K/mm3 Eos # (Auto) 0.2 (0-0.3) K/mm3 Baso # (Auto) 0.1 (0.0-0.1) K/mm3 Abs Immat Gran (auto) 0.04 H (0.00-0.031) K/mm3 Absolute Neuts (auto) 7.2 H (1.3-6.7) K/mm3 Absolute Nucleated RBC 0.000 (0.0-0.012) K/mm3 Nucleated RBC % 0.0 (0.0-0.2) % Sodium 133 L (137-145) mmol/L Potassium 4.5 (3.4-5.0) mmol/L Chloride 98 (98-107) mmol/L Carbon Dioxide 28 (22-30) mmol/L Anion Gap 7 (4-12) mmol/L BUN 16 (9-20) mg/dL Creatinine 1.10 (0.7-1.3) mg/dL Estim Creat Clear Calc 68 ml/min Estimated GFR > 60 (59 - ) Glucose 99 (65-110) mg/dL Calcium 8.9 (8.4-10.2) mg/dL Total Bilirubin 0.5 (0.2-1.3) mg/dL AST 21 (17-59) U/L ALT 16 (6-50) U/L Alkaline Phosphatase 108 (38-126) U/L Total Protein 7.3 (6.3-8.2) g/dL Albumin 4.2 (3.5-5.1) g/dL Lipase 40 (23-300) U/L Urine Color Yellow (Yellow) Urine Appearance Clear (Clear) Urine pH 5.5 (5.0-9.0) Ur Specific [place] 1.015 (1.001-1.035) Urine Protein Trace (Negative) mg/dL Urine Glucose (UA) Negative (Negative) mg/dL Urine Ketones Trace H (Negative) mg/dL Ur Blood (Man) Negative (Negative) Urine Nitrate Negative (Negative) Urine Bilirubin Negative (Negative) Urine Urobilinogen 1.0 (<2.0) mg/dL Leukocyte Esterase Rfl Negative (Negative) VANESSA/UL Urine RBC 0-2 (0-2) /hpf Urine WBC 0-5 (0-3) /hpf Ur Squamous Epith Cells None seen (Few) /hpf Urine Bacteria None seen /hpf Urine Casts 0-2 Imaging Data Radiologist's impression: ITS Impressions Head CT 06/14/25 15:11 IMPRESSION: 1. No acute intracranial abnormality. 2: Chronic right thalamic infarct. Abdomen/Pelvis CT 06/14/25 16:46 IMPRESSION: 1. Grossly stable 4.3 cm complex cystic lesion in the uncinate process of the pancreas. Correlate clinically. 2. Differential includes incomplete bladder wall distention versus cystitis. Critical Care Time Critical Care Time Critical Care Time: No Discharge Plan Discharge Clinical Impression: Arm paresthesia, left, Left sided abdominal pain Headache Qualifiers: Headache type: unspecified Headache chronicity pattern: acute headache Intractability: not intractable Qualified Code(s): R51.9 - Headache, unspecified Patient Disposition: Home Condition: Stable Instructions: Acute Headache (ED), Paresthesia (ED), Abdominal Pain (ED) Additional Instructions: Return to the ER at any time for further evaluation/management Have close follow up with your primary doctor Patient Language: Uruguayan Prescriptions: No Action fluticasone propion-salmeterol [Advair Diskus] 500-50 mcg/dose blister with device 1 inh INHALATION DIRECTED finasteride 5 mg tablet 5 mg PO DAILY diazepam 10 mg tablet 10 mg PO DAILY prednisone 20 mg tablet 40 mg PO DAILY 5 Days Qty: 10 0RF hydrocodone-acetaminophen 10-325 mg tablet 10 - 325 tablet PO Q6-8H PRN (Reason: Pain) tamsulosin 0.4 mg capsule 0.4 mg PO DAILY fluoxetine [Prozac] 20 mg capsule 20 mg PO DAILY Incruse Ellipta 62.5 mcg/actuation blister with device 1 inh INHALATION DIRECTED Rx Instructions: takes at noon aspirin 81 mg Tablet,Delayed Release (Dr/Ec) 81 mg PO QAM Qty: 30 0RF amlodipine 5 mg tablet See Rx Instructions .ROUTE .COMPLEX Qty: 90 2RF Dose Instruction: Take 1 tablet by mouth once daily Rx Instructions: Take 1 tablet by mouth once daily irbesartan 300 mg tablet See Rx Instructions .ROUTE .COMPLEX Qty: 30 5RF Dose Instruction: Take 1 tablet by mouth once daily Rx Instructions: Take 1 tablet by mouth once daily atorvastatin 40 mg tablet See Rx Instructions .ROUTE .COMPLEX Qty: 30 5RF Dose Instruction: Take 1 tablet by mouth once daily Rx Instructions: Take 1 tablet by mouth once daily Follow-up/Referrals: Addy Molina MD [Primary Care Provider, Family Practice]
--- OUTSIDE RECORDS SUMMARY | 2025-06-14 14:56 | XMS_ITS | Data Portability ---
Author Organization [place] [facility] [employer], Main Office Address [address] [place] [address] Assessment No assessment recorded. Plan of Treatment [...] plasma 2022 023 [email or web address] 25 Not available 3 09:50:15 Referral None recorded. Procedures None recorded. Surgeries None recorded. Imaging LDCT, chest, for lung cancer screening - DUE 08/20/232022 023 [email or web address] 25 [facility] (Radiology), [address] [place], [address], 3 09:50:07 Medication Orders Ventolin HFA 90 mcg/actuati on aerosol inhaler 2022 023 [email or web address] 7 [facility], [address] [facility], [place], [address], 3 10:42:27 Patient TargetsNo targets recorded. Patient InstructionsNo instructions recorded. Reason for Referral None Reported. Results Created Date Observation Date Name Description Value Unit Range Abnormal Flag Note LastModifiedBy Organization Detail LastModifiedTime 08/04/20 21 08/04/2021 LDCT, chest , for lung cance r scree antonio No observ ation record ed. [id number] [facility] [address] [place], [address], 11/17/2022 02:46:58 08/21/20 22 08/20/2022 LDCT, chest , for lung cance r scree antonio No observ ation record ed. [id number] [facility] On Lab Orders [address] [place], [address], 11/17/2022 02:46:58 Result Notes None recorded. Problems Name Problem SNOMED Code Status Onset Date Resolution Date Notes Provider Name and Address Organization Details Recorded Time Benign prostatic hyperplasi a without outflow obstructio n 487004808 Active Not Available [employer] 3 02:39:25 Viral hepatitis 6901229 Active Not Available [facility] 3 02:39:25 Chronic obstructiv e pulmonary disease 81441408 Active 2018 Not Available [facility] 3 02:39:25 Asthma 863984739 Active 2018 Not Available [facility] 3 02:39:25 Cerebrovas cular accident 096307680 Active 2021 Not Available [facility] 3 02:39:25 Nicotine dependence 49465125 Active 2021 Not Available [facility] 3 02:39:25 Obstructiv e sleep apnea syndrome 77730769 Active 2021 Not Available [facility] 3 02:39:25 Acute sinusitis 54825747 Active 2021 Not Available [facility] 3 02:39:25 Malignant neoplasm of prostate 784976615 Active 2021 Not Available [facility] 3 02:39:25 Nasal congestion 98691285 Active 2021 Not Available [facility] 3 02:39:25 Asthma-chr 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, [place] [address], [place], [address] , [employer] 3 10:39:11 Dyspnea on exertion 93106464 Active 2022 MURALI Mchugh[facility]- [address] [facility], [address], [place], [address] , [employer] 3 10:40:10 Problem Notes None recorded. Medical Equipment None Reported. [...] BEDTIME NEEDED FOR INSOMNIA AVOID DRIVING OR OPERATIN G MACHINES active [...] Available Not Available Not Available Fluzone Quad 2017-(P F) 60 mcg(15 mcgx4)/0. 5 mL intramusc [...] Heart rate Body temperature Body weight Systolic And Diastolic Provider Name and Address Organization Details Last Updated DateTime 2 40.8 kg/m2 175.26 cm 95 % 95 % 90 /min 98.2 [degF] 460695. 49 g 138/68 mm[Hg] Not Available [facility] 3 02:36:12 Date Recorded Body mass index (BMI) Body height Oxygen saturation Oxygen saturation in Arterial blood by Pulse oximetry Heart rate Body temperature Body weight Systolic And Diastolic Provider Name and Address Organization Details Last Updated DateTime 2 40.8 kg/m2 175.26 cm 96 % 96 % 81 /min 97.9 [degF] 380750. 49 g 128/58 mm[Hg] Not Available [facility] 3 02:36:12 Date Recorded Body height Body mass index (BMI) Body weight Body temperature Heart rate Oxygen saturation Oxygen saturation in Arterial blood by Pulse oximetry Systolic And Diastolic Provider Name and Address Organization Details Last Updated DateTime 3 175.26 cm 38.4 kg/m2 933176. 02 g 97.2 [degF] 85 /min 95 % 95 % 108/62 mm[Hg] Elizabeth Gross MA [place] [facility] 3 10:16:16 Date Recorded Body mass index (BMI) Body height Oxygen saturation Oxygen saturation in Arterial blood by Pulse oximetry Heart rate Body temperature Body weight Systolic And Diastolic Provider Name and Address Organization Details Last Updated DateTime 1 39.3 kg/m2 175.26 cm 94 % 94 % 85 /min 97.7 [degF] 507318. 57 g 142/86 mm[Hg] Not Available [facility] 3 02:36:12 Date Recorded Body mass index (BMI) Body height Oxygen saturation Oxygen saturation in Arterial blood by Pulse oximetry Heart rate Body temperature Body weight Systolic And Diastolic Provider Name and Address Organization Details Last Updated DateTime 2 39 kg/m2 175.26 cm 97 % 97 % 84 /min 96.6 [degF] 318588. 39 g 136/74 mm[Hg] Not Available [facility] 3 02:36:12 Social History Question Answer Notes LastModified by [employer] Details LastModified Time Tobacco Smoking Status Current Every Day Smoker Not Available [facility] 11/17/2022 02:28:05 How Much Tobacco Do You Chew? None [id number] Information not available 11/17/2022 In The 14 Days Before Symptom Onset, Have You Had Close Contact With A Laboratory-confirm ed COVID-19 While That Case Was Ill? No [id number] Information not available 11/17/2022 In The 14 Days Before Symptom Onset, Have You Had Close Contact With A Person Who Is Under Investigation For COVID-19 While That Person Was Ill? No [id number] Information not available 11/17/2022 Which Illicit Or Recreational Drugs Have You Used? Marijuana [id number] Information not available 11/17/2022 What Was The Date Of Your Most Recent Tobacco Screening? 02/25/2023 [email or web address] Information not available 02/25/2023 At What Age Did You Start Smoking Tobacco? 18 [id number] Information not available 11/17/2022 Are You Passively Exposed To Smoke? Yes [id number] Information not available 11/17/2022 How Many Years Have You Smoked Tobacco? 40 [id number] Information not available 11/17/2022 Have You Recently Traveled Abroad? No [id number] Information not available 11/17/2022 Sex: Unknown Functional Status Question Answer Note LastModified by [employer] Details LastModified Time What is your level of alcohol consumption? Occasional [id number] Information not available 11/17/2022 Do you or have you ever used smokeless tobacco? Never used smokeless tobacco [id number] Information not available 11/17/2022 Do you or have you ever used e-cigarettes or vape? Never used electronic cigarettes [id number] Information not available 11/17/2022 What is your exercise level? Moderate [id number] Information not available 11/17/2022 Mental Status None recorded. Family History Nothing Reported Notes:mother and father dece ased Medical History Condition Response STROKE/TIA Y Immunizations Vaccine Type Date Status Note Provider Nam e and Address Organization Details Recorded Time Influenza, split virus, quadrivalent, preservative 9 completed Not Available [facility] 11/17/2022 02:46:17 Past Encounters Encounter ID Performer Location Encounter Start Date Encounter Closed Date Diagnosis/Indication Diagnosis SNOMED-CT Code Diagnosis ICD10 Code Diagnosis IMO Codes Diagnosis Note [id number] [facility] [address] [address] 12/19/2020 00:00:00 12/19/2020 17:01:30 [id number] [facility] [place] [address] [place] [address] 02/17/2021 00:00:00 02/17/2021 16:35:22 [id number] [facility] [place] [address] [place] [address] 04/02/2021 00:00:00 04/02/2021 23:12:34 [id number] [facility] [place] [address] [place] [address] 07/21/2021 00:00:00 07/22/2021 09:27:32 [id number] [facility] [place] [address] [place] [address] 11/17/2021 00:00:00 11/17/2021 16:17:07 [id number] [facility] [place] [address] [place] [address] 02/17/2022 00:00:00 02/17/2022 15:11:08 [id number] Rita Sanchez, [facility] [place] [address] [place] [address] 08/27/2022 00:00:00 08/27/2022 12:21:49 [id number] Rita Sanchez, [facility] [place] [facility] [place] [address] [place] [address] 02/25/2023 09:59:52 02/25/2023 10:48:55 Nicotine dependence 15833331 Z87.891 Smoking cessation counseling and techniques reviewed at length. L iterature reviewed.A void triggers, support groups.Dis traction techniques Greater than 3 but less than 10 minutes spent discussing cessation. Declines NRT.Discus sed Rx options if needed in the future.LDC T 08/2022 with no nodule or massRepeat due 08/2023, ordered today Asthma-chr onic obstructive pulmonary disease overlap syndrome [id number] 0576152 J44.9 CAT 22ACT 22Continue Advair Diskus and [...] for concerns. Obstructiv e sleep apnea syndrome 84019921 G47.33 In lab study 10/2020 with AHI 5.3PLMs 0 per hourHe is not using his machine, discussed the risks of uncorrecte d LINDA including CVA, [place], Nasal congestion 9589842 0 R09.81 Saline nasal rinsesCont inue FLonase Malignant neoplasm of prostate 132519297 C61 Continue to follow with oncologyCo ntributor to nocturia Dyspnea on exertion 6084 5006 R06.09 Vitoracto Dorina mastersSmannamaria g cessation Health Concerns Section Related Observation LastModified by Organization [employer] [facility] LastModified Time None Recorded Concern Status LastModified by Organization Details LastModified Time None Recorded Advance Directives Directive None Recorded Payers Insurance Date Sequence Insurance Name Policy Number Policy Herrera Covered Member ID Herrera Member ID Guarantor Name 02/28/2023 1 [facility] (MEDICAID HMO) [id number] Tc Brown [id number] Tc Brown Notes Date Note Type Note Provider Name and Address Organization Details Recorded Time 02/25/2023 text/html Addy presents today to follow up on LINDA, dyspnea, cough, [...] bathe without shortness of breath Rita Sanchez, [facility] [address] [facility], [facility] [address], [place], [address], [place] [facility] 02/25/2023 12:33:41
--- OUTSIDE RECORDS SUMMARY | 2025-06-14 14:56 | XMS_ITS | Clinical Summary ---
Author Organization [facility] Address [address] [place] [id number] Care Team Providers Care Door Trimmer Name Role Phone Addy Molina MD Primary Care Provider [phone] Allergies No known active allergies Medications HYDROcodone-ac [...] groups - He is aware of the [place] Tobacco Quit line: 3-401-MOTG-YES for free services - 4 minutes spent discussing cessation He has tried many methods of NRT in the past He is uninterested today He is due for annual lung cancer screening in June of 2025. 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): - Smoking cessation counseling and techniques reviewed at length - Avoid triggers and use distraction techniques - Participate in support groups - He is aware of the [place] Tobacco Quit line: 1-620-EZAC-YES for free services - 5 minutes spent discussing cessation Assessment & Plan (04/04/2024 2:21 PM CDT): - Smoking cessation counseling and techniques reviewed at length - Avoid triggers and use distraction techniques - Participate in support groups - Information given regarding [place] Tobacco Quit line: 8-223-HKLM-YES for free services - 4 minutes spent [...] care 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 [email or web address]:akua 01:22 PM 01:22 PM [facility] [EOD] Narrative 07/23/2016 1:26 PM CDT EXAMINATION: [...] Higgins M.D. CN:akua 01:22 PM 01:22 PM [facility] [EOD] Aquilino Pretty MD IMG CT PROCEDURES Final Result from Last 3 Months or Most Recently Relevant to Health Maintenance Insurance [facility] Care Teams Door Trimmer Relationship Specialty Start Date End Date Addy Molina MD PCP - General 10/02/15
--- OUTSIDE RECORDS SUMMARY | 2025-06-14 14:56 | XMS_ITS | Clinical Summary ---
Author Organization [facility] Address [address] [place] [address] Care Team Providers Care Tube Sorter Name Role Phone Unavailable Primary Care Provider [...]
--- OUTSIDE RECORDS SUMMARY | 2025-06-14 14:56 | XMS_ITS | Clinical Summary ---
Author Organization [facility] Address [address] [place] [address] Care Team Providers Care Trim Technician Name Role Phone Addy Molina MD Primary Care Provider [phone] Source Comments [facility],non-owned Affiliates and Associated Physician Practices is amultiple site organization consisting of ambulatory clinics and hospital sitesin [place], [place], [place] and [place]. This disclosure is being madepursuant to the Care Everywhere program and may not contain all information available regarding this patient. Last updated 18.[facility] Allergies Active Allergy Reactions Criticality Noted Date [...] Description 04/12/2025 8:15 AM CDT Office Visit [facility] - Urology [address] [place] [address] Blake Flores MD Prostate cancer (HCC) (Primary Dx); Lower urinary tract symptoms (LUTS) 04/12/2025 Travel 04/11/2025 9:00 AM CDT - 04/11/2025 11:59 PM CDT Hospital Encounter [facility] [address] [place] [address] Mercedes Finnegan MD Discharge Disposition: Home or Self Care 04/08/2025 Orders Only [facility] [address] [place] [address] Mercedes Finnegan MD 03/19/2025 Orders Only [facility] [address] [place] [address] Nancy Stanley RN Prostate cancer (HCC) from [...] Description 07/11/2025 11:40 AM CDT Office Visit [facility] [place] [address] [address], [address] [place] [address] [place] [address] [address] [place] [address] 07/12/2025 9:00 AM CDT Office Visit [facility] - Urology [address] [place] [id number] Blake Flores MD [address] [place] [phone] 10/15/2025 9:00 AM FARM LOAN REPRESENTATIVE Appointment [facility] [address] [place] [address] Mercedes Finnegan MD [address] [place], [place] [id number] Health Maintenance Due Date Last Done Comments [...] C RNA QUANTITATIVE Routine 09/25/2019 9:43 AM FARM LOAN REPRESENTATIVE Chronic hepatitis C without hepatic coma from [...] compared to the equimolar-standardized total PSA ([place]). Comparison of serial PSA results should be interpreted with this fact in mind. This test was performed using the Siemens chemiluminescent method. Values obtained from different assay methods cannot be used interchangeably. PSA levels, regardless of value, should not be interpreted as absolute evidence of the presence or absence of disease. Test Performed at: [facility] [address] [facility] [place] [address] KALINA ROSSI MD 04/08/2025 9:34 AM CDT 04/08/2025 9:35 AM CDT us Mercedes Finnegan MD LAB - CHEMISTRY ORDERABLES Final Result [facility] [address] [place] [address] * (ABNORMAL) COMPREHENSIVE METABOLIC PANEL (02/07/2025 12:01 [...] 02/08/2025 6:09 AM CDT Performed at: - [facility] [id number] [employer] Press[employer]: Shayne Mendez PhD, Phone: [phone] us Mary Alejandro MD LAB - CHEMISTRY ORDERABLES Fin al Result [facility] ACCOUNT BILL [address] [place] [address] * ENDOSCOPY, COLON, SCREENING (05/20/2023 9:08 AM CDT) Report Endoscopy POC _ Patient Name: Tiki Luzucom Procedure Date: 05/20/2023 9:08 AM Date of : 1955 Admit Type: Outpatient Age: 68 Gender: Male Attending MD: Otto Colon MD, [id number] _ Procedure: Colonoscopy Indications: High risk colon [...] by the physician, the nurse and the completions engineer in the procedure room. Mental Status Examination: [...] the patient. Procedure Code(s): --- Professional --- 59281, Colonoscopy, flexible; with removal of tumor(s), polyp(s), or other lesion(s) by snare technique 83352, 59, Colonoscopy, flexible; with biopsy, single or multiple --- Technical --- 53604, Colonoscopy, flexible; with removal of tumor(s), polyp(s), or other lesion(s) by snare technique 90084, 59, Colonoscopy, flexible; with biopsy, single or [...] flexure or splenic flexure) CPT copyright 2020 [employer]. All rights reserved. The codes documented in this report are preliminary and upon chairman president and chief executive officer review may be revised to meet current compliance requirements. Dr. Otto Colon MD Otto Colon MD 05/20/2023 10:22:12 AM This report has been signed electronically. Number of Addenda: 0 Note Initiated On: 05/20/2023 9:08 AM [facility] 05/20/2023 9:08 AM CDT Otto Colon MD GI PROCEDURE ORDERABLES Germán ronald Result - Final Performing Organization Address City/[facility]/ZIP Co de Phone Number [facility] [place] [address] * HEPATITIS C RNA QUANTITATIVE (09/25/2019 9:43 AM FARM LOAN REPRESENTATIVE) Hepatitis C Virus Quantitation HCV Not Detected IU/mL [facility] INSURANCE BILL Hepatitis C Virus Log 10 NOT NEEDED [facility] INSURANCE BILL Comment:Ancillary determined the test is not needed. Test Information [facility] INSURANCE BILL Comment:The quantitative ran ge of this assay is 15 IU/mL to 100 million IU/mL. Blood BLOOD SPECIMEN / Unknown 09/25/2019 9:43 AM FARM LOAN REPRESENTATIVE 09/25/2019 Narrative Resulting Agency Comment Lab Testing performed at: [facility] [id number] Otto Colon MD LAB - CHEMISTRY ORDERABLES Final Result [facility] INSURANCE BILL [address] [place] [address] from Last 3 Months or Most Recently Relevant to Health Maintenance Insurance [facility] Advance Directives Documents on File Type Date Recorded Patient Social Staff Worker Expl anation Adv Directive/Living Will/POA 07/01/2021 3:19 PM Care Teams Trim Technician Relationship Specialty Start Date End Date Addy Molina MD [address] [facility] [address] [place] [address] PCP - General 01/03/18
--- OUTSIDE RECORDS SUMMARY | 2025-06-14 14:56 | XMS_ITS | Clinical Summary ---
Author Organization [facility] Address [address] [place] [address] Phone Care Team Providers Care Ob Gyn Name Role Phone Addy Molina MD Primary Care Provider [phone] Allergies No known active allergies Medications amLODIPine (NORVASC) 10 mg tablet 08/03/2018 Active finasteride (PROSCAR) 5 mg tablet 08/11/2018 Active FLUoxetine (PROzac) 20 mg capsule 07/10/2018 Active BREO ELLIPTA 100-25 mcg/dose Disk with Device 07/27/2018 Ac tive diazePAM (VALIUM) 5 mg tablet 07/28/2018 Active tamsulosin (FLOMAX) 0.4 mg capsule 08/11/2018 Active VENTOLIN HFA 90 mcg/actuation inhaler 08/03/2018 Active FLUZONE QUAD 2139-2011, PF, 60 mcg (15 mcg x 4)/0.5 [...] on file Legal Sex Male 12:57 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 Gender Identity Not on file Sexual Orientation Not on file Last Filed Vital Signs Vital Sign Reading Time Taken Comments Blood Pressure 108/67 08/31/2018 11:09 AM 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 Pulse 78 08/31/2018 11:09 AM 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 Temperature 36.7 C (98 F) 08/31/2018 11:09 AM 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 Respiratory Rate - - Oxygen Saturation 94% 08/31/2018 11: 09 AM 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 Inhaled Oxygen Concentration - - Weight 115.5 kg (254 lb 9.6 oz) 018 11:09 AM 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 Height 175.3 cm (5' 9) 08/31/2018 11:0 9 AM 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 Body Mass Index 37.6 08/31/2018 11:09 AM 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 Plan of Treatment Health Maintenance Due Date [...] 08/02/2011 Insurance [employer] [place] Care Teams Ob Gyn Relationship Specialty Start Date End Date Addy Molina MD [address] [place] [phone] PCP - General Family Practice 08/31/18
--- OUTSIDE RECORDS SUMMARY | 2025-06-14 14:56 | XMS_ITS | Encounter Summary ---
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
[2025-06-14 15:26] VITALS: BP 129/77; PULSE 74; RESP 18; O2SAT 98
[2025-06-14 15:39] LABS: Hematocrit 37.8 % (42.0-52.0); Hemoglobin 12.6 g/dL (14.0-18.0); Immature Granulocyte Percent A 0.4 % (0-0.5); Lymphocytes Absolute Auto 1.36 K/mm3 (0.9-3.2); Mean Corpuscular HGB Conc 33.3 g/dl (32-36); Mean Corpuscular Hemoglobin 28.6 pg (26-34); Mean Corpuscular Volume 85.7 fl (80-100); Nucleated Red Blood Cells Absolute Auto 0.000 K/mm3 (0.0-0.012); Nucleated Red Blood Cells Perc 0.0 % (0.0-0.2); Platelet Count Result 334 k/mm3 (150-375); Red Blood Count 4.41 M/mm3 (4.6-6.20); White Blood Count 9.6 K/mm3 (4.5-10.0)
[2025-06-14 16:00] LABS: Add Urine Microscopic? YES; Appearance Urine Clear (Clear); Glucose Urine UA Negative (Negative); Leukocyte Esterase Ur Negative LEU/UL (Negative); Nitrate Urine Negative (Negative); Non Pathogenic Casts 0-2; Specific Grav Ur 1.015 (1.001-1.035)
[2025-06-14 16:01] LABS: Alanine Aminotransferase 16 U/L (6-50); Albumin Level 4.2 g/dL (3.5-5.1); Alkaline Phosphatase 108 U/L (38-126); Anion Gap 7 mmol/L (4-12); Aspartate Amino Transferase 21 U/L (17-59); Bilirubin,Total 0.5 mg/dL (0.2-1.3); Blood Urea Nitrogen 16 mg/dL (9-20); Calcium 8.9 mg/dL (8.4-10.2); Carbon Dioxide 28 mmol/L (22-30); Chloride 98 mmol/L (98-107); Estimated CRCL calculation 68 ml/min; Estimated Glomerular Filt Rate > 60; Glucose 99 mg/dL (65-110); Lipase 40 U/L (23-300); Potassium 4.5 mmol/L (3.4-5.0); Sodium 133 mmol/L (137-145); Total Protein 7.3 g/dL (6.3-8.2)
[2025-06-14] MEDS: METOCLOPRAMIDE HCL INJ 10 MG/2 ML VIAL IV PUSH (17:35)
[2025-06-14] MEDS: ACETAMINOPHEN 500 MG TABLET 1000 MG PO (17:36)
[2025-06-14 17:56] VITALS: BP 141/71; PULSE 71; RESP 19; O2SAT 97
== END 2025-06-14 18:45 | disposition home or self-care (01) ==
PROVIDERS: Emergency Provider Physician Assistant; PCP Emergency Medicine
DX: R51.9 Headache, unspecified (principal); R20.2 Paresthesia of skin; R10.9 Unspecified abdominal pain; I25.10 Atherosclerotic heart disease of native coronary artery without angina pectoris; J44.9 Chronic obstructive pulmonary disease, unspecified; E78.5 Hyperlipidemia, unspecified; E66.9 Obesity, unspecified; Z68.34 Body mass index [BMI] 34.0-34.9, adult; Z87.891 Personal history of nicotine dependence; Z85.46 Personal history of malignant neoplasm of prostate; Z79.82 Long term (current) use of aspirin; Z79.899 Other long term (current) drug therapy
CPT/HCPCS: 36415; 70450; 74177; 80053; 81001; 83690; 85025; 96374; 96375; 99284; A9270; J1200; J2765; Q9967